=== PATIENT | female | born 1965 | race American Indian/Alaskan Native ===

== ENCOUNTER 2020-04-29 11:22 | Outpatient (REF) | payer MEDICAID, SELFPAY ==
--- NOTE | 2020-04-29 11:26 | MM_ITS ---
EXAMINATION: MM SCREENING DIGITAL BREAST TOMOSYNTHESIS, BILATERAL CLINICAL INFORMATION: Screening. Asymptomatic. The lifetime risk of breast cancer based on the Tyrer-Cuzick Model is 6%. COMPARISON: Mammography: 04/24/2019, 03/29/2018, 02/16/2017 TECHNIQUE: Digital breast tomosynthesis is performed in both the craniocaudal and mediolateral oblique views along with computer-aided detection (CAD). Synthesized 2D images are generated from the tomosynthesis. FINDINGS: There are scattered areas of fibroglandular density (ACR BI-RADS breast composition Category b). There are no significant masses, abnormal calcifications, or other abnormalities. Parenchymal pattern is similar to prior studies. No developing density. No significant changes. MM/MM tomosynthesis screening BI IMPRESSION: No mammographic evidence of malignancy. ASSESSMENT: BI-RADS 1: Negative RECOMMENDATION: Routine annual mammography screening. This patient's information was entered into a reminder system with a target due date for their next mammogram.
== END 2020-04-29 11:23 | disposition home or self-care (01) ==
LOC: HO.MAMMO 11:22
PROVIDERS: PCP Nurse Practitioner Family; Visit Provider Nurse Practitioner Family
DX: Z12.31 Encounter for screening mammogram for malignant neoplasm of breast (principal)
CPT/HCPCS: 77063; 77067

== ENCOUNTER 2020-10-12 13:40 | Emergency (ER) | payer OTHER, SELFPAY ==
--- NOTE | ~2020-10-12 | XR_ITS ---
EXAMINATION: XR CHEST CLINICAL INFORMATION: Pain COMPARISON: Chest radiographs 01/03/2020, 12/19/2019 TECHNIQUE: Portable upright AP view of the chest was obtained. FINDINGS: The lungs are clear. There is no pneumothorax, airspace consolidation, pleural reaction, or effusion. The heart is normal in size. The costophrenic sulci are clear. The hilar and mediastinal contours and visualized bony structures are unremarkable. XR/XR chest 1V IMPRESSION: Unremarkable examination.
[2020-10-12 13:48] VITALS: BP 149/98; PULSE 99; RESP 18; TEMP 36.4; O2SAT 100; BMI 23.9
--- NOTE | 2020-10-12 14:19 | ED_ITS ---
HPI - General Adult General Chief complaint: General Medical Stated complaint: back pain Time Seen by Provider: 10/12/20 14:19 History of Present Illness HPI narrative: Patient complains of left upper back and trapezius pain as well as left upper arm pain for several days since getting the COVID vaccine, pain is worse with movement, denies any chest pain or shortness of breath, now neck pain no numbness weakness or tingling Related Data Previous Rx's Medication Instructions Recorded cyclobenzaprine 5 mg PO TID PRN #10 tab 10/12/20 oxycodone 5 mg PO Q6H PRN #14 cap 10/12/20 Allergies Allergy/AdvReac Type Severity Reaction Status Date / Time No Known Allergies Allergy Verified 10/12/20 13:51 [No Known Allergies*] Review of Systems Review of Systems: Positive for left upper back and left trapezius pain Negatives are no fever no chills no dizziness no weakness no fainting no headac he no confusion no numbness weakness or tingling no chest pain no palpitations no shortness of breath no abdominal pain no vomiting no rash Yes all other systems are reviewed and are negative [facility] Past Medical History Source: nursing notes reviewed Medical History (Updated 10/13/20 @ 00:01 by Chrissy Gomez) Anxiety Diabetes High blood pressure Hyperlipidemia Migraine Social History Social History Advance Directives: No Advance Directives Information Provided: Yes Physical Exam Vital Signs: Vital Signs: Last Vital Signs Temp 97.6 F 10/12/20 13:48 Pulse 99 10/12/20 13:48 Resp 18 10/12/20 13:48 BP 149/98 H 10/12/20 13:48 Pulse Ox 100 10/12/20 13:48 Body Mass Index 23.9 General appearance is no acute distress, comp comfortable and cooperative, in O x3 The head is normocephalic atraumatic The neck is supple and nontender with full range of motion There is tenderness over the left trapezius as well as tenderness between the scapula and the midline on the left side, skin is normal, pain is easily reproduced with movement The chest is clear to auscultation bilaterally with full symmetric equal breath sounds, there is no chest wall tenderness The heart rate and rhythm regular no murmur Abdomen soft nontender Extremities is full range of motion x4 Skin no rashes Neuro there is no focal motor or sensory deficit, 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 and symmetrical in both hands, gait and balance are normal, verbal interaction both understanding and communication are clear and normal Course Course Course Narrative: Chest x-ray was done and was normal no evidence of pneumothorax, no evidence of any bony injury Patient with reproducible musculoskeletal left side of her back pain and trapezius pain is discharged with analgesics Discharge Plan Discharge Clinical Impression: Upper back pain on left side Patient Disposition: Home, Self-Care Additional Instructions: Pain is most likely musculoskeletal pain, possibly related to her COVID vaccination Chest x-ray was normal We wrote a narcotic pain killer as well as a muscle relaxer Follow with primary doctor for physical therapy and further evaluation if needed Return to ER any time any worse condition or any concerns Prescriptions: New cyclobenzaprine 5 mg tablet 5 mg PO TID PRN (Reason: muscle spasm) Qty: 10 RF: 0 oxycodone 5 mg capsule 5 mg PO Q6H PRN (Reason: pain) Qty: 14 RF: 0 Interventions: ED Discharge Assessment Last Done: 10/12/20 15:54 Discharge Date/Time: 10/12/20 16:00
== END 2020-10-12 16:00 | disposition home or self-care (01) ==
PROVIDERS: Emergency Provider Emergency Medicine
DX: M54.6 Pain in thoracic spine (principal); E11.9 Type 2 diabetes mellitus without complications; I10 Essential (primary) hypertension; E78.5 Hyperlipidemia, unspecified
CPT/HCPCS: 71045; 99283

== ENCOUNTER 2020-11-05 08:53 | Outpatient (REF) | payer OTHER, SELFPAY ==
--- NOTE | ~2020-11-05 | XR_ITS ---
EXAMINATION: XR LUMBOSACRAL SPINE CLINICAL INFORMATION: Lower back pain. COMPARISON: Lumbar spine radiographs dated 02/10/2016. TECHNIQUE: 3 views of the lumbosacral spine. FINDINGS: Normal vertebral body alignment. The lumbar lordosis is maintained. No acute fracture or subluxation. No loss of vertebral body height. Mild loss of intervertebral disc height at L2-L3. Small anterior endplate osteophytes at L2-L5. Bilateral facet arthropathy at L4-L5 and L5-S1. Right upper quadrant surgical clips. XR/XR lumbar spine 2-3V IMPRESSION: Mild degenerative disc disease at L2-L5 as well as bilateral facet arthropathy at L4-L5 and L5-S1, slightly progressed when compared to the prior radiographs.
[2020-11-05 09:37] LABS: MANUAL DIFF FLAG NO
[2020-11-05 09:46] LABS: Basophils Percent Auto 0.5 % (0-2); Eosinophils Absolute Auto 0.1 X10*3/uL (0.0-0.4); Eosinophils Percent Auto 1.5 % (0-4); Glucose Urine UA NEG (NEG); Hematocrit 32.7 % (37-47); Hemoglobin 10.8 g/dl (12.0-16.0); Imm Gran Abs Auto 0.02 X10*3/uL (0.00-0.03); Imm Gran Pct Auto 0.3 % (0.0-0.4); Immature Retic Fraction 7.9 % (3.0-15.9); Leukocyte Esterase Urine 1+ (NEG); Lymphocytes Absolute Auto 2.4 X10*3/uL (1.2-4.9); Lymphocytes Percent Auto 39.8 % (20-40); Mean Corpuscular Hemoglobin 30.9 pg (27.0-33.0); Mean Corpuscular Volume 93.4 fL (80-98); Mean Platelet Volume 10.2 fL (9.4-12.3); Monocytes Absolute Auto 0.6 X10*3/uL (0.1-1.2); Monocytes Percent Auto 9.4 % (2-11); Neutrophils Absolute Auto 2.9 X10*3/uL (2.0-8.3); Neutrophils Percent Auto 48.5 % (45-73); Nitrite Urine NEG (NEG); PH 5.5 (5.0-8.0); Platelet Count 253 X10*3/uL (160-400); Red Cell Distribution Width 12.6 % (11.0-16.0); Retic HGB Equivalent 34.2 pg (30.0-35.0); Reticulocyte Percent 1.4 % (0.5-1.8); Reticulocytes Absolute 0.049 X10*6/uL (0.026-0.095); Specific Gravity - Urine 1.025 (1.005-1.025); Urine Blood NEG (NEG); Urine Ketones NEG (NEG); Urine Protein NEG (NEG-TRACE); White Blood Count 6.1 X10*3/uL (4.8-10.8)
[2020-11-05 09:50] LABS: Appearance Urine HAZY; Color Urine YELLOW
[2020-11-05 10:01] LABS: Alanine Aminotransferase 17 U/L (0-31); Albumin Level 4.5 g/dL (3.5-5.0); Alkaline Phosphatase 58 U/L (39-117); Anion Gap 13 (12-20); Aspartate Amino Transferase 20 U/L (5-31); Bilirubin Total 0.5 mg/dL (0.0-1.0); Blood Urea Nitrogen 16 mg/dL (9-16); Carbon Dioxide 25 mmol/L (22-29); Chloride 106 mmol/L (96-108); Cholesterol 144 mg/dL; Estimated Glomerular Filt Rate > 60; Glucose Random 176 mg/dL (60-115); HDL Cholesterol 49 mg/dL; Iron 109 mcg/dL (30-160); LDL Cholesterol Calculated 76 mg/dl; Percent Iron Saturation 39 % (15-50); Sodium 140 mmol/L (135-145); Total Iron Binding Capacity 281 mcg/dL (228-428); Total Protein 7.6 g/dL (6.5-8.0); Triglycerides 98 mg/dL; Unsaturated Iron Binding 172 ug/dL
[2020-11-05 10:07] LABS: RBC Urine 0 /HPF (0); Renal Epithelial Cells Urine TRACE /LPF; Squamous Epithelial Cell Urine 2+ /LPF; WBC Urine 0-2 /HPF (0-4)
[2020-11-05 10:27] LABS: Ferritin 55 ng/mL (10-250); Free T4 (Free Thyroxine) 1.03 ng/dL (0.71-1.85); Thyroid Stimulating Hormone 0.57 uIU/mL (0.32-4.0); Vitamin D 25-OH Total 56.9 ng/mL (>30)
[2020-11-05 11:01] LABS: Folate 19.8 ng/mL (> or = 4.0); Vitamin B12 1400 pg/mL (200-900)
[2020-11-05 11:05] LABS: Creatinine Urine 197.89 mg/dL; Microalbum/Creatinine Ratio Ur 11.1 ug/mg cr
== END 2020-11-05 08:54 | disposition home or self-care (01) ==
LOC: HO.LAB 08:53
PROVIDERS: PCP Internal Medicine; Visit Provider Internal Medicine
DX: E11.65 Type 2 diabetes mellitus with hyperglycemia (principal); I10 Essential (primary) hypertension; E78.00 Pure hypercholesterolemia, unspecified; M54.5 Low back pain
CPT/HCPCS: 36415; 72100; 80053; 80061; 81001; 82043; 82306; 82607; 82728; 82746; 83540; 84439; 84443; 85025; 85045

== ENCOUNTER 2021-01-28 16:20 | Outpatient (REF) | payer OTHER, SELFPAY ==
[2021-01-28 17:57] LABS: Blood Urea Nitrogen 12 mg/dL (9-16); Estimated Glomerular Filt Rate 55
== END 2021-01-28 16:21 | disposition home or self-care (01) ==
LOC: HO.LAB 16:20
PROVIDERS: PCP Internal Medicine; Visit Provider Psychiatry & Neurology Neurology
DX: G43.909 Migraine, unspecified, not intractable, without status migrainosus (principal); I67.1 Cerebral aneurysm, nonruptured
CPT/HCPCS: 36415; 82565; 84520

== ENCOUNTER 2021-02-02 11:23 | Emergency (ER) | payer OTHER, SELFPAY ==
--- NOTE | ~2021-02-02 | CT_ITS ---
EXAMINATION: CT HEAD WITHOUT CONTRAST CLINICAL INFORMATION: Migraine headache. COMPARISON: CT brain dated 01/03/2020. TECHNIQUE: Contiguous axial imaging was performed from the skull base to vertex without intravenous administration of contrast. Multiplanar reformatted images are submitted. This CT examination was performed using dose optimization techniques as appropriate, variously including the following: *Automated exposure control *Adjustment of mA and/or kV according to patient size (this includes techniques or standardized protocols for targeted exams where dose is matched to indication/reason for exam; i.e. extremities or head) *Use of iterative reconstruction technique DLP: 1016 mGy-cm FINDINGS: There is no evidence of acute intracranial hemorrhage or territorial infarction. No abnormal mass effect or midline shift is seen. Madrigal to white matter differentiation is well preserved. No extra-axial fluid collections are identified. The ventricles are normal in size. There is no abnormal attenuation within the brain parenchyma. The osseous structures and soft tissues are normal. The mastoid air cells and visualized portions of the paranasal sinuses are well aerated. CT/CT cervical spine wo con IMPRESSION: 1. No acute intracranial pathology. 2. Previously noted bilateral internal carotid artery aneurysms are less well appreciated than on the recent CT examination. EXAMINATION: CT CERVICAL SPINE WITHOUT CONTRAST CLINICAL INFORMATION: Cervical arthritis. COMPARISON: None TECHNIQUE: Without the addition of intravenous contrast, multiple contiguous multidetector transaxial sections are obtained through the cervical spine. Multiplanar reformatted images are submitted. This CT examination was performed using dose optimization techniques as appropriate, variously including the following: *Automated exposure control *Adjustment of mA and/or kV according to patient size (this includes techniques or standardized protocols for targeted exams where dose is matched to indication/reason for exam; i.e. extremities or head) *Use of iterative reconstruction technique DLP: 1016 mGy-cm FINDINGS: Vertebral body heights and alignment are normal. The disc spaces are well-maintained. There is mild spondylosis at C4-C5 and C5-C6.. No acute fracture or spondylolisthesis is seen. The posterior elements are intact. The dens and C7-T1 interface are normal. There is no prevertebral soft tissue swelling. The lung apices appear clear. IMPRESSION: 1. No acute fracture or spondylolisthesis is seen. 2. The disc spaces are well-maintained. 3. There is mild spondylosis at C4-C5 and C5-C6.
--- NOTE | ~2021-02-02 | XR_ITS ---
EXAMINATION: XR CHEST CLINICAL INFORMATION: Headache, migraine. Assess for pneumonia. COMPARISON: Chest radiographs 10/12/2020, 01/03/2020 TECHNIQUE: Portable upright AP view of the chest was obtained. FINDINGS: The lungs are clear. The vascularity is normal. The costophrenic sulci are clear. There is no airspace consolidation or groundglass opacity. The heart is normal in size. The hilar and mediastinal contours are normal. No acute bony abnormality. XR/XR chest 1V IMPRESSION: Unremarkable examination.
[2021-02-02 12:07] VITALS: BP 174/88; PULSE 87; RESP 18; TEMP 36.6; O2SAT 100; BMI 25.4
--- NOTE | 2021-02-02 12:10 | ECG_ITS ---
Test Reason : DIZZINESS Blood Pressure : / mmHG Vent. Rate : 088 BPM Atrial Rate : 088 BPM P-R Int : 132 ms QRS Dur : 086 ms QT Int : 370 ms P-R-T Axes : 139 139 132 degrees QTc Int : 447 ms Suspect limb lead reversal, interpretation assumes no reversal Unusual P axis, possible ectopic atrial rhythm Left posterior fascicular block Abnormal ECG When compared with ECG of 03-JAN-2020 11:55, Ectopic atrial rhythm has replaced Sinus rhythm Nonspecific T wave abnormality now evident in Lateral leads Referred By: Bean Johnson Electronically Signed By:RUTH MARTIN
--- NOTE | 2021-02-02 14:11 | ED_ITS ---
HPI - Chest Pain General Chief Complaint: Chest Pain Stated Complaint: head pain chest pain Time Seen by Provider: 02/02/21 13:59 Source: patient Mode of arrival: ambulatory Limitations: no limitations History of Present Illness HPI narrative: Patient presents to the ED left posterior neck pain radating down left arm and chest for the past 1 weeks. patient states aslo chronic migraine headache. Patient denies any fever, chills, nausea, emesis, slurred speech, pleuretic chest pain, swelling of extremities, calf pain, recent surgery, recent long travel, or pmh of blood clots. Patient denies any photophobia MD complaint: chest pain Related Data Home Medications Medication Instructions Recorded Confirmed albuterol sulfate 2.5 mg INHALATION Q4-6H PRN 11/04/20 11/04/20 albuterol sulfate 90 mcg/actuation 2 puff INHALATION Q4-6H PRN 11/04/20 11/04/20 aerosol inhaler (ProAir HFA) aluminum chloride 20 % topical 1 appl TOPICAL BID PRN ml 11/04/20 11/04/20 solution (Drysol Dab-O-Matic) clonazepam 1 mg tablet 1 mg PO TID 11/04/20 11/04/20 cromolyn 4 % eye drops 1 drp OPHTHALMIC (EYE) QID 11/04/20 11/04/20 diclofenac sodium 75 mg 75 mg PO BID 11/04/20 11/04/20 tablet,delayed release glipizide 10 mg tablet 10 mg PO BID 11/04/20 11/04/20 minoxidil 2 % topical solution 1 ml TOPICAL BID 11/04/20 11/04/20 (Rogaine) multivit with 1 tab PO DAILY 11/04/20 11/04/20 epabkxmr-rmhj-RD-lutein 8 mg iron-400 mcg-300 mcg tablet (Centrum Silver Women) polyethylene glycol 3350 17 17 g PO DAILY 11/04/20 11/04/20 gram/dose oral powder (Miralax) topiramate 25 mg tablet 25 mg PO BEDTIME tab 11/04/20 11/04/20 venlafaxine 37.5 mg tablet 37.5 mg PO DAILY 11/04/20 11/04/20 venlafaxine 75 mg tablet 75 mg PO DAILY 11/04/20 11/04/20 Previous Rx's Medication Instructions Recorded cyclobenzaprine 5 mg tablet 5 mg PO TID PRN #10 tab 10/12/20 lidocaine 5 % topical patch 1 patch TOPICAL DAILY #30 ea 11/04/20 aspirin 81 mg tablet,delayed 81 mg PO DAILY #30 tab 11/24/20 release cholecalciferol (vitamin D3) 25 25 mcg PO DAILY 90 Days #90 cap 12/01/20 mcg (1,000 unit) capsule metformin 500 mg tablet 1,000 mg PO BID 90 Days #360 tab 12/01/20 simvastatin 20 mg tablet 20 mg PO BEDTIME 90 Days #90 tab 12/01/20 lisinopril 20 mg tablet 20 mg PO DAILY #30 tab 12/17/20 amlodipine 10 mg tablet 10 mg PO DAILY #90 tab 12/28/20 omeprazole 20 mg capsule,delayed 20 mg PO DAILY 90 Days #90 cap 12/28/20 release prednisone 20 mg tablet 60 mg PO DAILY 5 Days #15 tab 02/02/21 Allergies Allergy/AdvReac Type Severity Reaction Status Date / Time No Known Allergies Allergy Verified 10/12/20 13:51 [No Known Allergies*] Review of Systems Review of Systems: Yes all other systems are reviewed and are negative Constitutional: Constitutional: Reports as per HPI and Reports no additional constitutional complaints Eyes: Eyes: Reports as per HPI and Reports no additional eye complaints ENT: Reports system reviewed and no additional complaints, except as documented, Reports as per HPI and Reports neck pain (posteior neck pain) Cardiovascular: Cardiovascular: Reports as per HPI, Reports no additional cardiovascular complaints, Reports chest pain and Denies dyspnea Respiratory: Respiratory: Reports as per HPI, Reports no additional respiratory complaints, Denies chest congestion, Denies cough, Denies pain on inspiration, Denies pain with cough and Denies dyspnea Gastrointestinal: Gastrointestinal: Reports as per HPI and Reports no additional gastrointestinal complaints Genitourinary: Genitourinary: Reports no additional female genitourinary complaints and Reports as per HPI Musculoskeletal: Musculoskeletal: Reports no additional musculoskeletal complaints, Reports as per HPI and Reports neck pain (posteior neck pain) Comments: left arm pain Neurologic: Reports system reviewed and no additional complaints, except as documented and Reports as per HPI Psychiatric: Psychiatric: Reports no additional psychiatric complaints and Reports as per HPI [facility] Past Medical History Medical History (Updated 02/03/21 @ 00:01 by Background Daemon) Anxiety and depression Asthma Dysplasia of cervix, low grade (BILLY 1) Hypercholesterolemia Hyperhidrosis Hypertension Migraine Renal calculus, bilateral Type 2 diabetes mellitus with hyperglycemia Surgical History (Updated 11/04/20 @ 09:40 by Christine Treviño MD) History of hemorrhoidectomy History of right oophorectomy Hx of appendectomy Hx of cholecystectomy Family History Family History (Updated 11/04/20 @ 09:45 by Christine Treviño MD) Father Substance abuse Brother Substance abuse Schizophrenia Social History Social History (Updated 11/04/20 @ 09:21 by Sharda Miller CMA) Alcohol intake: never Physical Exam Vital Signs: Vital Signs: Last Vital Signs Temp 98.4 F 02/02/21 14:34 Pulse 73 02/02/21 14:34 Resp 14 02/02/21 14:34 BP 129/87 02/02/21 14:34 Pulse Ox 99 02/02/21 14:34 Body Mass Index 25.4 Const: General: cooperative, healthy appearing, comfortable, no acute distress, well developed, alert, awake and Physically active Orientation/consciousness: patient oriented x3 HENMT: Head: Yes normal to inspection, Yes No palpable skull fracture present, Yes normocephalic and Yes atraumatic Eyes: General: appearance normal, both eyes and all related structures Neck: Neck: Yes normal visual inspection, Yes full ROM, Yes no lymphadenopathy, Yes no meningeal signs, Yes trachea midline, Yes supple and Yes tender (left posterior cervical) Chest: Chest palpation & inspection: normal inspection of the chest and normal palpation of entire chest wall Resp: Effort & Inspection: normal respiratory effort and able to speak in complete sentences Auscultation: clear to auscultation bilaterally Cardio: Jugular venous distension: no JVD Heart sounds: S1 normal heart sound present and S2 normal heart sound present GI: Inspection: Yes normal to inspection and No abdominal wall ecchymosis Palpation (GI): Soft to palpation, not firm, nontender and no guarding : General: No CVA tenderness and Yes no CVA tenderness Back/Spine/Pelvis: Back: no CVA tenderness, No CVA tenderness and No back tenderness Skin: General skin exam: no rashes or lesions noted and elasticity normal Neuro: General: patient oriented x3, gait normal, no meningeal signs and CN's II-XI intact bilaterally Cranial nerves: Yes CN's II-XII intact bilaterally Extrem: General: Yes normal to inspection and Yes full ROM Psych: Appearance: grossly normal, well kempt and not disheveled Course Course Course Narrative: Will do Cardiac evaluation Reevaluation(s) Reevaluation #1: EKG negative stemi. Troponin is negative. Head CT came back nofrmal. Cervical Spine CT scan shows spondylosis and radiculopathy. BNP negative. NOt suspecting PE. patient has no known risk factors for PE. Pain most likely from cervical radiculopathy. Patient eating food and watching television. Headache resolved without any pain meds. Patient has no chest pain before dischage. Time: 18:22 MDM - Chest Pain MDM Narrative Medical decision making narrative: Atypical chest pain, cervical radiculopatju Lab Data Result diagrams: 02/02/21 14:32 02/02/21 14:32 Labs: Lab Results 02/02/21 02/02/21 02/02/21 Range/Units 14:32 14:32 14:32 WBC 7.0 (4.8-10.8) X10*3/uL RBC 3.93 L (4.20-5.50) X10*6/uL Hgb 12.0 (12.0-16.0) g/dl Hct 36.5 L (37-47) % MCV 92.9 (80-98) fL MCH 30.5 (27.0-33.0) pg MCHC 32.9 (31.0-35.0) g/dl RDW 12.6 (11.0-16.0) % Plt Count 242 (160-400) X10*3/uL MPV 10.3 (9.4-12.3) fL Immature Gran % (Auto) 0.3 (0.0-0.4) % Neut % (Auto) 58.3 (45-73) % Lymph % (Auto) 35.3 (20-40) % [place] % (Auto) 5.6 (2-11) % Eos % (Auto) 0.4 (0-4) % Baso % (Auto) 0.1 (0-2) % Lymph # (Auto) 2.5 (1.2-4.9) X10*3/uL [place] # (Auto) 0.4 (0.1-1.2) X10*3/uL Eos # (Auto) 0.0 (0.0-0.4) X10*3/uL Baso # (Auto) 0.0 (0.0-0.2) X10*3/uL Abs Immat Gran (auto) 0.02 (0.00-0.03) X10*3/uL Absolute Neuts (auto) 4.1 (2.0-8.3) X10*3/uL Absolute Nucleated RBC 0.000 (0.0-0.012) X10*3/uL Nucleated RBC % (auto) 0.0 (0.0-0.2) /100WBC PT 11.6 (9.9-13.0) SEC INR 1.0 (0.9-1.1) APTT 35.4 (24.1-38.0) SEC Sodium 141 (135-145) mmol/L Potassium 4.3 (3.3-5.1) mmol/L Chloride 104 (96-108) mmol/L Carbon Dioxide 29 (22-29) mmol/L Anion Gap 12 (12-20) BUN 9 (9-16) mg/dL Creatinine 0.85 (0.5-1.4) mg/dL Estim Creat Clear Calc 69.4 Estimated GFR > 60 Random Glucose 123 H (60-115) mg/dL Calcium 10.2 (8.4-10.2) mg/dL Total Bilirubin 0.2 (0.0-1.0) mg/dL AST 20 (5-31) U/L ALT 18 (0-31) U/L Alkaline Phosphatase 60 (39-117) U/L Troponin I High Sens (<3.5-17.0) ng/L B-Natriuretic Peptide (<100) pg/mL Total Protein 7.8 (6.5-8.0) g/dL Albumin 4.6 (3.5-5.0) g/dL COVID-19 (RAFA) (Negative) COVID-19 Clin Com 02/02/21 02/02/21 Range/Units 14:32 14:32 WBC (4.8-10.8) X10*3/uL RBC (4.20-5.50) X10*6/uL Hgb (12.0-16.0) g/dl Hct (37-47) % MCV (80-98) fL MCH (27.0-33.0) pg MCHC (31.0-35.0) g/dl RDW (11.0-16.0) % Plt Count (160-400) X10*3/uL MPV (9.4-12.3) fL Immature Gran % (Auto) (0.0-0.4) % Neut % (Auto) (45-73) % Lymph % (Auto) (20-40) % [place] % (Auto) (2-11) % Eos % (Auto) (0-4) % Baso % (Auto) (0-2) % Lymph # (Auto) (1.2-4.9) X10*3/uL [place] # (Auto) (0.1-1.2) X10*3/uL Eos # (Auto) (0.0-0.4) X10*3/uL Baso # (Auto) (0.0-0.2) X10*3/uL Abs Immat Gran (auto) (0.00-0.03) X10*3/uL Absolute Neuts (auto) (2.0-8.3) X10*3/uL Absolute Nucleated RBC (0.0-0.012) X10*3/uL Nucleated RBC % (auto) (0.0-0.2) /100WBC PT (9.9-13.0) SEC INR (0.9-1.1) APTT (24.1-38.0) SEC Sodium (135-145) mmol/L Potassium (3.3-5.1) mmol/L Chloride (96-108) mmol/L Carbon Dioxide (22-29) mmol/L Anion Gap (12-20) BUN (9-16) mg/dL Creatinine (0.5-1.4) mg/dL Estim Creat Clear Calc Estimated GFR Random Glucose (60-115) mg/dL Calcium (8.4-10.2) mg/dL Total Bilirubin (0.0-1.0) mg/dL AST (5-31) U/L ALT (0-31) U/L Alkaline Phosphatase (39-117) U/L Troponin I High Sens < 3.5 (<3.5-17.0) ng/L B-Natriuretic Peptide 22 (<100) pg/mL Total Protein (6.5-8.0) g/dL Albumin (3.5-5.0) g/dL COVID-19 (RAFA) Negative (Negative) COVID-19 Clin Com See Note Discharge Plan Discharge Clinical Impression: Atypical chest pain, Cervical radiculopathy Patient Disposition: Home, Self-Care Instructions: Chest Pain (ED), Cervical Radiculopathy (ED) Additional Instructions: Nunn HEad CT volvi? a la normalidad. Nunn tomograf?a computarizada del jackie uterino muestra espondilosis. Nunn electrocardiograma y troponina resultaron negativos para un ataque card?aco. unnn BNP por susanna auditiva result? negativo. El hisopo de Covid result? negativo. La radiograf?a de t?rax result? negativa para neumon?a. La TC de margo es normal. Regrese al servicio de urgencias si empeora el dolor en el pecho, rigidez del jackie, dificultad para respirar, dolor pleur?robert en el pecho, dolor en la pantorrilla, hinchaz?n de las extremidades inferiores, dificultad para hablar, p?rdida de la visi?n, par?lisis de las extremidades o cualquier otro s?ntoma relacionado. Alejandro un seguimiento con nunn PCP. Tambi?n tome nunn diclofenaco para aliviar el dolor. Prescriptions: New prednisone 20 mg tablet 60 mg PO DAILY 5 Days Qty: 15 RF: 0 No Action aspirin 81 mg tablet,delayed release (DR/EC) 81 mg PO DAILY Qty: 30 RF: 11 metformin 500 mg tablet 1,000 mg PO BID 90 Days Qty: 360 RF: 2 simvastatin 20 mg tablet 20 mg PO BEDTIME 90 Days Qty: 90 RF: 2 cholecalciferol (vitamin D3) 25 mcg (1,000 unit) capsule 25 mcg PO DAILY 90 Days Qty: 90 RF: 3 lisinopril 20 mg tablet 20 mg PO DAILY Qty: 30 RF: 6 amlodipine 10 mg tablet 10 mg PO DAILY Qty: 90 RF: 0 omeprazole 20 mg capsule,delayed release(DR/EC) 20 mg PO DAILY 90 Days Qty: 90 RF: 0 cyclobenzaprine 5 mg tablet 5 mg PO TID PRN (Reason: muscle spasm) Qty: 10 RF: 0 venlafaxine 37.5 mg tablet 37.5 mg PO DAILY RF: 0 venlafaxine 75 mg tablet 75 mg PO DAILY RF: 0 clonazepam 1 mg tablet 1 mg PO TID RF: 0 minoxidil [Rogaine] 2 % solution 1 ml topical BID RF: 0 topiramate 25 mg tablet 25 mg PO BEDTIME RF: 0 Centrum Silver Women 8 mg iron-400 mcg-300 mcg tablet 1 tab PO DAILY RF: 0 cromolyn 4 % drops 1 drp ophthalmic (eye) QID RF: 0 albuterol sulfate [ProAir HFA] 90 mcg/actuation HFA aerosol inhaler 2 puff inhalation Q4-6H PRNRF: 0 aluminum chloride [Drysol Dab-O-Matic] 20 % solution 1 appl topical BID PRNRF: 0 albuterol sulfate 2.5 mg /3 mL (0.083 %) solution for nebulization 2.5 mg inhalation Q4-6H PRNRF: 0 glipizide 10 mg tablet 10 mg PO BID RF: 0 polyethylene glycol 3350 [Miralax] 17 gram/dose powder 17 g PO DAILY RF: 0 diclofenac sodium 75 mg tablet,delayed release (DR/EC) 75 mg PO BID RF: 0 lidocaine 5 % adhesive patch,medicated 1 patch topical DAILY Qty: 30 RF: 2 Interventions: ED Discharge Assessment Last Done: 02/02/21 19:06 Discharge Date/Time: 02/02/21 19:08 Print Language: Amharic
[2021-02-02 14:34] VITALS: BP 129/87; PULSE 73; RESP 14; TEMP 36.9; O2SAT 99
[2021-02-02 14:41] LABS: MANUAL DIFF FLAG NO
[2021-02-02 14:44] LABS: Basophils Percent Auto 0.1 % (0-2); Eosinophils Percent Auto 0.4 % (0-4); Hematocrit 36.5 % (37-47); Imm Gran Abs Auto 0.02 X10*3/uL (0.00-0.03); Imm Gran Pct Auto 0.3 % (0.0-0.4); Lymphocytes Absolute Auto 2.5 X10*3/uL (1.2-4.9); Lymphocytes Percent Auto 35.3 % (20-40); Mean Corpuscular HGB Conc 32.9 g/dl (31.0-35.0); Mean Corpuscular Hemoglobin 30.5 pg (27.0-33.0); Mean Corpuscular Volume 92.9 fL (80-98); Mean Platelet Volume 10.3 fL (9.4-12.3); Monocytes Absolute Auto 0.4 X10*3/uL (0.1-1.2); Monocytes Percent Auto 5.6 % (2-11); Neutrophils Absolute Auto 4.1 X10*3/uL (2.0-8.3); Neutrophils Percent Auto 58.3 % (45-73); Platelet Count 242 X10*3/uL (160-400); Red Blood Count 3.93 X10*6/uL (4.20-5.50); Red Cell Distribution Width 12.6 % (11.0-16.0)
[2021-02-02 14:48] LABS: Prothrombin Time 11.6 SEC (9.9-13.0)
[2021-02-02 14:51] LABS: Partial Thromboplastin Time 35.4 SEC (24.1-38.0)
[2021-02-02 15:06] LABS: COVID-19 Test Negative (Negative)
[2021-02-02 15:14] LABS: Alanine Aminotransferase 18 U/L (0-31); Albumin Level 4.6 g/dL (3.5-5.0); Alkaline Phosphatase 60 U/L (39-117); Anion Gap 12 (12-20); Aspartate Amino Transferase 20 U/L (5-31); B Type Natriuretic Peptide 22 pg/mL (<100); Bilirubin Total 0.2 mg/dL (0.0-1.0); Blood Urea Nitrogen 9 mg/dL (9-16); Calcium 10.2 mg/dL (8.4-10.2); Carbon Dioxide 29 mmol/L (22-29); Chloride 104 mmol/L (96-108); Creatinine Clr Calc Pharmacy 69.4; Estimated Glomerular Filt Rate > 60; Glucose Random 123 mg/dL (60-115); Potassium 4.3 mmol/L (3.3-5.1); Sodium 141 mmol/L (135-145); Total Protein 7.8 g/dL (6.5-8.0); Troponin-I High Sensitivity < 3.5 ng/L (<3.5-17.0)
--- NOTE | 2021-02-02 17:50 | ECG_ITS ---
Test Reason : CHEST PAIN Blood Pressure : / mmHG Vent. Rate : 076 BPM Atrial Rate : 076 BPM P-R Int : 146 ms QRS Dur : 084 ms QT Int : 390 ms P-R-T Axes : 061 061 060 degrees QTc Int : 438 ms Normal sinus rhythm Normal ECG When compared with ECG of 02-FEB-2021 12:12, Sinus rhythm has replaced Ectopic atrial rhythm Nonspecific T wave abnormality no longer evident in Lateral leads Referred By: Bean Johnson Electronically Signed By:RUTH MARTIN
== END 2021-02-02 19:08 | disposition home or self-care (01) ==
PROVIDERS: Physician Assistant; Emergency Provider Internal Medicine; PCP Internal Medicine
DX: R07.89 Other chest pain (principal); M54.12 Radiculopathy, cervical region; Z20.822 Contact with and (suspected) exposure to COVID-19; R51.9 Headache, unspecified; E11.9 Type 2 diabetes mellitus without complications; I10 Essential (primary) hypertension; Z79.899 Other long term (current) drug therapy
CPT/HCPCS: 36415; 70450; 71045; 72125; 80053; 83880; 84484; 85025; 85610; 85730; 87635; 93005; 99284

== ENCOUNTER 2021-02-05 08:08 | Outpatient (REF) | payer OTHER, SELFPAY ==
--- NOTE | ~2021-02-05 | CT_ITS ---
EXAMINATION: CT ANGIOGRAM BRAIN WITH CONTRAST CLINICAL INFORMATION: Cerebral aneurysm. COMPARISON: Head CTA 01/03/2020. TECHNIQUE: Test bolus sequences followed by intravenous administration 75 mL of Omnipaque 350. Helical imaging was performed in the axial plane from the skull base to the skull vertex. Delayed postcontrast imaging of the head was also performed. The data was processed at the certified nuclear medicine technologist workstation for generation of MIP sequences. Angled MIPs and volume rendered reformatted images were also generated at an offline 3D workstation. This CT examination was performed using dose optimization techniques as appropriate, variously including the following: *Automated exposure control *Adjustment of mA and/or kV according to patient size (this includes techniques or standardized protocols for targeted exams where dose is matched to indication/reason for exam; i.e. extremities or head) *Use of iterative reconstruction technique DLP: 2350 mGy-cm FINDINGS: Head CT: There is no intracranial hemorrhage, extra-axial collection, mass effect, or territorial infarction. The ventricles are normal in size and configuration without evidence of hydrocephalus. No enhancing lesion is seen. The dural venous sinuses are normally opacified. The extracranial structures are unremarkable. Head CTA: The 4.4 mm aneurysm arising from the paraclinoid segment of the left internal carotid artery is stable. The 3 mm aneurysm projecting anteriorly from the paraclinoid segment of the right internal carotid artery is stable. There are 2 adjacent aneurysms both arising laterally from the cavernous segment of the right internal carotid artery which also appears stable. In composite, these aneurysms and associated ectasia measuring up to 5.3 mm which is stable compared with the prior exam and measured in the similar fashion. The anterior and posterior circulations are unremarkable. No new aneurysm is seen. The right vertebral artery is nondominant but patent. CT/CT angio head IMPRESSION: No new or acute intracranial abnormality. Multiple aneurysms are redemonstrated and appears stable compared with 01/03/2020. 2 adjacent aneurysms projecting laterally from the cavernous segment of the right internal carotid artery appears stable and in composite measuring up to 5.3 mm. Continued follow-up recommended.
[2021-02-05] MEDS: iohexoL 350 MG/ML 100 ML INFUS..BTL IV (09:17)
== END 2021-02-05 08:09 | disposition home or self-care (01) ==
LOC: HO.CT 08:08
PROVIDERS: Visit Provider Psychiatry & Neurology Neurology
DX: I67.1 Cerebral aneurysm, nonruptured (principal)
CPT/HCPCS: 70496; Q9967

== ENCOUNTER 2021-03-26 12:58 | Outpatient (REF) | payer OTHER, SELFPAY ==
--- NOTE | ~2021-03-26 | XR_ITS ---
EXAMINATION: XR CERVICAL SPINE CLINICAL INFORMATION: Nonscarring hair loss, unspecified. COMPARISON: Previous cervical spine x-ray July 2014. TECHNIQUE: 3 views of the cervical spine were obtained. FINDINGS: There is mild curvature of the mid cervical spine to the right. Bone alignment is otherwise normal. No fracture or dislocation is seen. Disc spaces are normal. Prevertebral soft tissues are normal. XR/XR cervical spine 2V IMPRESSION: Unremarkable examination.
--- NOTE | ~2021-03-26 | XR_ITS ---
EXAMINATION: XR LUMBOSACRAL SPINE CLINICAL INFORMATION: Low back pain COMPARISON: Previous lumbar spine x-ray October 2020 TECHNIQUE: Three views of the lumbosacral spine. FINDINGS: Bone alignment is normal. No fracture or dislocation is seen. Disc spaces are normal. There is mild degenerative spondylosis at L2-L3 and L3-L4. There is lower lumbar spine facet arthritis. XR/XR lumbar spine 2-3V IMPRESSION: Mild degenerative changes.
== END 2021-03-26 12:59 | disposition home or self-care (01) ==
LOC: HO.XRAY 12:58
PROVIDERS: PCP Internal Medicine; Visit Provider Internal Medicine
DX: G89.29 Other chronic pain (principal); L65.9 Nonscarring hair loss, unspecified; M54.59 Other low back pain; R30.0 Dysuria
CPT/HCPCS: 72040; 72100

== ENCOUNTER 2021-04-27 12:31 | Emergency (ER) | payer OTHER, SELFPAY ==
--- NOTE | ~2021-04-27 | CT_ITS ---
EXAMINATION: CT HEAD WITHOUT CONTRAST CLINICAL INFORMATION: Left arm tingling. COMPARISON: CT head February 02, 2021 TECHNIQUE: Contiguous axial imaging was performed from the skull base to vertex without intravenous administration of contrast. Coronal and sagittal reformatted images are performed at the CT scanner. [This CT examination was performed using dose optimization techniques as appropriate, variously including the following: *Automated exposure control *Adjustment of mA and/or kV according to patient size (this includes techniques or standardized protocols for targeted exams where dose is matched to indication/reason for exam; i.e. extremities or head) *Use of iterative reconstruction technique] DLP: 668 mGy-cm. FINDINGS: There is no evidence of acute intracranial hemorrhage or territorial infarction. No abnormal mass-effect or midline shift is seen. Madrigal to white matter differentiation is well preserved. No extra-axial fluid collections are identified. The ventricles are normal in size. There is no abnormal attenuation within the brain parenchyma. There is no osseous abnormality. The mastoid air cells and visualized portions of the paranasal sinuses are well-aerated. CT/CT head/brain wo con IMPRESSION: No acute intracranial pathology.
--- NOTE | ~2021-04-27 | US_ITS ---
EXAMINATION: US ABDOMEN LIMITED CLINICAL INFORMATION: Right upper quadrant pain. History of cholecystectomy 15 years ago. Evaluate bile ducts only.. COMPARISON: None TECHNIQUE: Ultrasound exam of bile ducts only as per M.D. FINDINGS: CBD measures 0.4 cm. No intrahepatic bile duct dilatation. US/US abdomen limited IMPRESSION: Normal common bile duct.
--- NOTE | ~2021-04-27 | XR_ITS ---
EXAMINATION: XR CHEST CLINICAL INFORMATION: Chest pain COMPARISON: Chest x-ray February 02, 2021 TECHNIQUE: Frontal view of the chest was obtained. 1714 hours FINDINGS: No significant abnormality is noted involving the heart, lungs, mediastinum, bony thorax or soft tissues. XR/XR chest 1V IMPRESSION: Unremarkable examination.
--- NOTE | 2021-04-27 12:41 | ECG_ITS ---
Test Reason : weakness Blood Pressure : / mmHG Vent. Rate : 092 BPM Atrial Rate : 092 BPM P-R Int : 132 ms QRS Dur : 084 ms QT Int : 352 ms P-R-T Axes : 080 072 057 degrees QTc Int : 435 ms Normal sinus rhythm Normal ECG When compared with ECG of 02-FEB-2021 17:56, No significant changes seen Referred By: Generic ED Physician Electronically Signed By:MALLORY GAYLE MD
[2021-04-27 13:58] VITALS: BP 123/71; PULSE 85; RESP 16; TEMP 36.6; O2SAT 99; BMI 24.0
[2021-04-27 14:23] LABS: Appearance Urine CLEAR; Color Urine STRAW; Glucose Urine UA NEG (NEG); Leukocyte Esterase Urine 1+ (NEG); Nitrite Urine NEG (NEG); Specific Gravity - Urine <= 1.005 (1.005-1.025); UACC Culture Trigger YES; Urine Blood NEG (NEG); Urine Ketones NEG (NEG); Urine Protein NEG (NEG-TRACE)
[2021-04-27 14:36] LABS: Bacteria Urine TRACE /LPF; RBC Urine 0 /HPF (0); Squamous Epithelial Cell Urine TRACE /LPF
--- NOTE | 2021-04-27 17:10 | ED_ITS ---
HPI - General Adult General Chief complaint: General Medical Stated complaint: hbp, rapid heartbeat Time Seen by Provider: 04/27/21 15:28 Source: patient Mode of arrival: ambulatory History of Present Illness HPI narrative: 55-year-old female with a past medical history of asthma, hyperlipidemia, migraines, HTN, diabetes, renal calculi, s/p appendectomy and cholecystectomy, presenting to the ED complaining left-sided chest pressure since last night with associated left arm tingling and left leg tingling. Also reports RUQ abdominal pain and dysuria. Denies headache, vision change/loss, SOB, nausea/vomiting, hematuria, flank pain, weakness Onset (ago): day(s) Related Data Home Medications Medication Instructions Recorded Confirmed albuterol sulfate 2.5 mg INHALATION Q4-6H PRN 11/04/20 02/10/21 albuterol sulfate 90 mcg/actuation 2 puff INHALATION Q4-6H PRN 11/04/20 02/10/21 aerosol inhaler (ProAir HFA) aluminum chloride 20 % topical 1 appl TOPICAL BID PRN ml 11/04/20 02/10/21 solution (Drysol Dab-O-Matic) clonazepam 1 mg tablet 1 mg PO TID 11/04/20 02/10/21 cromolyn 4 % eye drops 1 drp OPHTHALMIC (EYE) QID 11/04/20 02/10/21 diclofenac sodium 75 mg 75 mg PO BID 11/04/20 02/10/21 tablet,delayed release glipizide 10 mg tablet 10 mg PO BID 11/04/20 02/10/21 minoxidil 2 % topical solution 1 ml TOPICAL BID 11/04/20 02/10/21 (Rogaine) multivit with 1 tab PO DAILY 11/04/20 02/10/21 gnwdwvnn-haqn-KW-lutein 8 mg iron-400 mcg-300 mcg tablet (Centrum Silver Women) polyethylene glycol 3350 17 17 g PO DAILY 11/04/20 02/10/21 gram/dose oral powder (Miralax) venlafaxine 37.5 mg tablet 37.5 mg PO DAILY 11/04/20 02/10/21 Previous Rx's Medication Instructions Recorded lidocaine 5 % topical patch 1 patch TOPICAL DAILY #30 ea 11/04/20 aspirin 81 mg tablet,delayed 81 mg PO DAILY #30 tab 11/24/20 release cholecalciferol (vitamin D3) 25 25 mcg PO DAILY 90 Days #90 cap 12/01/20 mcg (1,000 unit) capsule metformin 500 mg tablet 1,000 mg PO BID 90 Days #360 tab 12/01/20 simvastatin 20 mg tablet 20 mg PO BEDTIME 90 Days #90 tab 12/01/20 lisinopril 20 mg tablet 20 mg PO DAILY #30 tab 12/17/20 amlodipine 10 mg tablet 10 mg PO DAILY #90 tab 12/28/20 insulin glargine 100 unit/mL (3 12 unit (0.12 mL) SUBCUT QPM #15 ml 03/26/21 mL) subcutaneous pen (Lantus Solostar U-100 Insulin) insulin lispro 100 unit/mL See Rx Instructions SUBCUT TID #15 03/26/21 subcutaneous pen (Humalog KwikPen ml (U-100) Insulin) meloxicam 15 mg tablet 15 mg PO DAILY #30 tab 04/16/21 cefuroxime axetil 250 mg tablet 250 mg PO BID 7 Days #14 tab 04/27/21 Allergies Allergy/AdvReac Type Severity Reaction Status Date / Time No Known Allergies Allergy Verified 04/16/21 11:00 [No Known Allergies*] Review of Systems Review of Systems: Constitutional: No Fever, No Chills, No Night Sweats, No Fatigue, No Malaise ENT/Mouth: No Ear Pain, No Nasal Congestion, No sore throat, No Rhinorrhea, No Swallowing Difficulty Eyes: No Eye Pain, No Swelling, No Redness Cardiovascular: + Chest Pain, No SOB, No Orthopnea, No Edema, No Palpitations Respiratory: No Cough, No Dyspnea Gastrointestinal: No Nausea, No Vomiting, No Diarrhea, No Constipation, + Abdominal pain Genitourinary:+ Dysuria, No Urinary Frequency, No Hematuria, No Flank Pain Musculoskeletal: No joint pain, No Myalgias, No Joint Swelling Skin: No Skin Lesions, No rash Neuro: No Weakness, + Numbness, + Paresthesias, No Loss of Consciousness, No Dizziness, No Headache Yes all other systems are reviewed and are negative Neurologic: Denies Abnormal speech present PMFSH Past Medical History Attestation statement: The following information was validated with the patient. Medical History (Updated 04/27/21 @ 17:39 by EUGENE Garcia) Asthma Dysplasia of cervix, low grade (BILLY 1) Hypercholesterolemia Hyperhidrosis Hypertension Migraine Renal calculus, bilateral Type 2 diabetes mellitus with hyperglycemia Surgical History (Updated 11/04/20 @ 09:40 by Christine Treviño MD) History of hemorrhoidectomy History of right oophorectomy Hx of appendectomy Hx of cholecystectomy Family History Family History (Updated 11/04/20 @ 09:45 by Christine Trevioñ MD) Father Substance abuse Brother Substance abuse Schizophrenia Social History Social History (Updated 11/04/20 @ 09:21 by Sharda Miller CMA) Housing: Apartment Alcohol intake: never Patient Tobacco Use Status: Never used Tobacco Tobacco use type: Cigarette e-Cigarette/Vaping Use: Never Used Second Hand Smoke Exposure: No Advance Directives: No Advance Directives Information Provided: Yes Patient : No service: No Current occupational status: unemployed Physical Exam Vital Signs: Vital Signs: Last Vital Signs Temp 97.8 F 04/27/21 13:58 Pulse 85 04/27/21 13:58 Resp 16 04/27/21 13:58 BP 123/71 04/27/21 13:58 Pulse Ox 99 04/27/21 13:58 Body Mass Index 24.0 Const: General: cooperative, healthy appearing and no acute distress Orientation/consciousness: patient oriented x3 Limitations: no limitations HENMT: Head: Yes normal to inspection Ears: hearing grossly normal bilaterally General nose exam: Normal external nose present Face and sinus: Yes normal facial exam Mouth: Normal oral and palatal mucosa present Throat: Yes posterior oropharynx normal, Yes tonsils normal and Yes uvula midline Eyes: General: appearance normal, both eyes and all related structures Pupils: Equal, round and reactive pupils present EOM: EOMs intact bilaterally Neck: Neck: Yes normal visual inspection and Yes no meningeal signs Resp: Effort & Inspection: normal respiratory effort Auscultation: clear to auscultation bilaterally, no rales, no rhonchi and no wheezes Cardio: Rate: regular rate Heart sounds: S1 normal heart sound present and S2 normal heart sound present Peripheral pulses: radial pulses present GI: Inspection: Yes normal to inspection Palpation (GI): Soft to palpation, Tenderness to palpation present (GI) in the RUQ, no guarding and not rigid : General: Yes no CVA tenderness Back/Spine/Pelvis: Back: no CVA tenderness Skin: Rashes: no rashes Wounds: no wounds Neuro: General: patient oriented x3, gait normal, tone normal, moves all extremities, no meningeal signs, no focal motor deficits and CN's II-XI intact bilaterally Cranial nerves: Yes CN's II-XII intact bilaterally, Yes Equal, round and reactive pupils present and Yes Bilaterally intact EOM present Cognition (Neuro): normal cognition Speech: No Abnormal speech present Gait exam (Neuro): Normal gait present Motor exam (neuro): 5/5 motor strength present throughout, Pronator motor function not present and no tremor noted Coordination: [id number] test normal Romberg Test: Negative Extrem: General: Yes normal to inspection, Yes no pedal edema and Yes no calf tenderness Course Course Course Narrative: CT head/brain wo con IMPRESSION: No acute intracranial pathology. XR chest 1V IMPRESSION: Unremarkable examination. ? US abdomen limited IMPRESSION: Normal common bile duct.? -1737--UA infected. Patient given 1st dose of Ceftin in the ED -1800--ED care transferred to EUGENE Del Angel pending labs and anticipated DC home Medical Decision Making [facility] Narrative Medical decision making narrative: 55-year-old female with a past medical history of asthma, hyperlipidemia, migraines, HTN, diabetes, renal calculi, s/p appendectomy and cholecystectomy, presenting to the ED complaining left-sided chest pressure since last night with associated left arm tingling and left leg tingling. On exam vital signs stable, NAD, nontoxic appearing, lungs CTA, no focal neuro deficits. Concern for ACS vs ?CVA vs paresthesias vs UTI. Lower concern for pyelo/pancreatitis or pneumonia. Symptoms atypical for PE. Low concern for SAH/carotid stenosis or CVT Plan: EKG, labs, UA, CXR, CT, re-evaluate Lab Data Labs: Lab Results 04/27/21 Range/Units 14:17 Urine Color STRAW Urine Appearance CLEAR Urine pH 6.0 (5.0-8.0) Ur Specific [place] <= 1.005 (1.005-1.025) Urine Protein NEG (NEG-TRACE) MG/DL Urine Glucose (UA) NEG (NEG) MG/DL Urine Ketones NEG (NEG) MG/DL Urine Blood NEG (NEG) Urine Nitrite NEG (NEG) Ur Leukocyte Esterase 1+ H (NEG) Urine RBC 0 (0) /HPF Urine WBC 10-14 H (0-4) /HPF Ur Squamous Epith Cells TRACE /LPF Urine Bacteria TRACE /LPF Discharge Plan Discharge Clinical Impression: Chest pain, UTI (urinary tract infection) Instructions: Urinary Tract Infection in Women (ED) Additional Instructions: You have a UTI. Ceftin is antibiotic please take as prescribed follow-up with her doctor If her symptoms persist or worsen, please return to the ED Prescriptions: New cefuroxime axetil 250 mg tablet 250 mg PO BID 7 Days Qty: 14 RF: 0 No Action aspirin 81 mg tablet,delayed release (DR/EC) 81 mg PO DAILY Qty: 30 RF: 11 metformin 500 mg tablet 1,000 mg PO BID 90 Days Qty: 360 RF: 2 simvastatin 20 mg tablet 20 mg PO BEDTIME 90 Days Qty: 90 RF: 2 cholecalciferol (vitamin D3) 25 mcg (1,000 unit) capsule 25 mcg PO DAILY 90 Days Qty: 90 RF: 3 lisinopril 20 mg tablet 20 mg PO DAILY Qty: 30 RF: 6 amlodipine 10 mg tablet 10 mg PO DAILY Qty: 90 RF: 0 venlafaxine 37.5 mg tablet 37.5 mg PO DAILY RF: 0 clonazepam 1 mg tablet 1 mg PO TID RF: 0 minoxidil [Rogaine] 2 % solution 1 ml topical BID RF: 0 Centrum Silver Women 8 mg iron-400 mcg-300 mcg tablet 1 tab PO DAILY RF: 0 cromolyn 4 % drops 1 drp ophthalmic (eye) QID RF: 0 albuterol sulfate [ProAir HFA] 90 mcg/actuation HFA aerosol inhaler 2 puff inhalation Q4-6H PRNRF: 0 aluminum chloride [Drysol Dab-O-Matic] 20 % solution 1 appl topical BID PRNRF: 0 albuterol sulfate 2.5 mg /3 mL (0.083 %) solution for nebulization 2.5 mg inhalation Q4-6H PRNRF: 0 glipizide 10 mg tablet 10 mg PO BID RF: 0 polyethylene glycol 3350 [Miralax] 17 gram/dose powder 17 g PO DAILY RF: 0 diclofenac sodium 75 mg tablet,delayed release (DR/EC) 75 mg PO BID RF: 0 lidocaine 5 % adhesive patch,medicated 1 patch topical DAILY Qty: 30 RF: 2 meloxicam 15 mg tablet 15 mg PO DAILY Qty: 30 RF: 0 Lantus Solostar U-100 Insulin 100 unit/mL (3 mL) insulin pen 12 unit subcut QPM Qty: 15 RF: 0 insulin lispro [Humalog KwikPen Insulin] 100 unit/mL insulin pen See Rx Instructions subcut TID Qty: 15 RF: 3 Referrals: Po,Christine Ray MD [Primary Care Provider] - 2 days
[2021-04-27 17:47] LABS: MANUAL DIFF FLAG NO
[2021-04-27 17:50] LABS: Basophils Percent Auto 0.3 % (0-2); Eosinophils Absolute Auto 0.1 X10*3/uL (0.0-0.4); Eosinophils Percent Auto 0.8 % (0-4); Hemoglobin 11.4 g/dl (12.0-16.0); Imm Gran Abs Auto 0.03 X10*3/uL (0.00-0.03); Imm Gran Pct Auto 0.3 % (0.0-0.4); Lymphocytes Percent Auto 34.6 % (20-40); Mean Corpuscular HGB Conc 32.6 g/dl (31.0-35.0); Mean Corpuscular Hemoglobin 30.2 pg (27.0-33.0); Mean Corpuscular Volume 92.6 fL (80.0-98.0); Mean Platelet Volume 10.3 fL (9.4-12.3); Monocytes Absolute Auto 0.6 X10*3/uL (0.1-1.2); Monocytes Percent Auto 6.8 % (2-11); Neutrophils Absolute Auto 4.9 x10*3/uL (2.0-8.3); Neutrophils Percent Auto 57.2 % (45-73); Platelet Count 248 X10*3/uL (160-400); Red Blood Count 3.78 X10*6/uL (4.20-5.50); Red Cell Distribution Width 13.1 % (11.0-16.0); White Blood Count 8.6 X10*3/uL (4.8-10.8)
[2021-04-27] MEDS: Famotidine/PF 20 MG/2 ML VIAL IVPUSH (17:54)
[2021-04-27] MEDS: ondansetron HCL 4 MG/2 ML VIAL IVPUSH (17:54)
[2021-04-27 18:00] LABS: COVID-19 Test Negative (Negative); IDNOW Serial# 9DD0AD1C
[2021-04-27 18:06] LABS: Alanine Aminotransferase 18 U/L (0-31); Albumin Level 4.4 g/dL (3.5-5.0); Alkaline Phosphatase 52 U/L (39-117); Anion Gap 13 (12-20); Aspartate Amino Transferase 23 U/L (5-31); Bilirubin Total 0.3 mg/dL (0.0-1.0); Blood Urea Nitrogen 13 mg/dL (9-16); Calcium 10.2 mg/dL (8.4-10.2); Carbon Dioxide 28 mmol/L (22-29); Chloride 105 mmol/L (96-108); Creatinine Clr Calc Pharmacy 67.2; Estimated Glomerular Filt Rate > 60; Glucose Random 131 mg/dL (60-115); Lipase 95 U/L (8-78); Magnesium 1.7 mg/dL (1.6-2.6); Potassium 3.6 mmol/L (3.3-5.1); Sodium 142 mmol/L (135-145); Total Protein 7.1 g/dL (6.5-8.0)
[2021-04-27 18:46] LABS: B Type Natriuretic Peptide 16 pg/mL (<100); Troponin-I High Sensitivity < 3.5 ng/L (<3.5-17.0)
[2021-04-27 20:59] VITALS: BP 141/89; PULSE 87; RESP 18; TEMP 36.9; O2SAT 98
== END 2021-04-27 21:39 | disposition home or self-care (01) ==
PROVIDERS: Physician Assistant; Physician Assistant Medical; Emergency Provider Internal Medicine; PCP Internal Medicine
DX: R07.9 Chest pain, unspecified (principal); N39.0 Urinary tract infection, site not specified; R10.11 Right upper quadrant pain; I10 Essential (primary) hypertension; E11.9 Type 2 diabetes mellitus without complications; J45.909 Unspecified asthma, uncomplicated; E78.5 Hyperlipidemia, unspecified; F17.200 Nicotine dependence, unspecified, uncomplicated; Z20.822 Contact with and (suspected) exposure to COVID-19; Z79.02 Long term (current) use of antithrombotics/antiplatelets; Z79.899 Other long term (current) drug therapy
CPT/HCPCS: 36415; 70450; 71045; 76705; 80053; 81001; 83690; 83735; 83880; 84484; 85025; 87086; 87147; 87635; 93005; 96374; 96375; 99283; 99284; J2405

== ENCOUNTER 2021-05-19 13:24 | Outpatient (REF) | payer OTHER, SELFPAY ==
--- NOTE | ~2021-05-19 | MM_ITS ---
EXAMINATION: MM SCREENING DIGITAL BREAST TOMOSYNTHESIS, BILATERAL CLINICAL INFORMATION: Screening. Asymptomatic. The lifetime risk of breast cancer based on the Tyrer-Cuzick Model is 7%. COMPARISON: Mammography: 04/29/2020, 04/24/2019, 03/29/2018, 02/16/2017 TECHNIQUE: Digital breast tomosynthesis is performed in both the craniocaudal and mediolateral oblique views along with computer-aided detection (CAD). Synthesized 2D images are generated from the tomosynthesis. FINDINGS: There are scattered areas of fibroglandular density (ACR BI-RADS breast composition Category b). There are no significant masses, abnormal calcifications, or other abnormalities. No developing density. No significant changes. MM/MM tomosynthesis screening BI IMPRESSION: No mammographic evidence of malignancy. ASSESSMENT: BI-RADS 1: Negative RECOMMENDATION: Routine annual mammography screening. This patient's information was entered into a reminder system with a target due date for their next mammogram.
== END 2021-05-19 13:25 | disposition home or self-care (01) ==
LOC: HO.MAMMO 13:24
PROVIDERS: Visit Provider Internal Medicine
DX: Z12.31 Encounter for screening mammogram for malignant neoplasm of breast (principal)
CPT/HCPCS: 77063; 77067

== ENCOUNTER 2021-05-25 12:25 | Outpatient (REF) | payer OTHER, SELFPAY ==
[2021-05-25 13:53] LABS: Appearance Urine CLEAR; Color Urine STRAW; Glucose Urine UA NEG (NEG); Leukocyte Esterase Urine NEG (NEG); Nitrite Urine NEG (NEG); Specific Gravity - Urine <= 1.005 (1.005-1.025); Urine Blood NEG (NEG); Urine Ketones NEG (NEG); Urine Protein NEG (NEG-TRACE)
[2021-05-25 14:16] LABS: Creatinine Urine 20.34 mg/dL
[2021-05-25 14:30] LABS: RBC Urine 0 /HPF (0); Squamous Epithelial Cell Urine TRACE /LPF; WBC Urine 0 /HPF (0-4)
== END 2021-05-25 12:26 | disposition home or self-care (01) ==
LOC: HO.LAB 12:25
PROVIDERS: PCP Internal Medicine; Visit Provider Internal Medicine
DX: E11.65 Type 2 diabetes mellitus with hyperglycemia (principal)
CPT/HCPCS: 81001; 81003

== ENCOUNTER → 2021-07-30 13:01 | Outpatient (BNVA) | payer OTHER, SELFPAY | PROVIDERS: PCP Internal Medicine; Visit Provider Nurse Practitioner Family | DX: M47.816 Spondylosis without myelopathy or radiculopathy, lumbar region (principal); M53.3 Sacrococcygeal disorders, not elsewhere classified | CPT/HCPCS: 99202 ==

== ENCOUNTER 2021-09-06 09:51 | Outpatient (REF) | payer OTHER, SELFPAY ==
[2021-09-06 10:54] LABS: Hematocrit 36.1 % (37.0-47.0); Hemoglobin 11.6 g/dl (12.0-16.0); Mean Corpuscular HGB Conc 32.1 g/dl (31.0-35.0); Mean Corpuscular Hemoglobin 30.4 pg (27.0-33.0); Mean Corpuscular Volume 94.5 fL (80.0-98.0); Mean Platelet Volume 9.9 fL (9.4-12.3); Platelet Count 303 X10*3/uL (160-400); Red Blood Count 3.82 X10*6/uL (4.20-5.50); Red Cell Distribution Width 13.3 % (11.0-16.0); White Blood Count 5.5 X10*3/uL (4.8-10.8)
[2021-09-06 11:28] LABS: Creatinine Urine 143.45 mg/dL; Microalbum/Creatinine Ratio Ur 9.7 ug/mg cr
[2021-09-06 11:37] LABS: Alanine Aminotransferase 20 U/L (0-31); Albumin Level 4.5 g/dL (3.5-5.0); Alkaline Phosphatase 47 U/L (39-117); Anion Gap 15 (12-20); Aspartate Amino Transferase 26 U/L (5-31); Bilirubin Total 0.6 mg/dL (0.0-1.0); Blood Urea Nitrogen 12 mg/dL (9-16); Calcium 10.1 mg/dL (8.4-10.2); Carbon Dioxide 26 mmol/L (22-29); Chloride 104 mmol/L (96-108); Cholesterol 160 mg/dL; Estimated Glomerular Filt Rate > 60; Glucose Fasting 97 mg/dL (60-99); HDL Cholesterol 51 mg/dL; LDL Cholesterol Calculated 92 mg/dl; Lipase 41 U/L (8-78); Potassium 4.1 mmol/L (3.3-5.1); Sodium 141 mmol/L (135-145); Total Protein 7.4 g/dL (6.5-8.0); Triglycerides 89 mg/dL
== END 2021-09-06 09:52 | disposition home or self-care (01) ==
LOC: HO.LAB 09:51
PROVIDERS: PCP Physician Assistant; Visit Provider Physician Assistant
DX: I10 Essential (primary) hypertension (principal); E11.65 Type 2 diabetes mellitus with hyperglycemia; R10.11 Right upper quadrant pain; E78.00 Pure hypercholesterolemia, unspecified
CPT/HCPCS: 36415; 80053; 80061; 82043; 83690; 84443; 85027

== ENCOUNTER 2021-09-09 10:34 | Outpatient (REF) | payer OTHER, SELFPAY ==
--- NOTE | ~2021-09-09 | XR_ITS ---
EXAMINATION: XR ABDOMEN COMPLETE CLINICAL INDICATION: Epigastric pain; constipation. COMPARISON: Abdominal ultrasound dated 04/27/2021; CT abdomen dated 06/18/2008. TECHNIQUE: 4 supine and upright views of the abdomen and pelvis are submitted. FINDINGS: There is large stool burden, suggesting constipation. No obstruction or ileus is seen. There is gas and stool identified to the level of the rectum. No free intraperitoneal air is seen. No unusual soft tissue calcifications are noted. There are pelvic phleboliths. Right upper quadrant surgical clips are seen. The bones are unremarkable. XR/XR abdomen min 2V IMPRESSION: There is a large stool burden, suggesting constipation. No alfredo bowel obstruction is seen. There is no free intraperitoneal air.
[2021-09-09 11:12] LABS: Hematocrit 35.2 % (37.0-47.0); Hemoglobin 11.2 g/dl (12.0-16.0); Mean Corpuscular HGB Conc 31.8 g/dl (31.0-35.0); Mean Corpuscular Volume 94.4 fL (80.0-98.0); Mean Platelet Volume 9.7 fL (9.4-12.3); Platelet Count 275 X10*3/uL (160-400); Red Blood Count 3.73 X10*6/uL (4.20-5.50); Red Cell Distribution Width 13.2 % (11.0-16.0); White Blood Count 6.7 X10*3/uL (4.8-10.8)
[2021-09-09 11:51] LABS: Appearance Urine HAZY; Color Urine YELLOW; Glucose Urine UA >=1000 MG/DL (NEG); Leukocyte Esterase Urine NEG (NEG); Nitrite Urine NEG (NEG); Specific Gravity - Urine 1.015 (1.005-1.025); Urine Blood NEG (NEG); Urine Ketones NEG (NEG); Urine Protein NEG (NEG-TRACE)
[2021-09-09 12:08] LABS: Lipase 56 U/L (8-78)
[2021-09-09 12:11] LABS: Mucus Urine TRACE /LPF; RBC Urine 0 /HPF (0); Squamous Epithelial Cell Urine TRACE /LPF; WBC Urine 0 /HPF (0-4)
== END 2021-09-09 10:35 | disposition home or self-care (01) ==
LOC: HO.XRAY 10:34
PROVIDERS: PCP Physician Assistant; Visit Provider Physician Assistant
DX: R10.13 Epigastric pain (principal); K59.00 Constipation, unspecified; R30.0 Dysuria
CPT/HCPCS: 36415; 74019; 81001; 81003; 83690; 85027

== ENCOUNTER 2021-09-15 05:41 | Outpatient (REF) | payer OTHER, SELFPAY ==
--- NOTE | ~2021-09-15 | FL_ITS ---
EXAMINATION: XR FLUOROSCOPY WITH IMAGES CLINICAL INFORMATION: Coccygeal disorder COMPARISON: None. TECHNIQUE: Fluoroscopy performed by Dr. Ubaldo Blanton. Fluoroscopy time: 0.3 minutes DAP: 0.443 Gycm2 Images: 4 FINDINGS: [place] are seen bilaterally overlying the sacroiliac joints. FL/FL guidance in treatment room IMPRESSION: Fluoroscopy provided for pain management
== END 2021-09-15 05:42 | disposition home or self-care (01) ==
LOC: HO.RADIR 05:41
PROVIDERS: Visit Provider Internal Medicine
DX: M53.3 Sacrococcygeal disorders, not elsewhere classified (principal)
CPT/HCPCS: 27096; J1040; Q9967

== ENCOUNTER 2021-09-27 08:46 | Outpatient (REF) | payer OTHER, SELFPAY ==
--- NOTE | ~2021-09-27 | US_ITS ---
EXAMINATION: US ABDOMEN COMPLETE CLINICAL INFORMATION: Right upper quadrant pain. COMPARISON: ultrasound abdomen complete 06/28/2017. TECHNIQUE: Real-time imaging of the abdominal viscera. FINDINGS: PANCREAS: Normal. ABDOMINAL AORTA: The proximal, mid, and distal segments are normal in caliber. INFERIOR VENA CAVA: Visualized portions are normal. LIVER: The liver is normal in size. The liver contour is normal. There is diffuse increased liver parenchymal echogenicity, consistent with infiltrative hepatocellular disease. No focal hepatic lesion. There is no intrahepatic biliary duct dilatation seen. GALLBLADDER: Surgically absent. COMMON BILE DUCT: Normal in caliber measuring 0.5 cm in diameter. RIGHT KIDNEY: Benign-appearing renal cysts measuring up to 1.3 cm, no imaging follow-up recommended. No hydronephrosis. 2 mm nonobstructing right lower pole renal stone. The kidney measures 10.3 cm in maximum dimension. LEFT KIDNEY: Nonobstructing left renal stones measuring up to 2 mm. Benign-appearing 1.7 cm renal cyst, no imaging follow-up recommended. Left renal pelviectasis without alfredo hydronephrosis. The kidney measures 11.8 cm in maximum dimension. SPLEEN: Normal. The spleen measures 8.8 cm in maximum dimension. FREE FLUID: None. US/US abdomen complete IMPRESSION: Bilateral nonobstructing renal stones measuring up to 2 mm. Left renal pelviectasis is seen without alfredo hydronephrosis. Increased hepatic echogenicity which can be seen in the setting of hepatic steatosis or underlying liver disease.
== END 2021-09-27 08:47 | disposition home or self-care (01) ==
LOC: HO.US 08:46
PROVIDERS: PCP Physician Assistant; Visit Provider Physician Assistant
DX: R10.11 Right upper quadrant pain (principal)
CPT/HCPCS: 76700

== ENCOUNTER 2021-10-13 08:24 | Outpatient (REF) | payer OTHER, SELFPAY ==
--- NOTE | ~2021-10-13 | XR_ITS ---
EXAMINATION: XR SHOULDER, BILATERAL CLINICAL INFORMATION: Pain. COMPARISON: Previous exams December 2017 and August 2013. TECHNIQUE: 4 views of each shoulder. FINDINGS: LEFT: Bone alignment is normal. No fracture or dislocation is seen. Joint spaces are normal. 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 The soft tissues are normal. RIGHT: Bone alignment is normal. No fracture or dislocation is seen. The joint spaces are normal. There are degenerative changes in the greater tuberosity. XR/XR shoulder LT min 2V IMPRESSION: Left: Accessory os acromiale. Right: Degenerative changes in the greater tuberosity.
--- NOTE | ~2021-10-13 | XR_ITS ---
EXAMINATION: XR SHOULDER, BILATERAL CLINICAL INFORMATION: Pain. COMPARISON: Previous exams December 2017 and August 2013. TECHNIQUE: 4 views of each shoulder. FINDINGS: LEFT: Bone alignment is normal. No fracture or dislocation is seen. Joint spaces are normal. 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 The soft tissues are normal. RIGHT: Bone alignment is normal. No fracture or dislocation is seen. The joint spaces are normal. There are degenerative changes in the greater tuberosity. XR/XR shoulder RT min 2V IMPRESSION: Left: Accessory os acromiale. Right: Degenerative changes in the greater tuberosity.
== END 2021-10-13 08:25 | disposition home or self-care (01) ==
LOC: HO.XRAY 08:24
PROVIDERS: PCP Internal Medicine; Visit Provider Nurse Practitioner Family
DX: M25.511 Pain in right shoulder (principal); M25.512 Pain in left shoulder; M53.3 Sacrococcygeal disorders, not elsewhere classified; M62.838 Other muscle spasm
CPT/HCPCS: 73030; 99212

== ENCOUNTER → 2021-10-22 15:22 | Outpatient (BNVA) | payer OTHER, SELFPAY | PROVIDERS: PCP Internal Medicine | DX: R81 Glycosuria (principal) | CPT/HCPCS: 51798; 99202 ==

== ENCOUNTER → 2021-10-26 08:39 | Outpatient (BNVA) | payer OTHER, SELFPAY | PROVIDERS: PCP Internal Medicine; Visit Provider Nurse Practitioner Family | DX: Z13.89 Encounter for screening for other disorder (principal) ==

== ENCOUNTER 2021-11-03 12:53 | Outpatient (REF) | payer OTHER, SELFPAY | END 2021-11-03 12:54 | disposition home or self-care (01) | LOC: HO.LAB 12:53 | PROVIDERS: PCP Physician Assistant; Visit Provider Physician Assistant | DX: Z13.89 Encounter for screening for other disorder (principal) ==

== ENCOUNTER 2021-11-08 11:50 | Outpatient (REF) | payer OTHER, SELFPAY ==
[2021-11-08 13:26] LABS: Estimated Average Glucose 157 mg/dL; Hemoglobin A1c % 7.1 %
[2021-11-08 13:54] LABS: Urine Cytology See Pathology rpt
[2021-11-08 14:02] LABS: Appearance Urine CLEAR; Color Urine YELLOW; Glucose Urine UA NEG (NEG); Leukocyte Esterase Urine NEG (NEG); Nitrite Urine NEG (NEG); PH 6.5 (5.0-8.0); Urine Blood NEG (NEG); Urine Ketones NEG (NEG); Urine Protein NEG (NEG-TRACE)
== END 2021-11-08 11:51 | disposition home or self-care (01) ==
LOC: HO.LAB 11:50
PROVIDERS: PCP Physician Assistant; Visit Provider Physician Assistant
DX: Z12.4 Encounter for screening for malignant neoplasm of cervix (principal); R30.0 Dysuria; R81 Glycosuria; E11.65 Type 2 diabetes mellitus with hyperglycemia
CPT/HCPCS: 36415; 81003; 83036; 88112

== ENCOUNTER 2021-12-01 12:34 | Outpatient (REF) | payer OTHER, SELFPAY ==
--- NOTE | ~2021-12-01 | US_ITS ---
EXAMINATION: US RETROPERITONEAL LIMITED (RENAL ONLY) CLINICAL INFORMATION: Calculus of kidney. COMPARISON: Ultrasound abdomen complete 09/27/2021. XR abdomen complete 09/09/2021. Ultrasound abdomen limited 04/27/2021. TECHNIQUE: Real-time imaging of the kidneys. FINDINGS: RIGHT KIDNEY: 10.8 x 5.8 x 5.4 cm (SAG x AP x TRV). The kidney is normal in size, contour, and echogenicity. Renal cortical thickness is normal. There are anechoic cysts in the midpole measuring 1.3 x 0.8 x 1.0 cm, 0.9 x 0.5 0.7 cm. There are multiple echogenic stones largest in lower pole measuring 0.5 x 0.6 cm and 0.7 x 0.5 cm. There is mild pelvic fullness versus mild hydronephrosis.. LEFT KIDNEY: 11.8 x 5.4 x 6.3 cm (SAG x AP x TRV). The kidney is normal in size, contour, and echogenicity. Renal cortical thickness is normal. No focal parenchymal lesions. There are multiple echogenic stones largest measuring 0.7 x 0.3 cm in midpole and 0.4 x 0.4 cm in lower pole. There are calcifications seen in the pyramids with mild hydronephrosis. US/US renal BI IMPRESSION: 1. Bilateral echogenic renal calculi. 2. Bilateral renal cysts. 3. Mild hydronephrosis left kidney. Mild pelvic fullness versus hydronephrosis right kidney.
== END 2021-12-01 12:35 | disposition home or self-care (01) ==
LOC: HO.US 12:34
PROVIDERS: PCP Physician Assistant
DX: N20.0 Calculus of kidney (principal)
CPT/HCPCS: 76775

== ENCOUNTER 2021-12-09 11:30 | Outpatient (REF) | payer OTHER, SELFPAY ==
--- NOTE | ~2021-12-09 | XR_ITS ---
EXAMINATION: XR CALCANEUS, LEFT CLINICAL INFORMATION: Achilles tendinitis. COMPARISON: None TECHNIQUE: Lateral and axial views of the left calcaneus were obtained. FINDINGS: The ankle mortise and subtalar joints are normal. No visible acute fracture, dislocation seen. No bony erosive changes. The soft tissues are normal. XR/XR calcaneus LT min 2V IMPRESSION: Unremarkable left calcaneus.
== END 2021-12-09 11:31 | disposition home or self-care (01) ==
LOC: HO.XRAY 11:30
PROVIDERS: PCP Physician Assistant; Visit Provider Physician Assistant
DX: M76.62 Achilles tendinitis, left leg (principal)
CPT/HCPCS: 73650

== ENCOUNTER 2021-12-14 06:28 | Outpatient (REF) | payer OTHER, SELFPAY ==
--- NOTE | ~2021-12-14 | FL_ITS ---
EXAMINATION: XR FLUOROSCOPY WITH IMAGES CLINICAL INFORMATION: Right shoulder pain COMPARISON: February 12, 2022 TECHNIQUE: Fluoroscopy performed by Dr. Jonathan Nogueira. Fluoroscopy time: 6.9 seconds DLP: 0.56 mGy Images: 1 FINDINGS: Single AP image of the right shoulder demonstrates contrast within the right shoulder joint space. FL/FL guidance in treatment room IMPRESSION: Intraoperative fluoroscopy for pain management procedure, right shoulder.
== END 2021-12-14 06:29 | disposition home or self-care (01) ==
LOC: HO.RADIR 06:28
PROVIDERS: Visit Provider Anesthesiology
DX: M25.511 Pain in right shoulder (principal); M25.512 Pain in left shoulder
CPT/HCPCS: 20610; J3300

== ENCOUNTER → 2021-12-21 13:59 | Outpatient (BNVA) | payer OTHER, SELFPAY | PROVIDERS: PCP Physician Assistant | DX: N20.0 Calculus of kidney (principal); Z79.899 Other long term (current) drug therapy | CPT/HCPCS: 51798; 99212 ==

== ENCOUNTER 2022-01-19 08:16 | Day surgery (SDC) | payer OTHER, SELFPAY ==
--- NOTE | 2022-01-18 11:48 | HO.ANESPROP2 ---
Documented by User: Iwona Holt NP 01/18/22 11:50 HPI - Anesthesia Eval Consult details Narrative: 56yo F for Right Lithotripsy ESW No prev ESWL on record PMFSH Active Problems Active Problems: All Active Problems (Updated 12/21/21 @ 14:42 by MARY Kennedy) Renal calculi (Acute) JASON (generalized anxiety disorder) (Acute) Left Achilles tendinitis (Acute) Urinary retention (Acute) Renal calculi (Acute) Muscle spasms of neck (Acute) Bilateral shoulder pain (Acute) Glucosuria (Acute) Epigastric pain (Acute) Dysuria (Acute) Elevated lipase (Acute) RUQ abdominal pain (Acute) LUQ abdominal pain (Acute) Sacroiliac joint pain (Acute) Spondylosis of lumbar spine (Acute) Neck pain (Acute) Alopecia (Acute) Generalized anxiety disorder (Acute) Neck pain (Acute) Dysuria (Acute) Low back pain (Acute) Constipation (Acute) Hyperhidrosis (Acute) Asthma (Acute) Hypercholesterolemia (Acute) Hypertension (Acute) Type 2 diabetes mellitus with hyperglycemia (Acute) Past Medical History Medical History (Updated 01/19/22 @ 09:00 by Neetu Govea NP) Asthma Dysplasia of cervix, low grade (BILLY 1) Hypercholesterolemia Hyperhidrosis Hypertension Migraine Renal calculi Renal calculi Renal calculus, bilateral Type 2 diabetes mellitus with hyperglycemia Family History Family History Father Substance abuse Brother Substance abuse Schizophrenia Surgical History Surgical History History of hemorrhoidectomy History of right oophorectomy Hx of appendectomy Hx of cholecystectomy Social History Social History Housing: Apartment Alcohol intake: never Patient Tobacco Use Status: Never used Tobacco Tobacco use type: Cigarette e-Cigarette/Vaping Use: Never Used Second Hand Smoke Exposure: No service: No Current occupational status: unemployed Cognitive needs: No Hearing needs: No Vision needs: No Meds Allergies Allergy/AdvReac Type Severity Reaction Status Date / Time No Known Allergies Allergy Verified 12/21/21 14:01 [No Known Allergies*] Home Medications Medication Instructions Recorded Confirmed Last Taken Type albuterol sulfate 2.5 mg/3 mL 2.5 mg inhalation Q4-6H PRN 11/04/20 12/09/21 Unknown History (0.083 %) solution for nebulization albuterol sulfate 90 mcg/actuation 2 puff inhalation Q4-6H PRN 11/04/20 12/09/21 Unknown History aerosol inhaler (ProAir HFA) aluminum chloride 20 % topical 1 appl topical BID PRN 11/04/20 12/09/21 Unknown History solution (Drysol Dab-O-Matic) clonazepam 1 mg tablet 1 mg PO TID 11/04/20 12/09/21 01/19/22 History cromolyn 4 % eye drops 1 drp ophthalmic (eye) QID 11/04/20 12/09/21 Unknown History diclofenac sodium 75 mg 75 mg PO BID 11/04/20 12/09/21 Unknown History tablet,delayed release minoxidil 2 % topical solution 1 ml topical BID 11/04/20 12/09/21 Unknown History (Rogaine) multivit with 1 tab PO DAILY 11/04/20 12/09/21 Unknown History tzgkxbff-awsq-RR-lutein 8 mg iron-400 mcg-300 mcg tablet (Centrum Silver Women) polyethylene glycol 3350 17 17 g PO DAILY 11/04/20 12/09/21 Unknown History gram/dose oral powder (Miralax) venlafaxine 37.5 mg tablet 37.5 mg PO DAILY 11/04/20 12/09/21 Unknown History clonazepam 2 mg tablet 2 mg PO BEDTIME PRN panic attack 10/22/21 12/09/21 Unknown History econazole 1 % topical cream appl topical BID 10/22/21 12/09/21 Unknown History propranolol 80 mg capsule,24 80 mg PO BEDTIME 10/22/21 12/09/21 Unknown History hr,extended release venlafaxine 37.5 mg 37.5 mg PO QAM 10/22/21 12/09/21 Unknown History capsule,extended release 24 hr verapamil 40 mg tablet 40 mg PO BID 10/22/21 12/09/21 Unknown History azelastine 137 mcg (0.1 %) nasal 1 spray intranasal BID 12/21/21 Unknown History spray aerosol fluocinonide 0.05 % topical ml topical 12/21/21 Unknown History solution levocetirizine 5 mg tablet 5 mg PO QPM 12/21/21 Unknown History sumatriptan succinate 50 mg tablet 50 mg PO PRN 12/21/21 Unknown History venlafaxine 75 mg capsule,extended 75 mg PO QAM 12/21/21 Unknown History release 24 hr Exam Exam Date and Time: January 18, 2022 1148 Pertinent Lab Results Pertinent Lab Results: Laboratory Tests 09/06/21 09/09/21 10:22 10:47 WBC 6.7 Hgb 11.2 L Hct 35.2 L Plt Count 275 Sodium 141 Potassium 4.1 Chloride 104 Carbon Dioxide 26 BUN 12 Creatinine 0.88 Assessment and Plan Assessment Anesthesia Assessment: Chart Reviewed Documented by User: Logan Villafuerte MD 01/19/22 09:55 [facility] Past Medical History Medical History (Updated 01/19/22 @ 09:00 by Neetu Govea NP) Asthma Dysplasia of cervix, low grade (BILLY 1) Hypercholesterolemia Hyperhidrosis Hypertension Migraine Renal calculi Renal calculi Renal calculus, bilateral Type 2 diabetes mellitus with hyperglycemia Family History Family History Father Substance abuse Brother Substance abuse Schizophrenia Family history of problems with anesthesia: No Surgical History Surgical History History of hemorrhoidectomy History of right oophorectomy Hx of appendectomy Hx of cholecystectomy History of Problems with Anesthesia: No Social History Social History Housing: Apartment Alcohol intake: never Patient Tobacco Use Status: Never used Tobacco Tobacco use type: Cigarette e-Cigarette/Vaping Use: Never Used Second Hand Smoke Exposure: No service: No Current occupational status: unemployed Cognitive needs: No Hearing needs: No Vision needs: No Meds Allergies Allergy/AdvReac Type Severity Reaction Status Date / Time No Known Allergies Allergy Verified 12/21/21 14:01 [No Known Allergies*] Home Medications Medication Instructions Recorded Confirmed Last Taken Type albuterol sulfate 2.5 mg/3 mL 2.5 mg inhalation Q4-6H PRN 11/04/20 12/09/21 Unknown History (0.083 %) solution for nebulization albuterol sulfate 90 mcg/actuation 2 puff inhalation Q4-6H PRN 11/04/20 12/09/21 Unknown History aerosol inhaler (ProAir HFA) aluminum chloride 20 % topical 1 appl topical BID PRN 11/04/20 12/09/21 Unknown History solution (Drysol Dab-O-Matic) clonazepam 1 mg tablet 1 mg PO TID 11/04/20 12/09/21 01/19/22 History cromolyn 4 % eye drops 1 drp ophthalmic (eye) QID 11/04/20 12/09/21 Unknown History diclofenac sodium 75 mg 75 mg PO BID 11/04/20 12/09/21 Unknown History tablet,delayed release minoxidil 2 % topical solution 1 ml topical BID 11/04/20 12/09/21 Unknown History (Rogaine) multivit with 1 tab PO DAILY 11/04/20 12/09/21 Unknown History djhqrvlj-guht-HB-lutein 8 mg iron-400 mcg-300 mcg tablet (Centrum Silver Women) polyethylene glycol 3350 17 17 g PO DAILY 11/04/20 12/09/21 Unknown History gram/dose oral powder (Miralax) venlafaxine 37.5 mg tablet 37.5 mg PO DAILY 11/04/20 12/09/21 Unknown History clonazepam 2 mg tablet 2 mg PO BEDTIME PRN panic attack 10/22/21 12/09/21 Unknown History econazole 1 % topical cream appl topical BID 10/22/21 12/09/21 Unknown History propranolol 80 mg capsule,24 80 mg PO BEDTIME 10/22/21 12/09/21 Unknown History hr,extended release venlafaxine 37.5 mg 37.5 mg PO QAM 10/22/21 12/09/21 Unknown History capsule,extended release 24 hr verapamil 40 mg tablet 40 mg PO BID 10/22/21 12/09/21 Unknown History azelastine 137 mcg (0.1 %) nasal 1 spray intranasal BID 12/21/21 Unknown History spray aerosol fluocinonide 0.05 % topical ml topical 12/21/21 Unknown History solution levocetirizine 5 mg tablet 5 mg PO QPM 12/21/21 Unknown History sumatriptan succinate 50 mg tablet 50 mg PO PRN 12/21/21 Unknown History venlafaxine 75 mg capsule,extended 75 mg PO QAM 12/21/21 Unknown History release 24 hr Exam Airway Mallampati Class: III TM Dist: >3cm Assessment and Plan Assessment Anesthesia Assessment: Anesthesia Plan Discussed Final Anesthetic Review Family History of Problems with Anesthesia: No History of Problems with Anesthesia: No NPO: Yes ASA Class: III Final Preanesthetic Review: No Changes in Pt Med Stat, Meds/Allgs Chart Reviewed, Consent Obtained/Reviewed and Anes Risks/Benef Reviewed Patient Risk: Intermediate Procedure Risk: Low Anesthetic Plan Anesthetic Plan: MAC: Disposition: Standard PACU
[2022-01-19] VITALS (9 sets, daily range): BP systolic 86–120; BP diastolic 44–80; PULSE 58–81; RESP 12–18; TEMP 36.2–36.9; O2SAT 99–100; BMI 24.0
--- NOTE | ~2022-01-19 | XR_ITS ---
EXAMINATION: XR ABDOMEN KUB CLINICAL INDICATION: Renal stones COMPARISON: Previous renal ultrasound November 2021 and KUB August 2021 TECHNIQUE: AP view of the abdomen. FINDINGS: There are several densities projecting over the central left kidney questionable for stones. Largest measures 5 x 7 mm. No definite right renal stone is. There is a faint increased density projecting over the lower pole the right kidney measuring 4 x 7 mm questionable for a stone or bilateral ulnar calcifications probably representing calcified phleboliths. Bowel gas pattern and bony structures are normal. XR/XR KUB IMPRESSION: Central left renal stones and question right lower pole stone.
[2022-01-19] MEDS: Acetaminophen 325 MG TABLET 650 MG PO (09:50)
[2022-01-19 09:59] LABS: Glucose, Whole Blood 72 mg/dL (60-115)
[2022-01-19] MEDS: Lactated Ringers 1,000 ML 100 ML IVCONT (10:06)
--- NOTE | 2022-01-19 10:17 | PC.NURSE ---
pt POC 72. states will feel lightheaded and dizzy if sugars drop to low. Dr. Villafuerte aware and at bedside. no new orders at this time. IVF bolus running as ordered per Dr. Burks.
--- NOTE | 2022-01-19 11:39 | MHC.SHP ---
Pre-Procedural Eval Section A Date of Service: 01/19/22 The patient is an INPATIENT: No Changes since office visit: No Cold of Flu in the past 2 weeks, No New Medical Problems, No Changes in Medication and No Patient answered all questions The History & Physical has been completed within 30 days and I have reviewed it.: Yes Section B Chief Complaint: kidney stone Details of Present Illness: right eswl Relevant Social History: None Present Medications: see Short Stay Collaborative assessment Medical History: No relevant PMH History of Previous Operations: Relevant previous surgery/procedure and date(s) Allergies: Allergies Allergy/AdvReac Type Severity Reaction Status Date / Time No Known Allergies Allergy Verified 12/21/21 14:01 [No Known Allergies*] Review of Systems Sugical H&P ROS: Negative: Constitution, Cardiovascular, Respiratory, Neurological, Psychiatric, Hem-Onc, Allergic/Immunologic, Gastrointestinal, Genitourinary, Musculoskeletal, Integumentary, Endocrine and Eyes/Ears/Nose/Throat Exam Surgical H&P Exam: Normal: HEENT, Normal: Heart, Normal: Lungs, Normal: Extremities, Normal: Abdomen, Normal: Skin and Normal: Neurological Plan Diagnosis/Plan: Unchanged (right ESWL) I have reviewed the history and physical and performed a pertinent physical examination on my patient. No changes have occurred unless specified.
--- NOTE | 2022-01-19 11:57 | W.PM.OPN ---
Operative Note Operative Note Date of Service: 01/19/22 Narrative: PreOperative Diagnosis: right Renal stones Post Operative Diagnosis: right Renal stones Procedure: right ESWL Surgeon: Dr Sammy Burks Anesthesia: mac/sedation Indications for procedure: The patient understands ESWL may be a staged procedure and subsequent intervention may be required based on imaging after ESWL. They also understand there is a risk of bleeding to the kidney, infection, damage to adjacent organs, and stone migration following the procedure. - Imaging right lower pole 7mm, 9mm Procedure: After informed consent was verified the patient was brought to the operating room and placed in a supine position. Anesthesia was performed per protocol. Safety pause time-out was performed. Imaging was displayed in the room and laterality confirmed. ESWL was performed. The 1st 500 shocks were performed at 60 hertz. These were performed with increasing power. Once maximum power was reached the rate was increased to 180 hertz. A total of 2500 shocks were given. Targetted imaging with ultrasound/fluoroscopy showed stone smudging suggestive of disintegration. The patient tolerated the procedure well and was transferred to the recovery area upon completion. Post procedure imaging will be organized. There was no evidence for flank discoloration.
[2022-01-19 12:16] LABS: Glucose, Whole Blood 105 mg/dL (60-115)
[2022-01-19] MEDS: Phenazopyridine HCL 100 MG TABLET PO (13:36)
== END 2022-01-19 14:44 | disposition home or self-care (01) ==
PROVIDERS: PCP Physician Assistant; Visit Provider Urology
PROC: (CPT 50590; principal; 2022-01-19 10:20)
DX: N20.0 Calculus of kidney (principal); Z87.442 Personal history of urinary calculi; R33.9 Retention of urine, unspecified; I10 Essential (primary) hypertension; J45.909 Unspecified asthma, uncomplicated; E78.00 Pure hypercholesterolemia, unspecified; E11.65 Type 2 diabetes mellitus with hyperglycemia; R61 Generalized hyperhidrosis; Z79.899 Other long term (current) drug therapy; Z90.49 Acquired absence of other specified parts of digestive tract
CPT/HCPCS: 50590; 74018; 82947; J1940; J2250; J2370; J3010

== ENCOUNTER → 2022-02-04 11:07 | Outpatient (BNVA) | payer OTHER, SELFPAY | PROVIDERS: PCP Physician Assistant; Visit Provider Nurse Practitioner Family | DX: M47.812 Spondylosis without myelopathy or radiculopathy, cervical region (principal); M62.838 Other muscle spasm; M25.511 Pain in right shoulder; M25.512 Pain in left shoulder | CPT/HCPCS: 99212 ==

== ENCOUNTER 2022-02-24 12:45 | Outpatient (REF) | payer OTHER, SELFPAY ==
--- NOTE | ~2022-02-24 | US_ITS ---
EXAMINATION: US RETROPERITONEAL LIMITED (RENAL ONLY) CLINICAL INFORMATION: Calculus of kidney. COMPARISON: X-Ray abdomen KUB 01/19/2022. Ultrasound retroperitoneal limited (renal only) 12/01/2021. Ultrasound abdomen complete 09/27/2021. X-Ray abdomen complete 09/09/2021. TECHNIQUE: Real-time imaging of the kidneys. FINDINGS: RIGHT KIDNEY: 11.4 x 5.5 x 5.8 cm (SAG x AP x TRV). The kidney is normal in size, contour, and echogenicity. Renal cortical thickness is normal. No hydronephrosis. There is anechoic cyst midpole measuring 1.6 x 1.1 x 1.3 cm. In addition there is an exophytic cyst midpole measuring 1.3 cm. There is an echogenic stone lower pole measuring 0.19 x 0.25 x 0.28 cm. There are multiple echogenic foci with twinkle 2 small to measure. There is no caliectasis. LEFT KIDNEY: 10.8 x 5.4 x 4.8 cm (SAG x AP x TRV). The kidney is normal in size, contour, and echogenicity. Renal cortical thickness is normal. No focal parenchymal lesions. There is an echogenic stones without caliectasis. Midpole stone measures 0.29 x 0.20 x 0.28 cm and lower pole stone measuring 0.26 x 0.23 x 0.27 cm. Multiple echogenic non-shadowing foci are seen. There is mild hydronephrosis. US/US renal BI IMPRESSION: Bilateral nonobstructive echogenic renal calculi and multiple bilateral echogenic foci but no caliectasis. There is however small left hydronephrosis of unknown etiology. Right renal solitary simple cysts.
== END 2022-02-24 12:46 | disposition home or self-care (01) ==
LOC: HO.US 12:45
PROVIDERS: Visit Provider Urology
DX: N20.0 Calculus of kidney (principal)
CPT/HCPCS: 76775

== ENCOUNTER 2022-03-14 14:09 | Outpatient (REF) | payer OTHER, SELFPAY ==
[2022-03-14 16:14] LABS: Alanine Aminotransferase 18 U/L (0-31); Albumin Level 4.6 g/dL (3.5-5.0); Alkaline Phosphatase 56 U/L (39-117); Aspartate Amino Transferase 26 U/L (5-31); Bilirubin Direct < 0.2 mg/dL (0.0-0.5); Bilirubin Total 0.3 mg/dL (0.0-1.0); Total Protein 7.4 g/dL (6.5-8.0)
[2022-03-14 16:45] LABS: Appearance Urine Clear; Color Urine Yellow; Glucose Urine UA Negative (Negative); Leukocyte Esterase Urine Negative (Negative); Nitrite Urine Negative (Negative); PH 5.5 (5.0-9.0); Specific Gravity - Urine 1.015 (1.005-1.025); Urine Blood Negative (Negative); Urine Ketones Negative (Negative); Urine Protein Negative (Neg-Trace)
== END 2022-03-14 14:10 | disposition home or self-care (01) ==
LOC: HO.LAB 14:09
PROVIDERS: Absent Provider Internal Medicine; PCP Physician Assistant; Visit Provider Physician Assistant Medical
DX: R30.0 Dysuria (principal); B35.1 Tinea unguium; L21.8 Other seborrheic dermatitis
CPT/HCPCS: 36415; 80076; 81003

== ENCOUNTER 2022-04-07 14:00 | Outpatient (RCR) | payer OTHER, SELFPAY ==
--- NOTE | 2022-02-23 14:00 | MHC.PT.EP ---
[facility] [place] Office [place] Office [place] Office [address] [phone] F: [phone] F: [phone] F: [phone] F: [phone] Physical Therapy Plan of Care Date of Evaluation: Date of Surgery: none Diagnosis: Muscle spasms of neck Assessment: Patient is a 56 year old R handed female who presents with s/s consistent with cervical pain. She does not work but does take care of her home at this time. Patient past medical history includes asthma, hypertension and DM. Current impairments include pain, posture, ROM, strength, activity tolerance and functional mobility. Functional limitations include decreased ability to raise arms, drive, turn head, and sleep. Patient is motivated with good rehab potential. Skilled PT will address impairments and functional limitations in order to achieve goals. 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 Manual therapy to restore motion and function. Therapeutic exercise to improve strength and flexibility. Neuromuscular re-education for posture and balance. Therapeutic activities to return to functional activities of daily living. Electronically signed by: Baljeet Ruffin PT Please sign and return to therapist. Thank you for your referral.
--- NOTE | 2022-06-01 08:25 | MHC.PT.DC ---
[facility] [place] [facility] [place] Office [place] Office [address] [phone] F: [phone] F: [phone] F: [phone] F: [phone] Physical Therapy Discharge Report Diagnosis: Muscle spasms of neck Date of Surgery: none Date of Evaluation: 02/23/22 Date of Discharge: 06/01/22 Treatments to Date: 7 Cancellations to Date: No Shows to Date: Discharge Status: Improved Function Independent with HEP Discharge Summary: 04/07/22: pt has been feeling better for 2-3 days after PT but then s/s return. i educated her on LS/UT stretching and TrP release at home. 03/29/22: pt progressing well but still with s/s after day at home even though most days she is feeling better. pt can not identify what makes s/s worse. overall, improved s/s at end of treatment today. 03/23;Pt c/o L>R muscle tightness and pain. Pt had limitation B A sh mobility. Pt felt relief after RX. 03/17/22: pt still with some tightness in c-se but overall improvement. improved postural awareness and good carryover. We have been progressing postural strength interventions. 03/07/22: increased LS tissue tension today. we attempted pec stretching and T's, Y's. assess response Nv. 03/03/22: pt progressing well overall with reduced discomfort and tissue tension. we were able to progress with postural intervention today and added to HEP. 02/28/22: progressed wiht stretching. no adverse reactions. we will progress postural intervention NV. Patient is a 56 year old R handed female who presents with s/s consistent with cervical pain. She does not work but does take care of her home at this time. Patient past medical history includes asthma, hypertension and DM. Current impairments include pain, posture, ROM, strength, activity tolerance and functional mobility. Functional limitations include decreased ability to raise arms, drive, turn head, and sleep. Patient is motivated with good rehab potential. Skilled PT will address impairments and functional limitations in order to achieve goals. Electronically signed by: Baljeet Augustin, PT Please sign and return to therapist. Thank you for your referral.
== END 2022-06-01 08:26 | disposition home or self-care (01) ==
LOC: HO.PTCHIC 14:00
PROVIDERS: PCP Physician Assistant; Visit Provider Nurse Practitioner Family
DX: M47.812 Spondylosis without myelopathy or radiculopathy, cervical region (principal); M62.838 Other muscle spasm
CPT/HCPCS: 97110; 97140; 97162

== ENCOUNTER → 2022-04-14 08:15 | Outpatient (BNVA) | payer OTHER, SELFPAY | PROVIDERS: PCP Physician Assistant; Visit Provider Anesthesiology | DX: M25.512 Pain in left shoulder (principal); M62.838 Other muscle spasm; M25.511 Pain in right shoulder; M79.18 Myalgia, other site | CPT/HCPCS: 99212 ==

== ENCOUNTER 2022-06-01 12:45 | Outpatient (REF) | payer OTHER, SELFPAY ==
--- NOTE | ~2022-06-01 | US_ITS ---
EXAMINATION: US RETROPERITONEAL LIMITED (RENAL ONLY) CLINICAL INFORMATION: Calculus of kidney. COMPARISON: Ultrasound retroperitoneal limited (renal only) 02/24/2022. X-ray abdomen KUB 01/19/2022. Ultrasound retroperitoneal limited (renal only) 12/01/2021. X-ray abdomen complete 09/09/2021. TECHNIQUE: Real-time imaging of the kidneys. FINDINGS: RIGHT KIDNEY: 11.1 x 6.1 x 6.0 cm (SAG x AP x TRV). The kidney is normal in size, contour, and echogenicity. Renal cortical thickness is normal. There are 2 small stones in the mid and lower pole measuring 2 to 3 mm. There are 2 cysts in the midpole measuring 1.4 x 1.1 x 1 cm and 0.8 x 0.6 x 0.5 cm. No hydronephrosis. LEFT KIDNEY: 11.1 x 5.1 x 5.7 cm (SAG x AP x TRV). The kidney is normal in size, contour, and echogenicity. Renal cortical thickness is normal. There is question of mild left hydronephrosis. There is a 2 x 3 mm stone in the lower pole. There is a 1.7 x 2.2 x 2.2 cm cyst in the lower pole. US/US renal BI IMPRESSION: Question mild left hydronephrosis similar to previous exam. Small bilateral renal stones. Small bilateral renal cysts.
== END 2022-06-01 12:46 | disposition home or self-care (01) ==
LOC: HO.HMGCX 12:45
PROVIDERS: PCP Physician Assistant; Visit Provider Urology
DX: N20.0 Calculus of kidney (principal)
CPT/HCPCS: 76775

== ENCOUNTER 2022-06-10 13:01 | Outpatient (REF) | payer OTHER, SELFPAY ==
--- NOTE | ~2022-06-10 | MM_ITS ---
EXAMINATION: MM SCREENING DIGITAL BREAST TOMOSYNTHESIS, BILATERAL CLINICAL INFORMATION: Screening. Asymptomatic. The lifetime risk of breast cancer based on the Tyrer-Cuzick Model is 5.8%. COMPARISON: Mammography: May 19, 2021 and studies dating back to October 13, 2015 TECHNIQUE: Digital breast tomosynthesis is performed in both the craniocaudal and mediolateral oblique views along with computer-aided detection (CAD). Synthesized 2D images are generated from the tomosynthesis. FINDINGS: There are scattered areas of fibroglandular density (ACR BI-RADS breast composition Category b). There are no significant masses, abnormal calcifications, or other abnormalities. MM/MM tomosynthesis screening BI IMPRESSION: No significant changes from prior exam. ASSESSMENT: BI-RADS 1: Negative RECOMMENDATION: Routine annual mammography screening. This patient's information was entered into a reminder system with a target due date for their next mammogram.
== END 2022-06-10 13:02 | disposition home or self-care (01) ==
LOC: HO.MAMMO 13:01
PROVIDERS: PCP Physician Assistant; Visit Provider Internal Medicine
DX: Z12.31 Encounter for screening mammogram for malignant neoplasm of breast (principal)
CPT/HCPCS: 77063; 77067

== ENCOUNTER → 2022-07-07 11:18 | Outpatient (BNVA) | payer OTHER, SELFPAY | PROVIDERS: PCP Physician Assistant; Visit Provider Nurse Practitioner Family | DX: N20.0 Calculus of kidney (principal); N28.1 Cyst of kidney, acquired | CPT/HCPCS: 51798; 99212 ==

== ENCOUNTER 2022-07-19 15:58 | Outpatient (REF) | payer OTHER, SELFPAY ==
[2022-07-19 17:05] LABS: Appearance Urine Clear; Color Urine Yellow; Glucose Urine UA >=1000 mg/dL (Negative); Leukocyte Esterase Urine Negative (Negative); Nitrite Urine Negative (Negative); Specific Gravity - Urine 1.015 (1.005-1.025); UMIC TRIGGER UACC YES; Urine Blood Negative (Negative); Urine Ketones Negative (Negative); Urine Protein Negative (Neg-Trace)
[2022-07-19 17:42] LABS: Bacteria Urine None Seen (None Seen); Hyaline Casts Urine 0-2 /LPF (0-2); RBC Urine 0-2 /HPF (0-2); Squamous Epithelial Cell Urine 0-2 /HPF (0-2); WBC Urine 0-5 /HPF (0-5)
== END 2022-07-19 15:59 | disposition home or self-care (01) ==
LOC: HO.LAB 15:58
PROVIDERS: PCP Physician Assistant; Visit Provider Nurse Practitioner Family
DX: R30.0 Dysuria (principal)
CPT/HCPCS: 81001; 81003

== ENCOUNTER 2022-09-20 22:19 | Emergency (ER) | payer OTHER, SELFPAY ==
[2022-09-20 22:21] VITALS: BP 160/89; PULSE 99; RESP 16; TEMP 37.1; O2SAT 99; BMI 23.3
--- NOTE | 2022-09-21 00:50 | ED.GENADULT ---
HPI - General Adult General Chief complaint: Extremity Problem Stated complaint: Burning sensation to L leg Time Seen by Provider: 09/20/22 23:58 Source: patient, RN notes reviewed and grade recorder Mode of arrival: ambulatory Limitations: language barrier History of Present Illness HPI narrative: 57-year-old female presents for evaluation of bilateral leg pain and back pain. Patient reports 3 days of lower back pain that radiates down both of her legs. She describes a squeezing pain in her right thigh and a burning sensation around her left leg and knee. Denies any trauma to the area denies any leg swelling Denies any overlying skin changes. Denies any numbness, tingling, weakness to lower extremities. Denies any history of blood clots. Denies any recent travel Related Data Home Medications Medication Instructions Recorded Confirmed clonazepam 1 mg tablet 1 mg PO TID 11/04/20 08/30/22 cromolyn 4 % eye drops 1 drp ophthalmic (eye) QID 11/04/20 08/30/22 diclofenac sodium 75 mg 75 mg PO BID 11/04/20 08/30/22 tablet,delayed release multivit with 1 tab PO DAILY 11/04/20 08/30/22 ejshsozv-afxd-TV-lutein 8 mg iron-400 mcg-300 mcg tablet (Centrum Silver Women) polyethylene glycol 3350 17 17 g PO DAILY 11/04/20 08/30/22 gram/dose oral powder (Miralax) clonazepam 2 mg tablet 2 mg PO BEDTIME PRN panic attack 10/22/21 08/30/22 econazole 1 % topical cream appl topical BID 10/22/21 08/30/22 propranolol 80 mg capsule,24 80 mg PO BEDTIME 10/22/21 08/30/22 hr,extended release venlafaxine 37.5 mg 37.5 mg PO QAM 10/22/21 08/30/22 capsule,extended release 24 hr azelastine 137 mcg (0.1 %) nasal 1 spray intranasal BID 12/21/21 08/30/22 spray aerosol fluocinonide 0.05 % topical ml topical 12/21/21 08/30/22 solution sumatriptan succinate 50 mg tablet 50 mg PO PRN 12/21/21 08/30/22 venlafaxine 75 mg capsule,extended 75 mg PO QAM 12/21/21 08/30/22 release 24 hr empagliflozin 10 mg tablet 10 mg PO QAM 03/03/22 08/30/22 (Jardiance) verapamil 120 mg tablet,extended 120 mg PO DAILY 03/03/22 08/30/22 release insulin glargine 100 unit/mL (3 12 unit subcut QAM 05/10/22 08/30/22 mL) subcutaneous pen (Basaglar KwikPen U-100 Insulin) valacyclovir 1 gram tablet 1,000 mg PO DAILY 07/07/22 08/30/22 Previous Rx's Medication Instructions Recorded lancets 28 gauge (FreeStyle #100 ea 08/27/21 Lancets) sennosides 8.6 mg tablet (senna) 17.2 mg PO BEDTIME 15 days #30 tabs 09/09/21 pen needle, diabetic 32 gauge x #100 ea 11/20/21 (BD Yuliet 2nd Gen Pen Needle) cholecalciferol (vitamin D3) 25 25 mcg PO DAILY 90 days #90 caps 11/29/21 mcg (1,000 unit) capsule meloxicam 15 mg tablet 15 mg PO DAILY #90 tabs 12/29/21 naproxen 500 mg tablet 500 mg PO BID PRN pain 7 days #14 01/19/22 tabs metformin 500 mg tablet 1,000 mg PO BID 90 days #360 tabs 01/24/22 amlodipine 10 mg tablet 10 mg PO DAILY #90 tabs 02/20/22 pyridoxine (vitamin B6) 50 mg 50 mg PO DAILY 90 days #90 tabs 03/21/22 tablet fluticasone propionate 50 1 spray intranasal DAILY #9.9 mL 03/30/22 mcg/actuation nasal spray,suspension (Flonase Allergy Relief) cyclobenzaprine 7.5 mg tablet 7.5 mg PO TID PRN muscle spasm 30 04/18/22 days #90 tabs simvastatin 20 mg tablet 20 mg PO BEDTIME 90 days #90 tabs 05/16/22 tizanidine 2 mg tablet 2 mg PO TID PRN muscle spasticity 05/17/22 30 days #90 tabs omeprazole 20 mg capsule,delayed 20 mg PO DAILY 30 days #30 caps 05/24/22 release albuterol sulfate 90 mcg/actuation 2 puff inhalation Q4-6H PRN 06/17/22 aerosol inhaler (Ventolin HFA) shortness of breath or wheezing #8.5 grams tamsulosin 0.4 mg capsule 0.4 mg PO BEDTIME 90 days #90 caps 07/07/22 aspirin 81 mg tablet,delayed 81 mg PO DAILY #30 tabs 08/03/22 release lisinopril 20 mg tablet 20 mg PO DAILY #90 tabs 08/24/22 allopurinol 100 mg tablet 100 mg PO DAILY 90 days #90 tabs 08/25/22 blood sugar diagnostic (FreeStyle #100 strips 08/25/22 Lite Strips) levocetirizine 5 mg tablet 5 mg PO QPM 90 days #90 tabs 08/30/22 dexamethasone 4 mg tablet 4 mg PO BID #6 tabs 09/21/22 gabapentin 300 mg capsule 300 mg PO BID #14 caps 09/21/22 methocarbamol 500 mg tablet 500 mg PO TID PRN muscle spasm #15 09/21/22 tabs Allergies Allergy/AdvReac Type Severity Reaction Status Date / Time No Known Allergies Allergy Verified 09/20/22 22:21 [No Known Allergies*] Review of Systems Constitutional: Constitutional: Reports as per HPI, Denies chills, Denies fatigue, Denies fever(s) and Denies headache(s) ENT: Denies headache(s) Cardiovascular: Cardiovascular: Denies chest pain and Denies dyspnea Respiratory: Respiratory: Denies cough and Denies dyspnea Gastrointestinal: Gastrointestinal: Denies abdominal pain, Denies constipation and Denies vomiting Genitourinary: Genitourinary: Denies dysuria Musculoskeletal: Comments: Reports pain to both legs Neurologic: Denies headache(s) and Denies focal weakness Endocrine: Endocrine: Denies fatigue [facility] Past Medical History Medical History (Updated 09/21/22 @ 00:53 by Alessio Clancy) Asthma Dysplasia of cervix, low grade (BILLY 1) Hypercholesterolemia Hyperhidrosis Hypertension Migraine Renal calculi Renal calculi Renal calculus, bilateral Renal cysts, acquired, bilateral Type 2 diabetes mellitus with hyperglycemia Surgical History History of hemorrhoidectomy History of right oophorectomy Hx of appendectomy Hx of cholecystectomy Family History Family History Father Substance abuse Brother Substance abuse Schizophrenia Social History Social History Housing: Apartment Alcohol intake: never Patient Tobacco Use Status: Never used Tobacco Tobacco use type: Cigarette e-Cigarette/Vaping Use: Never Used Second Hand Smoke Exposure: No Advance Directives: No Advance Directives Information Provided: Yes service: No Current occupational status: unemployed Cognitive needs: No Hearing needs: No Vision needs: No Physical Exam ED Vital Signs: Vital Signs - 24 hr 09/20/22 22:21 Temperature 98.8 F Pulse Rate 99 Respiratory Rate 16 Blood Pressure 160/89 H Pulse Oximetry 99 Oxygen Delivery Method Room Air BMI result Body Mass Index 23.3 Const General: healthy appearing, comfortable, no acute distress, alert and awake Nutritional Appearance: well nourished Orientation/consciousness: patient oriented x3 HENMT Head: Yes normocephalic and Yes atraumatic Throat: Yes posterior oropharynx normal Eyes Eyelids: Yes eyelids normal Conjunctivae: conjunctivae normal Sclerae: sclerae normal Corneas: corneas normal Pupils: Equal, round and reactive pupils present EOM: EOMs intact bilaterally Neck Neck: Yes full ROM Resp Effort & Inspection: normal respiratory effort, able to speak in complete sentences, no audible wheezes and not labored Auscultation: clear to auscultation bilaterally Cardio Rate: regular rate Rhythm: regular rhythm GI Inspection: No distended Palpation (GI): Soft to palpation, not firm, nontender, no guarding and not rigid Auscultation: normoactive bowel sounds Back/Spine/Pelvis Other: And tenderness to the lumbar paraspinous region bilaterally without deformity. Straight leg raise positive on left. Skin General skin exam: no rashes or lesions noted and elasticity normal Neuro General: patient oriented x3 Cranial nerves: Yes CN's II-XII intact bilaterally, Yes Equal, round and reactive pupils present and Yes Bilaterally intact EOM present Cognition (Neuro): normal cognition Extrem Other: No overlying skin changes to lower extremities, no edema no erythema. Medical Decision Making Medical Decision Making MDM Narrative: Patient has no overlying skin changes to suggest shingles for her burning pain. Her pain is most typical related to radiculopathy. Will treat with dexamethasone, gabapentin, methocarbamol. Low suspicion for DVT is the patient has no risk factors, no edema, no overlying skin changes Differential Diagnosis Radiculopathy Sciatica DVT less likely Shingles Discharge Plan Discharge Clinical Impression: Acute left lumbar radiculopathy Patient Disposition: Home, Self-Care Instructions: Lumbar Radiculopathy (ED) Prescriptions: New dexamethasone 4 mg tablet 4 mg PO BID Qty: 6 0RF methocarbamol 500 mg tablet 500 mg PO TID PRN (Reason: muscle spasm) Qty: 15 0RF gabapentin 300 mg capsule 300 mg PO BID Qty: 14 0RF No Action (DME) lancets [FreeStyle Lancets] 28 gauge misc See Rx Instructions .Route Qty: 100 3RF Rx Instructions: As directed check the sugar once a day (DME) pen needle, diabetic [BD Yuliet 2nd Gen Pen Needle] 32 gauge x 5/32 needle See Rx Instructions .Route Qty: 100 3RF Rx Instructions: As directed cholecalciferol (vitamin D3) 25 mcg (1,000 unit) capsule 25 mcg PO DAILY 90 Days Qty: 90 3RF meloxicam 15 mg tablet 15 mg PO DAILY Qty: 90 0RF metformin 500 mg tablet 1,000 mg PO BID 90 Days Qty: 360 2RF amlodipine 10 mg tablet 10 mg PO DAILY Qty: 90 2RF pyridoxine (vitamin B6) 50 mg tablet 50 mg PO DAILY 90 Days Qty: 90 3RF cyclobenzaprine 7.5 mg tablet 7.5 mg PO TID PRN (Reason: muscle spasm) 30 Days Qty: 90 1RF simvastatin 20 mg tablet 20 mg PO BEDTIME 90 Days Qty: 90 2RF tizanidine 2 mg tablet 2 mg PO TID PRN (Reason: muscle spasticity) 30 Days Qty: 90 6RF omeprazole 20 mg capsule,delayed release(DR/EC) 20 mg PO DAILY 30 Days Qty: 30 3RF albuterol sulfate [Ventolin HFA] 90 mcg/actuation HFA aerosol inhaler 2 puff inhalation Q4-6H PRN (Reason: shortness of breath or wheezing) Qty: 8.5 1RF aspirin 81 mg tablet,delayed release (DR/EC) 81 mg PO DAILY Qty: 30 11RF lisinopril 20 mg tablet 20 mg PO DAILY Qty: 90 2RF allopurinol 100 mg tablet 100 mg PO DAILY 90 Days Qty: 90 1RF (DME) FreeStyle Lite Strips Strip See Rx Instructions .ROUTE .COMPLEX Qty: 100 0RF Dose Instruction: DIRECTED CHECK THE BLOOD SUGAR ONCE A DAY Rx Instructions: DIRECTED CHECK THE BLOOD SUGAR ONCE A DAY naproxen 500 mg tablet 500 mg PO BID PRN (Reason: pain) 7 Days Qty: 14 0RF clonazepam 1 mg tablet 1 mg PO TID Centrum Silver Women 8 mg iron-400 mcg-300 mcg tablet 1 tab PO DAILY cromolyn 4 % drops 1 drp ophthalmic (eye) QID polyethylene glycol 3350 [Miralax] 17 gram/dose powder 17 g PO DAILY diclofenac sodium 75 mg tablet,delayed release (DR/EC) 75 mg PO BID sennosides [senna] 8.6 mg tablet 17.2 mg PO BEDTIME 15 Days Qty: 30 0RF Basaglar KwikPen U-100 Insulin 100 unit/mL (3 mL) insulin pen 12 unit subcut QAM fluticasone propionate [Flonase Allergy Relief] 50 mcg/actuation spray,suspension 1 spray intranasal DAILY Qty: 9.9 1RF Rx Instructions: administer into each nostril levocetirizine 5 mg tablet 5 mg PO QPM 90 Days Qty: 90 1RF azelastine 137 mcg (0.1 %) aerosol,spray 1 spray intranasal BID fluocinonide 0.05 % solution topical venlafaxine 75 mg capsule,extended release 24hr 75 mg PO QAM sumatriptan succinate 50 mg tablet 50 mg PO PRN valacyclovir 1 gram tablet 1,000 mg PO DAILY tamsulosin 0.4 mg capsule 0.4 mg PO BEDTIME 90 Days Qty: 90 3RF clonazepam 2 mg tablet 2 mg PO BEDTIME PRN (Reason: panic attack) econazole 1 % cream topical BID propranolol 80 mg capsule,extended release 24 hr 80 mg PO BEDTIME venlafaxine 37.5 mg capsule,extended release 24hr 37.5 mg PO QAM Jardiance 10 mg tablet 10 mg PO QAM verapamil 120 mg tablet extended release 120 mg PO DAILY
[2022-09-21 01:05] VITALS: BP 142/87; PULSE 87; RESP 16; TEMP 36.7; O2SAT 99
[2022-09-21] MEDS: oxyCODONE HCl Immed Release 5 MG TABLET PO (01:12)
--- NOTE | 2022-09-21 01:13 | PC.NURSE ---
Pt medicated per MAR, provided with DC paperwork.
[2022-09-21] MEDS: dexAMETHasone 4 MG TABLET PO (01:16)
== END 2022-09-21 01:18 | disposition home or self-care (01) ==
PROVIDERS: Emergency Provider Student in an Organized Health Care Education/Training Program; PCP Physician Assistant
DX: M54.16 Radiculopathy, lumbar region (principal); E11.9 Type 2 diabetes mellitus without complications; I10 Essential (primary) hypertension; E78.00 Pure hypercholesterolemia, unspecified; Z79.84 Long term (current) use of oral hypoglycemic drugs; Z79.02 Long term (current) use of antithrombotics/antiplatelets; Z79.899 Other long term (current) drug therapy
CPT/HCPCS: 99283; J8540

== ENCOUNTER 2022-09-21 15:28 | Emergency (ER) | payer OTHER, SELFPAY ==
--- NOTE | ~2022-09-21 | XR_ITS ---
EXAMINATION: XR LUMBOSACRAL SPINE CLINICAL INFORMATION: Lower back pain COMPARISON: 03/26/2021 TECHNIQUE: Three views of the lumbosacral spine. FINDINGS: No fracture or subluxation. Vertebral body height and alignment maintained. Disc spaces are maintained. Small endplate osteophytes are seen at L3 and L4. The sacroiliac joints are symmetric. The visualized sacrum is intact. Normal bowel gas pattern. Right upper quadrant surgical clips. XR/XR lumbar spine 2-3V IMPRESSION: Mild degenerative changes at L3 and L4. Similar appearance to prior.
--- NOTE | ~2022-09-21 | US_ITS ---
EXAMINATION: US VENOUS ULTRASOUND WITH DOPPLER LOWER EXTREMITY, LEFT CLINICAL INFORMATION: Left lower extremity pain and swelling. COMPARISON: None available. TECHNIQUE: Ultrasound of the deep veins is performed from the hip to the calf with compression sonography and color and pulse Doppler assessment. Spectral analysis with color-flow imaging is performed. FINDINGS: There is normal venous compression and respiratory variation and augmented flow. The visualized common femoral vein, superficial femoral vein, profunda femoral vein, popliteal vein, and the trifurcation region shows no evidence of deep venous thrombosis. No left popliteal cyst. The subcutaneous soft tissues are unremarkable. If the patient's symptoms persist, followup ultrasound in 5 days 7 days might be of value to exclude proximal propagation from a non-visualized calf vein. US/US venous duplex LE IMPRESSION: No evidence for deep venous thrombosis in the visualized veins of the left lower extremity.
[2022-09-21 16:15] VITALS: BP 120/86; PULSE 103; RESP 18; TEMP 36.8; O2SAT 98; BMI 23.3
--- NOTE | 2022-09-21 16:17 | ED_ITS ---
HPI - Extremity Problem General Chief complaint: Extremity Injury, Lower <EUGENE Newton Last Filed: 09/21/22 16:25> Stated complaint: severe L leg pain <EUGENE Newton Last Filed: 09/21/22 16:25> Time Seen by Provider: 09/21/22 16:57 <EUGENE Newton Last Filed: 09/21/22 16:25> Source: patient <EUGENE Vann Last Filed: 09/21/22 17:48> Mode of arrival: ambulatory <EUGENE Vann Last Filed: 09/21/22 17:48> Limitations: no limitations <EUGENE Vann Last Filed: 09/21/22 17:48> History of Present Illness HPI Narrative: Patient is a 57 year old assigned female at with a history of JASON and DM presenting to the emergency department today with left upper leg pain. Patient states that she was seen here last night for these symptoms and given medications but told to come back tonight for an US of her leg. Patient denies any dizziness, lightheadedness, abdominal pain, nausea, vomiting, fever, chills, blurry vision, double vision, loss of vision, chest pain, difficulty breathing, shortness of breath, night sweats, pain with urination, increased urinary frequency, increased urinary urgency, blood in her urine or stool, syncope or a near syncopal episode, recent trauma or falls, bowel incontinence, bladder incontinence, bowel retention, bladder retention, or any other complaints at this time. <EUGENE Vann Last Filed: 09/21/22 17:48> MD Complaint: extremity pain <EUGENE Vann Last Filed: 09/21/22 17:48> Location: left <EUGENE Vann Last Filed: 09/21/22 17:48> Relieving factors: nothing <EUGENE Vann Last Filed: 09/21/22 17:48> Exacerbating factors: nothing <EUGENE Vann Last Filed: 09/21/22 17:48> Associated symptoms: denies other symptoms <EUGENE Vann Last Filed: 09/21/22 17:48> Related Data Home medications: Home Medications Medication Instructions Recorded Confirmed clonazepam 1 mg tablet 1 mg PO TID 11/04/20 08/30/22 cromolyn 4 % eye drops 1 drp ophthalmic (eye) QID 11/04/20 08/30/22 diclofenac sodium 75 mg 75 mg PO BID 11/04/20 08/30/22 tablet,delayed release multivit with 1 tab PO DAILY 11/04/20 08/30/22 pnrrownj-kgam-ES-lutein 8 mg iron-400 mcg-300 mcg tablet (Centrum Silver Women) polyethylene glycol 3350 17 17 g PO DAILY 11/04/20 08/30/22 gram/dose oral powder (Miralax) clonazepam 2 mg tablet 2 mg PO BEDTIME PRN panic attack 10/22/21 08/30/22 econazole 1 % topical cream appl topical BID 10/22/21 08/30/22 propranolol 80 mg capsule,24 80 mg PO BEDTIME 10/22/21 08/30/22 hr,extended release venlafaxine 37.5 mg 37.5 mg PO QAM 10/22/21 08/30/22 capsule,extended release 24 hr azelastine 137 mcg (0.1 %) nasal 1 spray intranasal BID 12/21/21 08/30/22 spray aerosol fluocinonide 0.05 % topical ml topical 12/21/21 08/30/22 solution sumatriptan succinate 50 mg tablet 50 mg PO PRN 12/21/21 08/30/22 venlafaxine 75 mg capsule,extended 75 mg PO QAM 12/21/21 08/30/22 release 24 hr empagliflozin 10 mg tablet 10 mg PO QAM 03/03/22 08/30/22 (Jardiance) verapamil 120 mg tablet,extended 120 mg PO DAILY 03/03/22 08/30/22 release insulin glargine 100 unit/mL (3 12 unit subcut QAM 05/10/22 08/30/22 mL) subcutaneous pen (Basaglar KwikPen U-100 Insulin) valacyclovir 1 gram tablet 1,000 mg PO DAILY 07/07/22 08/30/22 Previous Rx's Medication Instructions Recorded lancets 28 gauge (FreeStyle #100 ea 08/27/21 Lancets) sennosides 8.6 mg tablet (senna) 17.2 mg PO BEDTIME 15 days #30 tabs 09/09/21 pen needle, diabetic 32 gauge x #100 ea 11/20/21 (BD Yuliet 2nd Gen Pen Needle) cholecalciferol (vitamin D3) 25 25 mcg PO DAILY 90 days #90 caps 11/29/21 mcg (1,000 unit) capsule meloxicam 15 mg tablet 15 mg PO DAILY #90 tabs 12/29/21 naproxen 500 mg tablet 500 mg PO BID PRN pain 7 days #14 01/19/22 tabs metformin 500 mg tablet 1,000 mg PO BID 90 days #360 tabs 01/24/22 amlodipine 10 mg tablet 10 mg PO DAILY #90 tabs 02/20/22 pyridoxine (vitamin B6) 50 mg 50 mg PO DAILY 90 days #90 tabs 03/21/22 tablet fluticasone propionate 50 1 spray intranasal DAILY #9.9 mL 03/30/22 mcg/actuation nasal spray,suspension (Flonase Allergy Relief) cyclobenzaprine 7.5 mg tablet 7.5 mg PO TID PRN muscle spasm 30 04/18/22 days #90 tabs simvastatin 20 mg tablet 20 mg PO BEDTIME 90 days #90 tabs 05/16/22 tizanidine 2 mg tablet 2 mg PO TID PRN muscle spasticity 05/17/22 30 days #90 tabs omeprazole 20 mg capsule,delayed 20 mg PO DAILY 30 days #30 caps 05/24/22 release albuterol sulfate 90 mcg/actuation 2 puff inhalation Q4-6H PRN 06/17/22 aerosol inhaler (Ventolin HFA) shortness of breath or wheezing #8.5 grams tamsulosin 0.4 mg capsule 0.4 mg PO BEDTIME 90 days #90 caps 07/07/22 aspirin 81 mg tablet,delayed 81 mg PO DAILY #30 tabs 08/03/22 release lisinopril 20 mg tablet 20 mg PO DAILY #90 tabs 08/24/22 allopurinol 100 mg tablet 100 mg PO DAILY 90 days #90 tabs 08/25/22 blood sugar diagnostic (FreeStyle #100 strips 08/25/22 Lite Strips) levocetirizine 5 mg tablet 5 mg PO QPM 90 days #90 tabs 08/30/22 dexamethasone 4 mg tablet 4 mg PO BID #6 tabs 09/21/22 gabapentin 300 mg capsule 300 mg PO BID #14 caps 09/21/22 methocarbamol 500 mg tablet 500 mg PO TID PRN muscle spasm #15 09/21/22 tabs <EUGENE Newton Last Filed: 09/21/22 16:25> Allergies/Adverse reactions: Allergies Allergy/AdvReac Type Severity Reaction Status Date / Time No Known Allergies Allergy Verified 09/20/22 22:21 [No Known Allergies*] <EUGENE Newton Last Filed: 09/21/22 16:25> Review of Systems Constitutional: Constitutional: Reports no additional constitutional complaints, Denies chills, Denies fever(s) and Denies night sweats <EUGENE Vann Last Filed: 09/21/22 17:48> Eyes: Eyes: Reports no additional eye complaints, Denies blurry vision, Denies change in vision, Denies diplopia, Denies eye discharge, Denies loss of vision and Denies eye pain <EUGENE Vann Last Filed: 09/21/22 17:48> ENT: Denies dizziness <EUGENE Vann Last Filed: 09/21/22 17:48> Cardiovascular: Cardiovascular: Reports no additional cardiovascular complaints, Denies chest pain, Denies lightheadedness, Denies Loss of Consciousness and Denies dyspnea <EUGENE Vann Last Filed: 09/21/22 17:48> Respiratory: Respiratory: Reports no additional respiratory complaints and Denies dyspnea <EUGENE Vann Last Filed: 09/21/22 17:48> Gastrointestinal: Gastrointestinal: Reports no additional gastrointestinal complaints, Denies abdominal pain, Denies melena, Denies hematochezia, Denies change in bowel habits and Denies change in stool character <EUGENE Vann Last Filed: 09/21/22 17:48> Genitourinary: Genitourinary: Denies hematuria, Denies urinary frequency, Denies dysuria, Denies urinary incontinence, Denies urinary hesitancy and Denies urinary urgency <EUGENE Vann Last Filed: 09/21/22 17:48> Musculoskeletal: Musculoskeletal: Reports no additional musculoskeletal complaints, Denies numbness and Denies tingling <EUGENE Vann Last Filed: 09/21/22 17:48> Comments: left leg pain <EUGENE Vann - Last Filed: 09/21/22 17:48> Neurologic: Denies dizziness, Denies loss of vision, Denies numbness and Denies tingling <EUGENE Vann - Last Filed: 09/21/22 17:48> Psychiatric: Psychiatric: Reports no additional psychiatric complaints <EUGENE Vann - Last Filed: 09/21/22 17:48> Endocrine: Endocrine: Reports no additional endocrine complaints <EUGENE Vann - Last Filed: 09/21/22 17:48> Hematologic/Lymphatic: Hematologic/Lymphatic: Reports no additional hematologic/lymphatic complaints <EUGENE Vann - Last Filed: 09/21/22 17:48> Allergic/Immunologic: Allergic/Immunologic: Reports no additional allergic/immunologic complaints <EUGENE Vann - Last Filed: 09/21/22 17:48> PMFSH Past Medical History Attestation statement: The following information was validated with the patient. <EUGENE Vann - Last Filed: 09/21/22 17:48> Source: old records reviewed and nursing notes reviewed <EUGENE Vann - Last Filed: 09/21/22 17:48> Medical History: Medical History Asthma Dysplasia of cervix, low grade (BILLY 1) Hypercholesterolemia Hyperhidrosis Hypertension Migraine Renal calculi Renal calculi Renal calculus, bilateral Renal cysts, acquired, bilateral Type 2 diabetes mellitus with hyperglycemia <EUGENE Newton - Last Filed: 09/21/22 16:25> Surgical History: Surgical History History of hemorrhoidectomy History of right oophorectomy Hx of appendectomy Hx of cholecystectomy <EUGENE Newton - Last Filed: 09/21/22 16:25> Family History Family History: Family History Father Substance abuse Brother Substance abuse Schizophrenia <EUGENE Newton - Last Filed: 09/21/22 16:25> Social History Social History: Social History Housing: Apartment Alcohol intake: never Patient Tobacco Use Status: Never used Tobacco Tobacco use type: Cigarette e-Cigarette/Vaping Use: Never Used Second Hand Smoke Exposure: No Advance Directives: No Advance Directives Information Provided: No service: No Current occupational status: unemployed Cognitive needs: No Hearing needs: No Vision needs: No <EUGENE Newton - Last Filed: 09/21/22 16:25> Physical Exam Vital Signs: Vital Signs: Last Vital Signs Temp 98.3 F 09/21/22 16:15 Pulse 103 H 09/21/22 16:15 Resp 18 09/21/22 16:15 BP 120/86 09/21/22 16:15 Pulse Ox 98 09/21/22 16:15 O2 Del Method Room Air 09/21/22 16:15 BMI result Body Mass Index 23.3 <EUGENE Newton - Last Filed: 09/21/22 16:25> Vital Signs: Last Vital Signs Temp 98.3 F 09/21/22 16:15 Pulse 103 H 09/21/22 16:15 Resp 18 09/21/22 16:15 BP 120/86 09/21/22 16:15 Pulse Ox 98 09/21/22 16:15 O2 Del Method Room Air 09/21/22 16:15 BMI result Body Mass Index 23.3 <EUGENE Vann - Last Filed: 09/21/22 17:48> Const: General: cooperative, no acute distress, alert and awake <EUGENE Vann - Last Filed: 09/21/22 17:48> Nutritional Appearance: well nourished <EUGENE Vann - Last Filed: 09/21/22 17:48> Orientation/consciousness: patient oriented x3 <EUGENE Vann - Last Filed: 09/21/22 17:48> Limitations: no limitations <EUGENE Vann Last Filed: 09/21/22 17:48> HEENT: Head: Yes normal to inspection and Yes atraumatic <EUGENE Vann Last Filed: 09/21/22 17:48> Ears: hearing grossly normal bilaterally and external ears normal <EUGENE Vann - Last Filed: 09/21/22 17:48> General nose exam: Normal external nose present, no nasal discharge noted and no epistaxis <EUGENE Vann - Last Filed: 09/21/22 17:48> Face and sinus: Yes normal facial exam, No abrasion and No laceration <EUGENE Vann - Last Filed: 09/21/22 17:48> Mouth: Normal oral and palatal mucosa present, no drooling and no muffled voice <EUGENE Vann - Last Filed: 09/21/22 17:48> Eyes: General: appearance normal, both eyes and all related structures <EUGENE Vann - Last Filed: 09/21/22 17:48> Periorbital: periorbital findings normal <EUGENE Vann - Last Filed: 09/21/22 17:48> Eyelids: Yes eyelids normal <EUGENE Vann - Last Filed: 09/21/22 17:48> Conjunctivae: conjunctivae normal <EUGENE Vann - Last Filed: 09/21/22 17:48> Pupils: Equal, round and reactive pupils present <EUGENE Vann - Last Filed: 09/21/22 17:48> EOM: EOMs intact bilaterally <EUGENE Vann - Last Filed: 09/21/22 17:48> Neck: Neck: Yes normal visual inspection, Yes full ROM and Yes no lymphadenopathy <EUGENE Vann - Last Filed: 09/21/22 17:48> Chest: Chest palpation & inspection: normal inspection of the chest <EUGENE Vann - Last Filed: 09/21/22 17:48> Resp: Effort & Inspection: normal respiratory effort and able to speak in complete sentences <EUGENE Vann - Last Filed: 09/21/22 17:48> Auscultation: clear to auscultation bilaterally <EUGENE Vann - Last Filed: 09/21/22 17:48> Cardio: Rate: regular rate <EUGENE Vann - Last Filed: 09/21/22 17:48> Rhythm: regular rhythm <EUGENE Vann - Last Filed: 09/21/22 17:48> GI: Inspection: Yes normal to inspection <EUGENE Vann Last Filed: 09/21/22 17:48> Palpation (GI): Soft to palpation, not firm, nontender and no guarding <Leesa ChaudhariEUGENE torres - Last Filed: 09/21/22 17:48> Neuro: General: patient oriented x3 and moves all extremities <Leesa ChaudhariEUGENE torres - Last Filed: 09/21/22 17:48> Cranial nerves: Yes Equal, round and reactive pupils present <Leesa Chaudharimelissa PA - Last Filed: 09/21/22 17:48> Cognition (Neuro): normal cognition <Leesa Chaudharimelissa PA - Last Filed: 09/21/22 17:48> Motor exam (neuro): 5/5 motor strength present throughout <Leesa ChaudhariEUGENE torres - Last Filed: 09/21/22 17:48> Sensory Exam: Normal double simultaneous stimulation for sensation <Leesa ChaudhariEUGENE torres - Last Filed: 09/21/22 17:48> Coordination: dagamh-fm-gdit test normal <Leesajf ChaudhariEUGENE torres - Last Filed: 09/21/22 17:48> Extrem: General: Yes normal to inspection, Yes full ROM and Yes capillary refill normal <Leesa Chaudharimelissa PA - Last Filed: 09/21/22 17:48> Psych: Appearance: grossly normal <Leesajf ChaudhariEUGENE torres - Last Filed: 09/21/22 17:48> Mental Status: mental status grossly normal <Leesajf ChaudhariEUGENE torres - Last Filed: 09/21/22 17:48> Affect: normal affect <EUGENE Vann - Last Filed: 09/21/22 17:48> Attitude: cooperative <EUGENE Vann - Last Filed: 09/21/22 17:48> Thought process: Normal thought process present <EUGENE Vann - Last Filed: 09/21/22 17:48> Thought content: Normal thought content present <EUGENE Vann - Last Filed: 09/21/22 17:48> Insight: Good insight present (Psych) <EUGENE Vann - Last Filed: 09/21/22 17:48> Course Course Course Narrative: RME - 57 yo [place] speaking female presents to the ER for evaluation of low back pain and left leg pain. Pain is burning and new. Seen here last night for the same - discharged home with gabapentin, decadron and robaxin. she reports no improvement in the pain. She states she was told to come back to the ER for an ultrasound today if no improvement in the pain. Plan: LE doppler and XR lumbar spine <EUGENE Newton - Last Filed: 09/21/22 16:25> Medical Decision Making Medical Decision Making MDM Narrative: Patient is a 57 year old assigned female at with a history of JASON presenting to the emergency department today with left leg pain. Patient's physical exam was unremarkable. Patient's lumbar x-ray and left lower leg US showed no acute process. I explained my physical exam findings as well as all test results to the patient. I answered all questions asked by the patient. I stressed the importance of the patient taking her medication as prescribed. I stressed the importance of the patient following up with her primary care provider. I stressed the importance of the patient returning to the emergency department immediately if her symptoms were to worsen or if she were to develop any dizziness, shortness of breath, difficulty breathing, chest pain, blurry vision, loss of vision, nausea, vomiting, abdominal pain, fever, chills, back pain, or any other complaints. Patient verbalized agreement and understanding with this treatment plan and discharge. <EUGENE Vann - Last Filed: 09/21/22 17:48> Differential Diagnosis Differential Diagnoses: The differential diagnosis associated with the presentation includes <EUGENE Vann Last Filed: 09/21/22 17:48> left leg pain <EUGENE Vann Last Filed: 09/21/22 17:48> Independent Interpretation I performed an independent interpretation of an: Plain X-Ray and Ultrasound <EUGENE Vann - Last Filed: 09/21/22 17:48> Interpretation: My interpretation is in agreement with the radiologist's impression of these imaging studies. EXAMINATION:? US VENOUS ULTRASOUND WITH DOPPLER LOWER EXTREMITY, LEFT CLINICAL INFORMATION:? Left lower extremity pain and swelling. COMPARISON:? None available. TECHNIQUE: Ultrasound of the deep veins is performed from the hip to the calf with compression sonography and color and pulse Doppler assessment. Spectral analysis with color-flow imaging is performed. FINDINGS: There is normal venous compression and respiratory variation and augmented flow. The visualized common femoral vein, superficial femoral vein, profunda femoral vein, popliteal vein, and the trifurcation region shows no evidence of deep venous thrombosis. No left popliteal cyst. The subcutaneous soft tissues are unremarkable. If the patient's symptoms persist, followup ultrasound in 5 days 7 days might be of value to exclude proximal propagation from a non-visualized calf vein. US/US venous duplex LE LT IMPRESSION: No evidence for deep venous thrombosis in the visualized veins of the left lower extremity. ? Dictated By: Curtis Turner MD Signed By: Electronically signed by Curtis Turner MD 09/21/22 4450 EXAMINATION: XR LUMBOSACRAL SPINE CLINICAL INFORMATION: Lower back pain COMPARISON: 03/26/2021 TECHNIQUE: Three views of the lumbosacral spine. FINDINGS: No fracture or subluxation. Vertebral body height and alignment maintained. Disc spaces are maintained. Small endplate osteophytes are seen at L3 and L4. The sacroiliac joints are symmetric. The visualized sacrum is intact. Normal bowel gas pattern. Right upper quadrant surgical clips. XR/XR lumbar spine 2-3V IMPRESSION: Mild degenerative changes at L3 and L4. Similar appearance to prior. Dictated By: Mitchel Donovan MD Signed By: Electronically signed by Mitchel Donovan MD 09/21/22 1717 <EUGENE Vann - Last Filed: 09/21/22 17:48> Discharge Plan Discharge Clinical Impression: Leg pain <EUGENE Newton - Last Filed: 09/21/22 16:25> Patient Disposition: Home, Self-Care <EUGENE Newton - Last Filed: 09/21/22 16:25> Instructions: Leg Pain (ED) <EUGENE Newton - Last Filed: 09/21/22 16:25> Additional Instructions: Continue taking your medications as prescribed. Follow up with your primary care provider. Return to the emergency department immediately if your symptoms worsen or if you develop any dizziness, shortness of breath, difficulty breathing, chest pain, blurry vision, loss of vision, nausea, vomiting, abdominal pain, fever, chills, back pain, or any other complaints. Contin?e tomando gregory medicamentos seg?n lo prescrito. Alejandro un seguimiento con nunn proveedor de atenci?n primaria. Regrese a la nan de emergencias de inmediato si gregory s?ntomas empeoran o si presenta mareos, dificultad para respirar, dolor de pecho, visi?n borrosa, p?rdida de la visi?n, n?useas, v?mitos, dolor abdominal, fiebre, escalofr?os, dolor de espalda o cualquier otras quejas. <EUGENE Newton - Last Filed: 09/21/22 16:25> Prescriptions: No Action (DME) lancets [FreeStyle Lancets] 28 gauge misc See Rx Instructions .Route Qty: 100 3RF Rx Instructions: As directed check the sugar once a day (DME) pen needle, diabetic [BD Yuliet 2nd Gen Pen Needle] 32 gauge x 5/32 needle See Rx Instructions .Route Qty: 100 3RF Rx Instructions: As directed cholecalciferol (vitamin D3) 25 mcg (1,000 unit) capsule 25 mcg PO DAILY 90 Days Qty: 90 3RF meloxicam 15 mg tablet 15 mg PO DAILY Qty: 90 0RF metformin 500 mg tablet 1,000 mg PO BID 90 Days Qty: 360 2RF amlodipine 10 mg tablet 10 mg PO DAILY Qty: 90 2RF pyridoxine (vitamin B6) 50 mg tablet 50 mg PO DAILY 90 Days Qty: 90 3RF cyclobenzaprine 7.5 mg tablet 7.5 mg PO TID PRN (Reason: muscle spasm) 30 Days Qty: 90 1RF simvastatin 20 mg tablet 20 mg PO BEDTIME 90 Days Qty: 90 2RF tizanidine 2 mg tablet 2 mg PO TID PRN (Reason: muscle spasticity) 30 Days Qty: 90 6RF omeprazole 20 mg capsule,delayed release(DR/EC) 20 mg PO DAILY 30 Days Qty: 30 3RF albuterol sulfate [Ventolin HFA] 90 mcg/actuation HFA aerosol inhaler 2 puff inhalation Q4-6H PRN (Reason: shortness of breath or wheezing) Qty: 8.5 1RF aspirin 81 mg tablet,delayed release (DR/EC) 81 mg PO DAILY Qty: 30 11RF lisinopril 20 mg tablet 20 mg PO DAILY Qty: 90 2RF allopurinol 100 mg tablet 100 mg PO DAILY 90 Days Qty: 90 1RF (DME) FreeStyle Lite Strips Strip See Rx Instructions .ROUTE .COMPLEX Qty: 100 0RF Dose Instruction: DIRECTED CHECK THE BLOOD SUGAR ONCE A DAY Rx Instructions: DIRECTED CHECK THE BLOOD SUGAR ONCE A DAY naproxen 500 mg tablet 500 mg PO BID PRN (Reason: pain) 7 Days Qty: 14 0RF dexamethasone 4 mg tablet 4 mg PO BID Qty: 6 0RF methocarbamol 500 mg tablet 500 mg PO TID PRN (Reason: muscle spasm) Qty: 15 0RF gabapentin 300 mg capsule 300 mg PO BID Qty: 14 0RF clonazepam 1 mg tablet 1 mg PO TID Centrum Silver Women 8 mg iron-400 mcg-300 mcg tablet 1 tab PO DAILY cromolyn 4 % drops 1 drp ophthalmic (eye) QID polyethylene glycol 3350 [Miralax] 17 gram/dose powder 17 g PO DAILY diclofenac sodium 75 mg tablet,delayed release (DR/EC) 75 mg PO BID sennosides [senna] 8.6 mg tablet 17.2 mg PO BEDTIME 15 Days Qty: 30 0RF Basaglar KwikPen U-100 Insulin 100 unit/mL (3 mL) insulin pen 12 unit subcut QAM fluticasone propionate [Flonase Allergy Relief] 50 mcg/actuation spray,suspension 1 spray intranasal DAILY Qty: 9.9 1RF Rx Instructions: administer into each nostril levocetirizine 5 mg tablet 5 mg PO QPM 90 Days Qty: 90 1RF azelastine 137 mcg (0.1 %) aerosol,spray 1 spray intranasal BID fluocinonide 0.05 % solution topical venlafaxine 75 mg capsule,extended release 24hr 75 mg PO QAM sumatriptan succinate 50 mg tablet 50 mg PO PRN valacyclovir 1 gram tablet 1,000 mg PO DAILY tamsulosin 0.4 mg capsule 0.4 mg PO BEDTIME 90 Days Qty: 90 3RF clonazepam 2 mg tablet 2 mg PO BEDTIME PRN (Reason: panic attack) econazole 1 % cream topical BID propranolol 80 mg capsule,extended release 24 hr 80 mg PO BEDTIME venlafaxine 37.5 mg capsule,extended release 24hr 37.5 mg PO QAM Jardiance 10 mg tablet 10 mg PO QAM verapamil 120 mg tablet extended release 120 mg PO DAILY <EUGENE Newton - Last Filed: 09/21/22 16:25> Referrals: Justin Cameron PA-C [Primary Care Provider] - <EUGENE Newton - Last Filed: 09/21/22 16:25> Print Language: [place] <EUGENE Newton - Last Filed: 09/21/22 16:25>
== END 2022-09-21 17:50 | disposition home or self-care (01) ==
PROVIDERS: Emergency Provider Emergency Medicine; PCP Physician Assistant
DX: M79.605 Pain in left leg (principal); E11.9 Type 2 diabetes mellitus without complications; I10 Essential (primary) hypertension; E78.00 Pure hypercholesterolemia, unspecified; Z79.4 Long term (current) use of insulin; Z79.899 Other long term (current) drug therapy; Z79.02 Long term (current) use of antithrombotics/antiplatelets; Z79.82 Long term (current) use of aspirin
CPT/HCPCS: 72100; 93971; 99282; 99284

== ENCOUNTER 2022-09-23 15:24 | Outpatient (REF) | payer OTHER, SELFPAY ==
[2022-09-23 18:12] LABS: Alanine Aminotransferase 25 U/L (0-31); Albumin Level 4.6 g/dL (3.5-5.0); Alkaline Phosphatase 56 U/L (39-117); Anion Gap 19 (12-20); Aspartate Amino Transferase 24 U/L (5-31); Bilirubin Total 0.6 mg/dL (0.0-1.0); Blood Urea Nitrogen 31 mg/dL (9-16); Calcium 10.2 mg/dL (8.4-10.2); Carbon Dioxide 20 mmol/L (22-29); Chloride 104 mmol/L (96-108); Estimated Glomerular Filt Rate > 60; Glucose Random 180 mg/dL (60-115); Phosphorus 3.1 mg/dL (2.7-4.5); Potassium 4.2 mmol/L (3.3-5.1); Sodium 139 mmol/L (135-145); Total Protein 7.5 g/dL (6.5-8.0)
[2022-09-23 18:27] LABS: Vitamin D 25-OH Total 37.7 ng/mL (>30)
== END 2022-09-23 15:25 | disposition home or self-care (01) ==
LOC: HO.LAB 15:24
PROVIDERS: PCP Physician Assistant; Visit Provider Nurse Practitioner Family
DX: Z13.21 Encounter for screening for nutritional disorder (principal); M79.10 Myalgia, unspecified site
CPT/HCPCS: 36415; 80053; 82306; 83735; 84100

== ENCOUNTER 2022-10-13 16:25 | Outpatient (REF) | payer OTHER, SELFPAY ==
[2022-10-13 16:39] LABS: Appearance Urine Clear; Color Urine Yellow; Glucose Urine UA >=1000 mg/dL (Negative); Leukocyte Esterase Urine Negative (Negative); Nitrite Urine Negative (Negative); Specific Gravity - Urine >= 1.030 (1.005-1.025); UMIC TRIGGER UACC YES; Urine Blood Negative (Negative); Urine Ketones Negative (Negative); Urine Protein Negative (Neg-Trace)
[2022-10-13 16:44] LABS: Bacteria Urine None Seen (None Seen); Hyaline Casts Urine 0-2 /LPF (0-2); RBC Urine 0-2 /HPF (0-2); Squamous Epithelial Cell Urine 0-2 /HPF (0-2); WBC Urine 0-5 /HPF (0-5)
[2022-10-14 11:06] LABS: BV Int Neg Control Negative (Negative); BV Int Pos Control Positive (Positive)
== END 2022-10-13 16:26 | disposition home or self-care (01) ==
LOC: HO.LNP 16:25
PROVIDERS: Visit Provider Physician Assistant Medical
DX: N89.8 Other specified noninflammatory disorders of vagina (principal)
CPT/HCPCS: 81001; 87480; 87510; 87660

== ENCOUNTER 2022-11-07 09:46 | Outpatient (REF) | payer OTHER, SELFPAY ==
[2022-11-07 10:15] LABS: Hematocrit 35.6 % (37.0-47.0); Hemoglobin 11.7 g/dl (12.0-16.0); Mean Corpuscular HGB Conc 32.9 g/dl (31.0-35.0); Mean Corpuscular Hemoglobin 30.1 pg (27.0-33.0); Mean Corpuscular Volume 91.5 fL (80.0-98.0); Mean Platelet Volume 9.9 fL (9.4-12.3); Platelet Count 280 X10*3/uL (160-400); Red Blood Count 3.89 X10*6/uL (4.20-5.50); Red Cell Distribution Width 13.3 % (11.0-16.0); White Blood Count 6.5 X10*3/uL (4.8-10.8)
[2022-11-07 11:02] LABS: Alanine Aminotransferase 20 U/L (0-31); Albumin Level 4.4 g/dL (3.5-5.0); Alkaline Phosphatase 61 U/L (39-117); Anion Gap 13 (12-20); Aspartate Amino Transferase 25 U/L (5-31); Bilirubin Total 0.7 mg/dL (0.0-1.0); Blood Urea Nitrogen 14 mg/dL (9-16); Calcium 10.1 mg/dL (8.4-10.2); Carbon Dioxide 29 mmol/L (22-29); Chloride 104 mmol/L (96-108); Cholesterol 199 mg/dL; Estimated Glomerular Filt Rate > 60; Glucose Fasting 137 mg/dL (60-99); HDL Cholesterol 54 mg/dL; LDL Cholesterol Calculated 124 mg/dl; Potassium 4.2 mmol/L (3.3-5.1); Sodium 142 mmol/L (135-145); Total Protein 7.2 g/dL (6.5-8.0); Triglycerides 107 mg/dL
[2022-11-07 11:23] LABS: TSH reflex Free T4 1.04 uIU/mL (0.32-4.0)
[2022-11-07 11:42] LABS: Creatinine Urine 105.89 mg/dL; Microalbum/Creatinine Ratio Ur 9.4 ug/mg cr
== END 2022-11-07 09:47 | disposition home or self-care (01) ==
LOC: HO.LAB 09:46
PROVIDERS: Visit Provider Physician Assistant
DX: E78.00 Pure hypercholesterolemia, unspecified (principal); I10 Essential (primary) hypertension; E11.65 Type 2 diabetes mellitus with hyperglycemia
CPT/HCPCS: 36415; 80053; 80061; 82043; 84443; 85027

== ENCOUNTER 2022-12-19 12:53 | Outpatient (REF) | payer OTHER, SELFPAY | END 2022-12-19 12:54 | disposition home or self-care (01) | LOC: HO.HMGCX 12:53 | PROVIDERS: PCP Physician Assistant; Visit Provider Nurse Practitioner Family | DX: N20.0 Calculus of kidney (principal) | CPT/HCPCS: 76775 ==

== ENCOUNTER 2022-12-21 08:53 | Outpatient (REF) | payer OTHER, SELFPAY | END 2022-12-21 08:54 | disposition home or self-care (01) | LOC: HO.NEURO 08:53 | PROVIDERS: PCP Physician Assistant; Visit Provider Nurse Practitioner Family | DX: M79.604 Pain in right leg (principal); M79.605 Pain in left leg | CPT/HCPCS: 95885; 95911 ==

== ENCOUNTER 2023-01-03 13:21 | Outpatient (AMB) | payer OTHER, SELFPAY ==
--- NOTE | 2023-01-03 13:24 | MHC.OFFVIS ---
Intake Intake Visit Reasons: 6m follow up/US/PVR Intake Note: Patient is present for?follow up ultrasound/PVR/kidney stone Urology Medications: tamsulosin, Vitamin B6 Blood Thinner: aspirin PVR: 0ml's Religion Department Chair Required: No Accompanied by: Self / Same As Patient Allergies No Known Allergies [No Known Allergies*] Allergy (Verified 01/05/23 07:42) Medication List - Last Reconciled 01/05/23 by MARY Fong- albuterol sulfate 90 mcg/actuation (Ventolin HFA) 2 puffs inhalation Q4-6H PRN amlodipine 10 mg PO DAILY aspirin 81 mg PO DAILY atorvastatin 10 mg PO DAILY 90 days azelastine 1 spray intranasal BID blood sugar diagnostic (FreeStyle Lite Strips) DIRECTED CHECK THE BLOOD SUGAR ONCE A DAY cetirizine 10 mg PO DAILY 90 days cholecalciferol (vitamin D3) 25 mcg PO DAILY 90 days clonazepam 1 mg PO TID clonazepam 2 mg PO BEDTIME PRN cromolyn 4% 1 drp ophthalmic (eye) QID 30 days cyclobenzaprine 5 mg PO BID PRN dulaglutide (Trulicity) 0.75 mg (0.5 mL) subcut QWEEK 4 weeks fluocinonide 0.05% mL topical fluticasone propionate 50 mcg/actuation (Flonase Allergy Relief) 1 spray intranasal DAILY gabapentin 300 mg PO BID lancets (FreeStyle Lancets) As directed check the sugar once a day lisinopril 20 mg PO DAILY metformin 1,000 mg (2 x 500 mg) PO BID 90 days omeprazole 20 mg PO DAILY 30 days pen needle, diabetic (BD Yuliet 2nd Gen Pen Needle) As directed pyridoxine (vitamin B6) 50 mg PO DAILY 90 days ropinirole 0.5 mg PO BEDTIME 30 days tamsulosin 0.4 mg PO BEDTIME 90 days HPI HPI Comments History of Present Illness Details Oh is a pleasant 57 year old female patient of Dr. Cameron. She has a past medical history of asthma, dysplasia of cervix (low grade), hypercholesteremia, hypertension, lumbar radicular pain, migraine, renal calculi, renal cysts, and type 2 diabetes. She presents to the office today to follow up regarding her renal cysts and kidney stones. She states she is doing well has been drinking a lot of water daily and is complaint with her Vitamin B6. Recent surveillance renal imaging results reviewed with the patient today. Right kidney with no hydronephrosis. 1.3 x 1.1 x 1.2 cm and 0.8 x 0.6 x 0.7 cm simple mid renal cyst with no follow-up of these findings is recommended per radiology report. 2 mm calculi in the mid kidney. Left kidney with no hydronephrosis. 1.9 x 1.9 x 1.9 cm lower pole cyst is seen with no follow-up imaging recommended via radiology report. 3 mm calculi in the lower pole. Patient discusses her recent moved back to [place] into her new apartment and how happy she is. She reports previously living in [place] and having had issues with her privacy and is happy to be in her new apartment. When asked she denies urinary urgency, urinary frequency, incontinence, nocturia, hematuria, dysuria, foul smelling urine, changes to urinary stream, flank pain, fever, and or chills. She is happy with her current voiding parameters. In office urinalysis results reviewed with the patient today. She otherwise offers no issues or concerns at this time. FOR[facility]LY [facility] Medical History Asthma Dysplasia of cervix, low grade (BILLY 1) Hypercholesterolemia Hyperhidrosis Hypertension Lumbar radicular pain Migraine Renal calculi Renal calculi Renal calculus, bilateral Renal cysts, acquired, bilateral Type 2 diabetes mellitus with hyperglycemia Surgical History History of hemorrhoidectomy History of right oophorectomy Hx of appendectomy Hx of cholecystectomy Family History Father Substance abuse Brother Substance abuse Schizophrenia Other Mental and behavioral problem Social History Housing: Apartment Alcohol intake: never Patient Tobacco Use Status: Never used Tobacco Tobacco use type: Cigarette e-Cigarette/Vaping Use: Never Used Second Hand Smoke Exposure: No service: No Current occupational status: unemployed Cognitive needs: No Hearing needs: No Vision needs: No Review of Systems Const All systems reviewed & are unremarkable except as noted in HPI and below Reports as per HPI Eyes Reports no additional complaints ENT Reports no additional complaints Card Reports as per HPI Resp Reports as per HPI GI Reports no additional complaints Reports as per [facility] Musc Reports as per HPI Neuro Reports no additional complaints Psych Reports no additional complaints Endo Reports as per HPI Hollis/Lymph Reports no additional complaints Aller/Immun Reports no additional complaints Physical Exam Const General: cooperative, healthy appearing, comfortable, no acute distress, well developed, alert and awake Orientation/consciousness: patient oriented x3 Limitations: no limitations HEENT Head: Yes normal to inspection, Yes normocephalic and Yes atraumatic Ears: hearing grossly normal bilaterally Eyes General: appearance normal, both eyes and all related structures Neck Neck: Yes normal visual inspection and Yes trachea midline Chest Chest palpation & inspection: normal inspection of the chest Resp Effort & Inspection: normal respiratory effort and able to speak in complete sentences Cardio Rate: regular rate GI Inspection: Yes normal to inspection General: Yes no CVA tenderness Back/Spine/Pelvis Back: no CVA tenderness Skin General skin exam: no rashes or lesions noted Neuro General: patient oriented x3 Extrem General: Yes normal to inspection Psych Appearance: grossly normal and well kempt Mental Status: mental status grossly normal Speech and movement: Normal speech and movement present and Clear speech present Affect: normal affect Attitude: cooperative Thought process: Normal thought process present Thought content: Normal thought content present Insight: Good insight present (Psych) Judgement: Good judgement present (Psych) Office Procedures Post Void Residual Post Residual Void Post Void Residual (PVR): 0 38420-Exbu Void Residual by ultrasound Results AMB Urinalysis, Automated UA Leukoctes 0 Amara/uL Last Edit by [employer] on 01/03/23 13:46 UA Nitrite Negative Last Edit by [employer] on 01/03/23 13:46 UA Urobilinogen 0.2 mg/dL Last Edit by [employer] on 01/03/23 13:46 UA Protein 15 mg/dL Last Edit by [employer] on 01/03/23 13:46 UA pH 6.0 Last Edit by [employer] on 01/03/23 13:46 UA Blood 25 Esvin/uL Last Edit by [employer] on 01/03/23 13:46 UA Specific [place] 1.020 Last Edit by [employer] on 01/03/23 13:46 UA Ketone Negative Last Edit by [employer] on 01/03/23 13:46 UA Bilirubin 0 mg/dL Last Edit by [email or web address] Diaz on 01/03/23 13:46 UA Glucose 0 mg/dL Last Edit by Estephanie Diaz on 01/03/23 13:46 Results Reviewed Results Reviewed: Laboratory Last Values Urine pH (Auto) 6.0 01/03/23 13:34 Specific [place] (Auto) 1.020 01/03/23 13:34 Urine Protein (Auto) 15 mg/dL 01/03/23 13:34 Glucose (UA)(Auto) 0 mg/dL 01/03/23 13:34 Urine Ketones (Auto) Negative 01/03/23 13:34 Urine Blood (Auto) 25 Esvin/uL 01/03/23 13:34 Urine Nitrite (Auto) Negative 01/03/23 13:34 Urine Bilirubin (Auto) 0 mg/dL 01/03/23 13:34 Urine Urobilinogen (Auto) 0.2 mg/dL 01/03/23 13:34 Leukocyte Esterase (Auto) 0 Amara/uL 01/03/23 13:34 Date of Service: 12/19/22 EXAMINATION: US RETROPERITONEAL LIMITED (RENAL ONLY) FINDINGS: RIGHT KIDNEY: 10.9 x 6.0 x 5.3 cm (SAG x AP x TRV). The kidney is normal in size, contour, and echogenicity. Renal cortical thickness is normal. No hydronephrosis. 1.3 x 1.1 x 1.2 cm and 0.8 x 0.6 x 0.7 cm simple mid renal cysts are seen; no follow-up of these findings is recommended. 0.2 x 0.2 x 0.2 cm nodule in calculus is seen in the mid kidney. LEFT KIDNEY: 11.7 x 5.4 x 4.9 cm (SAG x AP x TRV). The kidney is normal in size, contour, and echogenicity. Renal cortical thickness is normal. No hydronephrosis. 1.9 x 1.9 x 1.9 cm lower pole simple cyst is seen; no follow-up this finding is recommended. 0.3 x 0.2 x 0.3 cm nodule in calculus is seen in the lower pole. IMPRESSION: Bilateral nonobstructing renal calculi. Assessment & Plan Assessment & Plan (1) Renal cyst: Code(s): N28.1 - Cyst of kidney, acquired (2) Renal calculi: Code(s): N20.0 - Calculus of kidney Plan In office urinalysis results reviewed with the patient; as noted above. Recent renal imaging results reviewed with the patient today; as noted above. Continue vitamin B6 as discussed and prescribed. Continue adding 1 oz of lemon juice to water daily. Continue and encouraged to drink plenty of water daily. Patient denies any urinary issues or concerns at this time. Renal ultrasound in 6 months. Follow-up in 6 months with imaging to be completed prior; or sooner with any issues, concerns, and or questions. Orders: Orders US renal BI 6 Months N20.0 - Calculus of kidney, N28.1 - Cyst of kidney, acquired AMB Urinalysis Automated 01/03/23 Z13.9 - Encounter for screening, unspecified AMB Post Void Residual by ultrasound 01/03/23 R33.9 - Retention of urine, unspecified Patient Instructions: The patient had an opportunity to ask questions regarding the treatment plan. All questions were answered. Physical exam, labs, and imaging were discussed and reviewed in detail. As well as risks, benefits, and discussion of treatment choices. No major barriers to understanding were identified. The patient expressed understanding and agreement with the above treatment plan. The patient was made aware they should contact our office by phone for worsening of their current condition, the appearance of new symptoms, or with any questions or concerns. Compliance is encouraged with any medications and follow up testing that is ordered. It is a privilege to be allowed the opportunity to participate in? your urological care.? Again, if you have any questions or concerns If you have any questions or concerns please do not hesitate to contact me. The office is [phone]. This note is constructed using voice recognition software. While every effort has been made to ensure accuracy hand glove cleaner errors may have been included. Yours sincerely, JACQUES Fong Coding Level of Care Code Est Pt Level 3 (43984) Diagnoses Renal cyst N28.1 Renal calculi N20.0 CPT Codes Post Residual Void - PVR CPT Code: 95402-Tdod Void Residual by ultrasound ([id number])
== END 2023-01-03 14:25 | disposition home or self-care (01) ==
PROVIDERS: Visit Provider Nurse Practitioner Family
DX: N28.1 Cyst of kidney, acquired (principal); N20.0 Calculus of kidney
CPT/HCPCS: 99213

== ENCOUNTER → 2023-01-03 13:21 | Outpatient (BNVA) | payer OTHER, SELFPAY | PROVIDERS: Visit Provider Nurse Practitioner Family | DX: N28.1 Cyst of kidney, acquired (principal); N20.0 Calculus of kidney | CPT/HCPCS: 51798; 99212 ==

== ENCOUNTER 2023-02-27 13:20 | Outpatient (AMB) | payer OTHER, SELFPAY ==
--- NOTE | 2023-02-27 14:00 | A.OFFVIS_ITS ---
Intake Vital Signs 02/27/23 14:07 Height 5 ft 4 in Weight 137 lb 4 oz BMI 23.6 BP 135/99 H Blood Pressure Location Rt brachial Position Sitting Pulse 113 H Pulse Source Pulse Oximeter Pulse Oximetry (%) 98 Oxygen Delivery Method Room Air Intake Visit Reasons: Increasing Overall Pain Intake Note: Pt reports increased LB pain radiating down to LE's. PT one year ago, no recent imaging, taking flexeril from PCP and tylenol with no relief Allergies No Known Allergies [No Known Allergies*] Allergy (Verified 02/27/23 14:09) Medication List - Last Reconciled 02/27/23 by Saba Kline RN albuterol sulfate 90 mcg/actuation (Ventolin HFA) 2 puffs inhalation Q4-6H PRN amlodipine 10 mg PO DAILY aspirin 81 mg PO DAILY atorvastatin 10 mg PO DAILY 90 days azelastine 1 spray intranasal BID blood sugar diagnostic (FreeStyle Lite Strips) DIRECTED CHECK THE BLOOD SUGAR ONCE A DAY cetirizine 10 mg PO DAILY 90 days cholecalciferol (vitamin D3) 25 mcg PO DAILY 90 days clonazepam 1 mg PO TID clonazepam 2 mg PO BEDTIME PRN cromolyn 4% 1 drp ophthalmic (eye) QID 30 days cyclobenzaprine 5 mg PO BID PRN dulaglutide (Trulicity) 0.75 mg (0.5 mL) subcut QWEEK 4 weeks fluocinonide 0.05% mL topical fluticasone propionate 50 mcg/actuation (Flonase Allergy Relief) 1 spray intranasal DAILY gabapentin 300 mg PO BID lancets (FreeStyle Lancets) As directed check the sugar once a day lisinopril 20 mg PO DAILY metformin 1,000 mg (2 x 500 mg) PO BID 90 days omeprazole 20 mg PO DAILY pen needle, diabetic (BD Yuliet 2nd Gen Pen Needle) As directed pyridoxine (vitamin B6) 50 mg PO DAILY 90 days ropinirole 0.5 mg PO BEDTIME 30 days tamsulosin 0.4 mg PO BEDTIME 90 days HPI HPI Comments History of Present Illness Details Angela returns to to my office after significant period of absence this time he was absent for almost a year. She reports that she continues aerobic exercise as we discussed in the past she even showed me the stationary bicycle she is using at home. It is unclear how many times a week she is exercising on a bicycle, it is unclear whether she is exercising I aerobically. However she reports that this is not helping her pain. Unfortunately the long period of absence does not allow me to manage fibromyalgia of this patient properly. I decided today that I will stop her muscle relaxants and start her on moderate do ses of gabapentin. Risks of depressions were explained to the patient. She is under care of [facility]. If her depression will worsen she will address this issue with [facility]. Last time she came again after absence of about few months. She was sent for shoulder injection by a nurse practitioner. I did not help her pain. She complains on most of the pain in posterior trapezius muscles. Her shoulder x- rays completely normal. There are no changes on the cervical x-ray spine. I truly believe that this patient's pain mostly related to myofascial pain syndrome. I recommended her low impact aerobic exercise, I recommended her to continue physical therapy home exercise program which she learned in the past. Her pain starts medially and radiates to the shoulders without radiation into the BUE. She denies any numbness, tingling or weakness of BUE. Her pain is exacerbated by any activity involving lateral rotation of her neck. She has been using tylenol and cyclobenzaprine with minimal relief. PRIOR: Angela underwent a bialteral therapeutic SIJ injection on 09/15/[address] Blanton. She reports reports about 75% sustained relief and is able to tolerate activity better as well as perform ADLs independently. Today she was mostly focused on her bilateral anterior shoulder pain. She reports a longstanding history of shoulder pain and reports pain is equally severe in both shoulders. Her pain is exacerbated by any overhead activity or reaching. She has reportedly done physical therapy in the past with no improvements in symptoms. She reports the pain is constant and rates it a -31/03. She has tried meloxicam, diclofenac, ibuprofen, tylenol, heat and gentle stretching with only partial relief. In the past she had a right shoulder injection with significant pain relief and is interested in repeating the injection here. She denies any imaging of bilateral shoulder COUNTS INCLUDE 234 BEDS AT THE [facility] Medical History Asthma Dysplasia of cervix, low grade (BILLY 1) Hypercholesterolemia Hyperhidrosis Hypertension Lumbar radicular pain Migraine Renal calculi Renal calculi Renal calculus, bilateral Renal cysts, acquired, bilateral Type 2 diabetes mellitus with hyperglycemia Surgical History History of hemorrhoidectomy History of right oophorectomy Hx of appendectomy Hx of cholecystectomy Family History Father Substance abuse Brother Substance abuse Schizophrenia Other Mental and behavioral problem Social History Housing: Apartment Alcohol intake: never Patient Tobacco Use Status: Never used Tobacco Tobacco use type: Cigarette e-Cigarette/Vaping Use: Never Used Second Hand Smoke Exposure: No service: No Current occupational status: unemployed Cognitive needs: No Hearing needs: No Vision needs: No Review of Systems Const All systems reviewed & are unremarkable except as noted in HPI and below Eyes Denies photophobia ENT Reports Normal hearing present Neuro Reports Normal hearing present Physical Exam Vital Signs: Last Vital Signs Pulse 113 H 02/27/23 14:07 BP 135/99 H 02/27/23 14:07 Pulse Ox 98 02/27/23 14:07 Oxygen Delivery Method Room Air 02/27/23 14:07 BMI result Body Mass Index 23.6 Const General: cooperative, healthy appearing, no acute distress and alert Orientation/consciousness: patient oriented x3 Limitations: No ambulation with cane, No ambulation with walker and No wheelchair HEENT Head: Yes normal to inspection, Yes normocephalic and Yes atraumatic Ears: hearing grossly normal bilaterally Eyes General: appearance normal, both eyes and all related structures Eyelids: Yes eyelids normal Sclerae: sclerae normal Pupils: Equal, round and reactive pupils present EOM: EOMs intact bilaterally Direct Ophthalmoscopy: No photophobia Neck Neck: Yes normal visual inspection, Yes trachea midline and Yes no JVD Chest Chest palpation & inspection: normal inspection of the chest Resp Effort & Inspection: normal respiratory effort, able to speak in complete sentences and no audible wheezes Cardio Jugular venous distension: no JVD Palpation: other (no appreciable rhythmic abnormalities) Peripheral pulses: radial pulses present (no palpable rhythmic abnormalities detected) bilateral and other Back/Spine/Pelvis Other: Patient with moderately decreased cervical ROM with lateral rotation. Spurling compression test negative. Pain is unchanged by Spurling manuever with retraction. Lhermitte's test negative. Patient demonstrated 5/5 motor strength of bilateral upper extremities. Sensation intact. Significant TTP throughout cervical muscles. Cervical Spine: cervical muscular tenderness, pain with cervical ROM and Cervical spine tenderness Neuro General: patient oriented x3, gait normal, moves all extremities and Normal light touch and pain sensation Cranial nerves: Yes Equal, round and reactive pupils present and Yes Normal hearing present Cognition (Neuro): normal cognition Gait exam (Neuro): Normal gait present Motor exam (neuro): 5/5 motor strength present throughout Extrem General: Yes normal to inspection, Yes full ROM and Yes no pedal edema Psych Appearance: grossly normal Speech and movement: Normal speech and movement present and Clear speech present Affect: normal affect Attitude: cooperative Thought process: Normal thought process present Thought content: Normal thought content present Insight: Good insight present (Psych) Judgement: Good judgement present (Psych) Assessment & Plan Assessment & Plan (1) Muscle spasms of neck: Code(s): M62.838 - Other muscle spasm (2) Bilateral shoulder pain: Code(s): M25.511 - Pain in right shoulder; M25.512 - Pain in left shoulder (3) Myofascial pain syndrome: Code(s): M79.18 - Myalgia, other site (4) Fibromyalgia: Code(s): M79.7 - Fibromyalgia Plan Discussion with this patient is as above. I will stop her tizanidine and start her on gabapentin moderate doses. Risk of depression is explained to the patient. I told her not to disappear from our radar for year. Will schedule appointment with her in 2 months but she was told that if she feels it necessary she can schedule appointment with me earlier. Medications: New gabapentin 600 mg PO BID 60 tabs 5RF 30 days Discontinued gabapentin Discontinued Reason: Doctor's Order 300 mg PO BID 14 caps 0RF Coding Level of Care Code Est Pt Level 4 (94831) Diagnoses Muscle spasms of neck M62.838 Bilateral shoulder pain M25.511; M25.512 Myofascial pain syndrome M79.18 Fibromyalgia M79.7
[2023-02-27 14:07] VITALS: BP 135/99; PULSE 113; O2SAT 98; BMI 23.6
== END 2023-02-27 14:35 | disposition home or self-care (01) ==
PROVIDERS: PCP Physician Assistant; Visit Provider Anesthesiology
DX: M25.511 Pain in right shoulder (principal); M25.512 Pain in left shoulder; M79.18 Myalgia, other site; M79.7 Fibromyalgia
CPT/HCPCS: 99214

== ENCOUNTER → 2023-02-27 13:20 | Outpatient (BNVA) | payer OTHER, SELFPAY | PROVIDERS: PCP Physician Assistant; Visit Provider Anesthesiology | DX: M62.838 Other muscle spasm (principal); M25.511 Pain in right shoulder; M25.512 Pain in left shoulder; M79.18 Myalgia, other site; M79.7 Fibromyalgia | CPT/HCPCS: 99212 ==

== ENCOUNTER 2023-03-22 14:11 | Outpatient (AMB) | payer OTHER, SELFPAY ==
[2023-03-22 14:46] VITALS: BP 110/70; PULSE 95; RESP 17; O2SAT 99; BMI 23.0
--- NOTE | 2023-03-22 14:46 | A.OFFPC_ITS ---
Vital Signs 03/22/23 14:46 Height 5 ft 4 in Weight 134 lb BMI 23.0 BP 110/70 Blood Pressure Location Lt brachial Position Sitting Respiration 17 Pulse 95 Pulse Source Pulse Oximeter Pulse Oximetry (%) 99 Oxygen Delivery Method Room Air Intake Visit Reasons: 6M f/u DMII Intake Note: Pt is here for 6 month DMII F/U. Seconds Inspector Required: Yes Seconds Inspector Language: Telugu Accompanied by: Self / Same As Patient Allergies No Known Allergies [No Known Allergies*] Allergy (Verified 03/22/23 15:07) Medication List - Last Reconciled 03/22/23 by Justin Cameron PA-C albuterol sulfate 90 mcg/actuation (Ventolin HFA) 2 puffs inhalation Q4-6H PRN amlodipine 10 mg PO DAILY aspirin 81 mg PO DAILY atorvastatin 10 mg PO DAILY 90 days azelastine 1 spray intranasal BID blood sugar diagnostic (FreeStyle Lite Strips) CHECK THE BLOOD SUGAR ONCE A DAY cetirizine 10 mg PO DAILY 90 days cholecalciferol (vitamin D3) 25 mcg PO DAILY 90 days clonazepam 2 mg PO BEDTIME PRN cromolyn 4% 1 drp ophthalmic (eye) QID 30 days cyclobenzaprine 5 mg PO BID PRN dulaglutide (Trulicity) 0.75 mg (0.5 mL) subcut QWEEK 4 weeks fluocinonide 0.05% mL topical fluticasone propionate 50 mcg/actuation (Flonase Allergy Relief) 1 spray intranasal DAILY gabapentin 600 mg PO BID 30 days lancets (FreeStyle Lancets) As directed check the sugar once a day lisinopril 20 mg PO DAILY metformin 1,000 mg (2 x 500 mg) PO BID 90 days omeprazole 20 mg PO DAILY pen needle, diabetic (BD Yuliet 2nd Gen Pen Needle) As directed pyridoxine (vitamin B6) 50 mg PO DAILY 90 days ropinirole 0.5 mg PO BEDTIME 30 days tamsulosin 0.4 mg PO BEDTIME 90 days Tobacco use date assessed: 11/09/22 Dental Screening Dental Screen Date: 03/22/23 Did you have a dental visit in the last 12 months?: No Did you have a dental problem in the last 6 months where you did not have access to dental care?: No Was dental information given to patient?: Yes HPI 6M f/u DMII HPI Details Patient is a 57-year-old female here today for a follow-up visit.? Patient has a past medical history significant for type 2 diabetes, hypertension, generalized anxiety disorder.. . Concern--> reports having bilateral lower extremity muscular pain and spasms worse at night. She has been using gabapentin which has been helpful though continues hand pain. Has followed up with pain management and was told she likely has fibromyalgia. She reports the gabapentin 600 is a bit too much for her as she has side effect of lethargy. She would like to reduce her dose. .. Type 2 diabetes:? Today's A1c at 7.1. She continues on Trulicity and metformin without any side effect. No reports of hypoglycemic events. She reports she has started to see an long filler cigar roller machine at [facility] and will continue her diabetic care.? Has started using Basaglar 12 units daily, does still report hyperglycemia in the afternoons with blood sugars 220s- 250s .. Generalized anxiety disorder:? Patient continues on SNRI therapy with decent affect.? Follows with a mental health therapist and a psychiatrist whom manages her mental health medications.? Raffy 7 score positive for moderate anxiety which has been existing condition for her. .? Laboratory Tests 11/07/22 11/09/22 03/22/23 09:59 11:10 14:41 Hgb A1c (Clinic) 7.4 H 7.1 H LDL Cholesterol, C alc 124 PFSH Medical History Lumbar radicular pain Renal cysts, acquired, bilateral Renal calculi Renal calculi Renal calculus, bilateral Hyperhidrosis Asthma Dysplasia of cervix, low grade (BILLY 1) Hypercholesterolemia Hypertension Type 2 diabetes mellitus with hyperglycemia Migraine Surgical History History of right oophorectomy Hx of cholecystectomy Hx of appendectomy History of hemorrhoidectomy Family History Father Substance abuse Brother Substance abuse Schizophrenia Other Mental and behavioral problem Social History Housing: Apartment Alcohol intake: never Patient Tobacco Use Status: Never used Tobacco Tobacco use type: Cigarette e-Cigarette/Vaping Use: Never Used Second Hand Smoke Exposure: No service: No Current occupational status: unemployed Cognitive needs: No Hearing needs: No Vision needs: No Questionnaire Thrive Questionnaire Date Thrive assessed: 11/09/22 RAFFY-7 AMB Questionnaire RAFFY-7 Date RAFFY - 7 assessed: 09/23/22 Source: Developed by Drs. Duane Foreman, Lilli Ospina, Jeff Bravo and colleagues, with an educational rashawn from [employer]. Review of Systems Const Denies headache(s) Eyes Denies loss of vision ENT Denies vertigo, Denies dizziness, Denies headache(s) and Denies sore throat Card Denies chest pain, Denies leg edema and Denies lightheadedness Resp Denies cough, Denies hemoptysis and Denies wheezing GI Denies abdominal pain, Denies melena, Denies constipation, Denies diarrhea and Denies vomiting Denies urinary frequency, Denies dysuria and Denies urinary urgency Musc Denies arthralgias, Denies joint swelling, Denies numbness and Denies tingling Neuro Denies Abnormal speech present, Denies behavioral changes, Denies vertigo, Denies dizziness, Denies headache(s), Denies loss of vision, Denies memory loss, Denies numbness and Denies tingling Psych Denies anxiety, Denies behavioral changes, Denies depression, Denies memory loss and Denies panic attacks Hollis/Lymph Denies easy bleeding and Denies easy bruising Aller/Immun Denies wheezing Physical exam (Primary Care) Vital Signs: Last Vital Signs Pulse 95 03/22/23 14:46 Resp 17 03/22/23 14:46 BP 110/70 03/22/23 14:46 Pulse Ox 99 03/22/23 14:46 Oxygen Delivery Method Room Air 03/22/23 14:46 BMI result Body Mass Index 23.0 Tobacco/Smoking Status: Tobacco use Status Tobacco use date assessed 11/09/22 03/22/23 14:49 Patient Tobacco Use Status Never used Tobacco 03/22/23 14:49 Tobacco use type Cigarette 03/22/23 14:49 e-Cigarette/Vaping Use Never Used 03/22/23 14:49 Thrive Assessment: Date of Thrive Assessment Date Thrive assessed 11/09/22 03/22/23 14:49 Const General: healthy appearing, no acute distress, alert and awake Nutritional Appearance: well nourished Orientation/consciousness: oriented to person, oriented to place and oriented to time HENMT Ears: TM's normal bilaterally General nose exam: Normal nasal mucous membranes and turbinates present Eyes Conjunctivae: conjunctivae normal Sclerae: sclerae normal Pupils: Equal, round and reactive pupils present Neck Neck: Yes no lymphadenopathy and Yes no JVD Thyroid: Thyroid normal Carotids: no bruits Resp Effort & Inspection: normal respiratory effort and not tachypneic Auscultation: no crackles, no rales, no rhonchi and no wheezes Cardio Rate: regular rate Rhythm: regular rhythm Heart sounds: no murmurs and normal S1 and S2 GI Palpation (GI): Soft to palpation, nontender, no hepatomegaly and no splenomegaly Auscultation: normal bowel sounds Skin General skin exam: no rashes or lesions noted and dry skin Neuro General: oriented to person, oriented to place and oriented to time Cranial nerves: Yes Equal, round and reactive pupils present Speech: No Abnormal speech present Gait exam (Neuro): Normal gait present Motor exam (neuro): no tremor noted Extrem Right upper extremity: full ROM Left upper extremity: full ROM Right lower extremity: full ROM; no edema Left lower extremity: full ROM; no edema Psych Mental Status: mental status grossly normal Speech and movement: Normal speech and movement present Affect: normal affect Attitude: cooperative Thought process: Normal thought process present Results AMB Hemoglobin A1c AMB Hemoglobin A1c 7.1 % Last Edit by CLEOPATRA Carbajal on 03/22/23 15:02 Results Reviewed Results Reviewed: Laboratory Last Values Hgb A1c (Clinic) 7.1 % (4.0-6.0) H 03/22/23 14:41 Assessment and Plan Assessment & Plan (1) Type 2 diabetes mellitus with hyperglycemia: Code(s): E11.65 - Type 2 diabetes mellitus with hyperglycemia Qualifiers: Diabetes mellitus remote computer terminal operator insulin use: without remote computer terminal operator use Qualified Code(s): E11.65 - Type 2 diabetes mellitus with hyperglycemia Plan: Patient's type 2 diabetes suboptimally controlled with A1c is 7.1. Continue her current diabetic medication. Advised on working on lifestyle and diet modification to further reduction her A1c. Goal A1c is to be below 7.0 (2) Hypertension: Code(s): I10 - Essential (primary) hypertension Qualifiers: Hypertension type: essential hypertension Qualified Code(s): I10 - Essential (primary) hypertension Plan: Patient's blood pressure today in office acceptable. Will continue her current dose antihypertensive medication with goal blood pressure to be below 140/90 (3) Hypercholesterolemia: Code(s): E78.00 - Pure hypercholesterolemia, unspecified Plan: Patient's most recent fasting lipid panel showing LDL 124. Has restarted statin (atorvastatin 10 mg). Will recheck lipid panel to ensure appropriate LDL below 100 (4) Fibromyalgia: Code(s): M79.7 - Fibromyalgia Plan: Patient reports all over body pain mostly on her upper neck and lower extremities. Have seen pain management whom agrees with fibromyalgia diagnosis. Was placed on moderate dose gabapentin 600 mg though reports side effect of lethargy. She would like to reduce her dose of gabapentin. Will return back to using a muscle relaxer as needed. Advised on continuing to speak with her mental health therapy and trying to be more physically active for the treatment of her fibromyalgia. Orders: Orders AMB Hemoglobin A1c Today E11.65 - Type 2 diabetes mellitus with hyperglycemia Comprehensive [facility]. Panel Fast Today E11.65 - Type 2 diabetes mellitus with hyperglycemia Lipid Panel Today E78.00 - Pure hypercholesterolemia, unspecified Medications: New gabapentin 300 mg PO BID 30 days 60 caps 2RF M79.7 - Fibromyalgia tizanidine 2 mg PO Q8H 14 days PRN 42 tabs 0RF muscle spasticity M79.7 - Fibromyalgia Discontinued cyclobenzaprine Discontinued Reason: Doctor's Order 5 mg PO BID PRN 20 tabs 0RF muscle spasm M54.9 - Dorsalgia, unspecified, M79.604 - Pain in right leg, M79.605 - Pain in left leg gabapentin Discontinued Reason: Doctor's Order 600 mg PO BID 30 days 60 tabs 5RF Coding Level of Care Code Est Pt Level 4 (43894) Diagnoses Type 2 diabetes mellitus with hyperglycemia, without long-term current use of insulin E11.65 Diabetes mellitus retirement insulin use: without retirement use Essential hypertension I10 Hypertension type: essential hypertension Hypercholesterolemia E78.00 Fibromyalgia M79.7
== END 2023-03-22 15:43 | disposition home or self-care (01) ==
PROVIDERS: PCP Physician Assistant; Visit Provider Physician Assistant
DX: E11.65 Type 2 diabetes mellitus with hyperglycemia (principal); I10 Essential (primary) hypertension; E78.00 Pure hypercholesterolemia, unspecified; M79.7 Fibromyalgia
CPT/HCPCS: 83036; 99214

== ENCOUNTER 2023-03-29 14:35 | Outpatient (REF) | payer OTHER, SELFPAY ==
[2023-03-29 15:32] LABS: Blood Urea Nitrogen 12 mg/dL (9-16); Estimated Glomerular Filt Rate > 60
== END 2023-03-29 14:36 | disposition home or self-care (01) ==
LOC: HO.LAB 14:35
PROVIDERS: PCP Physician Assistant; Visit Provider Psychiatry & Neurology Neurology
DX: G43.909 Migraine, unspecified, not intractable, without status migrainosus (principal); I67.1 Cerebral aneurysm, nonruptured
CPT/HCPCS: 36415; 82565; 84520

== ENCOUNTER 2023-05-01 13:02 | Outpatient (AMB) | payer OTHER, SELFPAY ==
--- NOTE | 2023-05-01 13:12 | A.OFFVIS_ITS ---
Intake Vital Signs 05/01/23 13:16 Height 5 ft 4 in Weight 133 lb 4 oz BMI 22.9 BP 130/80 Blood Pressure Location Lt brachial Position Sitting Respiration 17 Pulse 91 Pulse Source Pulse Oximeter Pulse Oximetry (%) 99 Oxygen Delivery Method Room Air Intake Visit Reasons: 2 MONTH FOLLOW UP / Confirmed Allergies No Known Allergies [No Known Allergies*] Allergy (Verified 05/01/23 13:19) HPI HPI Comments History of Present Illness Details Angela returns to to my office after significant period of absence this time he was absent for almost a year. She reports to me that she lives on the 2nd floor and the this imposes certain limitations and increases her pain. She also states that the temperature in her a apartment in the winter time is very low. That also aggravate her pain. She requests me to write a letter in regard of the conditions I would see appropriate for her. I will send the letter to her house as she requested. She also told me that she no longer takes gabapentin because it causes swelling in bilateral lower extremities. I told her to stop this medication. She is asking me what else she can try to use to help her pain. I explained to her that our chronic opioid close for new admission however I recommended her to speak with her primary care physician about prescription her low-dose opioid such is tramadol or buprenorphine. She reports that she continues aerobic exercise as we discussed in the past. PRIOR: Angela underwent a bialteral therapeutic SIJ injection on 09/15/[address] Blanton. She reports reports about 75% sustained relief and is able to tolerate activity better as well as perform ADLs independently. Today she was mostly focused on her bilateral anterior shoulder pain. She reports a longstanding history of shoulder pain and reports pain is equally severe in both shoulders. Her pain is exacerbated by any overhead activity or reaching. She has reportedly done physical therapy in the past with no improvements in symptoms. She reports the pain is constant and rates it a 12-31/03. She has tried meloxicam, diclofenac, ibuprofen, tylenol, heat and gentle stretching with only partial relief. In the past she had a right shoulder injection with significant pain relief and is interested in repeating the injection here. She denies any imaging of bilateral shoulder [facility] Medical History Lumbar radicular pain Renal cysts, acquired, bilateral Renal calculi Renal calculi Renal calculus, bilateral Hyperhidrosis Asthma Dysplasia of cervix, low grade (BILLY 1) Hypercholesterolemia Hypertension Type 2 diabetes mellitus with hyperglycemia Migraine Surgical History History of right oophorectomy Hx of cholecystectomy Hx of appendectomy History of hemorrhoidectomy Family History Father Substance abuse Brother Substance abuse Schizophrenia Other Mental and behavioral problem Social History Housing: Apartment Alcohol intake: never Patient Tobacco Use Status: Never used Tobacco Tobacco use type: Cigarette e-Cigarette/Vaping Use: Never Used Second Hand Smoke Exposure: No service: No Current occupational status: unemployed Cognitive needs: No Hearing needs: No Vision needs: No Review of Systems Const All systems reviewed & are unremarkable except as noted in HPI and below Eyes Denies photophobia ENT Reports Normal hearing present Neuro Reports Normal hearing present Physical Exam Vital Signs: Last Vital Signs Pulse 91 05/01/23 13:16 Resp 17 05/01/23 13:16 BP 130/80 05/01/23 13:16 Pulse Ox 99 05/01/23 13:16 Oxygen Delivery Method Room Air 05/01/23 13:16 BMI result Body Mass Index 22.9 Const General: cooperative, healthy appearing, no acute distress and alert Orientation/consciousness: patient oriented x3 Limitations: No ambulation with cane, No ambulation with walker and No wheelchair HEENT Head: Yes normal to inspection, Yes normocephalic and Yes atraumatic Ears: hearing grossly normal bilaterally Eyes General: appearance normal, both eyes and all related structures Eyelids: Yes eyelids normal Sclerae: sclerae normal Pupils: Equal, round and reactive pupils present EOM: EOMs intact bilaterally Direct Ophthalmoscopy: No photophobia Neck Neck: Yes normal visual inspection, Yes trachea midline and Yes no JVD Chest Chest palpation & inspection: normal inspection of the chest Resp Effort & Inspection: normal respiratory effort, able to speak in complete sentences and no audible wheezes Cardio Jugular venous distension: no JVD Palpation: other (no appreciable rhythmic abnormalities) Peripheral pulses: radial pulses present (no palpable rhythmic abnormalities detected) bilateral and other Back/Spine/Pelvis Other: Patient with moderately decreased cervical ROM with lateral rotation. Spurling compression test negative. Pain is unchanged by Spurling manuever with retraction. Lhermitte's test negative. Patient demonstrated 5/5 motor strength of bilateral upper extremities. Sensation intact. Significant TTP throughout ce rvical muscles. Cervical Spine: cervical muscular tenderness, pain with cervical ROM and Cervical spine tenderness Neuro General: patient oriented x3, gait normal, moves all extremities and Normal light touch and pain sensation Cranial nerves: Yes Equal, round and reactive pupils present and Yes Normal hearing present Cognition (Neuro): normal cognition Gait exam (Neuro): Normal gait present Motor exam (neuro): 5/5 motor strength present throughout Extrem General: Yes normal to inspection, Yes full ROM and Yes no pedal edema Psych Appearance: grossly normal Speech and movement: Normal speech and movement present and Clear speech present Affect: normal affect Attitude: cooperative Thought process: Normal thought process present Thought content: Normal thought content present Insight: Good insight present (Psych) Judgement: Good judgement present (Psych) Assessment & Plan Assessment & Plan (1) Muscle spasms of neck: Code(s): M62.838 - Other muscle spasm (2) Bilateral shoulder pain: Code(s): M25.511 - Pain in right shoulder; M25.512 - Pain in left shoulder (3) Myofascial pain syndrome: Code(s): M79.18 - Myalgia, other site (4) Fibromyalgia: Code(s): M79.7 - Fibromyalgia Plan Discussion with this patient is as above. I will stop gabapentin for her because of side effects including lower extremities edema and I will recommend her to go to the primary care physician and request prescription of mild opioids such as tramadol Nucynta or buprenorphine. The letter as discussed above will be sent to the patient's address. Medications: Discontinued gabapentin Discontinued Reason: Doctor's Order 300 mg PO BID 60 caps 2RF 30 days M79.7 - Fibromyalgia Coding Level of Care Code Est Pt Level 3 (47203) Diagnoses Muscle spasms of neck M62.838 Bilateral shoulder pain M25.511; M25.512 Myofascial pain syndrome M79.18 Fibromyalgia M79.7
[2023-05-01 13:16] VITALS: BP 130/80; PULSE 91; RESP 17; O2SAT 99; BMI 22.9
== END 2023-05-01 13:48 | disposition home or self-care (01) ==
PROVIDERS: PCP Physician Assistant; Visit Provider Anesthesiology
DX: M62.838 Other muscle spasm (principal); M25.511 Pain in right shoulder; M25.512 Pain in left shoulder; M79.7 Fibromyalgia
CPT/HCPCS: 99213

== ENCOUNTER → 2023-05-01 13:02 | Outpatient (BNVA) | payer OTHER, SELFPAY | PROVIDERS: PCP Physician Assistant; Visit Provider Anesthesiology | DX: M62.838 Other muscle spasm (principal); M25.511 Pain in right shoulder; M25.512 Pain in left shoulder; M79.18 Myalgia, other site; M79.7 Fibromyalgia | CPT/HCPCS: 99212 ==

== ENCOUNTER 2023-05-08 10:56 | Outpatient (REF) | payer OTHER, SELFPAY ==
--- NOTE | ~2023-05-08 | CT_ITS ---
EXAMINATION: CT ANGIOGRAM BRAIN WITH CONTRAST CLINICAL INFORMATION: Cerebral aneurysm, nonruptured. COMPARISON: Head CTA 02/05/2021. TECHNIQUE: Test bolus sequences followed by intravenous administration 75 mL of Omnipaque 350. Helical imaging was performed in the axial plane from the skull base to the skull vertex. Delayed postcontrast imaging of the head was also performed. The data was processed at the process safety engineering technologist workstation for generation of MIP sequences. Angled MIPs and volume rendered reformatted images were also generated at an offline 3D workstation. This CT examination was performed using dose optimization techniques as appropriate, variously including the following: *Automated exposure control *Adjustment of mA and/or kV according to patient size (this includes techniques or standardized protocols for targeted exams where dose is matched to indication/reason for exam; i.e. extremities or head) *Use of iterative reconstruction technique DLP: 2230 mGy-cm FINDINGS: Brain: There is no intracranial hemorrhage, extra-axial collection, mass effect, or territorial infarction. There is no abnormal enhancement. The ventricles are normal in size without hydrocephalus. The dural venous sinuses are normally opacified. The extracranial structures are unremarkable. Head CTA: There is a bilobed aneurysm projecting laterally from the distal cavernous segment of the right internal carotid artery seen on series 13 image 116/293. This aneurysm measures approximately 4.9 mm which appears stable based on the prior exam based on repeat measurements made today. There is an anteriorly projecting aneurysm arising from the paraclinoid segment of the right internal carotid artery measuring 3 mm without change. There is a 4.3 mm aneurysm projecting anteriorly and laterally from the paraclinoid segment of the left internal carotid artery without change. No definite new aneurysm is seen. There is no intracranial arterial stenosis Prominent cortical venous drainage within the left frontal lobe likely representing a developmental venous anomaly without change from prior. CT/CT angio head IMPRESSION: No acute intracranial abnormality identified. Stable appearance of the bilobed aneurysm arising from the distal cavernous segment of the right internal carotid artery measuring 4.9 mm. Stable appearance of the bilateral paraclinoid internal carotid artery aneurysms measuring 3 mm on the right and 4.3 mm on the left. If not already performed, consider neuro interventional consultation to guide management.
[2023-05-08] MEDS: iohexoL 350 MG/ML 100 ML INFUS..BTL IV (11:57)
[2023-05-08 13:09] LABS: Creatinine POC 0.7 mg/dL (0.5-1.4); GFR POC > 60
== END 2023-05-08 10:57 | disposition home or self-care (01) ==
LOC: HO.CT 10:56
PROVIDERS: PCP Physician Assistant; Visit Provider Psychiatry & Neurology Neurology
DX: I67.1 Cerebral aneurysm, nonruptured (principal)
CPT/HCPCS: 70496; 82565; Q9967

== ENCOUNTER 2023-06-01 09:48 | Emergency (ER) | payer OTHER, SELFPAY ==
--- NOTE | ~2023-06-01 | XR_ITS ---
EXAMINATION: XR THORACIC SPINE XR LUMBAR SPINE CLINICAL INFORMATION: Pain. COMPARISON: Lumbar spine radiographs dated 02/10/2016. TECHNIQUE: AP, lateral, and swimmer's views of the thoracic spine. AP, lateral, and coned-down views of the lumbar spine. FINDINGS: Thoracic Spine: Normal vertebral body alignment. The thoracic kyphosis is maintained. No acute fracture or subluxation. No loss of vertebral body or intervertebral disc height. No lytic or blastic osseous lesion. The visualized lungs are clear. Lumbar Spine: Normal vertebral body alignment. The lumbar lordosis is maintained. No acute fracture or subluxation. No loss of vertebral body or intervertebral disc height. Anterior endplate osteophytes at L2-L5, slightly more prominent when compared to the prior examination. Right upper quadrant surgical clips. Moderate stool burden. XR/XR thoracic spine 3V IMPRESSION: THORACIC SPINE: Unremarkable examination. LUMBAR SPINE: Mild degenerative disc disease at L2-L5. Moderate stool burden.
--- NOTE | ~2023-06-01 | CT_ITS ---
EXAMINATION: CT ABDOMEN AND PELVIS WITHOUT CONTRAST CLINICAL INFORMATION: Abdominal pain. Concern for renal calculi. COMPARISON: 06/18/2008 TECHNIQUE: Multidetector volumetric imaging was performed from the superior aspect of the liver through the pubic symphysis. Sagittal and coronal reformatted images were obtained on the technologist's workstation. This CT examination was performed using dose optimization techniques as appropriate, variously including the following: *Automated exposure control *Adjustment of mA and/or kV according to patient size (this includes techniques or standardized protocols for targeted exams where dose is matched to indication/reason for exam; i.e. extremities or head) *Use of iterative reconstruction technique DLP: 433 mGy-cm FINDINGS: LUNG BASES: The visualized lung bases are unremarkable. LIVER, GALLBLADDER, AND BILIARY TREE: The right lobe the liver is small. No focal liver lesions are seen. There is no intrahepatic biliary duct dilatation. There is been a prior cholecystectomy. PANCREAS: Unremarkable. SPLEEN: Unremarkable. ADRENAL GLANDS: Unremarkable. KIDNEYS AND URETERS: The kidneys are normal in size, shape, and attenuation. No hydronephrosis, hydroureter, or calculi seen. No perinephric stranding. There is a 1 mm nonobstructing calculus lower pole right kidney. There are scattered renal hypodensities which are probably small cysts. BLADDER: Unremarkable. GASTROINTESTINAL TRACT: There is retained stool throughout the colon. The appendix is not confidently identified as a separate structure. ABDOMINAL WALL: No significant hernia is appreciated. LYMPH NODES: Normal. VASCULAR: Unremarkable. PELVIC VISCERA: Unremarkable. OSSEOUS STRUCTURES: Unremarkable. CT/CT abdomen pelvis wo IV con IMPRESSION: 1 mm nonobstructing calculus lower pole right kidney. No hydronephrosis seen. Retained stool. No other significant abnormality identified. Fleischner guidelines were followed.
--- NOTE | ~2023-06-01 | XR_ITS ---
EXAMINATION: XR THORACIC SPINE XR LUMBAR SPINE CLINICAL INFORMATION: Pain. COMPARISON: Lumbar spine radiographs dated 02/10/2016. TECHNIQUE: AP, lateral, and swimmer's views of the thoracic spine. AP, lateral, and coned-down views of the lumbar spine. FINDINGS: Thoracic Spine: Normal vertebral body alignment. The thoracic kyphosis is maintained. No acute fracture or subluxation. No loss of vertebral body or intervertebral disc height. No lytic or blastic osseous lesion. The visualized lungs are clear. Lumbar Spine: Normal vertebral body alignment. The lumbar lordosis is maintained. No acute fracture or subluxation. No loss of vertebral body or intervertebral disc height. Anterior endplate osteophytes at L2-L5, slightly more prominent when compared to the prior examination. Right upper quadrant surgical clips. Moderate stool burden. XR/XR lumbar spine 2-3V IMPRESSION: THORACIC SPINE: Unremarkable examination. LUMBAR SPINE: Mild degenerative disc disease at L2-L5. Moderate stool burden.
[2023-06-01 10:06] VITALS: BP 136/73; PULSE 97; RESP 20; TEMP 36.2; O2SAT 100; BMI 21.6
--- NOTE | 2023-06-01 11:48 | ED.BACK ---
HPI - Back Pain/Injury General Chief Complaint: Back Pain/Injury Stated Complaint: back pain Time Seen by Provider: 06/01/23 11:34 Source: patient Mode of arrival: ambulatory Limitations: no limitations History of Present Illness HPI Narrative: 57-year-old female with pmhx significant for fibromyalgia, restless leg syndrome, bilateral renal cysts, JASON, HTN,T2DM, asthma presents to the ED today with low back pain x1 day. Reports pain into the right side of her lower back. Pain does not radiate. Pain is exacerbated with positional changes such as sitting and lying down. Did not take anything for this pain prior to arrival. Reports history of renal stones and low back pain, cannot say whether or not this feels similar. Denies injury/trauma/fall. Denies fever/chills, neck pain, dysuria, hematuria, abdomen or flank pain, N/V, numbness/tingling/weakness of extremities, saddle anesthesia, bowel or bladder incontinence or retention. Denies IV drug use. Related Data Home Medications Medication Instructions Recorded Confirmed clonazepam 2 mg tablet 2 mg PO BEDTIME PRN panic attack 10/22/21 03/22/23 azelastine 137 mcg (0.1 %) nasal 1 spray intranasal BID 12/21/21 03/22/23 spray aerosol fluocinonide 0.05 % topical ml topical 12/21/21 03/22/23 solution Previous Rx's Medication Instructions Recorded pen needle, diabetic 32 gauge x #100 ea 11/20/21 (BD Yuliet 2nd Gen Pen Needle) fluticasone propionate 50 1 spray intranasal DAILY #9.9 mL 03/30/22 mcg/actuation nasal spray,suspension (Flonase Allergy Relief) albuterol sulfate 90 mcg/actuation 2 puff inhalation Q4-6H PRN 06/17/22 aerosol inhaler (Ventolin HFA) shortness of breath or wheezing #8.5 grams tamsulosin 0.4 mg capsule 0.4 mg PO BEDTIME 90 days #90 caps 07/07/22 aspirin 81 mg tablet,delayed 81 mg PO DAILY #30 tabs 08/03/22 release pyridoxine (vitamin B6) 50 mg 50 mg PO DAILY 90 days #90 tabs 10/07/22 tablet metformin 500 mg tablet 1,000 mg (2 x 500 mg) PO BID 90 04/28/23 days #360 tabs lancets 28 gauge (FreeStyle #100 ea 10/19/22 Lancets) cromolyn 4 % eye drops 1 drp ophthalmic (eye) QID 30 days 11/01/22 #10 mL amlodipine 10 mg tablet 10 mg PO DAILY #90 tabs 11/20/22 cetirizine 10 mg tablet 10 mg PO DAILY allergy symptoms 90 12/13/22 days #90 tabs cholecalciferol (vitamin D3) 25 25 mcg PO DAILY 90 days #90 caps 12/22/22 mcg (1,000 unit) capsule omeprazole 20 mg capsule,delayed 20 mg PO DAILY #90 caps 01/16/23 release tizanidine 2 mg tablet 2 mg PO Q8H PRN muscle spasticity 03/22/23 14 days #42 tabs blood sugar diagnostic (FreeStyle #100 strips 04/14/23 Lite Strips) dulaglutide 0.75 mg/0.5 mL 0.75 mg (0.5 mL) subcut QWEEK 4 04/14/23 subcutaneous pen injector weeks #2 mL (Trulicity) ropinirole 0.5 mg tablet 0.5 mg PO BEDTIME 30 days #30 tabs 05/04/23 atorvastatin 10 mg tablet 10 mg PO DAILY 90 days #90 tabs 05/09/23 lisinopril 20 mg tablet 20 mg PO DAILY #90 tabs 05/23/23 cyclobenzaprine 5 mg tablet 5 mg PO BEDTIME PRN muscle spasm 06/01/23 #10 tabs docusate sodium 50 mg capsule 50 mg PO BID #10 caps 06/01/23 (Colace Clear) lidocaine 5 % topical patch 1 patch topical DAILY #15 ea 06/01/23 (Lidoderm) naproxen 500 mg tablet 500 mg PO Q8-12H PRN pain (scale 06/01/23 score 4-6) #14 tabs polyethylene glycol 3350 17 gram 17 g PO DAILY PRN constipation #14 06/01/23 oral powder packet (Miralax) ea Allergies Allergy/AdvReac Type Severity Reaction Status Date / Time No Known Allergies Allergy Verified 05/01/23 13:19 [No Known Allergies*] Review of Systems Review of Systems: Constitutional: No fever, chills, fatigue, night sweats, weight changes ENT/Mouth: No ear pain, hearing loss, nasal congestion, sinus pain, rhinorrhea, sore throat Eyes: No eye pain, swelling, redness, vision changes, discharge Cardio: No chest pain, palpitations, CRUZ, orthopnea, peripheral edema Pulm: No SOB, cough, sputum, wheezing, dyspnea, hemoptysis GI: No nausea, vomiting, hematemesis, abdominal pain, diarrhea, constipation, hematochezia, melena : No irregular bleeding, dysuria, frequency, urgency, hesitancy, hematuria, flank pain, urinary flow changes, urinary incontinence or retention MSK: +back pain, No neck pain, joint pain, myalgias Skin: No lesions, rashes Neuro: No weakness, numbness, paresthesias, LOC, dizziness, headache All other systems reviewed and are negative. [facility] Past Medical History Attestation statement: The following information was validated with the patient. Source: old records reviewed and nursing notes reviewed Medical History Lumbar radicular pain Renal cysts, acquired, bilateral Renal calculi Renal calculi Renal calculus, bilateral Hyperhidrosis Asthma Dysplasia of cervix, low grade (BILLY 1) Hypercholesterolemia Hypertension Type 2 diabetes mellitus with hyperglycemia Migraine Surgical History History of right oophorectomy Hx of cholecystectomy Hx of appendectomy History of hemorrhoidectomy Family History Family History Father Substance abuse Brother Substance abuse Schizophrenia Other Mental and behavioral problem Social History Social History Housing: Apartment Alcohol intake: never Comment: ok with current level of relief-pyridium given Patient Tobacco Use Status: Never used Tobacco Tobacco use type: Cigarette Smoked in Last 30 Days: No e-Cigarette/Vaping Use: Never Used Second Hand Smoke Exposure: No Use of substances other than those prescribed or required for medical reasons: No Advance Directives: No Advance Directives Information Provided: Yes Patient : No service: No Current occupational status: unemployed Cognitive needs: No Hearing needs: No Vision needs: No Physical Exam Vital Signs: Vital Signs: Last Vital Signs Temp 97.2 F 06/01/23 10:06 Pulse 81 06/01/23 15:23 Resp 20 06/01/23 10:06 BP 126/79 06/01/23 15:23 Pulse Ox 98 06/01/23 15:23 O2 Del Method Room Air 06/01/23 15:23 BMI result Body Mass Index 21.6 Vital signs stable Const: Other: + visibly uncomfortable when switching from lying to seated position on bed General: cooperative, healthy appearing, no acute distress, alert and awake Orientation/consciousness: patient oriented x3 Limitations: no limitations HEENT: Head: Yes normal to inspection Ears: hearing grossly normal bilaterally Mouth: Normal oral and palatal mucosa present Eyes: General: appearance normal, both eyes and all related structures Conjunctivae: conjunctivae normal Sclerae: sclerae normal Pupils: Equal, round and reactive pupils present Neck: Neck: Yes normal visual inspection, Yes full ROM and Yes no lymphadenopathy Resp: Effort & Inspection: normal respiratory effort Auscultation: clear to auscultation bilaterally Cardio: Rate: regular rate Rhythm: regular rhythm Peripheral pulses: radial pulses present, posterior tibial pulses present and dorsalis pedis present GI: Inspection: Yes normal to inspection Palpation (GI): Soft to palpation, nontender, no guarding and no hepatosplenomegaly : Other: + right CVAT General: Yes bladder normal to palpation Bimanual exam- vagina & uterus: bladder normal to palpation Back/Spine/Pelvis: Other: + right thoracic and lumbar paraspinal muscle tenderness to palpation. No midline spinous tenderness or step-off deformity. Skin: General skin exam: no rashes or lesions noted Neuro: Other: Strength 5/5 intact throughout.?No saddle anesthesia.?Sensation intact to light touch. Neurovascular intact distally.? General: patient oriented x3, gait normal and moves all extremities Cranial nerves: Yes Equal, round and reactive pupils present Motor exam (neuro): 5/5 motor strength present throughout Extrem: General: Yes normal to inspection and Yes full ROM Course Course Course Narrative: 1336-- x-ray thoracic spine unremarkable. Lumbar spine showing mild degenerative disc disease at L2 through L5 with moderate stool burden. UA showing moderate amount of protein secondary to patient's diabetes. Negative for infection. Urine shows evidence of calcium oxalate crystals which may indicate renal stone passage. Will obtain dry CT of abdomen/pelvis to rule out kidney stones. 1600-- CT abdomen pelvis showing 1 mm nonobstructing calculus at the lower pole of the right kidney. There is no hydronephrosis. Stool burden confirmed. There are also bilateral renal stones noted within the ureters and at the UVJ not reported on CT read. > discussed imaging results with patient. Reports passing a bowel movement yesterday. Does not feel as though she is constipated and is declining a rectal exam for disimpaction at this time. I will send her home with both MiraLax and Colace for constipation. I advised patient to return to emergency department if she does not pass a bowel movement within the next couple of days. Additionally patient may be passing small renal stones. Advised her to follow-up with her primary care physician as needed and to return to the emergency department if her pain worsens or if she is unable to urinate. Will also provide her with lidocaine patches and muscle relaxer for low back pain. Patient has remained stable throughout ED visit today. Discussed strict return precautions. All questions answered at this time. Patient is agreeable with disposition and stable for discharge. Medications Administered Discontinued Medications Generic Name Dose Route Start Last Admin Trade Name Tara PRN Reason Stop Dose Admin Acetaminophen 975 mg 06/01/23 12:00 06/01/23 12:23 Acetaminophen 325 Mg Tablet PO 06/01/23 12:01 975 mg ONCE ONE Administration Lidocaine 1 patch 06/01/23 12:02 06/01/23 12:24 Lidocaine 4 % Patch Adh..Patch TRANSDERMA 06/01/23 12:03 1 patch ONCE ONE Administration Protocol Medical Decision Making Medical Decision Making MDM Narrative: 57-year-old female with past medical history significant for fibromyalgia, restless leg syndrome, bilateral renal cysts, JASON, hypertension, type 2 diabetes, asthma presents to the emergency department today with low back pain x1 day. Vital signs stable. Patient is nontoxic appearing in no acute distress. She is visibly uncomfortable when transitioning from a lying to seated position on bed. On exam, the right thoracic and lumbar paraspinal muscle tenderness to palpation. No midline spinous tenderness or step-off deformity. There is right CVA tenderness. Abdomen is soft, nontender, nondistended, no rebound tenderness or guarding. Bladder normal to palpation. Ambulating with slow but steady gait. Clinical concern for MSK sprain/strain, fracture, subluxation, disc herniation, lumbar radiculopathy, sciatica. Concern for UTI vs nephrolithiasis vs renal colic. Unlikely Guillain-[place], cauda equina, cord compression, epidural abscess. Unlikely pyelonephritis, STI. Plan for images, UA, pain control, re-evaluation. Differential Diagnosis Differential Diagnoses: The differential diagnosis associated with the presentation includes As above Admission/Observation Not indicated. Lab Data MDM Lab Attestation statement: I reviewed the patient's lab results. As above. Labs: Lab Results 06/01/23 06/01/23 Range/Units 12:27 13:36 POC Glucose 101 (60-115) mg/dL Urine Color Yellow Urine Appearance Clear Urine pH 6.5 (5.0-9.0) Ur Specific [place] 1.020 (1.005-1.025) Urine Protein 30 (1+) H (Neg-Trace) mg/dL Urine Glucose (UA) Negative (Negative) mg/dL Urine Ketones Negative (Negative) mg/dL Urine Blood Negative (Negative) Urine Nitrite Negative (Negative) Ur Leukocyte Esterase Negative (Negative) Urine RBC 0-2 (0-2) /HPF Urine WBC 0-5 (0-5) /HPF Ur Squamous Epith Cells 0-2 (0-2) /HPF Calcium Oxalate Crystal Present Urine Bacteria None Seen (None Seen) Hyaline Casts >20 (0-2) /LPF Granular Casts Present Urine Test NEGATIVE (NEGATIVE) Independent Interpretation I performed an independent interpretation of an: Plain X-Ray Interpretation: X-ray lumbar spine without acute fracture or subluxation, agree radiologist's interpretation. X-ray thoracic spine without acute fracture or subluxation,agree with radiologist's interpretation CT abdomen and pelvis with renal stone at lower pole of right kidney and multiple renal stones in bilateral ureters, agree with radiologist's interpretation. Radiology Impression Discussion of test interpretation with radiology: I have reviewed the radiologist's reading. Radiologist Impression: XR thoracic and lumbar spine 3V IMPRESSION: THORACIC SPINE: Unremarkable examination. LUMBAR SPINE: Mild degenerative disc disease at L2-L5. Moderate stool burden. CT abdomen pelvis wo IV con IMPRESSION: 1 mm nonobstructing calculus lower pole right kidney. No hydronephrosis seen. Retained stool. No other significant abnormality identified. Fleischner guidelines were followed. External Record Review External record reviewed: Inpatient record, Office record, Outpatient record, Prior outpatient labs, Prior outpatient radiology, Primary care record and Outside ED record Prescription Management I considered prescription management with: Pain Medication and Other (muscle relaxer, laxative) Chronic Conditions Patient?s care impacted by: Diabetes Critical Care Time Critical Care Time Critical Care Time: No Discharge Plan Discharge Clinical Impression: Constipation, Renal colic on right side, Lumbar back pain Patient Disposition: Home, Self-Care Instructions: Constipation (ED), High Fiber Diet (ED) Additional Instructions: Your urine showed a presence of calcium oxalate which may indicate passing a renal stone. Your urine was negative for infection. The x-ray of her thoracic spine was normal. The x-ray of your lumbar spine showed mild degenerative changes at L2 through L5. X-rays also showed a moderate stool burden within your colon. CT scan of your abdomen/pelvis confirmed stool burden in colon. It also shows a 1 mm nonobstructing stone at the bottom of the right kidney. This may be contributing to your right flank/low back pain. MiraLax and Colace have been sent to your pharmacy to take as needed for constipation. If you do not pass a bowel movement within the next few days please return to the emergency department. You may be passing a kidney stone. Make sure you are staying hydrated throughout the day. Return to the emergency department if you have trouble passing urine. Cyclobenzaprine as a muscle relaxant has been sent to your pharmacy. Take this before bed to help with muscle spasm. Do not operate machinery, drink, drive while taking this medication as it may cause you to feel drowsy. Lidoderm patches have been sent to your pharmacy. Apply these to your low back as needed for pain/discomfort. Please follow-up with your primary care provider as needed. If symptoms persist or worsen or if you develop numbness/tingling/weakness of your legs or loss of bladder or bowel function, please return to the emergency department. The case of emergency call 911. Rosales orina mostr? presencia de oxalato de calcio, lo que puede indicar la eliminaci?n de un c?lculo renal. Rosales orina fue negativa para infecci?n. La radiograf?a de rosales columna tor?cica fue normal. La radiograf?a de rosales columna lumbar mostr? cambios degenerativos leves en L2 a L5. Las radiograf?as tambi?n mostraron raghu carga moderada de heces en el colon. La tomograf?a computarizada de rosales abdomen/pelvis confirm? la carga de heces en el colon. Tambi?n muestra un c?lculo no obstructivo de 1 mm en la parte inferior del ri??n derecho. [place] puede estar contribuyendo a rosales dolor lumbar o en el flanco derecho. MiraLax y Colace se suero enviado a rosales farmacia para que los tome seg?n sea necesario para el estre?imiento. Si no defeca en los pr?ximos d?as, regrese al departamento de emergencias. Es posible que est? expulsando un c?lculo renal. Aseg?rate de mantenerte hidratado jasmina todo el d?a. Regrese al departamento de emergencias si tiene problemas para orinar. Le suero enviado a rosales farmacia ciclobenzaprina abimael relajante muscular. T?givens antes de acostarse para ayudar con los espasmos musculares. No opere maquinaria, john ni conduzca mientras otilio sim medicamento, ya que puede causarle somnolencia. Los parches de Lidoderm suero sido enviados a rosales farmacia. Apl?quelos en la parte baja de la espalda seg?n sea necesario para el dolor o la incomodidad. Alejandro un seguimiento con rosales proveedor de atenci?n primaria seg?n sea necesario. Si los s?ntomas persisten o empeoran o si desarrolla entumecimiento/hormigueo/debilidad en las piernas o p?rdida de la funci?n de la vejiga o los intestinos, regrese al departamento de emergencias. El mariaelena de emergencia llama al 911. Prescriptions: New polyethylene glycol 3350 [Miralax] 17 gram powder in packet 17 g PO DAILY PRN (Reason: constipation) Qty: 14 0RF lidocaine [Lidoderm] 5 % adhesive patch,medicated 1 patch topical DAILY Qty: 15 0RF Rx Instructions: leave on most painful area for up to 12 hrs cyclobenzaprine 5 mg tablet 5 mg PO BEDTIME PRN (Reason: muscle spasm) Qty: 10 0RF naproxen 500 mg tablet 500 mg PO Q8-12H PRN (Reason: pain (scale score 4-6)) Qty: 14 0RF Colace Clear 50 mg capsule 50 mg PO BID Qty: 10 0RF No Action (DME) pen needle, diabetic [BD Yuliet 2nd Gen Pen Needle] 32 gauge x 5/32 needle See Rx Instructions .Route Qty: 100 3RF Rx Instructions: As directed albuterol sulfate [Ventolin HFA] 90 mcg/actuation HFA aerosol inhaler 2 puff inhalation Q4-6H PRN (Reason: shortness of breath or wheezing) Qty: 8.5 1RF aspirin 81 mg tablet,delayed release (DR/EC) 81 mg PO DAILY Qty: 30 11RF pyridoxine (vitamin B6) 50 mg tablet 50 mg PO DAILY 90 Days Qty: 90 3RF metformin 500 mg tablet 1,000 mg PO BID 90 Days Qty: 360 2RF (DME) lancets [FreeStyle Lancets] 28 gauge misc See Rx Instructions .Route Qty: 100 3RF Rx Instructions: As directed check the sugar once a day cromolyn 4 % drops 1 drp ophthalmic (eye) QID 30 Days Qty: 10 3RF amlodipine 10 mg tablet 10 mg PO DAILY Qty: 90 2RF cetirizine 10 mg tablet 10 mg PO DAILY 90 Days Qty: 90 1RF cholecalciferol (vitamin D3) 25 mcg (1,000 unit) capsule 25 mcg PO DAILY 90 Days Qty: 90 3RF omeprazole 20 mg capsule,delayed release(DR/EC) 20 mg PO DAILY Qty: 90 1RF (DME) FreeStyle Lite Strips Strip See Rx Instructions .ROUTE .COMPLEX Qty: 100 2RF Dose Instruction: DIRECTED CHECK THE BLOOD SUGAR ONCE A DAY Rx Instructions: CHECK THE BLOOD SUGAR ONCE A DAY Trulicity 0.75 mg/0.5 mL pen injector 0.75 mg subcut QWEEK 28 Days Qty: 2 3RF ropinirole 0.5 mg tablet 0.5 mg PO BEDTIME 30 Days Qty: 30 6RF Rx Instructions: administer 1-3 hours before bedtime atorvastatin 10 mg tablet 10 mg PO DAILY 90 Days Qty: 90 1RF lisinopril 20 mg tablet 20 mg PO DAILY Qty: 90 2RF tizanidine 2 mg tablet 2 mg PO Q8H PRN (Reason: muscle spasticity) 14 Days Qty: 42 0RF fluticasone propionate [Flonase Allergy Relief] 50 mcg/actuation spray,suspension 1 spray intranasal DAILY Qty: 9.9 1RF Rx Instructions: administer into each nostril azelastine 137 mcg (0.1 %) aerosol,spray 1 spray intranasal BID fluocinonide 0.05 % solution topical tamsulosin 0.4 mg capsule 0.4 mg PO BEDTIME 90 Days Qty: 90 3RF clonazepam 2 mg tablet 2 mg PO BEDTIME PRN (Reason: panic attack) Referrals: Justin Cameron PA-C [Primary Care Provider] - Interventions: ED Discharge Assessment Last Done: 06/01/23 17:08 Discharge Date/Time: 06/01/23 17:08 Print Language: Citizen Of [place]
[2023-06-01] MEDS: Acetaminophen 325 MG TABLET 975 MG PO (12:23)
[2023-06-01] MEDS: Lidocaine 4 % Patch ADH..PATCH 1 PATCH TRANSDERMA (12:24)
[2023-06-01 12:38] LABS: Appearance Urine Clear; Color Urine Yellow; Glucose Urine UA Negative (Negative); Leukocyte Esterase Urine Negative (Negative); Nitrite Urine Negative (Negative); PH 6.5 (5.0-9.0); UMIC TRIGGER UACC YES; Urine Blood Negative (Negative); Urine Ketones Negative (Negative); Urine Protein 30 (1+) mg/dL (Neg-Trace)
[2023-06-01 12:55] LABS: Bacteria Urine None Seen (None Seen); Calcium Oxalate Crystals Urine Present; Granular Casts Urine Present; Hyaline Casts Urine >20 /LPF (0-2); RBC Urine 0-2 /HPF (0-2); Squamous Epithelial Cell Urine 0-2 /HPF (0-2); WBC Urine 0-5 /HPF (0-5)
[2023-06-01 13:39] LABS: Glucose, Whole Blood 101 mg/dL (60-115)
[2023-06-01 13:52] LABS: UPreg QC Valid YES; Urine Pregnancy NEGATIVE (NEGATIVE)
[2023-06-01 15:23] VITALS: BP 126/79; PULSE 81; O2SAT 98
== END 2023-06-01 17:08 | disposition home or self-care (01) ==
PROVIDERS: Physician Assistant Medical; Emergency Provider Student in an Organized Health Care Education/Training Program; PCP Physician Assistant
DX: K59.00 Constipation, unspecified (principal); M54.50 Low back pain, unspecified; M79.7 Fibromyalgia; M54.6 Pain in thoracic spine; G25.81 Restless legs syndrome; N23 Unspecified renal colic; Z79.899 Other long term (current) drug therapy
CPT/HCPCS: 72072; 72100; 74176; 81001; 81025; 82947; 99284

== ENCOUNTER 2023-06-16 13:15 | Outpatient (REF) | payer OTHER, SELFPAY ==
--- NOTE | ~2023-06-16 | MM_ITS ---
EXAMINATION: MM SCREENING DIGITAL BREAST TOMOSYNTHESIS, BILATERAL CLINICAL INFORMATION: Screening. Asymptomatic. COMPARISON: Mammography: 06/10/2022, 05/19/2021, 04/29/2020, and studies dating back to October 13, 2015 TECHNIQUE: Digital breast tomosynthesis is performed in both the craniocaudal and mediolateral oblique views along with computer-aided detection (CAD). Synthesized 2D images are generated from the tomosynthesis. FINDINGS: There are scattered areas of fibroglandular density (ACR BI-RADS breast composition Category b). Early vascular calcifications are seen. There are no suspicious masses, suspicious grouped calcifications, or areas of architectural distortion in either breast. The parenchymal pattern is stable from prior exams. No skin or axillary abnormalities. MM/MM tomosynthesis screening BI IMPRESSION: No mammographic evidence of malignancy. ASSESSMENT: BI-RADS BI-RADS 1 - Negative RECOMMENDATION: Routine annual mammography screening. 1 year F/U This examination should not preclude the clinical evaluation of a suspicious palpable abnormality. This patient's information was entered into a reminder system with a target due date for their next mammogram.
== END 2023-06-16 13:16 | disposition home or self-care (01) ==
LOC: HO.MAMMO 13:15
PROVIDERS: PCP Physician Assistant; Visit Provider Physician Assistant
DX: Z12.31 Encounter for screening mammogram for malignant neoplasm of breast (principal)
CPT/HCPCS: 77063; 77067

== ENCOUNTER → 2023-06-16 13:30 | Outpatient (BNV) | payer OTHER, SELFPAY | PROVIDERS: PCP Physician Assistant; Visit Provider Radiology Diagnostic Radiology | DX: Z12.31 Encounter for screening mammogram for malignant neoplasm of breast (principal) | CPT/HCPCS: 77063; 77067 ==

== ENCOUNTER 2023-06-23 08:20 | Outpatient (REF) | payer OTHER, SELFPAY ==
[2023-06-23 09:07] LABS: Alanine Aminotransferase 20 U/L (0-31); Albumin Level 4.4 g/dL (3.5-5.0); Alkaline Phosphatase 52 U/L (39-117); Anion Gap 11 (12-20); Aspartate Amino Transferase 30 U/L (5-31); Bilirubin Total 0.3 mg/dL (0.0-1.0); Blood Urea Nitrogen 11 mg/dL (9-16); Calcium 9.7 mg/dL (8.4-10.2); Carbon Dioxide 30 mmol/L (22-29); Chloride 106 mmol/L (96-108); Cholesterol 123 mg/dL (<200); Estimated Glomerular Filt Rate > 60; Glucose Fasting 116 mg/dL (60-99); HDL Cholesterol 54 mg/dL (>40); LDL Cholesterol Calculated 56 mg/dL (<100); Potassium 3.7 mmol/L (3.3-5.1); Sodium 143 mmol/L (135-145); Total Protein 7.4 g/dL (6.5-8.0); Triglycerides 67 mg/dL (<150)
== END 2023-06-23 08:21 | disposition home or self-care (01) ==
LOC: HO.LAB 08:20
PROVIDERS: PCP Physician Assistant; Visit Provider Physician Assistant
DX: E78.00 Pure hypercholesterolemia, unspecified (principal); E11.65 Type 2 diabetes mellitus with hyperglycemia
CPT/HCPCS: 36415; 80053; 80061

== ENCOUNTER 2023-06-28 12:54 | Outpatient (AMB) | payer OTHER, SELFPAY ==
--- NOTE | 2023-06-28 12:56 | MHC.OFFVIS ---
Intake Vital Signs 06/28/23 13:00 Height 5 ft 5 in Weight 135 lb 2 oz BMI 22.5 BP 134/84 Blood Pressure Location Lt brachial Position Sitting Respiration 14 Pulse 106 H Pulse Source Pulse Oximeter Pulse Oximetry (%) 98 Oxygen Delivery Method Room Air Intake Visit Reasons: TWO MONTH FOLLOW UP/confirmed Allergies No Known Allergies [No Known Allergies*] Allergy (Verified 06/28/23 13:01) HPI HPI Comments History of Present Illness Details Angela returns to to my office after significant period of absence this time he was absent for almost a year. She again reports multiple pain generators. She reports pain in the neck, pain in the bilateral shoulders, pain in the lower back. Pain in bilateral knees. I told her that we need to sort out her pains 1 injection at a time. I offered her C4-C5 C6 diagnostic medial branch block bilateral. She has spondylosis of cervical spine with most affected C4-C5 and C6 vertebra as. With good results of this per injection I can offer her Sprint PNS versus C4-C5 C6 steroid injections. Gabapentin causes swelling in bilateral lower extremities. She is no longer on this medication. PRIOR: Angela underwent a bialteral therapeutic SIJ injection on 09/15/[address] Blanton. She reports reports about 75% sustained relief and is able to tolerate activity better as well as perform ADLs independently. Today she was mostly focused on her bilateral anterior shoulder pain. She reports a longstanding history of shoulder pain and reports pain is equally severe in both shoulders. Her pain is exacerbated by any overhead activity or reaching. She has reportedly done physical therapy in the past with no improvements in symptoms. She reports the pain is constant and rates it a -31/03. She has tried meloxicam, diclofenac, ibuprofen, tylenol, heat and gentle stretching with only partial relief. In the past she had a right shoulder injection with significant pain relief and is interested in repeating the injection here. She denies any imaging of bilateral shoulder [facility] Medical History Lumbar radicular pain Renal cysts, acquired, bilateral Renal calculi Renal calculi Renal calculus, bilateral Hyperhidrosis Asthma Dysplasia of cervix, low grade (BILLY 1) Hypercholesterolemia Hypertension Type 2 diabetes mellitus with hyperglycemia Migraine Surgical History History of right oophorectomy Hx of cholecystectomy Hx of appendectomy History of hemorrhoidectomy Family History Father Substance abuse Brother Substance abuse Schizophrenia Other Mental and behavioral problem Social History Housing: Apartment Alcohol intake: never Comment: ok with current level of relief-pyridium given Patient Tobacco Use Status: Never used Tobacco Tobacco use type: Cigarette e-Cigarette/Vaping Use: Never Used Second Hand Smoke Exposure: No service: No Current occupational status: unemployed Cognitive needs: No Hearing needs: No Vision needs: No Review of Systems Const All systems reviewed & are unremarkable except as noted in HPI and below Eyes Denies photophobia ENT Reports Normal hearing present Neuro Reports Normal hearing present Physical Exam Vital Signs: Last Vital Signs Pulse 106 H 06/28/23 13:00 Resp 14 06/28/23 13:00 BP 134/84 06/28/23 13:00 Pulse Ox 98 06/28/23 13:00 Oxygen Delivery Method Room Air 06/28/23 13:00 BMI result Body Mass Index 22.5 Const General: cooperative, healthy appearing, no acute distress and alert Orientation/consciousness: patient oriented x3 Limitations: No ambulation with cane, No ambulation with walker and No wheelchair HEENT Head: Yes normal to inspection, Yes normocephalic and Yes atraumatic Ears: hearing grossly normal bilaterally Eyes General: appearance normal, both eyes and all related structures Eyelids: Yes eyelids normal Sclerae: sclerae normal Pupils: Equal, round and reactive pupils present EOM: EOMs intact bilaterally Direct Ophthalmoscopy: No photophobia Neck Neck: Yes normal visual inspection, Yes trachea midline and Yes no JVD Chest Chest palpation & inspection: normal inspection of the chest Resp Effort & Inspection: normal respiratory effort, able to speak in complete sentences and no audible wheezes Cardio Jugular venous distension: no JVD Palpation: other (no appreciable rhythmic abnormalities) Peripheral pulses: radial pulses present (no palpable rhythmic abnormalities detected) bilateral and other Back/Spine/Pelvis Other: Patient with moderately decreased cervical ROM with lateral rotation. Spurling compression test negative. Pain is unchanged by Spurling manuever with retraction. Lhermitte's test negative. Patient demonstrated 5/5 motor strength of bilateral upper extremities. Sensation intact. Significant TTP throughout cervical muscles. Cervical Spine: cervical muscular tenderness, pain with cervical ROM and Cervical spine tenderness Neuro General: patient oriented x3, gait normal, moves all extremities and Normal light touch and pain sensation Cranial nerves: Yes Equal, round and reactive pupils present and Yes Normal hearing present Cognition (Neuro): normal cognition Gait exam (Neuro): Normal gait present Motor exam (neuro): 5/5 motor strength present throughout Extrem General: Yes normal to inspection, Yes full ROM and Yes no pedal edema Psych Appearance: grossly normal Speech and movement: Normal speech and movement present and Clear speech present Affect: normal affect Attitude: cooperative Thought process: Normal thought process present Thought content: Normal thought content present Insight: Good insight present (Psych) Judgement: Good judgement present (Psych) Results Reviewed Results Reviewed: FINDINGS: Vertebral body heights and alignment are normal. The disc spaces are well-maintained. There is mild spondylosis at C4-C5 and C5-C6.. No acute fracture or spondylolisthesis is seen. The posterior elements are intact. The dens and C7-T1 interface are normal. There is no prevertebral soft tissue swelling. ? The lung apices appear clear. ? IMPRESSION: ? 1. No acute fracture or spondylolisthesis is seen. ? 2. The disc spaces are well-maintained. ? 3. There is mild spondylosis at C4-C5 and C5-C6.? Assessment & Plan Assessment & Plan (1) Muscle spasms of neck: Code(s): M62.838 - Other muscle spasm (2) Bilateral shoulder pain: Code(s): M25.511 - Pain in right shoulder; M25.512 - Pain in left shoulder (3) Myofascial pain syndrome: Code(s): M79.18 - Myalgia, other site (4) Fibromyalgia: Code(s): M79.7 - Fibromyalgia (5) Spondylosis, cervical: Code(s): M47.812 - Spondylosis without myelopathy or radiculopathy, cervical region Plan I offered this patient diagnostic medial branch block C4-C5 C6 to treat spondylosis of the cervical spine. I will schedule this patient accordingly. With good results we can perform Sprint PNS versus therapeutic injection at the same level. With good results of those we can address pain in bilateral shoulders as well as bilateral knee joints. She was diagnosed with kidney stones and her kidney stones might be significant contribution to her lower back pain. She has a urologist appointment to treat this condition. She has an appointment with primary care physician to request her to prescribe opioid medications of safer profiles such is Nucynta or buprenorphine. Patient Instructions: I here by testify that I spent 30 minutes in conversation with this patient as well as planning her care and organizing her note. Coding Level of Care Code Est Pt Level 4 (64091) Diagnoses Muscle spasms of neck M62.838 Bilateral shoulder pain M25.511; M25.512 Myofascial pain syndrome M79.18 Fibromyalgia M79.7 Spondylosis, cervical M47.812
[2023-06-28 13:00] VITALS: BP 134/84; PULSE 106; RESP 14; O2SAT 98; BMI 22.5
== END 2023-06-28 13:18 | disposition home or self-care (01) ==
PROVIDERS: PCP Physician Assistant; Visit Provider Anesthesiology
DX: M79.18 Myalgia, other site (principal); M25.511 Pain in right shoulder; M25.512 Pain in left shoulder; M79.7 Fibromyalgia; M47.812 Spondylosis without myelopathy or radiculopathy, cervical region
CPT/HCPCS: 99214

== ENCOUNTER → 2023-06-28 12:54 | Outpatient (BNVA) | payer OTHER, SELFPAY | PROVIDERS: PCP Physician Assistant; Visit Provider Anesthesiology | DX: M62.838 Other muscle spasm (principal); M25.511 Pain in right shoulder; M25.512 Pain in left shoulder; M79.18 Myalgia, other site; M79.7 Fibromyalgia; M47.812 Spondylosis without myelopathy or radiculopathy, cervical region | CPT/HCPCS: 99212 ==

== ENCOUNTER 2023-06-30 12:55 | Outpatient (REF) | payer OTHER, SELFPAY ==
--- NOTE | ~2023-06-30 | US_ITS ---
EXAMINATION: US RETROPERITONEAL LIMITED (RENAL ONLY) CLINICAL INFORMATION: Renal calculus. COMPARISON: Abdomen CT from 06/01/2023 TECHNIQUE: Sonographic imaging of the kidneys and urinary bladder is performed. FINDINGS: RIGHT KIDNEY: 10.8 x 5.4 x 5.8 cm (SAG x AP x TRV). The kidney has normal cortical thickness and cortical echotexture. 1.1 cm simple cyst in the interpolar region and nearby 0.7 cm simple cyst. No renal imaging follow-up is recommended for simple cysts. Small echogenic foci that measures 0.3 cm and 0.2 cm in the mid kidney could represent renal stones or vascular calcifications. No evidence of any large renal stone or hydronephrosis. LEFT KIDNEY: 11.1 x 5.6 x 4.5 cm (SAG x AP x TRV). The kidney has normal cortical thickness and echotexture. A Bosniak category 2 cyst with thin septation in the lower pole is 1.5 cm. A simple cyst in the interpolar region is 1.6 cm. No renal imaging follow-up is recommended for these types of cysts. No evidence of renal stone or hydronephrosis. URINARY BLADDER: Unremarkable. OTHER: 3.4 x 2.1 x 2 cm cystic structure with few thin septations is seen in the right adnexal area. This is regarded as a probable benign cyst. Recommend pelvic ultrasound follow-up in 3-6 months. US/US renal BI IMPRESSION: * No acute imaging abnormalities. A few benign bilateral renal cysts are detected. * The 0.3 cm and 0.2 cm echogenic foci seen in the right kidney could represent small renal stones or vascular calcifications. No evidence of any large renal calculi or hydronephrosis. * Urinary bladder is normal. * A cystic structure with a few thin septations in the right adnexal area measures up to 3.4 cm. Recommend pelvic ultrasound follow-up in 3-6 months.
== END 2023-06-30 12:56 | disposition home or self-care (01) ==
LOC: HO.US 12:55
PROVIDERS: PCP Physician Assistant; Visit Provider Nurse Practitioner Family
DX: N20.0 Calculus of kidney (principal); N28.1 Cyst of kidney, acquired
CPT/HCPCS: 76775

== ENCOUNTER 2023-07-04 13:26 | Outpatient (AMB) | payer OTHER, SELFPAY ==
[2023-07-04 13:44] VITALS: BP 128/82; PULSE 105; RESP 15; O2SAT 100; BMI 22.5
--- NOTE | 2023-07-04 13:44 | A.OFFPC_ITS ---
Vital Signs 07/04/23 13:44 Height 5 ft 5 in Weight 135 lb BMI 22.5 BP 128/82 Blood Pressure Location Lt brachial Position Sitting Respiration 15 Pulse 105 H Pulse Source Pulse Oximeter Pulse Oximetry (%) 100 Oxygen Delivery Method Room Air Intake Visit Reasons: Follow Up DM Intake Note: Patient is present for diabetes mellitus type II follow-up. Today's concerns include a metallic taste in the mouth over the past 3 days and post-nasal drip. Virginia Line Attendant Required: Yes Virginia Line Attendant Language: Salvadorean Accompanied by: Self / Same As Patient Allergies No Known Allergies [No Known Allergies*] Allergy (Verified 07/04/23 14:00) Medication List - Last Reconciled 07/04/23 by Justin Cameron PA-C albuterol sulfate 90 mcg/actuation (Ventolin HFA) 2 puffs inhalation Q4-6H PRN amlodipine 10 mg PO DAILY aspirin 81 mg PO DAILY atorvastatin 10 mg PO DAILY 90 days azelastine 1 spray intranasal BID blood sugar diagnostic (FreeStyle Lite Strips) CHECK THE BLOOD SUGAR ONCE A DAY cetirizine 10 mg PO DAILY 90 days cholecalciferol (vitamin D3) 25 mcg PO DAILY 90 days clonazepam 2 mg PO BEDTIME PRN cromolyn 4% 1 drp ophthalmic (eye) QID 30 days cyclobenzaprine 5 mg PO BEDTIME PRN docusate sodium (Colace Clear) 50 mg PO BID dulaglutide (Trulicity) 0.75 mg (0.5 mL) subcut QWEEK 4 weeks fluocinonide 0.05% mL topical fluticasone propionate 50 mcg/actuation (Flonase Allergy Relief) 1 spray intranasal DAILY lancets (FreeStyle Lancets) As directed check the sugar once a day lidocaine 5% (Lidoderm) 1 patch topical DAILY lisinopril 20 mg PO DAILY metformin 1,000 mg (2 x 500 mg) PO BID 90 days naproxen 500 mg PO Q8-12H PRN omeprazole 20 mg PO DAILY pen needle, diabetic (BD Yuliet 2nd Gen Pen Needle) As directed polyethylene glycol 3350 (Miralax) 17 grams PO DAILY PRN pyridoxine (vitamin B6) 50 mg PO DAILY 90 days ropinirole 0.5 mg PO BEDTIME 30 days tamsulosin 0.4 mg PO BEDTIME 90 days tizanidine 2 mg PO Q8H PRN 14 days Tobacco use date assessed: 07/04/23 Dental Screening Dental Screen Date: 07/04/23 Did you have a dental visit in the last 12 months?: Yes Did you have a dental problem in the last 6 months where you did not have access to dental care?: No Was dental information given to patient?: Patient has dentist HPI Follow Up DM HPI Details Patient is a 57-year-old female here today for a follow-up visit.? Patient has a past medical history significant for type 2 diabetes, hypertension, generalized anxiety disorder.. . Concern--> reports having a metallic taste in her mouth over the last 3 days. Also suffering from upper respiratory and sinus congestion. .. Type 2 diabetes:? Today's A1c at 7.2 . She continues on Trulicity and metformin without any side effect. No reports of hypoglycemic events. .. Cervical spine pain: Now followed by pain management at [facility]. Apparently considering injections. She was told to ask PCP about starting pain medication. PLAN: Will start tramadol 50 mg as needed for pain scales 9-10. .. Generalized anxiety disorder:? Patient continues on SNRI therapy with decent affect.? Follows with a mental health therapist and a psychiatrist whom manages her mental health medications.? Raffy 7 score positive for moderate anxiety which has been existing condition for her. Laboratory Tests 03/22/23 06/23/23 14:41 08:27 Creatinine 0.80 Fasting Glucose 116 H Hgb A1c (Clinic) 7.1 H Cholesterol 123 LDL Cholesterol, C alc 56 PFSH Medical History Lumbar radicular pain Renal cysts, acquired, bilateral Renal calculi Renal calculi Renal calculus, bilateral Hyperhidrosis Asthma Dysplasia of cervix, low grade (BILLY 1) Hypercholesterolemia Hypertension Type 2 diabetes mellitus with hyperglycemia Migraine Surgical History History of right oophorectomy Hx of cholecystectomy Hx of appendectomy History of hemorrhoidectomy Family History Father Substance abuse Brother Substance abuse Schizophrenia Other Mental and behavioral problem Social History Housing: Apartment Alcohol intake: never Comment: ok with current level of relief-pyridium given Patient Tobacco Use Status: Never used Tobacco Tobacco use type: Cigarette e-Cigarette/Vaping Use: Never Used Second Hand Smoke Exposure: No service: No Current occupational status: unemployed Cognitive needs: No Hearing needs: No Vision needs: No Questionnaire PHQ-9 Over the last 2 weeks, how often have you been bothered by any of the following problems? 1. Little interest or pleasure in doing things: not at all 2. Feeling down, depressed, or hopeless: several days 3. Trouble falling or staying asleep, or sleeping too much: nearly every day 4. Feeling tired or having little energy: several days 5. Poor appetite or overeating: nearly every day 6. Feeling bad about yourself - or that you are a failure or have let yourself or your family down: more than half the days 7. Trouble concentrating on things, such as reading the newspaper or watching television: not at all 8. Moving or speaking so slowly that other people could have noticed. Or the opposite - being so fidgety or restless that you have been moving around a lot more than usual: several days 9. Thoughts that you would be better off or of hurting yourself in some way: not at all Total score: 11 Depression Screening Interpretation: Positive Depression Screening Follow-up: Existing condition and In treatment Depression Screening Done: Yes 42029 - PHQ-9 Billing: Yes Source: Developed by Drs. Duane Foreman, Lilli Ospina, Jeff Bravo and colleagues, with an educational rashawn from [employer]. Thrive Questionnaire Date Thrive assessed: 07/04/23 I am a: Patient What is your living situation today?: I have a steady place to live Within the past 12 months, did the food you bought not last and you didn't have the money to get more?: Never true Within the past 12 months, did you worry whether your food would run out before you got money to buy more?: Never true Do you have trouble paying for medicines?: No Do you have trouble getting transportation to medical appointments?: No Do you have trouble paying your heating and electricity bill?: No Do you have trouble taking care of your child, family member or friend?: No Do you have trouble with day-to-day activities such as bathing, preparing meals, shopping, managing finances, etc.?: No Are you currently unemployed and looking for a job?: No Are you interested in more education?: No Please select the resources that you would like help with: None AUDIT C Alcohol Use Questionnaire (AUDIT-C) 1. How often do you have a drink containing alcohol?: Never 3. How often do you have six or more drinks on one occasion?: Never Total Score: 0 RAFFY-7 AMB Questionnaire RAFFY-7 Date RAFFY - 7 assessed: 09/23/22 Feeling nervous, anxious, or on edge: 0 = Not at all Not being able to stop or control worryin = Nearly every day Worrying too much about different things: 3 = Nearly every day Trouble relaxin = Several days Being so restless that it is hard to sit still: 1 = Several days Becoming easily annoyed or irritable: 0 = Not at all Feeling afraid as if something awful might happen: 0 = Not at all Total RAFFY-7 score (0-4 normal; 5-9 mild; 10-14 moderate; 15-21 severe): 8 Source: Developed by Drs. Duane Foreman, Lilli Ospina, Jeff Bravo and colleagues, with an educational rashawn from [employer]. RAFFY-7 Assessment Billing RAFFY-7 Assessment Tool: RAFFY-7 Assessment 12095 Physical exam (Primary Care) Vital Signs: Last Vital Signs Pulse 105 H 07/04/23 13:44 Resp 15 07/04/23 13:44 BP 128/82 07/04/23 13:44 Pulse Ox 100 07/04/23 13:44 Oxygen Delivery Method Room Air 07/04/23 13:44 BMI result Body Mass Index 22.5 Tobacco/Smoking Status: Tobacco use Status Tobacco use date assessed 07/04/23 07/04/23 13:57 Patient Tobacco Use Status Never used Tobacco 07/04/23 13:51 Tobacco use type Cigarette 07/04/23 13:51 e-Cigarette/Vaping Use Never Used 07/04/23 13:51 PHQ-9: PHQ-9 Score PHQ-9: Total score 11 07/04/23 13:51 Depression Screening Interpretation: Positive Depression Screening Follow-up: Existing condition and In treatment Thrive Assessment: Date of Thrive Assessment Date Thrive assessed 07/04/23 07/04/23 13:51 Assessment and Plan Assessment & Plan (1) Type 2 diabetes mellitus with hyperglycemia: Code(s): E11.65 - Type 2 diabetes mellitus with hyperglycemia Qualifiers: Diabetes mellitus termite control representative insulin use: without termite control representative use Qualified Code(s): E11.65 - Type 2 diabetes mellitus with hyperglycemia Plan: Patient's type 2 diabetes suboptimally controlled with A1c is 7.2 . Continue her current diabetic medication. Advised on working on lifestyle and diet modification to further reduction her A1c. Goal A1c is to be below 7.0 (2) Hypertension: Code(s): I10 - Essential (primary) hypertension Qualifiers: Hypertension type: essential hypertension Qualified Code(s): I10 - Essential (primary) hypertension Plan: Patient's blood pressure today in office acceptable. Will continue her current dose antihypertensive medication with goal blood pressure to be below 140/90 (3) Hypercholesterolemia: Code(s): E78.00 - Pure hypercholesterolemia, unspecified Plan: Patient's most recent fasting lipid panel showing appropriate total cholesterol and LDL. Will recheck lipid panel to ensure appropriate LDL below 100 (4) Sinus infection: Code(s): J32.9 - Chronic sinusitis, unspecified Qualifiers: Sinusitis location: frontal Chronicity: subacute Qualified Code(s): J01.10 - Acute frontal sinusitis, unspecified Plan: Patient is a 4 history of sinus congestion and postnasal drip. Has been using allergy medication and nasal spray without significant relief. Will supply patient with amoxicillin for possible sinus infection. (5) Spondylosis of cervical region without myelopathy or radiculopathy: Code(s): M47.812 - Spondylosis without myelopathy or radiculopathy, cervical region Plan: Followed by [facility], was advised to perhaps start mild opiate pain medication for her chronic pain. She is willing to try tramadol 50 mg as needed. We did discuss the habit-forming nature of opiates and she does understand to use medication on a limited p.r.n. basis for pain scales of 9-10. (6) RAFFY (generalized anxiety disorder): Code(s): F41.1 - Generalized anxiety disorder Plan: Patient's RAFFY-7 score positive for moderate anxiety which has been an existing condition for her. She does speak with a mental health therapist and a psychiatrist who manages her mental health medications. Of note has been able to get herself off of clonazepam 2 mg. (7) MDD (major depressive disorder), recurrent episode, moderate: Code(s): F33.1 - Major depressive disorder, recurrent, moderate Plan: Patient's PHQ-9 score positive for depression which has been existing condition for her. Again patient is followed by mental health med provider Orders: Orders AMB Hemoglobin A1c Today E11.65 - Type 2 diabetes mellitus with hyperglycemia Medications: New amoxicillin 500 mg PO TID 5 days 15 tabs 0RF J01.10 - Acute frontal sinusitis, unspecified tramadol 50 mg PO BID 7 days PRN 14 tabs 0RF pain M47.812 - Spondylosis without myelopathy or radiculopathy, cervical region Changed From polyethylene glycol 3350 (Miralax) 17 grams PO DAILY PRN 14 ea 0RF constipation K59.01 - Slow transit constipation To polyethylene glycol 3350 (Miralax) 17 grams PO DAILY 30 days PRN 30 ea 3RF constipation K59.01 - Slow transit constipation Discontinued cyclobenzaprine Discontinued Reason: Doctor's Order 5 mg PO BEDTIME PRN 10 tabs 0RF muscle spasm Coding Level of Care Code Est Pt Level 4 (57235) Diagnoses Type 2 diabetes mellitus with hyperglycemia, without long-term current use of insulin E11.65 Diabetes mellitus senior care insulin use: without termite control representative use Essential hypertension I10 Hypertension type: essential hypertension Hypercholesterolemia E78.00 Subacute frontal sinusitis J01.10 Sinusitis location: frontal Chronicity: subacute Spondylosis of cervical region without myelopathy or radiculopathy M47.812 RAFFY (generalized anxiety disorder) F41.1 MDD (major depressive disorder), recurrent episode, moderate F33.1 Additional Codes RAFFY-7 Assessment Billing - RAFFY-7 Assessment Tool: RAFFY-7 Assessment 21641 ([id number])
== END 2023-07-04 14:23 | disposition home or self-care (01) ==
PROVIDERS: PCP Physician Assistant; Visit Provider Physician Assistant
DX: E11.65 Type 2 diabetes mellitus with hyperglycemia (principal); I10 Essential (primary) hypertension; E78.00 Pure hypercholesterolemia, unspecified; F33.1 Major depressive disorder, recurrent, moderate
CPT/HCPCS: 99214

== ENCOUNTER 2023-07-05 11:27 | Outpatient (AMB) | payer OTHER, SELFPAY ==
--- NOTE | 2023-07-05 11:35 | MHC.OFFVIS ---
Intake Intake Visit Reasons: 6m/US Intake Note: Patient is present for?follow up kidney stone, ultrasound results (imaging 06/30/23) Urology Medications: tamsulosin, Vitamin B6 Blood Thinner: none Ortho/Prosthetic Aide Required: Yes Ortho/Prosthetic Aide Name: PENNY GUERREROOLGA Accompanied by: Self / Same As Patient Allergies No Known Allergies [No Known Allergies*] Allergy (Verified 07/05/23 12:19) Medication List - Last Reconciled 07/05/23 by MARY Fong- albuterol sulfate 90 mcg/actuation (Ventolin HFA) 2 puffs inhalation Q4-6H PRN amlodipine 10 mg PO DAILY amoxicillin 500 mg PO TID 5 days atorvastatin 10 mg PO DAILY 90 days azelastine 1 spray intranasal BID blood sugar diagnostic (FreeStyle Lite Strips) CHECK THE BLOOD SUGAR ONCE A DAY cetirizine 10 mg PO DAILY 90 days cholecalciferol (vitamin D3) 25 mcg PO DAILY 90 days cromolyn 4% 1 drp ophthalmic (eye) QID 30 days docusate sodium (Colace Clear) 50 mg PO BID dulaglutide (Trulicity) 0.75 mg (0.5 mL) subcut QWEEK 4 weeks fluocinonide 0.05% mL topical fluticasone propionate 50 mcg/actuation (Flonase Allergy Relief) 1 spray intranasal DAILY lancets (FreeStyle Lancets) As directed check the sugar once a day lidocaine 5% (Lidoderm) 1 patch topical DAILY lisinopril 20 mg PO DAILY metformin 1,000 mg (2 x 500 mg) PO BID 90 days naproxen 500 mg PO Q8-12H PRN omeprazole 20 mg PO DAILY pen needle, diabetic (BD Yuliet 2nd Gen Pen Needle) As directed polyethylene glycol 3350 (Miralax) 17 grams PO DAILY PRN 30 days pyridoxine (vitamin B6) 50 mg PO DAILY 90 days ropinirole 0.5 mg PO BEDTIME 30 days tamsulosin 0.4 mg PO BEDTIME 90 days tizanidine 2 mg PO Q8H PRN 14 days tramadol 50 mg PO BID PRN 7 days HPI HPI Comments History of Present Illness Details Oh is a pleasant 57 year old female patient of Dr. Cameron. She has a past medical history of asthma, dysplasia of cervix (low grade), hypercholesteremia, hypertension, lumbar radicular pain, migraine, renal calculi, renal cysts, and type 2 diabetes. She presents to the office today to follow up regarding her renal cysts and kidney stones. Recent surveillance renal imaging results reviewed with the patient today. Right kidney with 1.1 cm simple cyst in the interpolar region and nearby 0.7 cm simple cyst. No renal imaging follow-up is recommended for simple cysts per radiology report. Small echogenic foci that measures 0.3 cm and 0.2 cm in the mid kidney could represent renal stones or vascular calcifications. No evidence of any large renal stone or hydronephrosis. Left kidney with a Bosniak category 2 cyst with thin septation in the lower pole is 1.5 cm. A simple cyst in the interpolar region is 1.6 cm. No renal imaging follow-up is recommended for these types of cysts per radiology report. No evidence of renal stone or hydronephrosis. The bladder is unremarkable. Discussed findings of a cystic structure with a few thin septations in the right adnexal area measuring up to 3.4 cm with recommendations of pelvic ultrasound in follow-up in 3-6 months. Patient reports she has established care with rolls baker and will call for further assessment and evaluation. In discussion with the patient today she does report intermittent episodes of right-sided flank pain however does not find these bothersome. She currently denies any bothersome urinary issues. When asked she denies urinary urgency, urinary frequency, incontinence, nocturia, hematuria, dysuria, foul smelling urine, changes to urinary stream, flank pain, fever, and or chills. She is happy with her current voiding parameters. In office urinalysis results reviewed with the patient today. She otherwise offers no issues or concerns at this time. [facility] Medical History Lumbar radicular pain Renal cysts, acquired, bilateral Renal calculi Renal calculi Renal calculus, bilateral Hyperhidrosis Asthma Dysplasia of cervix, low grade (BILLY 1) Hypercholesterolemia Hypertension Type 2 diabetes mellitus with hyperglycemia Migraine Surgical History History of right oophorectomy Hx of cholecystectomy Hx of appendectomy History of hemorrhoidectomy Family History Father Substance abuse Brother Substance abuse Schizophrenia Other Mental and behavioral problem Social History Housing: Apartment Alcohol intake: never Comment: ok with current level of relief-pyridium given Patient Tobacco Use Status: Never used Tobacco Tobacco use type: Cigarette e-Cigarette/Vaping Use: Never Used Second Hand Smoke Exposure: No service: No Current occupational status: unemployed Cognitive needs: No Hearing needs: No Vision needs: No Review of Systems Const All systems reviewed & are unremarkable except as noted in HPI and below Reports as per HPI Eyes Reports no additional complaints ENT Reports no additional complaints Card Reports as per HPI Resp Reports as per HPI GI Reports no additional complaints Reports as per HPI Musc Reports as per HPI Neuro Reports no additional complaints Psych Reports no additional complaints Endo Reports as per HPI Hollis/Lymph Reports no additional complaints Aller/Immun Reports no additional complaints Physical Exam Const General: cooperative, healthy appearing, comfortable, no acute distress, well developed, alert and awake Orientation/consciousness: patient oriented x3 Limitations: no limitations HEENT Head: Yes normal to inspection, Yes normocephalic and Yes atraumatic Ears: hearing grossly normal bilaterally Eyes General: appearance normal, both eyes and all related structures Neck Neck: Yes normal visual inspection and Yes trachea midline Chest Chest palpation & inspection: normal inspection of the chest Resp Effort & Inspection: normal respiratory effort and able to speak in complete sentences Cardio Rate: regular rate GI Inspection: Yes normal to inspection General: Yes no CVA tenderness Back/Spine/Pelvis Back: no CVA tenderness Skin General skin exam: no rashes or lesions noted Neuro General: patient oriented x3 Extrem General: Yes normal to inspection Psych Appearance: grossly normal and well kempt Mental Status: mental status grossly normal Speech and movement: Normal speech and movement present and Clear speech present Affect: normal affect Attitude: cooperative Thought process: Normal thought process present Thought content: Normal thought content present Insight: Good insight present (Psych) Judgement: Good judgement present (Psych) Results AMB Urinalysis, Automated UA Leukoctes 0 Amara/uL Last Edit by Estephanie Diaz on 07/05/23 12:03 UA Nitrite Negative Last Edit by Estephanie Diaz on 07/05/23 12:03 UA Urobilinogen 0.2 mg/dL Last Edit by Estephanie Diaz on 07/05/23 12:03 UA Protein 0 mg/dL Last Edit by Estephanie Diaz on 07/05/23 12:03 UA pH 6.0 Last Edit by Estephanie Diaz on 07/05/23 12:03 UA Blood 0 Esvin/uL Last Edit by Estephanie Diaz on 07/05/23 12:03 UA Specific [place] 1.010 Last Edit by Estephanie Diaz on 07/05/23 12:03 UA Ketone Negative Last Edit by Estephanie Diaz on 07/05/23 12:03 UA Bilirubin 0 mg/dL Last Edit by Estephanie Diaz on 07/05/23 12:03 UA Glucose 0 mg/dL Last Edit by Estephanie Diaz on 07/05/23 12:03 Results Reviewed Results Reviewed: Laboratory Last Values Urine pH (Auto) 6.0 07/05/23 11:39 Specific [place] (Auto) 1.010 07/05/23 11:39 Urine Protein (Auto) 0 mg/dL 07/05/23 11:39 Glucose (UA)(Auto) 0 mg/dL 07/05/23 11:39 Urine Ketones (Auto) Negative 07/05/23 11:39 Urine Blood (Auto) 0 Esvin/uL 07/05/23 11:39 Urine Nitrite (Auto) Negative 07/05/23 11:39 Urine Bilirubin (Auto) 0 mg/dL 07/05/23 11:39 Urine Urobilinogen (Auto) 0.2 mg/dL 07/05/23 11:39 Leukocyte Esterase (Auto) 0 Amara/uL 07/05/23 11:39 Date of Service: 06/30/23 EXAMINATION: US RETROPERITONEAL LIMITED (RENAL ONLY) FINDINGS: RIGHT KIDNEY: 10.8 x 5.4 x 5.8 cm (SAG x AP x TRV). The kidney has normal cortical thickness and cortical echotexture. 1.1 cm simple cyst in the interpolar region and nearby 0.7 cm simple cyst. No renal imaging follow-up is recommended for simple cysts. Small echogenic foci that measures 0.3 cm and 0.2 cm in the mid kidney could represent renal stones or vascular calcifications. No evidence of any large renal stone or hydronephrosis. LEFT KIDNEY: 11.1 x 5.6 x 4.5 cm (SAG x AP x TRV). The kidney has normal cortical thickness and echotexture. A Bosniak category 2 cyst with thin septation in the lower pole is 1.5 cm. A simple cyst in the interpolar region is 1.6 cm. No renal imaging follow-up is recommended for these types of cysts. No evidence of renal stone or hydronephrosis. URINARY BLADDER: Unremarkable. OTHER: 3.4 x 2.1 x 2 cm cystic structure with few thin septations is seen in the right adnexal area. This is regarded as a probable benign cyst. Recommend pelvic ultrasound follow-up in 3-6 months. IMPRESSION: * No acute imaging abnormalities. A few benign bilateral renal cysts are detected. * The 0.3 cm and 0.2 cm echogenic foci seen in the right kidney could represent small renal stones or vascular calcifications. No evidence of any large renal calculi or hydronephrosis. * Urinary bladder is normal. * A cystic structure with a few thin septations in the right adnexal area measures up to 3.4 cm. Recommend pelvic ultrasound follow-up in 3-6 months. Assessment & Plan Assessment & Plan (1) Renal cyst: Code(s): N28.1 - Cyst of kidney, acquired (2) Renal calculi: Code(s): N20.0 - Calculus of kidney Plan In office urinalysis results reviewed with the patient; as noted above. Recent renal imaging results reviewed with the patient today; as noted above. Continue vitamin B6 as discussed and prescribed. Continue adding 1 oz of lemon juice to water daily. Continue and encouraged to drink plenty of water daily. Patient denies any urinary issues or concerns at this time. Renal ultrasound in 6 months. Follow-up in 6 months with imaging to be completed prior; or sooner with any issues, concerns, and or questions. Orders: Orders AMB Urinalysis Automated Today Z13.9 - Encounter for screening, unspecified US renal BI 6 Months N20.0 - Calculus of kidney Patient Instructions: The patient had an opportunity to ask questions regarding the treatment plan. All questions were answered. Physical exam, labs, and imaging were discussed and reviewed in detail. As well as risks, benefits, and discussion of treatment choices. No major barriers to understanding were identified. The patient expressed understanding and agreement with the above treatment plan. The patient was made aware they should contact our office by phone for worsening of their current condition, the appearance of new symptoms, or with any questions or concerns. Compliance is encouraged with any medications and follow up testing that is ordered. It is a privilege to be allowed the opportunity to participate in? your urological care.? Again, if you have any questions or concerns If you have any questions or concerns please do not hesitate to contact me. The office is [phone]. This note is constructed using voice recognition software. While every effort has been made to ensure accuracy mortgage loan underwriter errors may have been included. Yours sincerely, JACQUES Fong Coding Level of Care Code Est Pt Level 3 (12917) Diagnoses Renal cyst N28.1 Renal calculi N20.0
== END 2023-07-05 12:14 | disposition home or self-care (01) ==
PROVIDERS: PCP Physician Assistant; Visit Provider Nurse Practitioner Family
DX: N28.1 Cyst of kidney, acquired (principal); N20.0 Calculus of kidney; Z13.9 Encounter for screening, unspecified
CPT/HCPCS: 99213

== ENCOUNTER → 2023-07-05 11:27 | Outpatient (BNVA) | payer OTHER, SELFPAY | PROVIDERS: PCP Physician Assistant; Visit Provider Nurse Practitioner Family | DX: N28.1 Cyst of kidney, acquired (principal); N20.0 Calculus of kidney | CPT/HCPCS: 81003; 99212 ==

== ENCOUNTER 2023-08-01 06:09 | Outpatient (REF) | payer OTHER, SELFPAY ==
--- NOTE | ~2023-08-01 | FL_ITS ---
INDICATION: Intraoperative fluoroscopy. FLUOROSCOPY: Fluoroscopy Time: 0.7 minutes Dose/air kerma: 2.35 mGy Images saved: 6 FINDINGS: Multiple intraoperative fluoroscopic images are submitted during surgical procedure of the cervical spine. Correlation with operative report. Evaluation is limited secondary to fluoroscopic technique. IMPRESSION: Intra-operative fluoroscopic imaging provided by radiology during surgical procedure of the cervical spine. Please refer to operative note for further information.
== END 2023-08-01 06:10 | disposition home or self-care (01) ==
LOC: CF 06:09
PROVIDERS: Visit Provider Anesthesiology
DX: M47.812 Spondylosis without myelopathy or radiculopathy, cervical region (principal); M62.838 Other muscle spasm
CPT/HCPCS: 62321

== ENCOUNTER 2023-08-01 10:46 | Outpatient (AMB) | payer OTHER, SELFPAY ==
--- NOTE | 2023-08-01 10:54 | A.OFFVIS_ITS ---
Intake Vital Signs 08/01/23 12:28 08/01/23 12:31 Height 5 ft 5 in 5 ft 5 in Weight 135 lb 135 lb BMI 22.5 22.5 BP 134/74 132/68 Blood Pressure Location Lt brachial Lt brachial Position Sitting Sitting Respiration 14 14 Pulse 100 89 Pulse Source Pulse Oximeter Pulse Oximeter Pulse Oximetry (%) 100 98 Oxygen Delivery Method Room Air Room Air Comment pre-op post-op Intake Visit Reasons: BILATERAL DIAGNOSTIC C4, C5, C6 MBB Allergies No Known Allergies [No Known Allergies*] Allergy (Verified 07/05/23 12:19) PFSH Medical History Lumbar radicular pain Renal cysts, acquired, bilateral Renal calculi Renal calculi Renal calculus, bilateral Hyperhidrosis Asthma Dysplasia of cervix, low grade (BILLY 1) Hypercholesterolemia Hypertension Type 2 diabetes mellitus with hyperglycemia Migraine Surgical History History of right oophorectomy Hx of cholecystectomy Hx of appendectomy History of hemorrhoidectomy Family History Father Substance abuse Brother Substance abuse Schizophrenia Other Mental and behavioral problem Social History Housing: Apartment Alcohol intake: never Comment: ok with current level of relief-pyridium given Patient Tobacco Use Status: Never used Tobacco Tobacco use type: Cigarette e-Cigarette/Vaping Use: Never Used Second Hand Smoke Exposure: No service: No Current occupational status: unemployed Cognitive needs: No Hearing needs: No Vision needs: No Physical Exam Vital Signs: Last Vital Signs Pulse 89 08/01/23 12:31 Resp 14 08/01/23 12:31 BP 132/68 08/01/23 12:31 Pulse Ox 98 08/01/23 12:31 Oxygen Delivery Method Room Air 08/01/23 12:31 BMI result Body Mass Index 22.5 Assessment & Plan Assessment & Plan (1) Muscle spasms of neck: Code(s): M62.838 - Other muscle spasm (2) Bilateral shoulder pain: Code(s): M25.511 - Pain in right shoulder; M25.512 - Pain in left shoulder (3) Myofascial pain syndrome: Code(s): M79.18 - Myalgia, other site (4) Fibromyalgia: Code(s): M79.7 - Fibromyalgia (5) Spondylosis, cervical: Code(s): M47.812 - Spondylosis without myelopathy or radiculopathy, cervical region Plan: Bilateral C4-C4- C6 diagnostic medial branch block. ?Informed consent was explained to the patient. All questions were explained and answered.? The patient was taken inside the operating room where she was positioned prone on the operating table. Time-out was performed delineating correct site, side, the nature of the procedure, patient's allergy, preoperative antibiotic if needed.? All operating room staff was participating in OR time-out procedure. The back of the neck and upper back were prepped with ChloraPrep and draped with sterile towels.? Sterilely draped C-arm was brought over the operating field and sq picture of? C4-C5-C6 vertebrae were delineated on the screen.? Points of interest were delineated as lateral masses bilaterally of the vertebrae as above. The waste of each lateral mass was chosen as the target of the tip of the needles on AP view and lateral view was used as a safety view for the tips of the needles position.?? The projections of the point of interest to the skin were injected with the small amount of local anesthetic lidocaine 2% 1-1.5 cc.? After that 22 gauge 3and 1/2 inch? spinal needles were driven to the point of interest in tunnel vision fashion. After needles gently contacted the bone at the point of interests the needle was injected with small amount of the contrast. The injections did not demonstrate intravascular or intrathecal spread.. After that ropivacaine 0.5%-1cc. mixed with kenalog was injected into each location of the needles. ( total dose of Kenalog was 40 mgs).? Upon completion of the injections the needles were removed and sterile dressings were applied, the patient was a taken? outside of the operating room to recovery room where she recovered uneventfully. Plan I offered this patient diagnostic medial branch block C4-C5 C6 to treat spondylosis of the cervical spine. I will schedule this patient accordingly. With good results we can perform Sprint PNS versus therapeutic injection at the same level. With good results of those we can address pain in bilateral shoulders as well as bilateral knee joints. She was diagnosed with kidney stones and her kidney stones might be significant contribution to her lower back pain. She has a urologist appointment to treat this condition. She has an appointment with primary care physician to request her to prescribe opioid medications of safer profiles such is Nucynta or buprenorphine. Orders: Orders FL guidance in treatment room 08/01/23 M47.812 - Spondylosis without myelopathy or radiculopathy, cervical region Coding Level of Care Code Procedure Only Diagnoses Muscle spasms of neck M62.838 Bilateral shoulder pain M25.511; M25.512 Myofascial pain syndrome M79.18 Fibromyalgia M79.7 Spondylosis, cervical M47.812
[2023-08-01 12:28] VITALS: BP 134/74; PULSE 100; RESP 14; O2SAT 100; BMI 22.5
[2023-08-01 12:31] VITALS: BP 132/68; PULSE 89; RESP 14; O2SAT 98; BMI 22.5
== END 2023-08-01 11:50 | disposition home or self-care (01) ==
LOC: HO.PMCPRC 10:46
PROVIDERS: PCP Physician Assistant; Visit Provider Anesthesiology
DX: M62.838 Other muscle spasm (principal); M25.511 Pain in right shoulder; M25.512 Pain in left shoulder; M79.7 Fibromyalgia; M47.812 Spondylosis without myelopathy or radiculopathy, cervical region
CPT/HCPCS: 62321

== ENCOUNTER 2023-08-09 13:14 | Outpatient (AMB) | payer OTHER, SELFPAY ==
--- NOTE | 2023-08-09 13:18 | A.OFFVIS_ITS ---
Intake Vital Signs 08/09/23 13:27 Height 5 ft 5 in Weight 135 lb 6 oz BMI 22.5 BP 136/74 Blood Pressure Location Lt brachial Position Sitting Respiration 14 Pulse 90 Pulse Source Pulse Oximeter Pulse Oximetry (%) 100 Oxygen Delivery Method Room Air Intake Visit Reasons: BILATERAL DIAGNOSTIC C4, C5, C6 MBB/08/01/23 Intake Note: Patient came in for post-op appointment. Reports pain 7/10. Allergies No Known Allergies [No Known Allergies*] Allergy (Verified 08/09/23 13:26) HPI HPI Comments History of Present Illness Details Angela is back in my office after diagnostic medial branch block C4-C5 C6 bilateral. While she tolerated procedure very poorly and complained on a lot of pain during the procedure she reported full 6 hours of complete pain elimination after the procedure. I offered today the patient to consider sprint PNS 1st on the right and then on the left to alleviate her pain. The patient agreed to go for the procedure only under sedation. I explained to the patient that the procedure will be done under conscious sedation because I need to ask her about the area of the pain corresponding to the area of the stimulation. I will schedule her for right C5 sprint PNS 1st. Two weeks after I will schedule her for the left C5 sprint PNS. PRIOR: Angela underwent a bialteral therapeutic SIJ injection on 09/15/[address] Blanton. She reports reports about 75% sustained relief and is able to tolerate activity better as well as perform ADLs independently. Today she was mostly focused on her bilateral anterior shoulder pain. She reports a longstanding history of shoulder pain and reports pain is equally severe in both shoulders. Her pain is exacerbated by any overhead activity or reaching. She has reportedly done physical therapy in the past with no improvements in symptoms. She reports the pain is constant and rates it a 12-13/10. She has tried meloxicam, diclofenac, ibuprofen, tylenol, heat and gentle stretching with only partial relief. In the past she had a right shoulder injection with significant pain relief and is interested in repeating the injection here. She denies any imaging of bilateral shoulder [facility] Medical History Lumbar radicular pain Renal cysts, acquired, bilateral Renal calculi Renal calculi Renal calculus, bilateral Hyperhidrosis Asthma Dysplasia of cervix, low grade (BILLY 1) Hypercholesterolemia Hypertension Type 2 diabetes mellitus with hyperglycemia Migraine Surgical History History of right oophorectomy Hx of cholecystectomy Hx of appendectomy History of hemorrhoidectomy Family History Father Substance abuse Brother Substance abuse Schizophrenia Other Mental and behavioral problem Social History Housing: Apartment Alcohol intake: never Comment: ok with current level of relief-pyridium given Patient Tobacco Use Status: Never used Tobacco Tobacco use type: Cigarette e-Cigarette/Vaping Use: Never Used Second Hand Smoke Exposure: No service: No Current occupational status: unemployed Cognitive needs: No Hearing needs: No Vision needs: No Review of Systems Const All systems reviewed & are unremarkable except as noted in HPI and below Eyes Denies photophobia ENT Reports Normal hearing present Neuro Reports Normal hearing present Physical Exam Const General: cooperative, healthy appearing, no acute distress and alert Orientation/consciousness: patient oriented x3 Limitations: No ambulation with cane, No ambulation with walker and No wheelchair HEENT Head: Yes normal to inspection, Yes normocephalic and Yes atraumatic Ears: hearing grossly normal bilaterally Eyes General: appearance normal, both eyes and all related structures Eyelids: Yes eyelids normal Sclerae: sclerae normal Pupils: Equal, round and reactive pupils present EOM: EOMs intact bilaterally Direct Ophthalmoscopy: No photophobia Neck Neck: Yes normal visual inspection, Yes trachea midline and Yes no JVD Chest Chest palpation & inspection: normal inspection of the chest Resp Effort & Inspection: normal respiratory effort, able to speak in complete sentences and no audible wheezes Cardio Jugular venous distension: no JVD Palpation: other (no appreciable rhythmic abnormalities) Peripheral pulses: radial pulses present (no palpable rhythmic abnormalities detected) bilateral and other Back/Spine/Pelvis Other: Patient with moderately decreased cervical ROM with lateral rotation. Spurling compression test negative. Pain is unchanged by Spurling manuever with retraction. Lhermitte's test negative. Patient demonstrated 5/5 motor strength of bilateral upper extremities. Sensation intact. Significant TTP throughout cervical muscles. Cervical Spine: cervical muscular tenderness, pain with cervical ROM and Cervical spine tenderness Neuro General: patient oriented x3, gait normal, moves all extremities and Normal light touch and pain sensation Cranial nerves: Yes Equal, round and reactive pupils present and Yes Normal hearing present Cognition (Neuro): normal cognition Gait exam (Neuro): Normal gait present Motor exam (neuro): 5/5 motor strength present throughout Extrem General: Yes normal to inspection, Yes full ROM and Yes no pedal edema Psych Appearance: grossly normal Speech and movement: Normal speech and movement present and Clear speech present Affect: normal affect Attitude: cooperative Thought process: Normal thought process present Thought content: Normal thought content present Insight: Good insight present (Psych) Judgement: Good judgement present (Psych) Assessment & Plan Assessment & Plan (1) Muscle spasms of neck: Code(s): M62.838 - Other muscle spasm (2) Bilateral shoulder pain: Code(s): M25.511 - Pain in right shoulder; M25.512 - Pain in left shoulder (3) Myofascial pain syndrome: Code(s): M79.18 - Myalgia, other site (4) Fibromyalgia: Code(s): M79.7 - Fibromyalgia (5) Spondylosis, cervical: Code(s): M47.812 - Spondylosis without myelopathy or radiculopathy, cervical region (6) Neck pain: Code(s): M54.2 - Cervicalgia Plan diagnostic medial branch block C4-C5 C6 to treat spondylosis of the cervical spine resulted in 6 hours of complete pain relief in the neck. Sprint PNS of was offered to the patient. Patient agreed to go for the procedure. I will schedule her for the right C5 and 2 weeks after that I will schedule her for the left C5 presumable stimulation. She insists on doing this procedure under sedation. I will require her to have minimal sedation with midazolam and titration of fentanyl to alleviate her pain sensation. Coding Level of Care Code Est Pt Level 3 (90373) Diagnoses Muscle spasms of neck M62.838 Bilateral shoulder pain M25.511; M25.512 Myofascial pain syndrome M79.18 Fibromyalgia M79.7 Spondylosis, cervical M47.812 Neck pain M54.2
[2023-08-09 13:27] VITALS: BP 136/74; PULSE 90; RESP 14; O2SAT 100; BMI 22.5
== END 2023-08-09 13:42 | disposition home or self-care (01) ==
PROVIDERS: PCP Physician Assistant; Visit Provider Anesthesiology
DX: M25.511 Pain in right shoulder (principal); M25.512 Pain in left shoulder; M79.18 Myalgia, other site; M79.7 Fibromyalgia; M47.812 Spondylosis without myelopathy or radiculopathy, cervical region; M54.2 Cervicalgia
CPT/HCPCS: 99213

== ENCOUNTER → 2023-08-09 13:14 | Outpatient (BNVA) | payer OTHER, SELFPAY | PROVIDERS: PCP Physician Assistant; Visit Provider Anesthesiology | DX: M62.838 Other muscle spasm (principal); M47.812 Spondylosis without myelopathy or radiculopathy, cervical region; M25.511 Pain in right shoulder; M25.512 Pain in left shoulder; M79.18 Myalgia, other site; M79.7 Fibromyalgia; M54.2 Cervicalgia | CPT/HCPCS: 99212 ==

== ENCOUNTER 2023-09-25 10:35 | Emergency (ER) | payer OTHER, SELFPAY ==
--- NOTE | ~2023-09-25 | XR_ITS ---
EXAMINATION: XR LUMBOSACRAL SPINE CLINICAL INFORMATION: Pain. COMPARISON: 06/11/2023 TECHNIQUE: Three views of the lumbosacral spine. FINDINGS: Surgical clips in the right upper quadrant. Minimal rightward curvature of the lumbar spine. Moderate degenerative changes with sclerosis in the bilateral sacroiliac joints. Moderate degenerative changes on limited views of the left hip. 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 Mild multilevel lumbar spondylosis with anterior osteophytes most prominent at L3 and L4. Minimal grade 1 retrolisthesis of L5 on S1. XR/XR lumbar spine 2-3V IMPRESSION: 1. Mild multilevel lumbar spondylosis. 2. 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 3. Moderate degenerative changes on limited views of the left hip.
[2023-09-25 10:45] VITALS: BP 154/100; PULSE 95; RESP 20; TEMP 36.7; O2SAT 100; BMI 23.2
[2023-09-25 12:40] VITALS: BP 153/87; PULSE 99; RESP 20; TEMP 37.1; O2SAT 100
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
[2023-09-25] MEDS: Ketorolac Tromethamine 15 MG/ML VIAL IM (13:42)
[2023-09-25] MEDS: Cyclobenzaprine HCl 5 MG TABLET PO (13:42)
[2023-09-25 13:47] VITALS: BP 153/87; PULSE 99; RESP 20; TEMP 37.1; O2SAT 100
== END 2023-09-25 13:47 | disposition home or self-care (01) ==
PROVIDERS: Emergency Provider Emergency Medicine; PCP Physician Assistant
DX: M54.50 Low back pain, unspecified (principal); E11.9 Type 2 diabetes mellitus without complications; J45.909 Unspecified asthma, uncomplicated
CPT/HCPCS: 72100; 96372; 99283; 99284; J1885

== ENCOUNTER 2023-09-26 12:34 | Emergency (ER) | payer OTHER, SELFPAY ==
--- NOTE | ~2023-09-26 | CT_ITS ---
EXAMINATION: CT LUMBAR SPINE WITHOUT CONTRAST CLINICAL INFORMATION: Numbness down left leg. Low back pain. COMPARISON: Lumbar spine x-rays September 25, 2023 TECHNIQUE: Axial imaging was performed through the lumbar spine. Reformatted coronal and sagittal images are provided for interpretation. This CT examination was performed using dose optimization techniques as appropriate, variously including the following: *Automated exposure control *Adjustment of mA and/or kV according to patient size (this includes techniques or standardized protocols for targeted exams where dose is matched to indication/reason for exam; i.e. extremities or head) *Use of iterative reconstruction technique DLP; 277 mGy-cm FINDINGS: 5 nonrib-bearing lumbar vertebral bodies are visualized. Alignment is within normal limits. Lumbar vertebral body heights are maintained. Lumbar disc spaces are well-maintained diffusely. Small osteophytes are noted within the mid and lower lumbar spine. No significant facet hypertrophy. Sacroiliac joints are symmetric. Surgical clips noted within the right upper abdomen consistent with prior cholecystectomy. CT/CT lumbar spine wo IV con IMPRESSION: Minimal degenerative changes of the lumbar spine. No compression deformity.
[2023-09-26 12:59] VITALS: BP 137/82; PULSE 96; RESP 18; TEMP 37.1; O2SAT 100; BMI 24.9
--- NOTE | 2023-09-26 13:02 | ED.GENADULT ---
HPI - General Adult General Chief complaint: Back Pain/Injury Stated complaint: numbness spine and shoulders Time Seen by Provider: 09/26/23 14:43 Source: patient Mode of arrival: ambulatory Limitations: no limitations History of Present Illness HPI narrative: 58-year-old [place]an-speaking female with a history of fibromyalgia, restless leg syndrome, sciatica with lumbar radiculopathy, depression, spondylosis, anxiety who presents to the ER for evaluation of left lower back pain for the last 1 week. She was seen here yesterday for the same, sent home with muscle relaxers for some sciatica. She states the left lower back pain has been worsening, no improvement with the muscle relaxer. She has been having intermittent pain and numbness down the left leg, which is more prominent now. She was unable to go for a long walk with her daughter today due to pain. She denies any urinary incontinence, urinary retention, bowel incontinence, saddle paresthesias. No fevers or chills. No IVDA. MD complaint: Left lower back pain Onset (ago): week(s) (1) Location: back and buttocks Radiation: extremity Severity: severe Quality: stabbing and sharp Pain Consistency: constant Relieving factors: immobilization Exacerbating factors: movement Treatments prior to arrival: other ( muscle relaxer) Related Data Home Medications ?Medication ?Instructions ?Recorded ?Confirmed azelastine 137 mcg (0.1 %) nasal 1 spray intranasal BID 12/21/21 07/04/23 spray aerosol fluocinonide 0.05 % topical ml topical 12/21/21 07/04/23 solution Previous Rx's ?Medication ?Instructions ?Recorded pen needle, diabetic 32 gauge x #100 ea 11/20/21 (BD Yuliet 2nd Gen Pen Needle) fluticasone propionate 50 1 spray intranasal DAILY #9.9 mL 03/30/22 mcg/actuation nasal spray,suspension (Flonase Allergy Relief) albuterol sulfate 90 mcg/actuation 2 puff inhalation Q4-6H PRN 06/17/22 aerosol inhaler (Ventolin HFA) shortness of breath or wheezing #8.5 grams tamsulosin 0.4 mg capsule 0.4 mg PO BEDTIME 90 days #90 caps 07/07/22 pyridoxine (vitamin B6) 50 mg 50 mg PO DAILY 90 days #90 tabs 10/07/22 tablet lancets 28 gauge (FreeStyle #100 ea 10/19/22 Lancets) cromolyn 4 % eye drops 1 drp ophthalmic (eye) QID 30 days 11/01/22 #10 mL amlodipine 10 mg tablet 10 mg PO DAILY #90 tabs 11/20/22 cholecalciferol (vitamin D3) 25 25 mcg PO DAILY 90 days #90 caps 12/22/22 mcg (1,000 unit) capsule blood sugar diagnostic (FreeStyle #100 strips 04/14/23 Lite Strips) ropinirole 0.5 mg tablet 0.5 mg PO BEDTIME 30 days #30 tabs 05/04/23 atorvastatin 10 mg tablet 10 mg PO DAILY 90 days #90 tabs 05/09/23 lisinopril 20 mg tablet 20 mg PO DAILY #90 tabs 05/23/23 docusate sodium 50 mg capsule 50 mg PO BID #10 caps 06/01/23 (Colace Clear) lidocaine 5 % topical patch 1 patch topical DAILY #15 ea 06/01/23 (Lidoderm) naproxen 500 mg tablet 500 mg PO Q8-12H PRN pain (scale 06/01/23 score 4-6) #14 tabs metformin 500 mg tablet 1,000 mg (2 x 500 mg) PO BID 90 06/28/23 days #360 tabs amoxicillin 500 mg tablet 500 mg PO TID 5 days #15 tabs 07/04/23 polyethylene glycol 3350 17 gram 17 g PO DAILY PRN constipation 30 07/04/23 oral powder packet (Miralax) days #30 ea tramadol 50 mg tablet 50 mg PO BID PRN pain 7 days #14 07/04/23 tabs cetirizine 10 mg tablet 10 mg PO DAILY allergy symptoms 90 07/16/23 days #90 tabs omeprazole 20 mg capsule,delayed 20 mg PO DAILY #90 caps 07/16/23 release dulaglutide 0.75 mg/0.5 mL 0.75 mg (0.5 mL) subcut QWEEK 4 08/24/23 subcutaneous pen injector weeks #2 mL (Trulicity) tizanidine 2 mg tablet 2 mg PO Q8H muscle spasticity 7 09/20/23 days #21 tabs cyclobenzaprine 5 mg tablet 5 mg PO TID PRN back pain 7 days 09/25/23 #21 tabs oxycodone 5 mg tablet 5 mg PO BID PRN pain #6 tabs 09/26/23 Allergies Allergy/AdvReac Type Severity Reaction Status Date / Time No Known Allergies Allergy Verified 09/26/23 13:01 [No Known Allergies*] Review of Systems Review of Systems: Yes all other systems are reviewed and are negative [facility] Past Medical History Medical History Lumbar radicular pain Renal cysts, acquired, bilateral Renal calculi Renal calculi Renal calculus, bilateral Hyperhidrosis Asthma Dysplasia of cervix, low grade (BILLY 1) Hypercholesterolemia Hypertension Type 2 diabetes mellitus with hyperglycemia Migraine Surgical History History of right oophorectomy Hx of cholecystectomy Hx of appendectomy History of hemorrhoidectomy Family History Family History Father Substance abuse Brother Substance abuse Schizophrenia Other Mental and behavioral problem Social History Social History Housing: Apartment Alcohol intake: never Comment: ok with current level of relief-pyridium given Patient Tobacco Use Status: Never used Tobacco Tobacco use type: Cigarette Smoked in Last 30 Days: No e-Cigarette/Vaping Use: Never Used Second Hand Smoke Exposure: No Use of substances other than those prescribed or required for medical reasons: No Advance Directives: No Advance Directives Information Provided: Yes service: No Current occupational status: unemployed Cognitive needs: No Hearing needs: No Vision needs: No Physical Exam ED Vital Signs: Vital Signs - 24 hr 09/26/23 12:59 09/26/23 17:44 09/26/23 17:48 Temperature 98.7 F 98 F 98 F Pulse Rate 96 78 78 Respiratory Rate 18 18 18 Blood Pressure 137/82 112/60 112/60 Pulse Oximetry 100 99 98 Oxygen Delivery Method Room Air Room Air BMI result Body Mass Index 24.9 Appearance: Alert. Oriented X3. No acute distress. Head: normocephalic, atraumatic. Eyes: Pupils equal, round and reactive to light. ENT: Pharynx normal. No tonsillar swelling or exudate. Neck: Normal inspection. Neck supple. CVS: Normal heart rate and rhythm. Pulses normal. Respiratory: No respiratory distress. Breath sounds normal. Abdomen: Soft and nontender. +BS x4 Back: normal inspection, tender lumbar area throughout. +midline tenderness. +straight leg raise test on the left Skin: Skin warm and dry. Normal skin color. Normal skin turgor. No rashes. Extremities: No lower extremity edema. No joint swelling. Neuro/psych: Oriented X 3. No motor deficit. No sensory deficit. CN II-XII intact. Normal speech and cognition. Slow but steady gait Course Course Course Narrative: RME:?58 yo female w/ pmhx pf MDD here for eval of low back pain x1 week, now having left sided numbness down the left leg that began last night. Here yesterday for same. xrays unremarkable. discharged with flexeril- has been taking this without relief. denies saddle anesthesia, bowel/bladder incontinence or retention, dysuria, hematuria. CT lumbar spine ordered. Full HPI, ROS and PE to be performed by the primary ED provider. Medications Administered Discontinued Medications Generic Name Dose Route Start Last Admin Trade Name Juan Joseq PRN Reason Stop Dose Admin Ketorolac Tromethamine 30 mg 09/26/23 14:43 09/26/23 15:29 Ketorolac Tromethamine 30 Mg/Ml Vial IM 09/26/23 14:44 30 mg ONCE ONE Administration Oxycodone HCl 5 mg 09/26/23 14:43 09/26/23 15:28 Oxycodone Hcl Immed Release 5 Mg Tablet PO 09/26/23 14:44 5 mg ONCE ONE Administration Medical Decision Making Medical Decision Making [facility] Narrative: 58 yo female with left sided back pain that radiates down the left leg. No red flag symptoms of low back pain. No injury. No IVDA. She was seen here yesterday for the same. CT scan ordered from triage showing some mild degenerative changes in the lumbar spine. Patient was given pain medication and is ambulating well in the emergency department. She has a steady gait. No urinary symptoms. At this time she is stable for discharge home with outpatient follow-up. She sees her PCP on . Stable for discharge. Differential Diagnosis Differential Diagnoses: The differential diagnosis associated with the presentation includes Inflammatory disorders, malignancy, trauma, osteoporosis, nerve root compression, radiculopathy, plexopathy, degenerative disc disease, disc herniation, spinal stenosis, sacroiliac joint dysfunction, facet joint injury, and less likely infection?like abscess or diskitis Admission/Observation Consideration of admission/observation: Escalation of care including admission/observation considered 2nd visit w/ worsening symptoms Independent Interpretation I performed an independent interpretation of an: CT Scan Interpretation: no acute fx lumbar spine, agree w/ radiology read Radiology Impression Discussion of test interpretation with radiology: I have reviewed the radiologist's reading. Radiologist Impression: EXAMINATION: CT LUMBAR SPINE WITHOUT CONTRAST CLINICAL INFORMATION: Numbness down left leg. Low back pain. COMPARISON: Lumbar spine x-rays September 25, 2023 TECHNIQUE: Axial imaging was performed through the lumbar spine. Reformatted coronal and sagittal images are provided for interpretation. This CT examination was performed using dose optimization techniques as appropriate, variously including the following: *Automated exposure control *Adjustment of mA and/or kV according to patient size (this includes techniques or standardized protocols for targeted exams where dose is matched to indication/reason for exam; i.e. extremities or head) *Use of iterative reconstruction technique DLP; 277 mGy-cm FINDINGS: 5 nonrib-bearing lumbar vertebral bodies are visualized. Alignment is within normal limits. Lumbar vertebral body heights are maintained. Lumbar disc spaces are well-maintained diffusely. Small osteophytes are noted within the mid and lower lumbar spine. No significant facet hypertrophy. Sacroiliac joints are symmetric. Surgical clips noted within the right upper abdomen consistent with prior cholecystectomy. CT/CT lumbar spine wo IV con IMPRESSION: Minimal degenerative changes of the lumbar spine. No compression deformity. External Record Review External record reviewed: Outpatient record, Prior outpatient labs and Prior outpatient radiology Prescription Management I considered prescription management with: Pain Medication Chronic Conditions Patient?s care impacted by: Other (fibromyalgia) Critical Care Time Critical Care Time Critical Care Time: No Discharge Plan Discharge Clinical Impression: Lumbar radiculopathy Patient Disposition: Home, Self-Care Instructions: Lumbar Radiculopathy (ED) Additional Instructions: CT scan showed some mild degenerative changes of the lumbar spine. There was no fractures. No bending, lifting or twisting. Use ice several times per day for 20 minutes at a time for the next 48 hours and then change to heat. Take medications as prescribed to help with pain and discomfort. Do not drive after taking oxycodone. Take this for severe pain only. Follow up with your Primary Care Doctor this week. If your pain worsens, if you develop new numbness, tingling, weakness, loss of function or incontinence call 911 or come back to the ER right away for evaluation. Prescriptions: New oxycodone 5 mg tablet 5 mg PO BID PRN (Reason: pain) Qty: 6 0RF Rx Instructions: Partial Fill upon patient request. No Action (DME) pen needle, diabetic [BD Yuliet 2nd Gen Pen Needle] 32 gauge x 5/32 needle See Rx Instructions .Route Qty: 100 3RF Rx Instructions: As directed albuterol sulfate [Ventolin HFA] 90 mcg/actuation HFA aerosol inhaler 2 puff inhalation Q4-6H PRN (Reason: shortness of breath or wheezing) Qty: 8.5 1RF pyridoxine (vitamin B6) 50 mg tablet 50 mg PO DAILY 90 Days Qty: 90 3RF (DME) lancets [FreeStyle Lancets] 28 gauge misc See Rx Instructions .Route Qty: 100 3RF Rx Instructions: As directed check the sugar once a day cromolyn 4 % drops 1 drp ophthalmic (eye) QID 30 Days Qty: 10 3RF amlodipine 10 mg tablet 10 mg PO DAILY Qty: 90 2RF cholecalciferol (vitamin D3) 25 mcg (1,000 unit) capsule 25 mcg PO DAILY 90 Days Qty: 90 3RF (DME) FreeStyle Lite Strips Strip See Rx Instructions .ROUTE .COMPLEX Qty: 100 2RF Dose Instruction: DIRECTED CHECK THE BLOOD SUGAR ONCE A DAY Rx Instructions: CHECK THE BLOOD SUGAR ONCE A DAY ropinirole 0.5 mg tablet 0.5 mg PO BEDTIME 30 Days Qty: 30 6RF Rx Instructions: administer 1-3 hours before bedtime atorvastatin 10 mg tablet 10 mg PO DAILY 90 Days Qty: 90 1RF lisinopril 20 mg tablet 20 mg PO DAILY Qty: 90 2RF metformin 500 mg tablet 1,000 mg PO BID 90 Days Qty: 360 2RF cetirizine 10 mg tablet 10 mg PO DAILY 90 Days Qty: 90 1RF omeprazole 20 mg capsule,delayed release(DR/EC) 20 mg PO DAILY Qty: 90 1RF Trulicity 0.75 mg/0.5 mL pen injector 0.75 mg subcut QWEEK 28 Days Qty: 2 3RF tizanidine 2 mg tablet 2 mg PO Q8H 7 Days Qty: 21 0RF lidocaine [Lidoderm] 5 % adhesive patch,medicated 1 patch topical DAILY Qty: 15 0RF Rx Instructions: leave on most painful area for up to 12 hrs naproxen 500 mg tablet 500 mg PO Q8-12H PRN (Reason: pain (scale score 4-6)) Qty: 14 0RF Colace Clear 50 mg capsule 50 mg PO BID Qty: 10 0RF cyclobenzaprine 5 mg tablet 5 mg PO TID PRN (Reason: back pain) 7 Days Qty: 21 0RF fluticasone propionate [Flonase Allergy Relief] 50 mcg/actuation spray,suspension 1 spray intranasal DAILY Qty: 9.9 1RF Rx Instructions: administer into each nostril amoxicillin 500 mg tablet 500 mg PO TID 5 Days Qty: 15 0RF polyethylene glycol 3350 [Miralax] 17 gram powder in packet 17 g PO DAILY PRN (Reason: constipation) 30 Days Qty: 30 3RF tramadol 50 mg tablet 50 mg PO BID PRN (Reason: pain) 7 Days Qty: 14 0RF azelastine 137 mcg (0.1 %) aerosol,spray 1 spray intranasal BID fluocinonide 0.05 % solution topical tamsulosin 0.4 mg capsule 0.4 mg PO BEDTIME 90 Days Qty: 90 3RF Referrals: Justin Cameron PA-C [Primary Care Provider] - Interventions: ED Discharge Assessment Last Done: 09/26/23 17:48 Discharge Date/Time: 09/26/23 17:54 Print Language: [place]an
[2023-09-26] MEDS: oxyCODONE HCl Immed Release 5 MG TABLET PO (15:28)
[2023-09-26] MEDS: Ketorolac Tromethamine 30 MG/ML VIAL IM (15:29)
[2023-09-26 17:44] VITALS: BP 112/60; PULSE 78; RESP 18; TEMP 36.6; O2SAT 99
[2023-09-26 17:48] VITALS: BP 112/60; PULSE 78; RESP 18; TEMP 36.6; O2SAT 98
== END 2023-09-26 17:54 | disposition home or self-care (01) ==
PROVIDERS: Emergency Provider Emergency Medicine; PCP Physician Assistant
DX: M54.16 Radiculopathy, lumbar region (principal); R20.0 Anesthesia of skin; G25.81 Restless legs syndrome; Z79.899 Other long term (current) drug therapy
CPT/HCPCS: 72132; 96372; 99284; J1885

== ENCOUNTER 2023-09-28 08:25 | Outpatient (AMB) | payer OTHER, SELFPAY ==
[2023-09-28 08:39] VITALS: BP 112/68; PULSE 90; O2SAT 100; BMI 23.3
--- NOTE | 2023-09-28 08:39 | MHC.PC.OV ---
Vital Signs 09/28/23 08:39 Height 5 ft 4 in Weight 136 lb BMI 23.3 BP 112/68 Blood Pressure Location Lt brachial Position Sitting Pulse 90 Pulse Source Pulse Oximeter Pulse Oximetry (%) 100 Oxygen Delivery Method Room Air Intake Visit Reasons: Cervical spine pain-requesting X-ray r/s from 09/24 Intake Note: pt states back pain radiating down leg X1week [employer] Required: No Allergies tizanidine Adverse Reaction (Intermediate, Verified 09/28/23 09:14) Headache Medication List - Last Reconciled 09/28/23 by Justin Cameron PA-C albuterol sulfate 90 mcg/actuation (Ventolin HFA) 2 puffs inhalation Q4-6H PRN amlodipine 10 mg PO DAILY atorvastatin 10 mg PO DAILY 90 days azelastine 1 spray intranasal BID blood sugar diagnostic (FreeStyle Lite Strips) CHECK THE BLOOD SUGAR ONCE A DAY cetirizine 10 mg PO DAILY 90 days cholecalciferol (vitamin D3) 25 mcg PO DAILY 90 days cromolyn 4% 1 drp ophthalmic (eye) QID 30 days cyclobenzaprine 5 mg PO TID PRN 7 days docusate sodium (Colace Clear) 50 mg PO BID dulaglutide (Trulicity) 0.75 mg (0.5 mL) subcut QWEEK 4 weeks fluocinonide 0.05% mL topical fluticasone propionate 50 mcg/actuation (Flonase Allergy Relief) 1 spray intranasal DAILY lancets (FreeStyle Lancets) As directed check the sugar once a day lidocaine 5% (Lidoderm) 1 patch topical DAILY lisinopril 20 mg PO DAILY metformin 1,000 mg (2 x 500 mg) PO BID 90 days naproxen 500 mg PO Q8-12H PRN omeprazole 20 mg PO DAILY oxycodone 5 mg PO BID PRN pen needle, diabetic (BD Yuliet 2nd Gen Pen Needle) As directed polyethylene glycol 3350 (Miralax) 17 grams PO DAILY PRN 30 days pyridoxine (vitamin B6) 50 mg PO DAILY 90 days ropinirole 0.5 mg PO BEDTIME 30 days tamsulosin 0.4 mg PO BEDTIME 90 days tizanidine 2 mg PO Q8H 7 days tramadol 50 mg PO BID PRN 7 days Tobacco use date assessed: 09/28/23 Dental Screening Dental Screen Date: 07/04/23 HPI Cervical spine pain-requesting X-ray r/s from 09/24 [facility] Details Patient is a 58-year-old female here today for an ER follow-up visit. Recently seen for acute lower back pain. She was taking her NSAID and muscle relaxer which were not helpful. She did get a CT of her lumbar spine that did show Minimal degenerative changes of the lumbar spine. No compression deformity. She was given a short-term script for oxycodone and discharged home. She has been using cyclobenzaprine, naproxen and tramadol with only minimal effect. She denies any trauma to cervical lumbar spine. She does report moving a few boxes a week ago up to her [address]rd floor apartment which may have caused some issues in her lumbar spine. She otherwise denies any saddle amnesia, bowel or bladder dysfunction. [facility] Medical History Lumbar radicular pain Renal cysts, acquired, bilateral Renal calculi Renal calculi Renal calculus, bilateral Hyperhidrosis Asthma Dysplasia of cervix, low grade (BILLY 1) Hypercholesterolemia Hypertension Type 2 diabetes mellitus with hyperglycemia Migraine Surgical History History of right oophorectomy Hx of cholecystectomy Hx of appendectomy History of hemorrhoidectomy Family History Father Substance abuse Brother Substance abuse Schizophrenia Other Mental and behavioral problem Social History Housing: Apartment Alcohol intake: never Comment: ok with current level of relief-pyridium given Patient Tobacco Use Status: Never used Tobacco Tobacco use type: Cigarette e-Cigarette/Vaping Use: Never Used Second Hand Smoke Exposure: No service: No Current occupational status: unemployed Cognitive needs: No Hearing needs: No Vision needs: No Questionnaire PHQ-9 Over the last 2 weeks, how often have you been bothered by any of the following problems? 1. Little interest or pleasure in doing things: not at all 2. Feeling down, depressed, or hopeless: several days 3. Trouble falling or staying asleep, or sleeping too much: nearly every day 4. Feeling tired or having little energy: several days 5. Poor appetite or overeating: nearly every day 6. Feeling bad about yourself - or that you are a failure or have let yourself or your family down: more than half the days 7. Trouble concentrating on things, such as reading the newspaper or watching television: not at all 8. Moving or speaking so slowly that other people could have noticed. Or the opposite - being so fidgety or restless that you have been moving around a lot more than usual: several days 9. Thoughts that you would be better off or of hurting yourself in some way: not at all Total score: 11 Depression Screening Interpretation: Positive Depression Screening Follow-up: Existing condition and In treatment Depression Screening Done: Yes 54480 - PHQ-9 Billing: Yes Source: Developed by Drs. Duane Foreman, Lilli Ospina, Jeff Bravo and colleagues, with an educational rashawn from [employer]. Thrive Questionnaire Date Thrive assessed: 07/04/23 AUDIT C Alcohol Use Questionnaire (AUDIT-C) 1. How often do you have a drink containing alcohol?: Never 3. How often do you have six or more drinks on one occasion?: Never Total Score: 0 JASON-7 AMB Questionnaire JASON-7 Date JASON - 7 assessed: 09/28/23 Feeling nervous, anxious, or on edge: 0 = Not at all Not being able to stop or control worryin = Not at all Worrying too much about different things: 0 = Not at all Trouble relaxin = Not at all Being so restless that it is hard to sit still: 0 = Not at all Becoming easily annoyed or irritable: 0 = Not at all Feeling afraid as if something awful might happen: 0 = Not at all Total JASON-7 score (0-4 normal; 5-9 mild; 10-14 moderate; 15-21 severe): 0 Source: Developed by Drs. Duane Foreman, Lilli Ospina, Jeff Bravo and colleagues, with an educational rashawn from [employer]. JASON-7 Assessment Billing JASON-7 Assessment Tool: JASON-7 Assessment 13843 Review of Systems Const Denies headache(s) Eyes Denies loss of vision ENT Denies vertigo, Denies dizziness, Denies headache(s) and Denies sore throat Card Denies chest pain, Denies leg edema and Denies lightheadedness Resp Denies cough, Denies hemoptysis and Denies wheezing GI Denies abdominal pain, Denies melena, Denies constipation, Denies diarrhea and Denies vomiting Denies urinary frequency, Denies dysuria and Denies urinary urgency Musc Denies arthralgias, Denies joint swelling, Denies numbness and Denies tingling Neuro Denies Abnormal speech present, Denies behavioral changes, Denies vertigo, Denies dizziness, Denies headache(s), Denies loss of vision, Denies memory loss, Denies numbness and Denies tingling Psych Denies anxiety, Denies behavioral changes, Denies depression, Denies memory loss and Denies panic attacks Hollis/Lymph Denies easy bleeding and Denies easy bruising Aller/Immun Denies wheezing Physical exam (Primary Care) Vital Signs: Last Vital Signs Pulse 90 09/28/23 08:39 BP 112/68 09/28/23 08:39 Pulse Ox 100 09/28/23 08:39 Oxygen Delivery Method Room Air 09/28/23 08:39 BMI result Body Mass Index 23.3 Tobacco/Smoking Status: Tobacco use Status Tobacco use date assessed 09/28/23 09/28/23 08:41 Patient Tobacco Use Status Never used Tobacco 09/28/23 08:41 Tobacco use type Cigarette 09/28/23 08:41 e-Cigarette/Vaping Use Never Used 09/28/23 08:41 PHQ-9: PHQ-9 Score PHQ-9: Total score 11 09/28/23 08:41 Depression Screening Interpretation: Positive Depression Screening Follow-up: Existing condition and In treatment Thrive Assessment: Date of Thrive Assessment Date Thrive assessed 07/04/23 09/28/23 08:41 Const General: healthy appearing, no acute distress, alert and awake Nutritional Appearance: well nourished Orientation/consciousness: oriented to person, oriented to place and oriented to time HENMT Ears: TM's normal bilaterally General nose exam: Normal nasal mucous membranes and turbinates present Eyes Conjunctivae: conjunctivae normal Sclerae: sclerae normal Pupils: Equal, round and reactive pupils present Neck Neck: Yes no lymphadenopathy and Yes no JVD Thyroid: Thyroid normal Carotids: no bruits Resp Effort & Inspection: normal respiratory effort and not tachypneic Auscultation: no crackles, no rales, no rhonchi and no wheezes Cardio Rate: regular rate Rhythm: regular rhythm Heart sounds: no murmurs and normal S1 and S2 GI Palpation (GI): Soft to palpation, nontender, no hepatomegaly and no splenomegaly Auscultation: normal bowel sounds Back/Spine/Pelvis Other: LIMITED RANGE OF MOTION OF LUMBAR SPINE DUE TO PAIN AND STIFFNESS, PATIENT HAVING DIFFICULTY STANDING FROM SITTING POSITION. 5/5 STRENGTH IN BILATERAL LOWER EXTREMITIES. Skin General skin exam: no rashes or lesions noted and dry skin Neuro General: oriented to person, oriented to place and oriented to time Cranial nerves: Yes Equal, round and reactive pupils present Speech: No Abnormal speech present Gait exam (Neuro): Normal gait present Motor exam (neuro): no tremor noted Extrem Right upper extremity: full ROM Left upper extremity: full ROM Right lower extremity: full ROM; no edema Left lower extremity: full ROM; no edema Psych Mental Status: mental status grossly normal Speech and movement: Normal speech and movement present Affect: normal affect Attitude: cooperative Thought process: Normal thought process present Results AMB Urinalysis, Automated UA Leukoctes 0 Amara/uL Last Edit by VERN Lee on 09/28/23 08:55 UA Nitrite Negative Last Edit by VERN Lee on 09/28/23 08:55 UA Urobilinogen 0.2 mg/dL Last Edit by VERN Lee on 09/28/23 08:55 UA Protein 0 mg/dL Last Edit by VERN Lee on 09/28/23 08:55 UA pH 6.0 Last Edit by VERN Lee on 09/28/23 08:55 UA Blood 0 Esvin/uL Last Edit by VERN Lee on 09/28/23 08:55 UA Specific [place] 1.010 Last Edit by VERN Lee on 09/28/23 08:55 UA Ketone Negative Last Edit by VERN Lee on 09/28/23 08:55 UA Bilirubin 0 mg/dL Last Edit by VERN Lee on 09/28/23 08:55 UA Glucose 0 mg/dL Last Edit by VERN Lee on 09/28/23 08:55 AMB Hemoglobin A1c AMB Hemoglobin A1c 7.5 % Last Edit by VERN Lee on 09/28/23 08:56 Results Reviewed Results Reviewed: Laboratory Last Values Hgb A1c (Clinic) 7.5 % (4.0-6.0) H 09/28/23 08:46 Urine pH (Auto) 6.0 09/28/23 08:46 Specific [place] (Auto) 1.010 09/28/23 08:46 Urine Protein (Auto) 0 mg/dL 09/28/23 08:46 Glucose (UA)(Auto) 0 mg/dL 09/28/23 08:46 Urine Ketones (Auto) Negative 09/28/23 08:46 Urine Blood (Auto) 0 Esvin/uL 09/28/23 08:46 Urine Nitrite (Auto) Negative 09/28/23 08:46 Urine Bilirubin (Auto) 0 mg/dL 09/28/23 08:46 Urine Urobilinogen (Auto) 0.2 mg/dL 09/28/23 08:46 Leukocyte Esterase (Auto) 0 Amara/uL 09/28/23 08:46 Assessment and Plan Assessment & Plan (1) Lumbar radicular pain: Code(s): M54.16 - Radiculopathy, lumbar region Plan: Patient's signs and symptoms most consistent with a lumbar spine radiculopathy. Would likely benefit from some physical therapy. Will supply patient with a prednisone taper and a new muscle relaxant to try. Has seen pain management in the past for cervical spine and received injections. Of note patient's seems to also have fibromyalgia which could be a flare here. Orders: Orders AMB Urinalysis Automated Today M54.50 - Low back pain, unspecified PT Evaluation and Treatment Today M54.16 - Radiculopathy, lumbar region AMB Hemoglobin A1c Today E11.65 - Type 2 diabetes mellitus with hyperglycemia Referrals Pain Management Referral M54.16 - Radiculopathy, lumbar region Medications: New prednisone take 3 tabs x 3 days , take 2 tabs x 3 days , take 1 tab x 3days. 10 mg PO DIRECTED 9 days 18 tabs 0RF M54.16 - Radiculopathy, lumbar region methocarbamol 500 mg PO TID 15 days 45 tabs 1RF M54.16 - Radiculopathy, lumbar region Refilled tramadol 50 mg PO BID 7 days PRN 14 tabs 0RF pain M47.812 - Spondylosis without myelopathy or radiculopathy, cervical region Discontinued oxycodone Partial Fill upon patient request. Discontinued Reason: Doctor's Order 5 mg PO BID PRN 6 tabs 0RF pain cyclobenzaprine Discontinued Reason: Doctor's Order 5 mg PO TID 7 days PRN 21 tabs 0RF back pain tizanidine Discontinued Reason: Doctor's Order 2 mg PO Q8H 7 days 21 tabs 0RF muscle spasticity M79.7 - Fibromyalgia Coding Level of Care Code Est Pt Level 3 (87545) Diagnoses Lumbar radicular pain M54.16 Additional Codes JASON-7 Assessment Billing - JASON-7 Assessment Tool: JASON-7 Assessment 57789 ([id number])
== END 2023-09-28 09:21 | disposition home or self-care (01) ==
PROVIDERS: PCP Physician Assistant; Visit Provider Physician Assistant
DX: M54.50 Low back pain, unspecified (principal); E11.65 Type 2 diabetes mellitus with hyperglycemia; M54.16 Radiculopathy, lumbar region
CPT/HCPCS: 81003; 83036; 99213

== ENCOUNTER 2023-10-25 10:17 | Outpatient (AMB) | payer OTHER, SELFPAY ==
--- NOTE | 2023-10-25 10:18 | MHC.OFFVIS ---
Vital Signs 10/25/23 10:29 Height 5 ft 4 in Weight 133 lb BMI 22.8 BP 147/71 H Blood Pressure Location Lt brachial Position Sitting Respiration 14 Pulse 104 H Pulse Source Pulse Oximeter Pulse Oximetry (%) 98 Oxygen Delivery Method Room Air Intake Visit Reasons: lumbar radiculopathy Community Services Manager Required: Yes Community Services Manager Name: Jada #[id number] Allergies tizanidine Adverse Reaction (Intermediate, Verified 10/25/23 10:31) Headache Medication List - Last Reconciled 10/25/23 by Leesa Lopez LPN albuterol sulfate 90 mcg/actuation (Ventolin HFA) 2 puffs inhalation Q4-6H PRN amlodipine 10 mg PO DAILY atorvastatin 10 mg PO DAILY 90 days azelastine 1 spray intranasal BID blood sugar diagnostic (FreeStyle Lite Strips) CHECK THE BLOOD SUGAR ONCE A DAY cetirizine 10 mg PO DAILY 90 days cholecalciferol (vitamin D3) 25 mcg PO DAILY 90 days cromolyn 4% 1 drp ophthalmic (eye) QID 30 days docusate sodium (Colace Clear) 50 mg PO BID dulaglutide (Trulicity) 0.75 mg (0.5 mL) subcut QWEEK 4 weeks fluocinonide 0.05% mL topical fluticasone propionate 50 mcg/actuation (Flonase Allergy Relief) 1 spray intranasal DAILY lancets (FreeStyle Lancets) As directed check the sugar once a day lidocaine 5% (Lidoderm) 1 patch topical DAILY lisinopril 20 mg PO DAILY metformin 1,000 mg (2 x 500 mg) PO BID 90 days methocarbamol 500 mg PO TID 15 days naproxen 500 mg PO Q8-12H PRN omeprazole 20 mg PO DAILY pen needle, diabetic (BD Yuliet 2nd Gen Pen Needle) As directed polyethylene glycol 3350 (Miralax) 17 grams PO DAILY PRN 30 days prednisone 10 mg PO DIRECTED 9 days pyridoxine (vitamin B6) 50 mg PO DAILY 90 days ropinirole 0.5 mg PO BEDTIME 30 days tamsulosin 0.4 mg PO BEDTIME 90 days tramadol 50 mg PO BID PRN 7 days HPI HPI lumbar radiculopathy: Details: A certified development editor was present on the phone during the visit. 58-year-old female who presents today for evaluation of axial neck pain as well as axial low back pain. She was last seen by Dr. Nogueira in July 2023 and temporary cervical medial branch nerve stimulation therapy was recommended. However the patient is anxious about lead implantation and does not wish to proceed with that recommendation at this time. She is also not interested in radiofrequency ablation at this time. She inquired whether there was any options to prolong the effect that she got from the diagnostic block, which provided 100% relief for the duration of the local anesthetic action. She has previously had sacroiliac joint injections for her low back pain with excellent relief for a sustained period of more than 6 months. She is interested in repeating that therapy. [facility] Medical History Lumbar radicular pain Renal cysts, acquired, bilateral Renal calculi Renal calculi Renal calculus, bilateral Hyperhidrosis Asthma Dysplasia of cervix, low grade (BILLY 1) Hypercholesterolemia Hypertension Type 2 diabetes mellitus with hyperglycemia Migraine Surgical History History of right oophorectomy Hx of cholecystectomy Hx of appendectomy History of hemorrhoidectomy Family History Father Substance abuse Brother Substance abuse Schizophrenia Other Mental and behavioral problem Social History Housing: Apartment Alcohol intake: never Comment: ok with current level of relief-pyridium given Patient Tobacco Use Status: Never used Tobacco Tobacco use type: Cigarette e-Cigarette/Vaping Use: Never Used Second Hand Smoke Exposure: No service: No Current occupational status: unemployed Cognitive needs: No Hearing needs: No Vision needs: No Review of Systems Const All systems reviewed & are unremarkable except as noted in HPI and below Physical Exam Vital Signs: Last Vital Signs Pulse 104 H 10/25/23 10:29 Resp 14 10/25/23 10:29 BP 147/71 H 10/25/23 10:29 Pulse Ox 98 10/25/23 10:29 Oxygen Delivery Method Room Air 10/25/23 10:29 BMI result Body Mass Index 22.8 General: Appears afebrile. Alert and oriented. Mood and affect appropriate. Follows and participates in conversation appropriately. Respiratory effort is unlabored. Able to transition from sit to stand unassisted. Previous exam demonstrates positive cervical facet loading as well as positive pelvic compression test and significant TTP in projection of bilateral SIJ; lumbar facet loading test + bilaterally. Results Reviewed Results Reviewed: 09/26/23: CT LUMBAR SPINE WITHOUT CONTRAST FINDINGS: 5 nonrib-bearing lumbar vertebral bodies are visualized. Alignment is within normal limits. Lumbar vertebral body heights are maintained. Lumbar disc spaces are well-maintained diffusely. Small osteophytes are noted within the mid and lower lumbar spine. No significant facet hypertrophy. Sacroiliac joints are symmetric. Surgical clips noted within the right upper abdomen consistent with prior cholecystectomy. IMPRESSION: Minimal degenerative changes of the lumbar spine. No compression deformity. 09/25/23: XR LUMBOSACRAL SPINE FINDINGS: Surgical clips in the right upper quadrant. Minimal rightward curvature of the lumbar spine. Moderate degenerative changes with sclerosis in the bilateral sacroiliac joints. Moderate degenerative changes on limited views of the left hip. 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 Mild multilevel lumbar spondylosis with anterior osteophytes most prominent at L3 and L4. Minimal grade 1 retrolisthesis of L5 on S1. IMPRESSION: 1. Mild multilevel lumbar spondylosis. 2. 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 3. Moderate degenerative changes on limited views of the left hip Assessment & Plan Assessment & Plan (1) Spondylosis, cervical: Code(s): M47.812 - Spondylosis without myelopathy or radiculopathy, cervical region Category: Medical (2) Sacroiliac joint pain: Code(s): M53.3 - Sacrococcygeal disorders, not elsewhere classified Category: Medical Plan Patient with cervical spondylosis with 100% response to diagnostic C4, C5, C6 blocks. She is interested in proceeding with right C4, C5, C6 therapeutic facet injections followed by left side one week later. Based on the response to these injections, we can consider cervical facet denervation procedure in the future, but at this time the patient would prefer not to undertake that. In terms of her lower back pain, she previously had sustained relief of more than 75% for more than 6 months after her last round of bilateral therapeutic sacroiliac joint injections. She is interested in repeating those as well. Scribed for Dr. Blanton by Maura Collier medical accountant, on 10/25/2023. I, Dr. Blanton, have personally reviewed and agree with the information entered by the scribe. Coding Level of Care Code Est Pt Level 4 (18629) Diagnoses Spondylosis, cervical M47.812 Sacroiliac joint pain M53.3
[2023-10-25 10:29] VITALS: BP 147/71; PULSE 104; RESP 14; O2SAT 98; BMI 22.8
== END 2023-10-25 11:12 | disposition home or self-care (01) ==
PROVIDERS: PCP Physician Assistant; Visit Provider Internal Medicine
DX: M47.812 Spondylosis without myelopathy or radiculopathy, cervical region (principal); M53.3 Sacrococcygeal disorders, not elsewhere classified
CPT/HCPCS: 99214

== ENCOUNTER → 2023-10-25 10:17 | Outpatient (BNVA) | payer OTHER, SELFPAY | PROVIDERS: PCP Physician Assistant; Visit Provider Internal Medicine | DX: M47.812 Spondylosis without myelopathy or radiculopathy, cervical region (principal); M53.3 Sacrococcygeal disorders, not elsewhere classified | CPT/HCPCS: 99212 ==

== ENCOUNTER 2023-11-14 21:00 | Emergency (ER) | payer OTHER, SELFPAY ==
[2023-11-14 21:19] VITALS: BP 151/60; PULSE 81; RESP 20; TEMP 37.2; O2SAT 100; BMI 23.2
--- NOTE | 2023-11-14 21:38 | MHC.EDTECH ---
PATIENT BLOOD DRAWN AND SENT TO LAB .
[2023-11-14 21:40] LABS: MANUAL DIFF FLAG NO
[2023-11-14 21:44] LABS: Basophils Percent Auto 0.6 % (0-2); Eosinophils Absolute Auto 0.2 X10*3/uL (0.0-0.4); Eosinophils Percent Auto 2.3 % (0-4); Hematocrit 32.3 % (37.0-47.0); Hemoglobin 10.9 g/dl (12.0-16.0); Imm Gran Abs Auto 0.01 X10*3/uL (0.00-0.03); Imm Gran Pct Auto 0.2 % (0.0-0.4); Lymphocytes Absolute Auto 3.1 X10*3/uL (1.2-4.9); Lymphocytes Percent Auto 47.7 % (20-40); Mean Corpuscular HGB Conc 33.7 g/dl (31.0-35.0); Mean Corpuscular Hemoglobin 30.8 pg (27.0-33.0); Mean Corpuscular Volume 91.2 fL (80.0-98.0); Mean Platelet Volume 9.8 fL (9.4-12.3); Monocytes Absolute Auto 0.6 X10*3/uL (0.1-1.2); Monocytes Percent Auto 9.8 % (2-11); Neutrophils Absolute Auto 2.5 x10*3/uL (2.0-8.3); Neutrophils Percent Auto 39.4 % (45-73); Platelet Count 243 X10*3/uL (160-400); Red Blood Count 3.54 X10*6/uL (4.20-5.50); Red Cell Distribution Width 13.2 % (11.0-16.0); White Blood Count 6.4 X10*3/uL (4.8-10.8)
[2023-11-14 21:54] LABS: INTERNATIONAL NORM RATIO 0.9 (0.9-1.1); Prothrombin Time 11.4 SEC (11.1-13.3)
[2023-11-14 22:01] LABS: Alanine Aminotransferase 23 U/L (0-31); Albumin Level 4.3 g/dL (3.5-5.0); Alkaline Phosphatase 53 U/L (39-117); Anion Gap 14 (12-20); Aspartate Amino Transferase 28 U/L (5-31); Bilirubin Total 0.4 mg/dL (0.0-1.0); Blood Urea Nitrogen 15 mg/dL (9-16); Calcium 9.9 mg/dL (8.4-10.2); Carbon Dioxide 25 mmol/L (22-29); Chloride 105 mmol/L (96-108); Creatinine Clr Calc Pharmacy 64.5; Estimated Glomerular Filt Rate > 60; Glucose Random 181 mg/dL (60-115); Potassium 3.6 mmol/L (3.3-5.1); Sodium 140 mmol/L (135-145); Total Protein 7.3 g/dL (6.5-8.0)
[2023-11-15 01:51] VITALS: BP 130/81; PULSE 77; RESP 17; TEMP 36.9; O2SAT 97
--- NOTE | 2023-11-15 03:47 | ED.SKABFB ---
HPI - Skin/Abscess/Foreign Bdy General Chief complaint: Skin/Abscess/Foreign Body Stated complaint: lwr left leg rash Time Seen by Provider: 11/15/23 03:07 Source: patient Mode of arrival: ambulatory Limitations: no limitations History of Present Illness ED Provider: precious MITTAL narrative: Patient noticed a small pimple on the left silver about a week ago neck for last 3 - 4 days noticed erythema around it with itching and burning sensation, no fever no chills Related Data Home Medications ?Medication ?Instructions ?Recorded ?Confirmed azelastine 137 mcg (0.1 %) nasal 1 spray intranasal BID 12/21/21 10/25/23 spray aerosol fluocinonide 0.05 % topical ml topical 12/21/21 10/25/23 solution Previous Rx's ?Medication ?Instructions ?Recorded pen needle, diabetic 32 gauge x #100 ea 11/20/21 (BD Yuliet 2nd Gen Pen Needle) fluticasone propionate 50 1 spray intranasal DAILY #9.9 mL 03/30/22 mcg/actuation nasal spray,suspension (Flonase Allergy Relief) albuterol sulfate 90 mcg/actuation 2 puff inhalation Q4-6H PRN 06/17/22 aerosol inhaler (Ventolin HFA) shortness of breath or wheezing #8.5 grams tamsulosin 0.4 mg capsule 0.4 mg PO BEDTIME 90 days #90 caps 07/07/22 lancets 28 gauge (FreeStyle #100 ea 10/19/22 Lancets) cromolyn 4 % eye drops 1 drp ophthalmic (eye) QID 30 days 11/01/22 #10 mL amlodipine 10 mg tablet 10 mg PO DAILY #90 tabs 11/20/22 cholecalciferol (vitamin D3) 25 25 mcg PO DAILY 90 days #90 caps 12/22/22 mcg (1,000 unit) capsule blood sugar diagnostic (FreeStyle #100 strips 04/14/23 Lite Strips) lisinopril 20 mg tablet 20 mg PO DAILY #90 tabs 05/23/23 docusate sodium 50 mg capsule 50 mg PO BID #10 caps 06/01/23 (Colace Clear) lidocaine 5 % topical patch 1 patch topical DAILY #15 ea 06/01/23 (Lidoderm) naproxen 500 mg tablet 500 mg PO Q8-12H PRN pain (scale 06/01/23 score 4-6) #14 tabs metformin 500 mg tablet 1,000 mg (2 x 500 mg) PO BID 90 06/28/23 days #360 tabs polyethylene glycol 3350 17 gram 17 g PO DAILY PRN constipation 30 07/04/23 oral powder packet (Miralax) days #30 ea cetirizine 10 mg tablet 10 mg PO DAILY allergy symptoms 90 07/16/23 days #90 tabs omeprazole 20 mg capsule,delayed 20 mg PO DAILY #90 caps 07/16/23 release dulaglutide 0.75 mg/0.5 mL 0.75 mg (0.5 mL) subcut QWEEK 4 08/24/23 subcutaneous pen injector weeks #2 mL (Trulicity) methocarbamol 500 mg tablet 500 mg PO TID 15 days #45 tabs 09/28/23 prednisone 10 mg tablet 10 mg PO DIRECTED 9 days #18 09/28/23 tabs tramadol 50 mg tablet 50 mg PO BID PRN pain 7 days #14 09/28/23 tabs pyridoxine (vitamin B6) 50 mg 50 mg PO DAILY 90 days #90 tabs 10/23/23 tablet ropinirole 0.5 mg tablet 0.5 mg PO BEDTIME 30 days #30 tabs 10/23/23 atorvastatin 10 mg tablet 10 mg PO DAILY 90 days #90 tabs 10/28/23 cephalexin 500 mg capsule 500 mg PO QID 10 days #40 caps 11/15/23 doxycycline hyclate 100 mg tablet 100 mg PO BID #20 tabs 11/15/23 Allergies Allergy/AdvReac Type Severity Reaction Status Date / Time tizanidine AdvReac Intermediate Headache Verified 11/14/23 21:22 Review of Systems Review of Systems: Yes all other systems are reviewed and are negative [facility] Past Medical History Medical History Lumbar radicular pain Renal cysts, acquired, bilateral Renal calculi Renal calculi Renal calculus, bilateral Hyperhidrosis Asthma Dysplasia of cervix, low grade (BILLY 1) Hypercholesterolemia Hypertension Type 2 diabetes mellitus with hyperglycemia Migraine Surgical History History of right oophorectomy Hx of cholecystectomy Hx of appendectomy History of hemorrhoidectomy Family History Family History Father Substance abuse Brother Substance abuse Schizophrenia Other Mental and behavioral problem Social History Social History Housing: Apartment Alcohol intake: never Comment: ok with current level of relief-pyridium given Patient Tobacco Use Status: Never used Tobacco Tobacco use type: Cigarette e-Cigarette/Vaping Use: Never Used Second Hand Smoke Exposure: No Advance Directives: No Advance Directives Information Provided: No Do you have a plan to hurt others: No Plan service: No Current occupational status: unemployed Cognitive needs: No Hearing needs: No Vision needs: No Physical Exam Vital Signs: Vital Signs: Last Vital Signs Temp 98.4 F 11/15/23 04:20 Pulse 88 11/15/23 04:20 Resp 17 11/15/23 04:20 BP 147/92 H 11/15/23 04:20 Pulse Ox 99 11/15/23 04:20 O2 Del Method Room Air 11/15/23 04:20 BMI result Body Mass Index 23.2 Appearance: Alert. Oriented X3. No acute distress. Eyes: PERRLA, No Nystagmus ENT: Pharynx normal. Oral Mucosa moist Neck: Normal inspection. Neck supple. CVS: Normal heart rate and rhythm. Pulses normal. Respiratory: No respiratory distress. Equal air entry bilateral, Abdomen: Soft and nontender. Bowel sounds are present, Skin: Skin warm and dry. Normal skin color. Normal skin turgor. Extremities: No lower extremity edema. No calf tenderness slight erythema and warmth feeling on left lower silver Neuro: Oriented X 3. No motor deficit. Medications Administered Discontinued Medications Generic Name Dose Route Start Last Admin Trade Name Freq PRN Reason Stop Dose Admin Cephalexin HCl 500 mg 11/15/23 03:47 11/15/23 04:12 Cephalexin 500 Mg Capsule PO 11/15/23 03:48 500 mg ONCE ONE Administration Doxycycline Monohydrate 100 mg 11/15/23 03:47 11/15/23 04:12 Doxycycline Monohydrate 100 Mg Capsule PO 11/15/23 03:48 100 mg ONCE ONE Administration Medical Decision Making Medical Decision Making MDM Narrative: Patient with localized cellulitis of left lower extremity will prescribe doxycycline and Keflex labs are stable Lab Data MDM Lab Attestation statement: I reviewed the patient's lab results. 11/14/23 21:35 11/14/23 21:35 Labs: Lab Results 11/14/23 Range/Units 21:35 WBC 6.4 (4.8-10.8) X10*3/uL RBC 3.54 L (4.20-5.50) X10*6/uL Hgb 10.9 L (12.0-16.0) g/dl Hct 32.3 L (37.0-47.0) % MCV 91.2 (80.0-98.0) fL MCH 30.8 (27.0-33.0) pg MCHC 33.7 (31.0-35.0) g/dl RDW 13.2 (11.0-16.0) % Plt Count 243 (160-400) X10*3/uL MPV 9.8 (9.4-12.3) fL Immature Gran % (Auto) 0.2 (0.0-0.4) % Neut % (Auto) 39.4 L (45-73) % Lymph % (Auto) 47.7 H (20-40) % [place] % (Auto) 9.8 (2-11) % Eos % (Auto) 2.3 (0-4) % Baso % (Auto) 0.6 (0-2) % Lymph # (Auto) 3.1 (1.2-4.9) X10*3/uL [place] # (Auto) 0.6 (0.1-1.2) X10*3/uL Eos # (Auto) 0.2 (0.0-0.4) X10*3/uL Baso # (Auto) 0.0 (0.0-0.2) X10*3/uL Abs Immat Gran (auto) 0.01 (0.00-0.03) X10*3/uL Absolute Neuts (auto) 2.5 (2.0-8.3) x10*3/uL Absolute Nucleated RBC 0.000 (0.0-0.012) X10*3/uL Nucleated RBC % (auto) 0.0 (0.0-0.2) /100WBC PT 11.4 (11.1-13.3) SEC INR 0.9 (0.9-1.1) Sodium 140 (135-145) mmol/L Potassium 3.6 (3.3-5.1) mmol/L Chloride 105 (96-108) mmol/L Carbon Dioxide 25 (22-29) mmol/L Anion Gap 14 (12-20) BUN 15 (9-16) mg/dL Creatinine 0.84 (0.5-1.4) mg/dL Estim Creat Clear Calc 64.5 Estimated GFR > 60 Random Glucose 181 H (60-115) mg/dL Calcium 9.9 (8.4-10.2) mg/dL Total Bilirubin 0.4 (0.0-1.0) mg/dL AST 28 (5-31) U/L ALT 23 (0-31) U/L Alkaline Phosphatase 53 (39-117) U/L Total Protein 7.3 (6.5-8.0) g/dL Albumin 4.3 (3.5-5.0) g/dL Discharge Plan Discharge Clinical Impression: Cellulitis Patient Disposition: Home, Self-Care Instructions: Cellulitis (ED) Additional Instructions: Local care as advised Take antibiotic as prescribed Report to ed if rash gets worse Prescriptions: New cephalexin 500 mg capsule 500 mg PO QID 10 Days Qty: 40 0RF doxycycline hyclate 100 mg tablet 100 mg PO BID Qty: 20 0RF No Action (DME) pen needle, diabetic [BD Yuliet 2nd Gen Pen Needle] 32 gauge x 5/32 needle See Rx Instructions .Route Qty: 100 3RF Rx Instructions: As directed albuterol sulfate [Ventolin HFA] 90 mcg/actuation HFA aerosol inhaler 2 puff inhalation Q4-6H PRN (Reason: shortness of breath or wheezing) Qty: 8.5 1RF (DME) lancets [FreeStyle Lancets] 28 gauge misc See Rx Instructions .Route Qty: 100 3RF Rx Instructions: As directed check the sugar once a day cromolyn 4 % drops 1 drp ophthalmic (eye) QID 30 Days Qty: 10 3RF amlodipine 10 mg tablet 10 mg PO DAILY Qty: 90 2RF cholecalciferol (vitamin D3) 25 mcg (1,000 unit) capsule 25 mcg PO DAILY 90 Days Qty: 90 3RF (DME) FreeStyle Lite Strips Strip See Rx Instructions .ROUTE .COMPLEX Qty: 100 2RF Dose Instruction: DIRECTED CHECK THE BLOOD SUGAR ONCE A DAY Rx Instructions: CHECK THE BLOOD SUGAR ONCE A DAY lisinopril 20 mg tablet 20 mg PO DAILY Qty: 90 2RF metformin 500 mg tablet 1,000 mg PO BID 90 Days Qty: 360 2RF cetirizine 10 mg tablet 10 mg PO DAILY 90 Days Qty: 90 1RF omeprazole 20 mg capsule,delayed release(DR/EC) 20 mg PO DAILY Qty: 90 1RF Trulicity 0.75 mg/0.5 mL pen injector 0.75 mg subcut QWEEK 28 Days Qty: 2 3RF pyridoxine (vitamin B6) 50 mg tablet 50 mg PO DAILY 90 Days Qty: 90 3RF ropinirole 0.5 mg tablet 0.5 mg PO BEDTIME 30 Days Qty: 30 2RF Rx Instructions: administer 1-3 hours before bedtime atorvastatin 10 mg tablet 10 mg PO DAILY 90 Days Qty: 90 1RF lidocaine [Lidoderm] 5 % adhesive patch,medicated 1 patch topical DAILY Qty: 15 0RF Rx Instructions: leave on most painful area for up to 12 hrs naproxen 500 mg tablet 500 mg PO Q8-12H PRN (Reason: pain (scale score 4-6)) Qty: 14 0RF Colace Clear 50 mg capsule 50 mg PO BID Qty: 10 0RF fluticasone propionate [Flonase Allergy Relief] 50 mcg/actuation spray,suspension 1 spray intranasal DAILY Qty: 9.9 1RF Rx Instructions: administer into each nostril polyethylene glycol 3350 [Miralax] 17 gram powder in packet 17 g PO DAILY PRN (Reason: constipation) 30 Days Qty: 30 3RF prednisone 10 mg tablet 10 mg PO DIRECTED 9 Days Qty: 18 0RF Rx Instructions: take 3 tabs x 3 days , take 2 tabs x 3 days , take 1 tab x 3days. tramadol 50 mg tablet 50 mg PO BID PRN (Reason: pain) 7 Days Qty: 14 0RF methocarbamol 500 mg tablet 500 mg PO TID 15 Days Qty: 45 1RF azelastine 137 mcg (0.1 %) aerosol,spray 1 spray intranasal BID fluocinonide 0.05 % solution topical tamsulosin 0.4 mg capsule 0.4 mg PO BEDTIME 90 Days Qty: 90 3RF Interventions: ED Discharge Assessment Last Done: 11/15/23 04:20 Discharge Date/Time: 11/15/23 04:20 Print Language: Gabonese
[2023-11-15 04:09] VITALS: BP 147/92; PULSE 88; RESP 17; TEMP 36.9; O2SAT 99
[2023-11-15] MEDS: Doxycycline Monohydrate 100 MG CAPSULE PO (04:12)
[2023-11-15] MEDS: cephALEXin 500 MG CAPSULE PO (04:12)
[2023-11-15 04:20] VITALS: BP 147/92; PULSE 88; RESP 17; TEMP 36.9; O2SAT 99
== END 2023-11-15 04:20 | disposition home or self-care (01) ==
PROVIDERS: Emergency Provider Internal Medicine; PCP Physician Assistant
DX: L03.116 Cellulitis of left lower limb (principal); L29.9 Pruritus, unspecified; I10 Essential (primary) hypertension; E11.9 Type 2 diabetes mellitus without complications
CPT/HCPCS: 36415; 80053; 85025; 85610; 99283

== ENCOUNTER 2023-11-16 06:15 | Outpatient (REF) | payer OTHER, SELFPAY | END 2023-11-16 06:16 | disposition home or self-care (01) | LOC: CF 06:15 | PROVIDERS: Visit Provider Internal Medicine | DX: Z13.89 Encounter for screening for other disorder (principal) ==

== ENCOUNTER 2023-11-23 06:12 | Outpatient (REF) | payer OTHER, SELFPAY | END 2023-11-23 06:13 | disposition home or self-care (01) | LOC: CF 06:12 | PROVIDERS: Visit Provider Internal Medicine | DX: Z13.89 Encounter for screening for other disorder (principal) ==

== ENCOUNTER 2023-12-19 21:43 | Emergency (ER) | payer OTHER, SELFPAY ==
[2023-12-19 21:45] VITALS: BP 159/90; PULSE 88; RESP 18; TEMP 36.6; O2SAT 100; BMI 23.8
[2023-12-19 22:01] LABS: MANUAL DIFF FLAG NO
[2023-12-19 22:05] LABS: Basophils Absolute Auto 0.1 X10*3/uL (0.0-0.2); Basophils Percent Auto 0.7 % (0-2); Eosinophils Absolute Auto 0.3 X10*3/uL (0.0-0.4); Eosinophils Percent Auto 3.4 % (0-4); Hematocrit 31.3 % (37.0-47.0); Hemoglobin 10.9 g/dl (12.0-16.0); Imm Gran Abs Auto 0.01 X10*3/uL (0.00-0.03); Imm Gran Pct Auto 0.1 % (0.0-0.4); Lymphocytes Absolute Auto 3.7 X10*3/uL (1.2-4.9); Lymphocytes Percent Auto 50.2 % (20-40); Mean Corpuscular HGB Conc 34.8 g/dl (31.0-35.0); Mean Corpuscular Hemoglobin 32.1 pg (27.0-33.0); Mean Corpuscular Volume 92.1 fL (80.0-98.0); Mean Platelet Volume 10.1 fL (9.4-12.3); Monocytes Absolute Auto 0.7 X10*3/uL (0.1-1.2); Monocytes Percent Auto 8.8 % (2-11); Neutrophils Absolute Auto 2.7 x10*3/uL (2.0-8.3); Neutrophils Percent Auto 36.8 % (45-73); Platelet Count 251 X10*3/uL (160-400); White Blood Count 7.4 X10*3/uL (4.8-10.8)
[2023-12-19 22:24] LABS: Anion Gap 14 (12-20); Blood Urea Nitrogen 16 mg/dL (9-16); Calcium 10.3 mg/dL (8.4-10.2); Carbon Dioxide 24 mmol/L (22-29); Chloride 105 mmol/L (96-108); Creatinine Clr Calc Pharmacy 59.6; Estimated Glomerular Filt Rate > 60; Glucose Random 164 mg/dL (60-115); Potassium 3.6 mmol/L (3.3-5.1); Sodium 139 mmol/L (135-145)
--- NOTE | 2023-12-20 00:24 | ED.SKABFB ---
HPI - Skin/Abscess/Foreign Bdy General Chief complaint: Skin/Abscess/Foreign Body Stated complaint: left leg pain Time Seen by Provider: 12/20/23 00:10 Source: patient Mode of arrival: ambulatory Limitations: no limitations History of Present Illness ED Provider: Dr. Neetu Padilla HPI narrative: Patient comes to the emergency room complaining of cellulitis over the left silver area. Patient states that on November 14 she was prescribed cephalexin and doxycycline for cellulitis. Patient states that initially after she finished her antibiotics, her skin was clear. Couple of days ago, patient noticed that now there is a another patch of erythema in the same spot where she had cellulitis. Patient states it is red and tender. Denies fever chills. Related Data Home Medications ?Medication ?Instructions ?Recorded ?Confirmed azelastine 137 mcg (0.1 %) nasal 1 spray intranasal BID 12/21/21 10/25/23 spray fluocinonide 0.05 % topical ml topical 12/21/21 10/25/23 solution Previous Rx's ?Medication ?Instructions ?Recorded pen needle, diabetic 32 gauge x #100 ea 11/20/21 (BD Yuliet 2nd Gen Pen Needle) fluticasone propionate 50 1 spray intranasal DAILY #9.9 mL 03/30/22 mcg/actuation nasal spray,suspension (Flonase Allergy Relief) albuterol sulfate 90 mcg/actuation 2 puff inhalation Q4-6H PRN 06/17/22 aerosol inhaler (Ventolin HFA) shortness of breath or wheezing #8.5 grams tamsulosin 0.4 mg capsule 0.4 mg PO BEDTIME 90 days #90 caps 07/07/22 lancets 28 gauge (FreeStyle #100 ea 10/19/22 Lancets) cromolyn 4 % eye drops 1 drp ophthalmic (eye) QID 30 days 11/01/22 #10 mL cholecalciferol (vitamin D3) 25 25 mcg PO DAILY 90 days #90 caps 12/22/22 mcg (1,000 unit) capsule lisinopril 20 mg tablet 20 mg PO DAILY #90 tabs 05/23/23 docusate sodium 50 mg capsule 50 mg PO BID #10 caps 06/01/23 (Colace Clear) lidocaine 5 % topical patch 1 patch topical DAILY #15 ea 06/01/23 (Lidoderm) naproxen 500 mg tablet 500 mg PO Q8-12H PRN pain (scale 06/01/23 score 4-6) #14 tabs metformin 500 mg tablet 1,000 mg (2 x 500 mg) PO BID 90 06/28/23 days #360 tabs polyethylene glycol 3350 17 gram 17 g PO DAILY PRN constipation 30 07/04/23 oral powder packet (Miralax) days #30 ea cetirizine 10 mg tablet 10 mg PO DAILY allergy symptoms 90 07/16/23 days #90 tabs omeprazole 20 mg capsule,delayed 20 mg PO DAILY #90 caps 07/16/23 release dulaglutide 0.75 mg/0.5 mL 0.75 mg (0.5 mL) subcut QWEEK 4 08/24/23 subcutaneous pen injector weeks #2 mL [facility] methocarbamol 500 mg tablet 500 mg PO TID 15 days #45 tabs 09/28/23 prednisone 10 mg tablet 10 mg PO DIRECTED 9 days #18 09/28/23 tabs tramadol 50 mg tablet 50 mg PO BID PRN pain 7 days #14 09/28/23 tabs pyridoxine (vitamin B6) 50 mg 50 mg PO DAILY 90 days #90 tabs 10/23/23 tablet ropinirole 0.5 mg tablet 0.5 mg PO BEDTIME 30 days #30 tabs 10/23/23 atorvastatin 10 mg tablet 10 mg PO DAILY 90 days #90 tabs 10/28/23 cephalexin 500 mg capsule 500 mg PO QID 10 days #40 caps 11/15/23 doxycycline hyclate 100 mg tablet 100 mg PO BID #20 tabs 11/15/23 amlodipine 10 mg tablet 10 mg PO DAILY #90 tabs 11/26/23 blood sugar diagnostic (FreeStyle #100 strips 12/11/23 Lite Strips) sulfamethoxazole 800 1 tab PO BID #14 tabs 12/20/23 mg-trimethoprim 160 mg tablet (Bactrim DS) Allergies Allergy/AdvReac Type Severity Reaction Status Date / Time tizanidine AdvReac Intermediate Headache Verified 12/19/23 21:49 Review of Systems Review of Systems: Constitutional : No Weight loss, No Fever, No Chills, No Night Sweats, No Fatigue, No Malaise ENT/Mouth : No Hearing loss, No Ear Pain, No Nasal Congestion, No Sinus Pain, No Hoarseness, No sore throat, No Rhinorrhea, No Swallowing Difficulty Eyes: No Eye Pain, No Swelling, No Redness, No Foreign Body, No Discharge, No Vision Changes Cardiovascular : No Chest Pain, No SOB, No Dyspnea on Exertion, No Orthopnea, No Edema, No Palpitations Respiratory : No Cough, No Sputum, No Wheezing, No Smoke Exposure, No Dyspnea Gastrointestinal : No Nausea, No Vomiting, No Diarrhea, No Constipation, No abdominal Pain, No Hematochezia, No Melena Genitourinary : no irregular bleeding, No Dysuria, No Urinary Frequency, No Hematuria, No Urinary Incontinence, No Urgency, No Flank Pain, No Urinary Flow Changes, No Hesitancy Musculoskeletal : No joint pain, No Myalgias, No Joint Swelling Skin : Complaining of recurrent cellulitis in the same area in the left lower extremity, silver area Neuro : No Weakness, No Numbness, No Paresthesias, No Loss of Consciousness, No Dizziness, No Headache Psych : No Anxiety/Panic, No Depression, No SI/HI/AH/VH, No Social Issues, Heme/Lymph: No Bruising, No Bleeding,No Lymphadenopathy Endocrine : No Polyuria, No Polydipsia, No Temperature Intolerance PMFSH Past Medical History Medical History Lumbar radicular pain Renal cysts, acquired, bilateral Renal calculi Renal calculi Renal calculus, bilateral Hyperhidrosis Asthma Dysplasia of cervix, low grade (BILLY 1) Hypercholesterolemia Hypertension Type 2 diabetes mellitus with hyperglycemia Migraine Surgical History History of right oophorectomy Hx of cholecystectomy Hx of appendectomy History of hemorrhoidectomy Family History Family History Father Substance abuse Brother Substance abuse Schizophrenia Other Mental and behavioral problem Social History Social History Housing: Apartment Alcohol intake: never Comment: ok with current level of relief-pyridium given Patient Tobacco Use Status: Never used Tobacco Tobacco use type: Cigarette e-Cigarette/Vaping Use: Never Used Second Hand Smoke Exposure: No Advance Directives: No Advance Directives Information Provided: Yes Do you have a plan to hurt others: No Plan service: No Current occupational status: unemployed Cognitive needs: No Hearing needs: No Vision needs: No Physical Exam Vital Signs: Vital Signs: Last Vital Signs Temp 98 F 12/19/23 21:45 Pulse 88 12/19/23 21:45 Resp 18 12/19/23 21:45 BP 159/90 H 12/19/23 21:45 Pulse Ox 100 12/19/23 21:45 O2 Del Method Room Air 12/19/23 21:45 BMI result Body Mass Index 23.8 Const: Other: Appearance: Alert. Oriented X3. No acute distress. Eyes: Pupils equal, round and reactive to light. ENT: Pharynx normal. Neck: Normal inspection. Neck supple. No lymph nodes noted. No crepitus CVS: Normal heart rate and rhythm. Pulses normal. Normal S1 and S2 Respiratory: No respiratory distress. Breath sounds normal. No Wheezing. No rales Abdomen: Soft and nontender. No rigidity. No distention. Skin: Patient has 4 cm x 4 cm patch of erythema in the frontal aspect of the left lower extremity above the silver, warm to touch, no drainage, no signs of an abscess. Extremities: No lower extremity edema. No Lacerations. No Rash Neuro: Oriented X 3. No motor deficit. No sensory deficit. Moving all extremities. No slurred speech. CN 2 through 12 grossly intact Psych: calm, cooperative, normal affect Medical Decision Making Medical Decision Making [facility] Narrative: -my interpretation of labs: Normal hematology and chemistry, vitals are stable, sepsis not suspected. -discussed with the patient that she would benefit from a 2nd course of antibiotics. Patient agrees with plan. Differential Diagnosis Differential Diagnoses: The differential diagnosis associated with the presentation includes (Cellulitis, fungal infection, dermatitis) Lab Data [facility] Lab Attestation statement: I reviewed the patient's lab results. 12/19/23 21:57 12/19/23 21:56 Labs: Lab Results 12/19/23 12/19/23 Range/Units 21:56 21:57 WBC 7.4 (4.8-10.8) X10*3/uL RBC 3.40 L (4.20-5.50) X10*6/uL Hgb 10.9 L (12.0-16.0) g/dl Hct 31.3 L (37.0-47.0) % MCV 92.1 (80.0-98.0) fL MCH 32.1 (27.0-33.0) pg MCHC 34.8 (31.0-35.0) g/dl RDW 14.0 (11.0-16.0) % Plt Count 251 (160-400) X10*3/uL MPV 10.1 (9.4-12.3) fL Immature Gran % (Auto) 0.1 (0.0-0.4) % Neut % (Auto) 36.8 L (45-73) % Lymph % (Auto) 50.2 H (20-40) % [place] % (Auto) 8.8 (2-11) % Eos % (Auto) 3.4 (0-4) % Baso % (Auto) 0.7 (0-2) % Lymph # (Auto) 3.7 (1.2-4.9) X10*3/uL [place] # (Auto) 0.7 (0.1-1.2) X10*3/uL Eos # (Auto) 0.3 (0.0-0.4) X10*3/uL Baso # (Auto) 0.1 (0.0-0.2) X10*3/uL Abs Immat Gran (auto) 0.01 (0.00-0.03) X10*3/uL Absolute Neuts (auto) 2.7 (2.0-8.3) x10*3/uL Absolute Nucleated RBC 0.000 (0.0-0.012) X10*3/uL Nucleated RBC % (auto) 0.0 (0.0-0.2) /100WBC Sodium 139 (135-145) mmol/L Potassium 3.6 (3.3-5.1) mmol/L Chloride 105 (96-108) mmol/L Carbon Dioxide 24 (22-29) mmol/L Anion Gap 14 (12-20) BUN 16 (9-16) mg/dL Creatinine 0.91 (0.5-1.4) mg/dL Estim Creat Clear Calc 59.6 Estimated GFR > 60 Random Glucose 164 H (60-115) mg/dL Calcium 10.3 H (8.4-10.2) mg/dL Discharge Plan Discharge Clinical Impression: Cellulitis Patient Disposition: Home, Self-Care Instructions: Cellulitis (ED) Additional Instructions: Please follow-up with your primary care physician tomorrow. If you have any worsening or new symptoms, please return to the emergency room or call 911 Prescriptions: New sulfamethoxazole-trimethoprim [Bactrim DS] 800-160 mg tablet 1 tab PO BID Qty: 14 0RF No Action (DME) pen needle, diabetic [BD Yuliet 2nd Gen Pen Needle] 32 gauge x 5/32 needle See Rx Instructions .Route Qty: 100 3RF Rx Instructions: As directed albuterol sulfate [Ventolin HFA] 90 mcg/actuation HFA aerosol inhaler 2 puff inhalation Q4-6H PRN (Reason: shortness of breath or wheezing) Qty: 8.5 1RF (DME) lancets [FreeStyle Lancets] 28 gauge misc See Rx Instructions .Route Qty: 100 3RF Rx Instructions: As directed check the sugar once a day cromolyn 4 % drops 1 drp ophthalmic (eye) QID 30 Days Qty: 10 3RF cholecalciferol (vitamin D3) 25 mcg (1,000 unit) capsule 25 mcg PO DAILY 90 Days Qty: 90 3RF lisinopril 20 mg tablet 20 mg PO DAILY Qty: 90 2RF metformin 500 mg tablet 1,000 mg PO BID 90 Days Qty: 360 2RF cetirizine 10 mg tablet 10 mg PO DAILY 90 Days Qty: 90 1RF omeprazole 20 mg capsule,delayed release(DR/EC) 20 mg PO DAILY Qty: 90 1RF Trulicity 0.75 mg/0.5 mL pen injector 0.75 mg subcut QWEEK 28 Days Qty: 2 3RF pyridoxine (vitamin B6) 50 mg tablet 50 mg PO DAILY 90 Days Qty: 90 3RF ropinirole 0.5 mg tablet 0.5 mg PO BEDTIME 30 Days Qty: 30 2RF Rx Instructions: administer 1-3 hours before bedtime atorvastatin 10 mg tablet 10 mg PO DAILY 90 Days Qty: 90 1RF amlodipine 10 mg tablet 10 mg PO DAILY Qty: 90 2RF (DME) FreeStyle Lite Strips Strip See Rx Instructions .ROUTE .COMPLEX Qty: 100 2RF Dose Instruction: DIRECTED CHECK THE BLOOD SUGAR ONCE A DAY Rx Instructions: CHECK THE BLOOD SUGAR ONCE A DAY lidocaine [Lidoderm] 5 % adhesive patch,medicated 1 patch topical DAILY Qty: 15 0RF Rx Instructions: leave on most painful area for up to 12 hrs naproxen 500 mg tablet 500 mg PO Q8-12H PRN (Reason: pain (scale score 4-6)) Qty: 14 0RF Colace Clear 50 mg capsule 50 mg PO BID Qty: 10 0RF cephalexin 500 mg capsule 500 mg PO QID 10 Days Qty: 40 0RF doxycycline hyclate 100 mg tablet 100 mg PO BID Qty: 20 0RF fluticasone propionate [Flonase Allergy Relief] 50 mcg/actuation spray,suspension 1 spray intranasal DAILY Qty: 9.9 1RF Rx Instructions: administer into each nostril polyethylene glycol 3350 [Miralax] 17 gram powder in packet 17 g PO DAILY PRN (Reason: constipation) 30 Days Qty: 30 3RF prednisone 10 mg tablet 10 mg PO DIRECTED 9 Days Qty: 18 0RF Rx Instructions: take 3 tabs x 3 days , take 2 tabs x 3 days , take 1 tab x 3days. tramadol 50 mg tablet 50 mg PO BID PRN (Reason: pain) 7 Days Qty: 14 0RF methocarbamol 500 mg tablet 500 mg PO TID 15 Days Qty: 45 1RF azelastine 137 mcg (0.1 %) aerosol,spray 1 spray intranasal BID fluocinonide 0.05 % solution topical tamsulosin 0.4 mg capsule 0.4 mg PO BEDTIME 90 Days Qty: 90 3RF Print Language: Syrian
[2023-12-20 01:19] VITALS: BP 159/90; PULSE 88; RESP 18; TEMP 36.6; O2SAT 100
== END 2023-12-20 01:21 | disposition home or self-care (01) ==
PROVIDERS: Emergency Provider Emergency Medicine; PCP Physician Assistant
DX: L03.116 Cellulitis of left lower limb (principal)
CPT/HCPCS: 36415; 80048; 85025; 99282; 99283

== ENCOUNTER 2023-12-25 12:26 | Outpatient (REF) | payer OTHER, SELFPAY ==
--- NOTE | ~2023-12-25 | US_ITS ---
EXAMINATION: US RETROPERITONEAL LIMITED (RENAL ONLY) CLINICAL INFORMATION: Calculus of kidney. COMPARISON: Renal ultrasound 06/30/2023. CT abdomen and pelvis 06/01/2023. Renal ultrasound 12/19/2022. X-ray abdomen 01/19/2022 and 09/09/2021. TECHNIQUE: Real-time imaging of the kidneys. Limited visualization due to bowel gas. FINDINGS: RIGHT KIDNEY: 11.2 x 5.6 x 5.0 cm (SAG x AP x TRV).. 3 mm right lower pole calculus. Mild fullness right renal collecting system. Limited visualization. Renal cortical thickness is normal. 1.4 cm interpolar cyst with benign features. There is no indication for follow-up imaging. LEFT KIDNEY: 11.4 x 5.3 x 4.1 cm (SAG x AP x TRV).. Mild fullness of left renal pelvis. No renal calculi. Renal cortical thickness is normal. Limited visualization. 1.5 cm lower pole cyst with thin septation, previously 1.5 cm. Lower pole 2.1 cm pole cyst with benign features. There is no indication for follow-up imaging. US/US renal BI IMPRESSION: 3 mm right lower pole calculus. Mild fullness right renal collecting system. Mild fullness left renal pelvis.
== END 2023-12-25 12:27 | disposition home or self-care (01) ==
LOC: HO.US 12:26
PROVIDERS: PCP Physician Assistant; Visit Provider Nurse Practitioner Family
DX: N20.0 Calculus of kidney (principal)
CPT/HCPCS: 76775

== ENCOUNTER 2023-12-28 10:49 | Outpatient (AMB) | payer OTHER, SELFPAY ==
--- NOTE | 2023-12-28 10:52 | A.OFFPC_ITS ---
Vital Signs 12/28/23 10:59 Height 5 ft 4 in Weight 135 lb 6 oz BMI 23.2 BP 118/64 Blood Pressure Location Lt brachial Position Sitting Pulse 103 H Pulse Source Pulse Oximeter Pulse Oximetry (%) 98 Oxygen Delivery Method Room Air Intake Visit Reasons: Cellulitis Intake Note: Rakesh patient is here for left leg cellulitis, reporting that it is getting worse and spreading despite being on treatment, which does not seem to be effective. Human Resources Psychologist Required: No Accompanied by: Self / Same As Patient Allergies tizanidine Adverse Reaction (Intermediate, Verified 12/28/23 11:05) Headache Medication List - Last Reconciled 12/28/23 by Mary Jo Liu MD albuterol sulfate 90 mcg/actuation (Ventolin HFA) 2 puffs inhalation Q4-6H PRN amlodipine 10 mg PO DAILY atorvastatin 10 mg PO DAILY 90 days azelastine 1 spray intranasal BID blood sugar diagnostic (FreeStyle Lite Strips) CHECK THE BLOOD SUGAR ONCE A DAY cephalexin 500 mg PO QID 10 days cetirizine 10 mg PO DAILY 90 days cholecalciferol (vitamin D3) 25 mcg PO DAILY 90 days cromolyn 4% 1 drp ophthalmic (eye) QID 30 days docusate sodium (Colace Clear) 50 mg PO BID doxycycline hyclate 100 mg PO BID dulaglutide (Trulicity) 0.75 mg (0.5 mL) subcut QWEEK 4 weeks fluocinonide 0.05% mL topical fluticasone propionate 50 mcg/actuation (Flonase Allergy Relief) 1 spray intranasal DAILY lancets (FreeStyle Lancets) As directed check the sugar once a day lidocaine 5% (Lidoderm) 1 patch topical DAILY lisinopril 20 mg PO DAILY metformin 1,000 mg (2 x 500 mg) PO BID 90 days methocarbamol 500 mg PO TID 15 days naproxen 500 mg PO Q8-12H PRN omeprazole 20 mg PO DAILY pen needle, diabetic (BD Yuliet 2nd Gen Pen Needle) As directed polyethylene glycol 3350 (Miralax) 17 grams PO DAILY PRN 30 days prednisone 10 mg PO DIRECTED 9 days pyridoxine (vitamin B6) 50 mg PO DAILY 90 days ropinirole 0.5 mg PO BEDTIME 30 days sulfamethoxazole-trimethoprim 800-160 mg (Bactrim DS) 1 tab PO BID tamsulosin 0.4 mg PO BEDTIME 90 days tramadol 50 mg PO BID PRN 7 days Tobacco use date assessed: 09/28/23 Dental Screening Dental Screen Date: 07/04/23 HPI HPI Comments History of Present Illness Details This is a 58-year-old female with diabetes mellitus type 2, hypertension and hypercholesterolemia that comes today complaining of a left leg pruritic rash associated with an ulcer that started at the end of October. She went to ER by then and completed cephalexin and doxycycline treatment. Last time she went to ER was at the beginning of December and completed Septra DS. Now the ulcer is oozing yellowish liquid more prominent when walking. Looks like stasis dermatitis associated with venous ulcer and I will give her steroid ointment. I recommend compression bandages. I also refer her to wound clinic. Her A1c is elevated and she admits not being compliant with metformin and I told her that she has to restart being compliant. Blood pressure stable. Last LDL was within goal. [facility] Medical History (Updated 12/28/23 @ 11:23 by Mary Jo Liu MD) Lumbar radicular pain Renal cysts, acquired, bilateral Renal calculi Renal calculi Renal calculus, bilateral Hyperhidrosis Asthma Dysplasia of cervix, low grade (BILLY 1) Hypercholesterolemia Hypertension Type 2 diabetes mellitus with hyperglycemia Migraine Surgical History History of right oophorectomy Hx of cholecystectomy Hx of appendectomy History of hemorrhoidectomy Family History Father Substance abuse Brother Substance abuse Schizophrenia Other Mental and behavioral problem Social History Housing: Apartment Alcohol intake: never Comment: ok with current level of relief-pyridium given Patient Tobacco Use Status: Never used Tobacco Tobacco use type: Cigarette e-Cigarette/Vaping Use: Never Used Second Hand Smoke Exposure: No service: No Current occupational status: unemployed Cognitive needs: No Hearing needs: No Vision needs: No Questionnaire Thrive Questionnaire Date Thrive assessed: 07/04/23 JASON-7 AMB Questionnaire JASON-7 Date JASON - 7 assessed: 09/28/23 Source: Developed by Drs. Duane L. KellenLilli stevens, Jeff Bravo and colleagues, with an educational rashawn from [employer]. Review of Systems Const All systems reviewed & are unremarkable except as noted in HPI and below Card Denies chest pain at rest, Denies chest pain with activity, Denies edema, Denies irregular heart rhythm, Denies claudication, Denies dyspnea, Denies dyspnea on exertion, Denies orthopnea, Denies paroxysmal nocturnal dyspnea and Denies slow heart rate Resp Denies cough, Denies dyspnea and Denies dyspnea on exertion Skin/Breast Reports rash Physical exam (Primary Care) Vital Signs: Last Vital Signs Pulse 103 H 12/28/23 10:59 BP 118/64 12/28/23 10:59 Pulse Ox 98 12/28/23 10:59 Oxygen Delivery Method Room Air 12/28/23 10:59 BMI result Body Mass Index 23.2 Tobacco/Smoking Status: Tobacco use Status Tobacco use date assessed 09/28/23 12/28/23 10:53 Patient Tobacco Use Status Never used Tobacco 12/28/23 10:53 Tobacco use type Cigarette 12/28/23 10:53 e-Cigarette/Vaping Use Never Used 12/28/23 10:53 Thrive Assessment: Date of Thrive Assessment Date Thrive assessed 07/04/23 12/28/23 10:53 Resp Effort & Inspection: normal respiratory effort Auscultation: clear to auscultation bilaterally Cardio Jugular venous distension: no JVD Rate: regular rate Rhythm: regular rhythm Heart sounds: S1 normal heart sound present and S2 normal heart sound present Skin Rashes: rashes noted Wounds: wounds noted (venous ulcer in left lower leg) Extrem General: Yes full ROM Assessment and Plan Assessment & Plan (1) Type 2 diabetes mellitus with hyperglycemia: Code(s): E11.65 - Type 2 diabetes mellitus with hyperglycemia Qualifiers: Diabetes mellitus penitentiary insulin use: without penitentiary use Qualified Code(s): E11.65 - Type 2 diabetes mellitus with hyperglycemia Plan: Continue metformin and Trulicity. A1c goal is equal or less than 7%. (2) Hypertension: Code(s): I10 - Essential (primary) hypertension Qualifiers: Hypertension type: essential hypertension Qualified Code(s): I10 - Essential (primary) hypertension Plan: Continue amlodipine and lisinopril. Blood pressure goal is equal or less than 130/80. (3) Hypercholesterolemia: Code(s): E78.00 - Pure hypercholesterolemia, unspecified Plan: Continue statins. LDL goal is less than 70. (4) Stasis dermatitis of left lower extremity with venous ulcer due to chronic peripheral venous hypertension: Code(s): I87.332 - Chronic venous hypertension (idiopathic) with ulcer and inflammation of left lower extremity Plan: Start betamethasone ointment. Referred to wound clinic. Orders: Referrals Wound Care Referral I87.332 - Chronic venous hypertension (idiopathic) with ulcer and inflammation of left lower extremity Medications: New betamethasone valerate 0.1% 1 appl topical BID 30 days PRN 45 grams 0RF skin irritation I87.329 - Chronic venous hypertension (idiopathic) with inflammation of unspecified lower extremity Coding Level of Care Code Est Pt Level 4 (47139) Complex EM visit Add On G2211 Diagnoses Type 2 diabetes mellitus with hyperglycemia, without long-term current use of insulin E11.65 Diabetes mellitus longitudinal float operator insulin use: without penitentiary use Essential hypertension I10 Hypertension type: essential hypertension Hypercholesterolemia E78.00 Stasis dermatitis of left lower extremity with venous ulcer due to chronic peripheral venous hypertension I87.332 Time Spent (min) 23
[2023-12-28 10:59] VITALS: BP 118/64; PULSE 103; O2SAT 98; BMI 23.2
== END 2023-12-28 11:15 | disposition home or self-care (01) ==
PROVIDERS: PCP Physician Assistant; Visit Provider Internal Medicine
DX: E11.65 Type 2 diabetes mellitus with hyperglycemia (principal)
CPT/HCPCS: 83036; 99214; G2211

== ENCOUNTER 2024-01-03 14:42 | Outpatient (AMB) | payer OTHER, SELFPAY ==
--- NOTE | 2024-01-03 14:47 | A.OFFPC_ITS ---
Vital Signs 01/03/24 14:54 Height 5 ft 4 in Weight 133 lb 2 oz BMI 22.8 BP 116/66 Blood Pressure Location Lt brachial Position Sitting Pulse 86 Pulse Source Pulse Oximeter Pulse Oximetry (%) 100 Oxygen Delivery Method Room Air Intake Visit Reasons: f/u DMII Intake Note: The patient is here for a 3-month follow-up. Today's concern is a dark and itchy spot on her left gluteus. Tube Turner Required: No Accompanied by: Self / Same As Patient Allergies sulfadimethoxine Adverse Reaction (Intermediate, Verified 01/03/24 15:03) Rash tizanidine Adverse Reaction (Intermediate, Verified 01/03/24 14:56) Headache Tobacco use date assessed: 09/28/23 Dental Screening Dental Screen Date: 07/04/23 HPI f/u DMII HPI Details Patient is a 57-year-old female here today for a follow-up visit.? Patient has a past medical history significant for type 2 diabetes, hypertension, generalized anxiety disorder.. . Concern--> has been seen at the ER twice for lower extremity cellulitis to which she has taken cephalexin and Bactrim for. Since taking antibiotics she has developed a rash over her entire body. She denies any changes in soaps detergents or foods. ? Allergy to sulfa. .. Type 2 diabetes:? Today's A1c at 7.9 . She continues on Trulicity and metformin without any side effect. No reports of hypoglycemic events. Of note was on a prednisone taper and has been dealing with a lower extremity cellulitis. PLAN: Will play more particular attention to diabetic diet. Recheck A1c in 3 months and if elevated will consider adjustment in diabetic medication. Laboratory Tests 09/28/23 12/19/23 12/19/23 08:46 21:56 21:57 RBC 3.40 L Hgb 10.9 L Random Glucose 164 H Hgb A1c (Clinic) 7.5 H 12/28/23 14:50 RBC Hgb Random Glucose Hgb A1c (Clinic) 7.9 H [facility] Medical History (Updated 01/03/24 @ 15:01 by Justin Cameron PA-C) Lumbar radicular pain Renal cysts, acquired, bilateral Renal calculi Renal calculi Renal calculus, bilateral Hyperhidrosis Asthma Dysplasia of cervix, low grade (BILLY 1) Hypercholesterolemia Hypertension Type 2 diabetes mellitus with hyperglycemia Migraine Surgical History History of right oophorectomy Hx of cholecystectomy Hx of appendectomy History of hemorrhoidectomy Family History Father Substance abuse Brother Substance abuse Schizophrenia Other Mental and behavioral problem Social History Housing: Apartment Alcohol intake: never Comment: ok with current level of relief-pyridium given Patient Tobacco Use Status: Never used Tobacco Tobacco use type: Cigarette e-Cigarette/Vaping Use: Never Used Second Hand Smoke Exposure: No service: No Current occupational status: unemployed Cognitive needs: No Hearing needs: No Vision needs: No Questionnaire Thrive Questionnaire Date Thrive assessed: 07/04/23 JASON-7 AMB Questionnaire JASON-7 Date JASON - 7 assessed: 09/28/23 Source: Developed by Drs. Duane Foreman, Lilli Ospina, Jeff Bravo and colleagues, with an educational rashawn from [employer]. Review of Systems Const Denies headache(s) Eyes Denies loss of vision ENT Denies vertigo, Denies dizziness, Denies headache(s) and Denies sore throat Card Denies chest pain, Denies leg edema and Denies lightheadedness Resp Denies cough, Denies hemoptysis and Denies wheezing GI Denies abdominal pain, Denies melena, Denies constipation, Denies diarrhea and Denies vomiting Denies urinary frequency, Denies dysuria and Denies urinary urgency Musc Denies arthralgias, Denies joint swelling, Denies numbness and Denies tingling Neuro Denies Abnormal speech present, Denies behavioral changes, Denies vertigo, Denies dizziness, Denies headache(s), Denies loss of vision, Denies memory loss, Denies numbness and Denies tingling Psych Denies anxiety, Denies behavioral changes, Denies depression, Denies memory loss and Denies panic attacks Hollis/Lymph Denies easy bleeding and Denies easy bruising Aller/Immun Denies wheezing Physical exam (Primary Care) Vital Signs: Last Vital Signs Pulse 86 01/03/24 14:54 BP 116/66 01/03/24 14:54 Pulse Ox 100 01/03/24 14:54 Oxygen Delivery Method Room Air 01/03/24 14:54 BMI result Body Mass Index 22.8 Tobacco/Smoking Status: Tobacco use Status Tobacco use date assessed 09/28/23 01/03/24 14:47 Patient Tobacco Use Status Never used Tobacco 01/03/24 14:47 Tobacco use type Cigarette 01/03/24 14:47 e-Cigarette/Vaping Use Never Used 01/03/24 14:47 Thrive Assessment: Date of Thrive Assessment Date Thrive assessed 07/04/23 01/03/24 14:47 Const General: healthy appearing, no acute distress, alert and awake Nutritional Appearance: well nourished Orientation/consciousness: oriented to person, oriented to place and oriented to time HENMT Ears: TM's normal bilaterally General nose exam: Normal nasal mucous membranes and turbinates present Eyes Conjunctivae: conjunctivae normal Sclerae: sclerae normal Pupils: Equal, round and reactive pupils present Neck Neck: Yes no lymphadenopathy and Yes no JVD Thyroid: Thyroid normal Carotids: no bruits Resp Effort & Inspection: normal respiratory effort and not tachypneic Auscultation: no crackles, no rales, no rhonchi and no wheezes Cardio Rate: regular rate Rhythm: regular rhythm Heart sounds: no murmurs and normal S1 and S2 GI Palpation (GI): Soft to palpation, nontender, no hepatomegaly and no splenomegaly Auscultation: normal bowel sounds Skin General skin exam: rashes and/or lesions noted and dry skin Rashes: rashes noted Neuro General: oriented to person, oriented to place and oriented to time Cranial nerves: Yes Equal, round and reactive pupils present Speech: No Abnormal speech present Gait exam (Neuro): Normal gait present Motor exam (neuro): no tremor noted Extrem Right upper extremity: full ROM Left upper extremity: full ROM Right lower extremity: full ROM; no edema Left lower extremity: full ROM; no edema Psych Mental Status: mental status grossly normal Speech and movement: Normal speech and movement present Affect: normal affect Attitude: cooperative Thought process: Normal thought process present Assessment and Plan Assessment & Plan (1) Rash: Code(s): R21 - Rash and other nonspecific skin eruption Plan: Has developed a rash over her arms, torso and lower extremities. Seems to have developed after she has taken Bactrim. Will supply patient with Benadryl and triamcinolone topical steroid cream to use on most problematic areas. (2) Type 2 diabetes mellitus with hyperglycemia: Code(s): E11.65 - Type 2 diabetes mellitus with hyperglycemia Qualifiers: Diabetes mellitus termination clerk insulin use: without termination clerk use Qualified Code(s): E11.65 - Type 2 diabetes mellitus with hyperglycemia Plan: Patient's type 2 diabetes suboptimally controlled with A1c is 7.9 . She continues on Trulicity 0.75 mg and metformin a 1000 b.i.d.. She will modify her diet and recheck A1c in 3 months and if still elevated at will consider making an adjustment in her GLP 1 dose.. Advised on working on lifestyle and diet modification to further reduction her A1c. Goal A1c is to be below 7.0 (3) Hypertension: Code(s): I10 - Essential (primary) hypertension Qualifiers: Hypertension type: essential hypertension Qualified Code(s): I10 - Essential (primary) hypertension Plan: Patient's blood pressure today in office acceptable. Will continue her current dose antihypertensive medication with goal blood pressure to be below 140/90 (4) Hypercholesterolemia: Code(s): E78.00 - Pure hypercholesterolemia, unspecified Plan: Patient's most recent fasting lipid panel showing appropriate total cholesterol and LDL. Will recheck lipid panel to ensure appropriate LDL below 100 Medications: New diphenhydramine HCl (Benadryl) 25 mg PO BEDTIME 14 days 14 caps 0RF sleep R21 - Rash and other nonspecific skin eruption triamcinolone acetonide 0.1% 1 appl topical DAILY 30 days 80 grams 0RF R21 - Rash and other nonspecific skin eruption Discontinued cephalexin Discontinued Reason: Doctor's Order 500 mg PO QID 10 days 40 caps 0RF sulfamethoxazole-trimethoprim 800-160 mg (Bactrim DS) Discontinued Reason: Doctor's Order 1 tab PO BID 14 tabs 0RF Patient Instructions: Goal: A1c to be below 7.0, LDL to be below 100 Barrier: Adherence to physical activity and healthy eating habits Coding Level of Care Code Est Pt Level 4 (42558) Diagnoses Rash R21 Type 2 diabetes mellitus with hyperglycemia, without long-term current use of insulin E11.65 Diabetes mellitus termination clerk insulin use: without penitentiary use Essential hypertension I10 Hypertension type: essential hypertension Hypercholesterolemia E78.00
[2024-01-03 14:54] VITALS: BP 116/66; PULSE 86; O2SAT 100; BMI 22.8
== END 2024-01-03 16:14 | disposition home or self-care (01) ==
PROVIDERS: PCP Physician Assistant; Visit Provider Physician Assistant
DX: R21 Rash and other nonspecific skin eruption (principal); E11.65 Type 2 diabetes mellitus with hyperglycemia; I10 Essential (primary) hypertension; E78.00 Pure hypercholesterolemia, unspecified
CPT/HCPCS: 99214

== ENCOUNTER 2024-01-24 10:26 | Outpatient (RCR) | payer OTHER, SELFPAY | END 2024-02-09 10:34 | disposition home or self-care (01) | LOC: HO.WCC 10:26 | PROVIDERS: PCP Physician Assistant; Visit Provider Surgery | DX: Z09 Encounter for follow-up examination after completed treatment for conditions other than malignant neoplasm (principal); E11.620 Type 2 diabetes mellitus with diabetic dermatitis; L20.89 Other atopic dermatitis; E11.40 Type 2 diabetes mellitus with diabetic neuropathy, unspecified; I10 Essential (primary) hypertension; Z79.899 Other long term (current) drug therapy; Z79.85 Long-term (current) use of injectable non-insulin antidiabetic drugs; Z87.2 Personal history of diseases of the skin and subcutaneous tissue | CPT/HCPCS: 99213 ==

== ENCOUNTER 2024-01-26 14:58 | Outpatient (AMB) | payer OTHER, SELFPAY ==
--- NOTE | 2024-01-26 15:02 | A.OFFVIS_ITS ---
Intake Visit Reasons: 6m/US(set) Intake Note: Patient presents today for follow up on: kidney stone, renal cyst, and ultrasound results Imagin12/25/23 Urology Medications: Vitamin B6 Blood Thinner: none Granite Polisher Apprentice Required: Yes Granite Polisher Apprentice Name: Jurgen [id number] Accompanied by: Self / Same As Patient Allergies sulfadimethoxine Adverse Reaction (Intermediate, Verified 01/26/24 15:54) Rash tizanidine Adverse Reaction (Intermediate, Verified 01/26/24 15:54) Headache HPI Comments Details: Oh is a pleasant 58 year old female patient of Dr. Cameron. She has a past medical history of asthma, dysplasia of cervix (low grade), hypercholesteremia, hypertension, lumbar radicular pain, migraine, renal calculi, renal cysts, and type 2 diabetes. She presents to the office today to follow up regarding her renal cysts and kidney stones. Recent surveillance renal imaging results reviewed with the patient today. Right kidney with 3 mm right lower pole calculus. Mild fullness right renal collecting system. 1.4 cm interpolar cyst with benign features. There is no indication for follow-up imaging per radiology report. Left kidney with mild fullness of left renal pelvis. No renal calculi. 1.5 cm lower pole cyst with thin septations. Lower pole 2.1 cm pole cyst with benign features. There is no indication for follow-up per radiology report on these renal cysts. In discussion with the patient today she denies any bothersome urinary issues or concerns. She denies urinary urgency, urinary frequency, incontinence, nocturia, hematuria, dysuria, foul smelling urine, changes to urinary stream, flank pain, fever, and or chills. She is happy with her current voiding parameters. In office urinalysis results reviewed with the patient today. She otherwise offers no issues or concerns at this time. [facility] Medical History Lumbar radicular pain Renal cysts, acquired, bilateral Renal calculi Renal calculi Renal calculus, bilateral Hyperhidrosis Asthma Dysplasia of cervix, low grade (BILLY 1) Hypercholesterolemia Hypertension Type 2 diabetes mellitus with hyperglycemia Migraine Surgical History History of right oophorectomy Hx of cholecystectomy Hx of appendectomy History of hemorrhoidectomy Family History Father Substance abuse Brother Substance abuse Schizophrenia Other Mental and behavioral problem Social History Housing: Apartment Alcohol intake: never Comment: ok with current level of relief-pyridium given Patient Tobacco Use Status: Never used Tobacco Tobacco use type: Cigarette e-Cigarette/Vaping Use: Never Used Second Hand Smoke Exposure: No service: No Current occupational status: unemployed Cognitive needs: No Hearing needs: No Vision needs: No Review of Systems Const All systems reviewed & are unremarkable except as noted in HPI and below Reports as per HPI Eyes Reports no additional complaints ENT Reports no additional complaints Card Reports as per HPI Resp Reports as per HPI GI Reports no additional complaints Reports as per HPI Musc Reports as per HPI Neuro Reports no additional complaints Psych Reports no additional complaints Endo Reports as per HPI Hollis/Lymph Reports no additional complaints Aller/Immun Reports no additional complaints Physical Exam Const General: cooperative, healthy appearing, comfortable, no acute distress, well developed, alert and awake Orientation/consciousness: patient oriented x3 Limitations: no limitations HEENT Head: Yes normal to inspection, Yes normocephalic and Yes atraumatic Ears: hearing grossly normal bilaterally Eyes General: appearance normal, both eyes and all related structures Neck Neck: Yes normal visual inspection and Yes trachea midline Chest Chest palpation & inspection: normal inspection of the chest Resp Effort & Inspection: normal respiratory effort and able to speak in complete sentences Cardio Rate: regular rate GI Inspection: Yes normal to inspection General: Yes no CVA tenderness Back/Spine/Pelvis Back: no CVA tenderness Skin General skin exam: no rashes or lesions noted Neuro General: patient oriented x3 Extrem General: Yes normal to inspection Psych Appearance: grossly normal and well kempt Mental Status: mental status grossly normal Speech and movement: Normal speech and movement present and Clear speech present Affect: normal affect Attitude: cooperative Thought process: Normal thought process present Thought content: Normal thought content present Insight: Fair insight present (Psych) Judgement: Fair judgement present (Psych) Results AMB Urinalysis, Automated UA Leukoctes 0 Amara/uL Last Edit by Estephanie Diaz on 01/26/24 16:09 UA Nitrite Last Edit by Estephanie Diaz on 01/26/24 16:09 UA Urobilinogen 0.2 mg/dL Last Edit by Estephanie Diaz on 01/26/24 16:09 UA Protein 0 mg/dL Last Edit by Estephanie Diaz on 01/26/24 16:09 UA pH 5.5 Last Edit by Estephanie Diaz on 01/26/24 16:09 UA Blood 0 Esvin/uL Last Edit by Estephanie Diaz on 01/26/24 16:09 UA Specific [place] 1.010 Last Edit by Estephanie Diaz on 01/26/24 16:09 UA Ketone Negative Last Edit by Estephanie Diaz on 01/26/24 16:09 UA Bilirubin 0 mg/dL Last Edit by Estephanie Diaz on 01/26/24 16:09 UA Glucose 0 mg/dL Last Edit by Estephanie Diaz on 01/26/24 16:09 Results Reviewed Results Reviewed: Laboratory Last Values Urine pH (Auto) 5.5 01/26/24 15:56 Specific [place] (Auto) 1.010 01/26/24 15:56 Urine Protein (Auto) 0 mg/dL 01/26/24 15:56 Glucose (UA)(Auto) 0 mg/dL 01/26/24 15:56 Urine Ketones (Auto) Negative 01/26/24 15:56 Urine Blood (Auto) 0 Esvin/uL 01/26/24 15:56 Urine Bilirubin (Auto) 0 mg/dL 01/26/24 15:56 Urine Urobilinogen (Auto) 0.2 mg/dL 01/26/24 15:56 Leukocyte Esterase (Auto) 0 Amara/uL 01/26/24 15:56 Date of Service: 12/25/23 EXAMINATION: US RETROPERITONEAL LIMITED (RENAL ONLY) FINDINGS: RIGHT KIDNEY: 11.2 x 5.6 x 5.0 cm (SAG x AP x TRV).. 3 mm right lower pole calculus. Mild fullness right renal collecting system. Limited visualization. Renal cortical thickness is normal. 1.4 cm interpolar cyst with benign features. There is no indication for follow-up imaging. LEFT KIDNEY: 11.4 x 5.3 x 4.1 cm (SAG x AP x TRV).. Mild fullness of left renal pelvis. No renal calculi. Renal cortical thickness is normal. Limited visualization. 1.5 cm lower pole cyst with thin septation, previously 1.5 cm. Lower pole 2.1 cm pole cyst with benign features. There is no indication for follow-up imaging. IMPRESSION: 3 mm right lower pole calculus. Mild fullness right renal collecting system. Mild fullness left renal pelvis. Assessment & Plan Assessment & Plan (1) Renal cyst: Code(s): N28.1 - Cyst of kidney, acquired Category: Medical (2) Renal calculi: Code(s): N20.0 - Calculus of kidney Category: Medical Plan In office urinalysis results reviewed with the patient; as noted above. Recent renal imaging results reviewed with the patient today; as noted above. Continue vitamin B6 as discussed and prescribed. Continue adding 1 oz of lemon juice to water daily. Continue and encouraged to drink plenty of water daily. Patient denies any urinary issues or concerns at this time. Renal ultrasound in 6 months. Follow-up in 6 months with imaging to be completed prior; or sooner with any issues, concerns, and or questions. Orders: Orders US renal BI 6 Months N20.0 - Calculus of kidney AMB Urinalysis Automated Today Z13.9 - Encounter for screening, unspecified Patient Instructions: The patient had an opportunity to ask questions regarding the treatment plan. All questions were answered. Physical exam, labs, and imaging were discussed and reviewed in detail. As well as risks, benefits, and discussion of treatment choices. No major barriers to understanding were identified. The patient expressed understanding and agreement with the above treatment plan. The patient was made aware they should contact our office by phone for worsening of their current condition, the appearance of new symptoms, or with any questions or concerns. Compliance is encouraged with any medications and follow up testing that is ordered. It is a privilege to be allowed the opportunity to participate in? your urological care.? Again, if you have any questions or concerns If you have any questions or concerns please do not hesitate to contact me. The office is [phone]. This note is constructed using voice recognition software. While every effort has been made to ensure accuracy otter trawler boatswain errors may have been included. Yours sincerely, JACQUES Fong Coding Level of Care Code Est Pt Level 3 (12244) Diagnoses Renal cyst N28.1 Renal calculi N20.0
== END 2024-01-26 15:50 | disposition home or self-care (01) ==
PROVIDERS: PCP Physician Assistant; Visit Provider Nurse Practitioner Family
DX: N28.1 Cyst of kidney, acquired (principal); N20.0 Calculus of kidney; Z13.9 Encounter for screening, unspecified
CPT/HCPCS: 99213

== ENCOUNTER → 2024-01-26 14:58 | Outpatient (BNVA) | payer OTHER, SELFPAY | PROVIDERS: PCP Physician Assistant; Visit Provider Nurse Practitioner Family | DX: N20.0 Calculus of kidney (principal); N28.1 Cyst of kidney, acquired | CPT/HCPCS: 81003; 99212 ==

== ENCOUNTER 2024-04-04 13:55 | Outpatient (AMB) | payer OTHER, SELFPAY ==
--- NOTE | 2024-04-04 14:03 | MHC.PC.OV ---
Vital Signs 04/04/24 14:23 Height 5 ft 4 in Weight 133 lb 8 oz BMI 22.9 BP 122/78 Blood Pressure Location Lt brachial Position Sitting Pulse 84 Pulse Source Pulse Oximeter Pulse Oximetry (%) 98 Oxygen Delivery Method Room Air Intake Visit Reasons: f/u DMII Network And Threat Support Specialist Required: No Accompanied by: Self / Same As Patient Allergies sulfadimethoxine Adverse Reaction (Intermediate, Verified 04/04/24 14:37) Rash tizanidine Adverse Reaction (Intermediate, Verified 04/04/24 14:37) Headache Medication List - Last Reconciled 04/04/24 by Justin Cameron PA-C albuterol sulfate 90 mcg/actuation (Ventolin HFA) 2 puffs inhalation Q4-6H PRN amlodipine 10 mg PO DAILY atorvastatin 10 mg PO DAILY 90 days azelastine 1 spray intranasal BID betamethasone valerate 0.1% 1 appl topical BID PRN 30 days blood sugar diagnostic (FreeStyle Lite Strips) CHECK THE BLOOD SUGAR ONCE A DAY cetirizine 10 mg PO DAILY 90 days cholecalciferol (vitamin D3) 25 mcg PO DAILY 90 days cromolyn 4% 1 drp ophthalmic (eye) QID 30 days diphenhydramine HCl (Benadryl) 25 mg PO BEDTIME 14 days docusate sodium (Colace Clear) 50 mg PO BID dulaglutide (Trulicity) 0.75 mg (0.5 mL) subcut QWEEK 4 weeks fluocinonide 0.05% mL topical fluticasone propionate 50 mcg/actuation (Flonase Allergy Relief) 1 spray intranasal DAILY lancets (FreeStyle Lancets) As directed check the sugar once a day lidocaine 5% (Lidoderm) 1 patch topical DAILY lisinopril 20 mg PO DAILY metformin 1,000 mg (2 x 500 mg) PO BID 90 days methocarbamol 500 mg PO TID 15 days naproxen 500 mg PO Q8-12H PRN omeprazole 20 mg PO DAILY pen needle, diabetic (BD Yuliet 2nd Gen Pen Needle) As directed polyethylene glycol 3350 (Miralax) 17 grams PO DAILY PRN 30 days pyridoxine (vitamin B6) 50 mg PO DAILY 90 days ropinirole 0.5 mg PO BEDTIME tramadol 50 mg PO BID PRN 7 days triamcinolone acetonide 0.1% 1 appl topical DAILY 30 days Tobacco use date assessed: 09/28/23 Dental Screening Dental Screen Date: 07/04/23 HPI f/u DMII HPI Details Patient is a 58-year-old female here today for a follow-up visit.? Patient has a past medical history significant for type 2 diabetes, hypertension, generalized anxiety disorder.. . Concern--> patient reports having diarrhea after she takes metformin. Will try to switch to an extended release formulation to help with the proposed side effect. Also reports having some back pain and would like a muscle relaxer to use at night to help sleep .. Type 2 diabetes:? Today's A1c improved to 7.6 from 7.9 . She continues on Trulicity and metformin No reports of hypoglycemic events. Of note was on a prednisone taper and has been dealing with a lower extremity cellulitis.. Laboratory Tests 09/28/23 12/19/23 12/19/23 08:46 21:56 21:57 RBC 3.40 L Hgb 10.9 L Random Glucose 164 H Hgb A1c (Clinic) 7.5 H 12/28/23 14:50 RBC Hgb Random Glucose Hgb A1c (Clinic) 7.9 H [facility] Medical History Lumbar radicular pain Renal cysts, acquired, bilateral Renal calculi Renal calculi Renal calculus, bilateral Hyperhidrosis Asthma Dysplasia of cervix, low grade (BILLY 1) Hypercholesterolemia Hypertension Type 2 diabetes mellitus with hyperglycemia Migraine Surgical History History of right oophorectomy Hx of cholecystectomy Hx of appendectomy History of hemorrhoidectomy Family History Father Substance abuse Brother Substance abuse Schizophrenia Other Mental and behavioral problem Social History Housing: Apartment Alcohol intake: never Comment: ok with current level of relief-pyridium given Patient Tobacco Use Status: Never used Tobacco Tobacco use type: Cigarette e-Cigarette/Vaping Use: Never Used Second Hand Smoke Exposure: No service: No Current occupational status: unemployed Cognitive needs: No Hearing needs: No Vision needs: No Questionnaire Thrive Questionnaire Date Thrive assessed: 07/04/23 JASON-7 AMB Questionnaire JASON-7 Date JASON - 7 assessed: 09/28/23 Source: Developed by Drs. Duane Foreman, Lilli Ospina, Jeff Bravo and colleagues, with an educational rashawn from [employer]™. Review of Systems Const Denies headache(s) Eyes Denies loss of vision ENT Denies vertigo, Denies dizziness, Denies headache(s) and Denies sore throat Card Denies chest pain, Denies leg edema and Denies lightheadedness Resp Denies cough, Denies hemoptysis and Denies wheezing GI Denies abdominal pain, Denies melena, Denies constipation, Denies diarrhea and Denies vomiting Denies urinary frequency, Denies dysuria and Denies urinary urgency Musc Denies arthralgias, Denies joint swelling, Denies numbness and Denies tingling Neuro Denies Abnormal speech present, Denies behavioral changes, Denies vertigo, Denies dizziness, Denies headache(s), Denies loss of vision, Denies memory loss, Denies numbness and Denies tingling Psych Denies anxiety, Denies behavioral changes, Denies depression, Denies memory loss and Denies panic attacks Hollis/Lymph Denies easy bleeding and Denies easy bruising Aller/Immun Denies wheezing Physical exam (Primary Care) Vital Signs: Last Vital Signs Pulse 84 04/04/24 14:23 BP 122/78 04/04/24 14:23 Pulse Ox 98 04/04/24 14:23 Oxygen Delivery Method Room Air 04/04/24 14:23 BMI result Body Mass Index 22.9 Tobacco/Smoking Status: Tobacco use Status Tobacco use date assessed 09/28/23 04/04/24 14:03 Patient Tobacco Use Status Never used Tobacco 04/04/24 14:03 Tobacco use type Cigarette 04/04/24 14:03 e-Cigarette/Vaping Use Never Used 04/04/24 14:03 Thrive Assessment: Date of Thrive Assessment Date Thrive assessed 07/04/23 04/04/24 14:03 Const General: healthy appearing, no acute distress, alert and awake Nutritional Appearance: well nourished Orientation/consciousness: oriented to person, oriented to place and oriented to time HENMT Ears: TM's normal bilaterally General nose exam: Normal nasal mucous membranes and turbinates present Eyes Conjunctivae: conjunctivae normal Sclerae: sclerae normal Pupils: Equal, round and reactive pupils present Neck Neck: Yes no lymphadenopathy and Yes no JVD Thyroid: Thyroid normal Carotids: no bruits Resp Effort & Inspection: normal respiratory effort and not tachypneic Auscultation: no crackles, no rales, no rhonchi and no wheezes Cardio Rate: regular rate Rhythm: regular rhythm Heart sounds: no murmurs and normal S1 and S2 GI Palpation (GI): Soft to palpation, nontender, no hepatomegaly and no splenomegaly Auscultation: normal bowel sounds Skin General skin exam: no rashes or lesions noted and dry skin Neuro General: oriented to person, oriented to place and oriented to time Cranial nerves: Yes Equal, round and reactive pupils present Speech: No Abnormal speech present Gait exam (Neuro): Normal gait present Motor exam (neuro): no tremor noted Extrem Right upper extremity: full ROM Left upper extremity: full ROM Right lower extremity: full ROM; no edema Left lower extremity: full ROM; no edema Psych Mental Status: mental status grossly normal Speech and movement: Normal speech and movement present Affect: normal affect Attitude: cooperative Thought process: Normal thought process present Office Procedures Flu Questionnaire Does the patient have a severe egg allergy?: No Does the patient have severe life threatening allergies?: No Does the patient have a fever or illness today?: No Has the patient ever had Guillain-Quitman Syndrome?: No Has the patient ever had any past reaction to a flu shot?: No Results AMB Hemoglobin A1c AMB Hemoglobin A1c 7.6 % Last Edit by CLEOPATRA Carbajal on 04/04/24 14:26 Immunizations Fluarix Triv 1052-0130 (PF) 45 mcg (15 mcg x 3)/0.5 mL IM syringe Performing Provider: Justin Cameron PA-C [place] [facility] [place] [facility] [place] [facility] [place] Administered by: CLEOPATRA Carbajal on 04/04/24 14:25 Dose Route Admin Location Dispensed Lot Number Expiration Date NDC Sample Puller 0.5 mL IM Left Deltoid 0.5 mL [id number] 12/16/24 59089-443-24 [employer] VIS Given Date VIS Provided VIS Publication Date 04/04/24 Single Vaccine 21 Eligibility Eligibility Date Funding Source Not [facility] Eligible 04/04/24 Private Results Reviewed Results Reviewed: Laboratory Last Values Hgb A1c (Clinic) 7.6 % (4.0-6.0) H 04/04/24 14:25 Coding Level of Care Code Est Pt Level 4 (49790) Diagnoses Type 2 diabetes mellitus with hyperglycemia, without long-term current use of insulin E11.65 Diabetes mellitus jail insulin use: without jail use Essential hypertension I10 Hypertension type: essential hypertension Anemia in other chronic diseases classified elsewhere D63.8 Anemia type: other cause Other causes of anemia: chronic disease, other Assessment & Plan Assessment & Plan (1) Type 2 diabetes mellitus with hyperglycemia: Code(s): E11.65 - Type 2 diabetes mellitus with hyperglycemia Category: Medical Qualifiers: Diabetes mellitus jail insulin use: without jail use Qualified Code(s): E11.65 - Type 2 diabetes mellitus with hyperglycemia Plan: Patient's type 2 diabetes suboptimally controlled with A1c is 7.6. Continues on Trulicity weekly and metformin a 1000 b.i.d.. She does report having some diarrhea with the metformin. Will change metformin to an extended release to try to reduce diarrhea. Goal A1c is to be below 7.0 (2) Hypertension: Code(s): I10 - Essential (primary) hypertension Category: Medical Qualifiers: Hypertension type: essential hypertension Qualified Code(s): I10 - Essential (primary) hypertension Plan: Patient's blood pressure acceptable today in office. She will continue her current dose of antihypertensive medication with goal blood to 40/90 (3) Anemia: Code(s): D64.9 - Anemia, unspecified Category: Medical Qualifiers: Anemia type: other cause Other causes of anemia: chronic disease, other Qualified Code(s): D63.8 - Anemia in other chronic diseases classified elsewhere Plan: Patient continues to have chronic anemia. Likely anemia of chronic disease. She does report always feeling somewhat fatigued.. She is willing to try iron supplement Orders: Orders Influenza [id number] Immunization Today Z23 - Encounter for immunization AMB Hemoglobin A1c Today E11.65 - Type 2 diabetes mellitus with hyperglycemia Lipid Panel Today E78.00 - Pure hypercholesterolemia, unspecified Microalbumin, Random (w Creat) Today I10 - Essential (primary) hypertension IRON PROFILE Today D50.9 - Iron deficiency anemia, unspecified, D64.9 - Anemia, unspecified Vitamin B12 and Folate Today D64.9 - Anemia, unspecified, E53.8 - Deficiency of other specified B group vitamins Comprehensive [place]. Panel Fast Today E11.65 - Type 2 diabetes mellitus with hyperglycemia Complete Blood Count no Diff Today I10 - Essential (primary) hypertension Vitamin D 25-OH Total Today D64.9 - Anemia, unspecified Medications: New cyclobenzaprine 10 mg PO BEDTIME 30 days 30 tabs 1RF D64.9 - Anemia, unspecified, M62.838 - Other muscle spasm ferrous sulfate 325 mg PO DAILY 30 days 30 tabs 3RF D50.9 - Iron deficiency anemia, unspecified, D64.9 - Anemia, unspecified metformin ER 1,000 mg (2 x 500 mg) PO BID 30 days 120 tabs 3RF E11.65 - Type 2 diabetes mellitus with hyperglycemia Refilled albuterol sulfate 90 mcg/actuation (Ventolin HFA) 2 puffs inhalation Q4-6H PRN 8.5 grams 1RF shortness of breath or wheezing J45.20 - Mild intermittent asthma, uncomplicated Discontinued tramadol Discontinued Reason: Doctor's Order 50 mg PO BID 7 days PRN 14 tabs 0RF pain M47.812 - Spondylosis without myelopathy or radiculopathy, cervical region methocarbamol Discontinued Reason: Doctor's Order 500 mg PO TID 15 days 45 tabs 1RF M54.16 - Radiculopathy, lumbar region On Hold metformin Hold Comment: Doctor's Order 1,000 mg (2 x 500 mg) PO BID 90 days 360 tabs 2RF E11.65 - Type 2 diabetes mellitus with hyperglycemia
[2024-04-04 14:23] VITALS: BP 122/78; PULSE 84; O2SAT 98; BMI 22.9
== END 2024-04-04 14:56 | disposition home or self-care (01) ==
PROVIDERS: PCP Physician Assistant; Visit Provider Physician Assistant
DX: E11.65 Type 2 diabetes mellitus with hyperglycemia (principal); I10 Essential (primary) hypertension; D63.8 Anemia in other chronic diseases classified elsewhere; Z23 Encounter for immunization

== ENCOUNTER → 2024-04-04 13:55 | Outpatient (BNVA) | payer OTHER, SELFPAY | PROVIDERS: PCP Physician Assistant; Visit Provider Physician Assistant | DX: E11.65 Type 2 diabetes mellitus with hyperglycemia (principal); I10 Essential (primary) hypertension; D63.8 Anemia in other chronic diseases classified elsewhere; Z79.84 Long term (current) use of oral hypoglycemic drugs; Z23 Encounter for immunization | CPT/HCPCS: 83036; 90471; 90656; 99212 ==

== ENCOUNTER 2024-06-21 13:14 | Outpatient (REF) | payer OTHER, SELFPAY ==
--- NOTE | ~2024-06-21 | MM_ITS ---
EXAMINATION: MM SCREENING DIGITAL BREAST TOMOSYNTHESIS, BILATERAL CLINICAL INFORMATION: Screening. Asymptomatic. COMPARISON: Mammography: Comparison is made with available priors TECHNIQUE: Digital breast mammography with tomosynthesis is performed in both the craniocaudal and mediolateral oblique views along with computer-aided detection (CAD). FINDINGS: There are scattered areas of fibroglandular density (ACR BI-RADS breast composition Category b). There are no significant masses, abnormal calcifications, or other abnormalities. MM/MM tomosynthesis screening BI IMPRESSION: No mammographic evidence of malignancy. ASSESSMENT: BI-RADS BI-RADS 1 - Negative RECOMMENDATION: Routine annual mammography screening. 1 year F/U This examination should not preclude the clinical evaluation of a suspicious palpable abnormality. This patient's information was entered into a reminder system with a target due date for their next mammogram. Electronically signed by: Katia Everett DO 06/30/2024 09:58 AM [facility]
== END 2024-06-21 13:15 | disposition home or self-care (01) ==
LOC: HO.MAMMO 13:14
PROVIDERS: PCP Physician Assistant; Visit Provider Physician Assistant
DX: Z12.31 Encounter for screening mammogram for malignant neoplasm of breast (principal)
CPT/HCPCS: 77063; 77067

== ENCOUNTER → 2024-06-21 13:30 | Outpatient (BNV) | payer OTHER, SELFPAY | PROVIDERS: PCP Physician Assistant; Visit Provider Internal Medicine | DX: Z12.31 Encounter for screening mammogram for malignant neoplasm of breast (principal) | CPT/HCPCS: 77063; 77067 ==

== ENCOUNTER 2024-07-03 09:24 | Outpatient (REF) | payer OTHER, SELFPAY ==
[2024-07-03 10:03] LABS: Hematocrit 37.4 % (37.0-47.0); Hemoglobin 12.4 g/dl (12.0-16.0); Mean Corpuscular HGB Conc 33.2 g/dl (31.0-35.0); Mean Corpuscular Hemoglobin 30.8 pg (27.0-33.0); Mean Corpuscular Volume 92.8 fL (80.0-98.0); Mean Platelet Volume 9.6 fL (9.4-12.3); Platelet Count 280 X10*3/uL (160-400); Red Blood Count 4.03 X10*6/uL (4.20-5.50); Red Cell Distribution Width 12.7 % (11.0-16.0); White Blood Count 6.8 X10*3/uL (4.8-10.8)
[2024-07-03 10:36] LABS: Alanine Aminotransferase 26 U/L (0-31); Albumin Level 4.7 g/dL (3.5-5.0); Alkaline Phosphatase 76 U/L (39-117); Anion Gap 10 (12-20); Aspartate Amino Transferase 29 U/L (5-31); Bilirubin Total 0.4 mg/dL (0.0-1.0); Blood Urea Nitrogen 14 mg/dL (9-16); Calcium 9.8 mg/dL (8.4-10.2); Carbon Dioxide 27 mmol/L (22-29); Chloride 108 mmol/L (96-108); Cholesterol 214 mg/dL (<200); Estimated Glomerular Filt Rate > 60; Glucose Fasting 148 mg/dL (60-99); HDL Cholesterol 58 mg/dL (>40); Iron 76 mcg/dL (30-160); LDL Cholesterol Calculated 129 mg/dL (<100); Potassium 4.3 mmol/L (3.3-5.1); Sodium 141 mmol/L (135-145); Total Protein 7.9 g/dL (6.5-8.0); Triglycerides 138 mg/dL (<150)
[2024-07-03 10:52] LABS: Percent Iron Saturation 28 % (15-50); Total Iron Binding Capacity 274 mcg/dL (228-428); Unsaturated Iron Binding 198 ug/dL
[2024-07-03 10:57] LABS: Vitamin D 25-OH Total 40.4 ng/mL (>30)
[2024-07-03 10:58] LABS: Creatinine Urine 203.13 mg/dL; Microalbum/Creatinine Ratio Ur 13.7 ug/mg cr (<30)
[2024-07-03 11:05] LABS: Vitamin B12 > 2000 pg/mL (200-900)
== END 2024-07-03 09:25 | disposition home or self-care (01) ==
LOC: HO.LAB 09:24
PROVIDERS: PCP Physician Assistant; Visit Provider Physician Assistant
DX: I10 Essential (primary) hypertension (principal); E78.00 Pure hypercholesterolemia, unspecified; D50.9 Iron deficiency anemia, unspecified; D64.9 Anemia, unspecified; E53.8 Deficiency of other specified B group vitamins; E11.65 Type 2 diabetes mellitus with hyperglycemia
CPT/HCPCS: 36415; 80053; 80061; 82043; 82306; 82570; 82607; 82746; 83540; 85027

== ENCOUNTER 2024-07-09 13:32 | Outpatient (AMB) | payer OTHER, SELFPAY ==
--- NOTE | 2024-07-09 13:39 | MHC.PC.OV ---
Vital Signs 07/09/24 13:40 Height 5 ft 4 in Weight 137 lb 2 oz BMI 23.5 BP 110/70 Blood Pressure Location Lt brachial Position Sitting Pulse 85 Pulse Source Pulse Oximeter Temp 97.1 F Temp Source Skin Pulse Oximetry (%) 99 Oxygen Delivery Method Room Air Intake Visit Reasons: Follow-up type 2 diabetes Intake Note: Patient is here to follow up on DM. Analytical Data Miner Required: No Drafter Assistant: Not Required per policy Accompanied by: Self / Same As Patient Allergies sulfadimethoxine Adverse Reaction (Intermediate, Verified 07/09/24 14:00) Rash tizanidine Adverse Reaction (Intermediate, Verified 07/09/24 14:00) Headache Medication List - Last Reconciled 07/09/24 by Justin Cameron PA-C albuterol sulfate 90 mcg/actuation (Ventolin HFA) 2 puffs inhalation Q4-6H PRN amlodipine 10 mg PO DAILY atorvastatin 10 mg PO DAILY 90 days azelastine 1 spray intranasal BID betamethasone valerate 0.1% 1 appl topical BID PRN 30 days blood sugar diagnostic (FreeStyle Lite Strips) CHECK THE BLOOD SUGAR ONCE A DAY cetirizine 10 mg PO DAILY 90 days cholecalciferol (vitamin D3) 25 mcg PO DAILY 90 days cromolyn 4% 1 drp ophthalmic (eye) QID 30 days cyclobenzaprine 10 mg PO BEDTIME 30 days diphenhydramine HCl (Benadryl) 25 mg PO BEDTIME 14 days docusate sodium (Colace Clear) 50 mg PO BID dulaglutide (Trulicity) 0.75 mg (0.5 mL) subcut QWEEK 4 weeks ferrous sulfate 325 mg PO DAILY fluocinonide 0.05% mL topical fluticasone propionate 50 mcg/actuation (Flonase Allergy Relief) 1 spray intranasal DAILY lancets (FreeStyle Lancets) As directed check the sugar once a day lidocaine 5% (Lidoderm) 1 patch topical DAILY lisinopril 20 mg PO DAILY metformin 1,000 mg (2 x 500 mg) PO BID 90 days metformin ER 1,000 mg (2 x 500 mg) PO BID naproxen 500 mg PO Q8-12H PRN omeprazole 20 mg PO DAILY pen needle, diabetic (BD Yuliet 2nd Gen Pen Needle) As directed polyethylene glycol 3350 (Miralax) 17 grams PO DAILY PRN 30 days pyridoxine (vitamin B6) 50 mg PO DAILY 90 days ropinirole 0.5 mg PO BEDTIME triamcinolone acetonide 0.1% 1 appl topical DAILY 30 days Tobacco use date assessed: 07/09/24 Dental Screening Dental Screen Date: 07/09/24 Did you have a dental visit in the last 12 months?: No Did you have a dental problem in the last 6 months where you did not have access to dental care?: No Was dental information given to patient?: No HPI Follow-up type 2 diabetes HPI Details Patient is a 58-year-old female here today for a follow-up visit.? Patient has a past medical history significant for type 2 diabetes, hypertension, generalized anxiety disorder.. . .. Type 2 diabetes:? Today's A1c up at 8.4 from 7.6. . She continues on Trulicity and metformin . We have changed her metformin to an extended release formulation. No reports of hypoglycemic events. .. Hyperlipidemia: Most recent fasting lipid panel showing borderline high cholesterol and LDL above goal 100. She has not been taking atorvastatin as she feels she can modify her diet. Will restart atorvastatin 10 mg . Anemia: Has improved with the addition of iron supplementation. Us also been eating beets every morning. Laboratory Tests 11/14/23 12/19/23 12/28/23 21:35 21:57 14:50 RBC 3.40 L Hgb 10.9 L 10.9 L Fasting Glucose Hgb A1c (Clinic) 7.9 H Cholesterol LDL Cholesterol, C alc Vitamin B12 25-OH Vitamin D To denisha Urine Microalbumin 04/04/24 07/03/24 07/03/24 14:25 09:48 09:51 RBC 4.03 L Hgb 12.4 Fasting Glucose 148 H Hgb A1c (Clinic) 7.6 H Cholesterol 214 H LDL Cholesterol, C alc 129 H Vitamin B12 > 2000 H 25-OH Vitamin D To denisha 40.4 Urine Microalbumin 28.0 07/09/24 13:38 RBC Hgb Fasting Glucose Hgb A1c (Clinic) 8.4 H Cholesterol LDL Cholesterol, C alc Vitamin B12 25-OH Vitamin D To denisha Urine Microalbumin PFSH Medical History Lumbar radicular pain Renal cysts, acquired, bilateral Renal calculi Renal calculi Renal calculus, bilateral Hyperhidrosis Asthma Dysplasia of cervix, low grade (BILLY 1) Hypercholesterolemia Hypertension Type 2 diabetes mellitus with hyperglycemia Migraine Surgical History History of right oophorectomy Hx of cholecystectomy Hx of appendectomy History of hemorrhoidectomy Family History Father Substance abuse Brother Substance abuse Schizophrenia Other Mental and behavioral problem Social History Housing: Apartment Alcohol intake: never Comment: ok with current level of relief-pyridium given Patient Tobacco Use Status: Never used Tobacco Tobacco use type: Cigarette e-Cigarette/Vaping Use: Never Used Second Hand Smoke Exposure: No service: No Current occupational status: unemployed Cognitive needs: No Hearing needs: No Vision needs: No Questionnaire PHQ-9 Over the last 2 weeks, how often have you been bothered by any of the following problems? 1. Little interest or pleasure in doing things: not at all 2. Feeling down, depressed, or hopeless: several days 3. Trouble falling or staying asleep, or sleeping too much: more than half the days 4. Feeling tired or having little energy: several days 5. Poor appetite or overeating: several days 6. Feeling bad about yourself - or that you are a failure or have let yourself or your family down: several days 7. Trouble concentrating on things, such as reading the newspaper or watching television: more than half the days 8. Moving or speaking so slowly that other people could have noticed. Or the opposite - being so fidgety or restless that you have been moving around a lot more than usual: several days 9. Thoughts that you would be better off or of hurting yourself in some way: not at all Total score: 9 Depression Screening Interpretation: Positive Depression Screening Follow-up: Existing condition Depression Screening Done: Yes 16507 - PHQ-9 Billing: Yes Source: Developed by Drs. Duane Foreman, Lilli Ospina, Jeff Bravo and colleagues, with an educational rashawn from [employer]. Thrive Questionnaire Date Thrive assessed: 07/09/24 I am a: Patient What is your living situation today?: I have a steady place to live Within the past 12 months, did the food you bought not last and you didn't have the money to get more?: Never true Within the past 12 months, did you worry whether your food would run out before you got money to buy more?: Never true Do you have trouble paying for medicines?: No Do you have trouble getting transportation to medical appointments?: No Do you have trouble paying your heating and electricity bill?: No Do you have trouble taking care of your child, family member or friend?: No Do you have trouble with day-to-day activities such as bathing, preparing meals, shopping, managing finances, etc.?: No Are you currently unemployed and looking for a job?: No Are you interested in more education?: No Please select the resources that you would like help with: None Currently or been in a relationship where the following occur: No concerns reported THRIVE Score: 0 AUDIT C Alcohol Use Questionnaire (AUDIT-C) 1. How often do you have a drink containing alcohol?: Never Total Score: 0 JASON-7 AMB Questionnaire JASON-7 Date JASON - 7 assessed: 07/09/24 Feeling nervous, anxious, or on edge: 3 = Nearly every day Not being able to stop or control worryin = More than half the days Worrying too much about different things: 2 = More than half the days Trouble relaxin = More than half the days Being so restless that it is hard to sit still: 1 = Several days Becoming easily annoyed or irritable: 1 = Several days Feeling afraid as if something awful might happen: 3 = Nearly every day Total JASON-7 score (0-4 normal; 5-9 mild; 10-14 moderate; 15-21 severe): 14 Source: Developed by Drs. Duane Foreman, Lilli Ospina, Jeff Bravo and colleagues, with an educational rashawn from [employer]. JASON-7 Assessment Billing JASON-7 Assessment Tool: JASON-7 Assessment 54929 Review of Systems Const Denies headache(s) Eyes Denies loss of vision ENT Denies vertigo, Denies dizziness, Denies headache(s) and Denies sore throat Card Denies chest pain, Denies leg edema and Denies lightheadedness Resp Denies cough, Denies hemoptysis and Denies wheezing GI Denies abdominal pain, Denies melena, Denies constipation, Denies diarrhea and Denies vomiting Denies urinary frequency, Denies dysuria and Denies urinary urgency Musc Denies arthralgias, Denies joint swelling, Denies numbness and Denies tingling Neuro Denies Abnormal speech present, Denies behavioral changes, Denies vertigo, Denies dizziness, Denies headache(s), Denies loss of vision, Denies memory loss, Denies numbness and Denies tingling Psych Denies anxiety, Denies behavioral changes, Denies depression, Denies memory loss and Denies panic attacks Hollis/Lymph Denies easy bleeding and Denies easy bruising Aller/Immun Denies wheezing Physical exam (Primary Care) Vital Signs: Last Vital Signs Temp 97.1 F 07/09/24 13:40 Pulse 85 07/09/24 13:40 BP 110/70 07/09/24 13:40 Pulse Ox 99 07/09/24 13:40 Oxygen Delivery Method Room Air 07/09/24 13:40 BMI result Body Mass Index 23.5 Tobacco/Smoking Status: Tobacco use Status Tobacco use date assessed 07/09/24 07/09/24 13:50 Patient Tobacco Use Status Never used Tobacco 07/09/24 13:50 Tobacco use type Cigarette 07/09/24 13:50 e-Cigarette/Vaping Use Never Used 07/09/24 13:50 PHQ-9: PHQ-9 Score PHQ-9: Total score 9 07/09/24 13:50 Depression Screening Interpretation: Positive Depression Screening Follow-up: Existing condition Thrive Assessment: Date of Thrive Assessment Date Thrive assessed 07/09/24 07/09/24 13:50 Currently or been in a relationship where the following occur: No concerns reported Const General: healthy appearing, no acute distress, alert and awake Nutritional Appearance: well nourished Orientation/consciousness: oriented to person, oriented to place and oriented to time HENMT Ears: TM's normal bilaterally General nose exam: Normal nasal mucous membranes and turbinates present Eyes Conjunctivae: conjunctivae normal Sclerae: sclerae normal Pupils: Equal, round and reactive pupils present Neck Neck: Yes no lymphadenopathy and Yes no JVD Thyroid: Thyroid normal Carotids: no bruits Resp Effort & Inspection: normal respiratory effort and not tachypneic Auscultation: no crackles, no rales, no rhonchi and no wheezes Cardio Rate: regular rate Rhythm: regular rhythm Heart sounds: no murmurs and normal S1 and S2 GI Palpation (GI): Soft to palpation, nontender, no hepatomegaly and no splenomegaly Auscultation: normal bowel sounds Skin General skin exam: no rashes or lesions noted and dry skin Neuro General: oriented to person, oriented to place and oriented to time Cranial nerves: Yes Equal, round and reactive pupils present Speech: No Abnormal speech present Gait exam (Neuro): Normal gait present Motor exam (neuro): no tremor noted Extrem Right upper extremity: full ROM Left upper extremity: full ROM Right lower extremity: full ROM; no edema Left lower extremity: full ROM; no edema Psych Mental Status: mental status grossly normal Speech and movement: Normal speech and movement present Affect: normal affect Attitude: cooperative Thought process: Normal thought process present Results AMB Hemoglobin A1c AMB Hemoglobin A1c 8.4 % Last Edit by VERN Hensley on 07/09/24 13:52 Results Reviewed Results Reviewed: Laboratory Last Values Hgb A1c (Clinic) 8.4 % (4.0-6.0) H 07/09/24 13:38 Coding Level of Care Code Est Pt Level 4 (00162) Diagnoses Type 2 diabetes mellitus with hyperglycemia, without long-term current use of insulin E11.65 Diabetes mellitus half-way insulin use: without salvage determiner use Essential hypertension I10 Hypertension type: essential hypertension Anemia in other chronic diseases classified elsewhere D63.8 Anemia type: other cause Other causes of anemia: chronic disease, other MDD (major depressive disorder), recurrent episode, moderate F33.1 Hypercholesterolemia E78.00 Additional Codes PHQ-9 - 15486 - PHQ-9 Billing: Yes ([id number]) JASON-7 Assessment Billing - JASON-7 Assessment Tool: JASON-7 Assessment 67394 ([id number]) Assessment & Plan Assessment & Plan (1) Type 2 diabetes mellitus with hyperglycemia: Code(s): E11.65 - Type 2 diabetes mellitus with hyperglycemia Category: Medical Qualifiers: Diabetes mellitus salvage determiner insulin use: without half-way use Qualified Code(s): E11.65 - Type 2 diabetes mellitus with hyperglycemia Plan: Patient's type 2 diabetes suboptimally controlled with A1c today at 8.4 from 7.6.. Continues on Trulicity weekly and metformin a 1000 b.i.d.. She reports adverse side effects from metformin. She is interested in returning back to insulin therapy which she was on several years ago. Will return back to using Lantus 8 units daily for better glycemic control. Goal A1c is to be below 7.0 (2) Hypertension: Code(s): I10 - Essential (primary) hypertension Category: Medical Qualifiers: Hypertension type: essential hypertension Qualified Code(s): I10 - Essential (primary) hypertension Plan: Patient's blood pressure acceptable today in office. She will continue her current dose of antihypertensive medication with goal blood to 40/90 (3) Anemia: Code(s): D64.9 - Anemia, unspecified Category: Medical Qualifiers: Anemia type: other cause Other causes of anemia: chronic disease, other Qualified Code(s): D63.8 - Anemia in other chronic diseases classified elsewhere Plan: Anemia has improved significantly since starting iron supplementation. Will continue iron supplementation daily. (4) MDD (major depressive disorder), recurrent episode, moderate: Code(s): F33.1 - Major depressive disorder, recurrent, moderate Category: Medical Plan: Patient's depression well controlled (5) Hypercholesterolemia: Code(s): E78.00 - Pure hypercholesterolemia, unspecified Category: Medical Plan: Patient's most recent lipid panel showing slightly elevated total cholesterol and LDL above goal of 100. She will work on dietary modification She will restart atorvastatin mg.. Will recheck lipid panel and if still LDL above goal of 100 will increase atorvastatin to 20 mg. Orders: Orders Complete Blood Count no Diff Today E11.65 - Type 2 diabetes mellitus with hyperglycemia Lipid Panel Today E78.00 - Pure hypercholesterolemia, unspecified AMB Hemoglobin A1c Today E11.65 - Type 2 diabetes mellitus with hyperglycemia Comprehensive [place]. Panel Fast Today E11.65 - Type 2 diabetes mellitus with hyperglycemia Hemoglobin A1c Today E11.65 - Type 2 diabetes mellitus with hyperglycemia Medications: New insulin glargine (Lantus Solostar U-100 Insulin) 8 units (0.08 mL) subcut QPM 30 days 15 mL 1RF E11.65 - Type 2 diabetes mellitus with hyperglycemia Refilled cyclobenzaprine 10 mg PO BEDTIME 30 days 30 tabs 2RF D64.9 - Anemia, unspecified, M62.838 - Other muscle spasm pen needle, diabetic (BD Yuliet 2nd Gen Pen Needle) As directed 100 ea 3RF E11.65 - Type 2 diabetes mellitus with hyperglycemia atorvastatin 10 mg PO DAILY 90 days 90 tabs 1RF E78.00 - Pure hypercholesterolemia, unspecified Discontinued naproxen Discontinued Reason: Doctor's Order 500 mg PO Q8-12H PRN 14 tabs 0RF pain (scale score 4-6) metformin Discontinued Reason: Doctor's Order 1,000 mg (2 x 500 mg) PO BID 90 days 360 tabs 2RF E11.65 - Type 2 diabetes mellitus with hyperglycemia Patient Instructions: Goal: A1c to be below 7.0, LDL to be below 100 Barriers: Adherence to physical activity and healthy eating habits
[2024-07-09 13:40] VITALS: BP 110/70; PULSE 85; TEMP 36.2; O2SAT 99; BMI 23.5
--- OUTSIDE RECORDS SUMMARY | 2024-07-09 15:19 | XMS_ITS | Encounter Summary ---
Author Organization [employer] Address [address] [place] [address] Care Team Providers Care Cardiovascular Surgical Tech Name Role Phone Unavailable Primary Care Provider Unavailabl e Encounter Details Date Type Department Care Team (Latest Contact Info) Description 10/17/2018 Abstract [facility] CONVERSIONS Dental, Provider, DDS Social History Tobacco Use Types Packs/Day Years Used Date Smoking Tobacco: Never Assessed Comments Unknown Sex and Gender Information Value Date Recorded Sex Assigned at Female 04/18/2022 10:14 AM EDT Legal Sex Female 10:14 AM EDT Gender Identity Female 04/18/2022 10:14 AM EDT Sexual Orientation Straight 04/18/2022 10 :14 AM EDT documented as of this encounter Plan of Treatment Not on file documented as of this encounter Visit Diagnoses Not on filedocumented in this encounter
--- OUTSIDE RECORDS SUMMARY | 2024-07-09 15:19 | XMS_ITS | Clinical Summary ---
Author Organization [employer] Address [address] [place] [address] [address] [place] [address] Care Team Providers Care Pi/Senior Research Associate Name Role Phone Unavailable Primary Care Provider Unavailabl e Social History Tobacco Use Types Packs/Day Years Used Date Smoking Tobacco: Never Assessed Comments Unknown Sex and Gender Information Value Date Recorded Sex Assigned at Female 04/18/2022 10:14 AM EDT Legal Sex Female 10:14 AM EDT Gender Identity Female 04/18/2022 10:14 AM EDT Sexual Orientation Straight 04/18/2022 10 :14 AM EDT Last Filed Vital Signs Vital Sign Reading Time Taken Comments Blood Pressure 138/80 10/09/2020 12:04 AM EDT Pulse 104 10/09/2020 12:04 AM EDT Temperature - - Respiratory Rate - - Oxygen Saturation - - Inhaled Oxygen Concentration - - Weight 62.2 kg (137 lb 3.2 oz) 10/09/2020 12:04 AM EDT Height 165.1 cm (5' 5 ) 10/09/2020 12:04 AM EDT Body Mass Index 22.83 10/09/2020 12:04 AM EDT Plan of Treatment Health Maintenance Due Date Last Done Comments CT Colonography 1967 Colonoscopy 1967 Colorectal Cancer Screening 1967 Depression Screening 1967 FIT DNA/Cologuard 1967 FIT 1967 FOBT 1967 Sigmoidoscopy 1967 Alcohol/Substance Use Screening 1979 Tobacco Screening 1979 HPV/Cotest 1997 Mammogram 04/25/2021 04/25/2019, 03/30/2018 Cervical Cancer Screening 05/11/2023 Pap Smear 05/11/2023 05/11/2020 DTaP/Tdap/Td Vaccines (2 - Td or Tdap) 11/29/2023 11/28/2013, 07/26/2006 COVID-19 Vaccine ( season) 2024 05/07/2021, 11/06/2020, 10/07/2020 Influenza Vaccine (#1) 2024 9, 06/21/2018, 02/24/2017, Additional history exists RSV Patients and Patients Aged 60 years or older (1 - 1-dose 75+ series) 2042 Pneumococcal Vaccine: Pediatrics (0 to 5 Years) and At-Risk Patients (6 to 64 Years) Aged Out 01/21/2016 No longer eligible based on patient's age to complete this topic Hepatitis B Vaccines Completed 02/21/2017, 01/21/2016, 11/28/2013 Zoster Vaccines Completed 04/17/2019, 02/04/2019 HIB Vaccines Aged Out No longer eligi ble based on patient's age to complete this topic HPV Vaccines Aged Out No longer eligi ble based on patient's age to complete this topic Hepatitis A Vaccines Aged Out No long er eligible based on patient's age to complete this topic IPV Vaccines Aged Out No longer eligi ble based on patient's age to complete this topic Meningococcal Vaccine Aged Out No bharati suni eligible based on patient's age to complete this topic RSV under 20 months Aged Out No longe r eligible based on patient's age to complete this topic Rotavirus Vaccines Aged Out No longer eligible based on patient's age to complete this topic Procedures Procedure Name Priority Date/Time Associated Diagnosis Comments THINPREP PAP Routine 05/11/2020 12:00 AM EST BI MAMMOGRAM SCREENING BILATERAL Routine 04/25/2019 2:47 PM EST from Last 3 Months or Most Recently Relevant to Health Maintenance Results * THINPREP PAP (05/11/2020 12:00 AM EST) Clinical Information: [facility] Comment:None given COMMENT [facility] Comment: EXPLANATORY NOTE: ? The Pap is a screening test for cervical cancer. It is ?? not a diagnostic test and is subject to false negative ?? and false positive results. It is most reliable when a ?? satisfactory sample, regularly obtained, is submitted ?? with relevant clinical findings and history, and when ?? the Pap result is evaluated along with historic and ?? current clinical information. ?? COMMENT: [facility] Comment: Microscopic features suggestive of lubricant. Lubricant jellies may interfere with slide preparation; their use is not recommended. Septic Tank Service Technician: [facility] Comment: ED, CT(ASCP) CT screening location: ?? [facility] ?? [address] [place] [address] ?? [place], [place] [address] Interpretation/Res ult: [facility] Comment: Unable to provide interpretation due to unsatisfactory specimen adequacy. LMP: [facility] Comment:NONE GIVEN Prev. BX: NONE GIVEN [facility] Prev. PAP: [facility] Comment:NONE GIVEN Review Septic Tank Service Technician: [facility] Comment: [place], CT(ASCP) CT screening location: [address] ??[address] SOURCE: [facility] Comment:None given Statement Of Adequacy: [facility] Comment: Specimen processed and examined, but unsatisfactory for evaluation due to an insufficient number of squamous cells. 05/11/2020 Baljeet Islas MD LAB PATHOLOGY ORDERABLES Final R [facility] [address] [place] [address], * 3D DIGITAL CHANDNI SCR MAMMO 1 (04/25/2019 2:47 PM EST) Anatomical Region Laterality Modality Breast Bilateral Mammography 04/25/2019 2:47 PM EST Narrative 04/25/2019 2:48 PM EST Refer to the Notes tab for result details [facility] Procedure: 3D DIGITAL CHANDNI SCR MAMMO 1 Procedure Note ProviderKee MD - 09/10/2022 Refer to the Notes tab for result details [facility] Procedure: 3D DIGITAL CHANDNI SCR MAMMO 1 Nela Gray NP IMG BI PROCEDURES Final Result from Last 3 Months or Most Recently Relevant to Health Maintenance
== END 2024-07-09 14:24 | disposition home or self-care (01) ==
PROVIDERS: PCP Physician Assistant; Visit Provider Physician Assistant
DX: E11.65 Type 2 diabetes mellitus with hyperglycemia (principal); I10 Essential (primary) hypertension; D63.8 Anemia in other chronic diseases classified elsewhere; F33.1 Major depressive disorder, recurrent, moderate; E78.00 Pure hypercholesterolemia, unspecified

== ENCOUNTER → 2024-07-09 13:32 | Outpatient (BNVA) | payer OTHER, SELFPAY | PROVIDERS: PCP Physician Assistant; Visit Provider Physician Assistant | DX: E11.65 Type 2 diabetes mellitus with hyperglycemia (principal); I10 Essential (primary) hypertension; D63.8 Anemia in other chronic diseases classified elsewhere; F33.1 Major depressive disorder, recurrent, moderate; E78.00 Pure hypercholesterolemia, unspecified | CPT/HCPCS: 83036; 96127; 99212 ==

== ENCOUNTER 2024-07-19 13:11 | Outpatient (REF) | payer OTHER, SELFPAY ==
--- OUTSIDE RECORDS SUMMARY | 2024-07-19 13:27 | XMS_ITS | Clinical Summary ---
Author Organization [email or web address] Address [address] [place] [address] [address] [place] [address] Care Team Providers Care Optician Apprentice Name Role Phone Unavailable Primary Care Provider [...] Screening 1979 Tobacco Screening 1979 HPV/Cotest 1997 Pneumococcal Vaccine: 50+ Years (2 of 2 - PCV) 2017 01/21/2016 Mammogram 04/25/2021 04/25/2019, 03/30/2018 Cervical Cancer Screening 05/11/2023 Pap Smear 05/11/2023 05/11/2020 DTaP/Tdap/Td Vaccines (2 - Td or Tdap) 11/29/2023 11/28/2013, 07/26/2006 COVID-19 Vaccine (4 - season) 2024 05/07/2021, 11/06/2020, 10/07/2020 Influenza Vaccine (#1) 2024 9, 06/21/2018, 02/24/2017, Additional history exists RSV Patients and Patients Aged 60 years or older (1 - 1-dose 75+ series) 2042 Pneumococcal Vaccine: Pediatrics (0 to 5 Years) and At-Risk Patients (6 to 49) Years) Aged Out 01/21/2016 No longer eligible [...] slide preparation; their use is not recommended. Product Assurance Engineer: SEE COMMENT [facility] Comment: ED, CT(ASCP) CT screening location: ?? [facility] ?? [address] [place] [address] ?? [place], [place] [address] Interpretation/Res ult: SEE COMMENT [facility] Comment: Unable to provide interpretation due to unsatisfactory specimen adequacy. LMP: SEE COMMENT [facility] Comment:NONE GIVEN Prev. BX: NONE GIVEN [facility] Prev. PAP: SEE COMMENT [facility] Comment:NONE GIVEN Review Product Assurance Engineer: SEE COMMENT [facility] Comment: [place], CT(ASCP) CT screening location: [address] ??[id number] SOURCE: SEE COMMENT [facility] Comment:None given Statement Of Adequacy: SEE COMMENT [facility] Comment: Specimen processed and examined, but unsatisfactory for evaluation due to an insufficient number of squamous cells. 05/11/2020 Baljeet Islas MD LAB PATHOLOGY ORDERABLES Final R esult [facility] [address] [place] [address], * 3D DIGITAL CHANDNI SCR MAMMO 1 (04/25/2019 2:47 PM EST) Anatomical Region Laterality Modality Breast Bilateral Mammography 04/25/2019 2:47 PM EST Narrative 04/25/2019 2:48 PM EST Refer to the Notes tab for result details [facility] Procedure: 3D DIGITAL CHANDNI SCR MAMMO 1 Procedure Note Provider, MD Kee - 09/10/2022 Refer to the Notes tab for result details Legacy Procedure: 3D DIGITAL CHANDNI SCR MAMMO 1 us Nela Gray NP IMG BI PROCEDURES Final Result from Last 3 Months or Most Recently Relevant to Health Maintenance
--- OUTSIDE RECORDS SUMMARY | 2024-07-19 13:27 | XMS_ITS | Encounter Summary ---
Author Organization [employer] Address [address] [facility] [address]t [place] [address] Care Team Providers Care Jar Capper Name Role Phone Unavailable Primary Care Provider Unavailabl e Encounter Details Date Type Department Care Team (Latest Contact Info) Description 10/17/2018 Abstract [facility] CONVERSIONS Dental, Provider, DDS Social History Tobacco [...]
== END 2024-07-19 13:12 | disposition home or self-care (01) ==
LOC: HO.US 13:11
PROVIDERS: PCP Physician Assistant; Visit Provider Nurse Practitioner Family
DX: N20.0 Calculus of kidney (principal)
CPT/HCPCS: 76775

== ENCOUNTER → 2024-07-19 13:13 | Outpatient (BNV) | payer OTHER, SELFPAY | PROVIDERS: PCP Physician Assistant; Visit Provider Specialist | DX: N20.0 Calculus of kidney (principal) | CPT/HCPCS: 76775 ==

== ENCOUNTER 2024-07-29 16:01 | Outpatient (AMB) | payer OTHER, SELFPAY ==
--- NOTE | 2024-07-29 16:01 | MHC.OFFVIS ---
Intake Visit Reasons: 6m/US(set) Intake Note: Patient presents today for tele visit follow up on: kidney stone, renal cyst, and ultrasound results Imagin07/19/24 Urology Medications: Vitamin B6 Blood Thinner: none Recording Clerk Required: Yes Accompanied by: Self / Same As Patient Allergies sulfadimethoxine Adverse Reaction (Intermediate, Verified 07/29/24 16:27) Rash tizanidine Adverse Reaction (Intermediate, Verified 07/29/24 16:27) Headache Medication List - Last Reconciled 07/29/24 by MARY Fong- albuterol sulfate 90 mcg/actuation (Ventolin HFA) 2 puffs inhalation Q4-6H PRN amlodipine 10 mg PO DAILY atorvastatin 10 mg PO DAILY 90 days azelastine 1 spray intranasal BID betamethasone valerate 0.1% 1 appl topical BID PRN 30 days blood sugar diagnostic (FreeStyle Lite Strips) CHECK THE BLOOD SUGAR ONCE A DAY cetirizine 10 mg PO DAILY 90 days cholecalciferol (vitamin D3) 25 mcg PO DAILY 90 days cromolyn 4% 1 drp ophthalmic (eye) QID 30 days cyclobenzaprine 10 mg PO BEDTIME 30 days dulaglutide (Trulicity) 0.75 mg (0.5 mL) subcut QWEEK 4 weeks ferrous sulfate 325 mg PO DAILY fluocinonide 0.05% mL topical fluticasone propionate 50 mcg/actuation (Flonase Allergy Relief) 1 spray intranasal DAILY insulin glargine (Lantus Solostar U-100 Insulin) 8 units (0.08 mL) subcut QPM 30 days lancets (FreeStyle Lancets) As directed check the sugar once a day lisinopril 20 mg PO DAILY pen needle, diabetic (BD Yuliet 2nd Gen Pen Needle) As directed pyridoxine (vitamin B6) 50 mg PO DAILY 90 days ropinirole 0.5 mg PO BEDTIME triamcinolone acetonide 0.1% 1 appl topical DAILY 30 days HPI Comments Details: Oh is a pleasant 58 year old female patient of Dr. Cameron. She has a past medical history of asthma, dysplasia of cervix (low grade), hypercholesteremia, hypertension, lumbar radicular pain, migraine, renal calculi, renal cysts, and type 2 diabetes. She is being followed up on today via video telehealth for her nephrolithiasis and renal cysts. Recent renal imaging results reviewed with the patient today. 07/13 bilateral kidneys are normal in size and echotexture. There are bilateral renal cortical thin wall possible Bosniak 1 cysts, largest on the left side measuring 2.9 cm. Minimal collecting system dilatation of bilateral kidneys. Normal color Doppler. Mild bilateral hydronephrosis. She denies having had any bothersome urinary issues or concerns since her last office visit. She denies urinary urgency, urinary frequency, incontinence, nocturia, hematuria, dysuria, foul smelling urine, changes to urinary stream, flank pain, fever, and or chills. She is happy with her current voiding parameters. She discusses her worry for her daughter who is currently hospitalized at [facility] for ongoing respiratory issue she continues to experience. She otherwise offers no issues or concerns at this time. BUN: 11/08 14, 04/10 12, 07/12 11, 11/09 15, 16, 07/13 14 Creatinine: 11/08 0.80, 04/10 0.83, 07/12 0.80, 11/09 0.84, 01/09 0.91, 07/13 0.88 [facility] Medical History (Updated 07/29/24 @ 21:26 by Sanjuana Damon [facility]) Lumbar radicular pain Renal cysts, acquired, bilateral Renal calculi Renal calculus, bilateral Hyperhidrosis Asthma Dysplasia of cervix, low grade (BILLY 1) Hypercholesterolemia Hypertension Type 2 diabetes mellitus with hyperglycemia Migraine Surgical History History of right oophorectomy Hx of cholecystectomy Hx of appendectomy History of hemorrhoidectomy Family History Father Substance abuse Brother Substance abuse Schizophrenia Other Mental and behavioral problem Social History Housing: Apartment Alcohol intake: never Comment: ok with current level of relief-pyridium given Patient Tobacco Use Status: Never used Tobacco Tobacco use type: Cigarette e-Cigarette/Vaping Use: Never Used Second Hand Smoke Exposure: No service: No Current occupational status: unemployed Cognitive needs: No Hearing needs: No Vision needs: No Review of Systems Const All systems reviewed & are unremarkable except as noted in HPI and below Reports as per HPI Eyes Reports no additional complaints ENT Reports no additional complaints Card Reports as per [facility] Resp Reports as per HPI GI Reports no additional complaints Reports as per [facility] Musc Reports as per HPI Neuro Reports no additional complaints Psych Reports no additional complaints Endo Reports as per HPI Hollis/Lymph Reports no additional complaints Aller/Immun Reports no additional complaints Physical Exam Const General: cooperative, healthy appearing, comfortable, no acute distress, well developed, alert and awake Orientation/consciousness: patient oriented x3 Resp Effort & Inspection: normal respiratory effort and able to speak in complete sentences Neuro General: patient oriented x3 Psych Appearance: grossly normal and well kempt Mental Status: mental status grossly normal Speech and movement: Clear speech present Affect: normal affect Attitude: cooperative Thought process: Normal thought process present Thought content: Normal thought content present Insight: Fair insight present (Psych) Judgement: Fair judgement present (Psych) Telehealth Telehealth Telehealth Platform: [employer] Location of provider rendering services: practice address Location of patient: address on file Patient Identification confirmed using: Name, : Yes Telehealth method: video Patient verbally consented to treatment: Yes Patient verbally consented to billing insurance company: Yes Patient informed of any privacy concerns related to visit: Yes Minutes spent on Phone/Video with Pt.: 15 Results Reviewed Results Reviewed: Date of Service: 07/19/24 US Renal Comparison: None Findings: Right kidney normal size and echotexture, 9.7 cm length. Left kidney normal size and echotexture, 12.0 cm length. There are bilateral renal cortical thin-walled possible Bosniak 1 cysts, largest is on the left measuring 2.9 x 1.3 x 4 cm. Minimal collecting system dilatation of bilateral kidney. Normal color Doppler. IMPRESSION: 1. Minimal bilateral hydronephrosis Assessment & Plan Assessment & Plan (1) Renal cyst: Code(s): N28.1 - Cyst of kidney, acquired Category: Medical (2) Renal calculi: Code(s): N20.0 - Calculus of kidney Category: Medical Plan Recent renal imaging results with the patient today; as noted above. BUN and creatinine results reviewed with the patient today. She currently denies any bothersome urinary issues or concerns. She reports be happy with current voiding parameters. Will continue with surveillance monitoring. We discussed at length importance of adequate hydration relation to nephrolithiasis as well as overall health and well-being. Will obtain renal ultrasound in 6 months. Will obtain BUN and creatinine in 6 months. Follow-up in 6 months with imaging and labs; or sooner with any issues, concerns, and or questions. Orders: Orders Blood Urea Nitrogen 6 Months R39.15 - Urgency of urination Creatinine 6 Months R39.15 - Urgency of urination US renal BI 6 Months N20.0 - Calculus of kidney Patient Instructions: The patient had an opportunity to ask questions regarding the treatment plan. All questions were answered. Physical exam, labs, and imaging were discussed and reviewed in detail. As well as risks, benefits, and discussion of treatment choices. No major barriers to understanding were identified. The patient expressed understanding and agreement with the above treatment plan. The patient was made aware they should contact our office by phone for worsening of their current condition, the appearance of new symptoms, or with any questions or concerns. Compliance is encouraged with any medications and follow up testing that is ordered. It is a privilege to be allowed the opportunity to participate in? your urological care.? Again, if you have any questions or concerns If you have any questions or concerns please do not hesitate to contact me. The office is [phone]. This note is constructed using voice recognition software. While every effort has been made to ensure accuracy biomedical engineering internship errors may have been included. Yours sincerely, JACQUES Fong Coding Level of Care Code Tele Est Pt Level 3 (22622) Diagnoses Renal cyst N28.1 Renal calculi N20.0
== END 2024-07-29 16:33 | disposition home or self-care (01) ==
LOC: HO.HUSH 16:01
PROVIDERS: PCP Physician Assistant; Visit Provider Nurse Practitioner Family
DX: N28.1 Cyst of kidney, acquired (principal); N20.0 Calculus of kidney
CPT/HCPCS: 99213

== ENCOUNTER 2024-08-24 19:49 | Emergency (ER) | payer OTHER, SELFPAY ==
--- NOTE | ~2024-08-24 | XR_ITS ---
CLINICAL HISTORY: SOB 1 view chest x-ray. Comparison: CR - XR CHEST 1V - 02/02/21 14:10 EDT Findings: No consolidation, pneumothorax, or effusion. Heart size normal. Surgical clips are present over the right upper abdominal quadrant, possibly consistent with prior cholecystectomy. Impression: 1. No acute cardiopulmonary process. No focal pulmonary consolidation. This document has been electronically signed by: Arslan Churchill MD on 08/24/2024 21:06:06
--- NOTE | 2024-08-24 19:52 | ECG_ITS ---
Test Reason : CHEST PAIN Blood Pressure : */* mmHG Vent. Rate : 120 BPM Atrial Rate : 120 BPM P-R Int : 136 ms QRS Dur : 80 ms QT Int : 310 ms P-R-T Axes : 63 57 71 degrees QTcB Int : 438 ms Sinus tachycardia Otherwise normal ECG When compared with ECG of 27-Apr-2021 12:53, No significant change was found Referred By: Generic ED Physician Electronically Signed By: EVE NUGENT MD
[2024-08-24 20:00] VITALS: BP 130/77; PULSE 128; RESP 24; TEMP 38.1; O2SAT 98; BMI 22.8
[2024-08-24 20:08] LABS: MANUAL DIFF FLAG NO
[2024-08-24] MEDS: Ibuprofen 600 MG TABLET PO (20:08)
[2024-08-24 20:17] LABS: Basophils Percent Auto 0.4 % (0-2); Eosinophils Percent Auto 0.1 % (0-4); Hematocrit 33.9 % (37.0-47.0); Hemoglobin 11.7 g/dl (12.0-16.0); Imm Gran Abs Auto 0.01 X10*3/uL (0.00-0.03); Imm Gran Pct Auto 0.1 % (0.0-0.4); Lymphocytes Absolute Auto 2.1 X10*3/uL (1.2-4.9); Mean Corpuscular HGB Conc 34.5 g/dl (31.0-35.0); Mean Corpuscular Hemoglobin 30.7 pg (27.0-33.0); Neutrophils Absolute Auto 4.3 x10*3/uL (2.0-8.3); Neutrophils Percent Auto 58.4 % (45-73); Platelet Count 230 X10*3/uL (160-400); Red Blood Count 3.81 X10*6/uL (4.20-5.50); Red Cell Distribution Width 12.2 % (11.0-16.0); White Blood Count 7.3 X10*3/uL (4.8-10.8)
[2024-08-24 20:25] LABS: Alanine Aminotransferase 26 U/L (0-31); Albumin Level 4.3 g/dL (3.5-5.0); Alkaline Phosphatase 77 U/L (39-117); Anion Gap 13 (12-20); Aspartate Amino Transferase 27 U/L (5-31); Bilirubin Total 0.5 mg/dL (0.0-1.0); Blood Urea Nitrogen 10 mg/dL (9-16); Calcium 9.5 mg/dL (8.4-10.2); Carbon Dioxide 23 mmol/L (22-29); Chloride 101 mmol/L (96-108); Creatinine Clr Calc Pharmacy 55.3; Estimated Glomerular Filt Rate 59; Glucose Random 232 mg/dL (60-115); Potassium 3.8 mmol/L (3.3-5.1); Sodium 133 mmol/L (135-145); Total Protein 8.2 g/dL (6.5-8.0)
--- NOTE | 2024-08-24 20:28 | ED_ITS ---
HPI - General Adult General Chief complaint: Upper Respiratory Symptoms Stated complaint: chest pain Time Seen by Provider: 08/25/24 00:10 Source: patient Limitations: no limitations History of Present Illness ED Provider: Génesis Holguin PA-C HPI narrative: 59-year-old female with a history of anemia, depression, chronic pain, kidney stones, anxiety, diabetes, hypertension, hyperlipidemia and asthma, presents with viral syndrome. Associated generalized myalgia, fever, chills, headache, dry cough over the past 7 days. No sick contacts with similar symptoms. Denies chest pain or shortness of breath. The patient was not been wheezing. Related Data Home Medications ?Medication ?Instructions ?Recorded ?Confirmed azelastine 137 mcg (0.1 %) nasal 1 spray intranasal BID 12/21/21 07/09/24 spray fluocinonide 0.05 % topical ml topical 12/21/21 07/09/24 solution Previous Rx's ?Medication ?Instructions ?Recorded fluticasone propionate 50 1 spray intranasal DAILY #9.9 mL 03/30/22 mcg/actuation nasal spray,suspension (Flonase Allergy Relief) lancets 28 gauge (FreeStyle #100 ea 10/19/22 Lancets) cromolyn 4 % eye drops 1 drp ophthalmic (eye) QID 30 days 11/01/22 #10 mL cetirizine 10 mg tablet 10 mg PO DAILY allergy symptoms 90 07/16/23 days #90 tabs pyridoxine (vitamin B6) 50 mg 50 mg PO DAILY 90 days #90 tabs 10/23/23 tablet amlodipine 10 mg tablet 10 mg PO DAILY #90 tabs 11/26/23 cholecalciferol (vitamin D3) 25 25 mcg PO DAILY 90 days #90 caps 12/22/23 mcg (1,000 unit) capsule betamethasone valerate 0.1 % 1 appl topical BID PRN skin 12/28/23 topical ointment irritation 30 days #45 grams triamcinolone acetonide 0.1 % 1 appl topical DAILY 30 days #80 01/03/24 topical cream grams lisinopril 20 mg tablet 20 mg PO DAILY #90 tabs 02/29/24 dulaglutide 0.75 mg/0.5 mL 0.75 mg (0.5 mL) subcut QWEEK 4 03/15/24 subcutaneous pen injector weeks #2 mL (Trulicity) ropinirole 0.5 mg tablet 0.5 mg PO BEDTIME #90 tabs 04/20/24 ferrous sulfate 325 mg (65 mg 325 mg PO DAILY #90 tabs 06/30/24 iron) tablet atorvastatin 10 mg tablet 10 mg PO DAILY 90 days #90 tabs 07/09/24 cyclobenzaprine 10 mg tablet 10 mg PO BEDTIME 30 days #30 tabs 07/09/24 insulin glargine 100 unit/mL (3 8 unit (0.08 mL) subcut QPM 30 07/09/24 mL) subcutaneous pen (Lantus days #15 mL Solostar U-100 Insulin) pen needle, diabetic 32 gauge x #100 ea 07/09/24 (BD Yuliet 2nd Gen Pen Needle) albuterol sulfate 90 mcg/actuation 2 puff inhalation Q4-6H PRN 08/08/24 aerosol inhaler (Ventolin HFA) shortness of breath or wheezing #8.5 grams blood sugar diagnostic (FreeStyle #100 strips 08/08/24 Lite Strips) Allergies Allergy/AdvReac Type Severity Reaction Status Date / Time sulfadimethoxine AdvReac Intermediate Rash Verified 08/24/24 20:06 tizanidine AdvReac Intermediate Headache Verified 08/24/24 20:06 Review of Systems 2 Review of Systems: Yes all other systems are reviewed and are negative Constitutional: Constitutional: Reports chills, Reports fatigue, Reports headache(s) and Reports malaise ENT: Reports headache(s) Cardiovascular: Cardiovascular: Denies chest pain and Denies dyspnea Respiratory: Respiratory: Denies chest congestion, Reports cough, Denies dyspnea and Denies wheezing Gastrointestinal: Gastrointestinal: Denies abdominal pain, Denies nausea and Denies vomiting Musculoskeletal: Musculoskeletal: Reports myalgias Neurologic: Reports headache(s) Endocrine: Endocrine: Reports fatigue Allergic/Immunologic: Allergic/Immunologic: Denies wheezing PMFSH Past Medical History Attestation statement: The following information was validated with the patient. Medical History (Updated 08/26/24 @ 00:02 by Chrissy Gomez) Lumbar radicular pain Renal cysts, acquired, bilateral Renal calculi Renal calculus, bilateral Hyperhidrosis Asthma Dysplasia of cervix, low grade (BILLY 1) Hypercholesterolemia Hypertension Type 2 diabetes mellitus with hyperglycemia Migraine Surgical History History of right oophorectomy Hx of cholecystectomy Hx of appendectomy History of hemorrhoidectomy Family History Family History Father Substance abuse Brother Substance abuse Schizophrenia Other Mental and behavioral problem Social History Social History Housing: Apartment Alcohol intake: never Comment: ok with current level of relief-pyridium given Patient Tobacco Use Status: Never used Tobacco Tobacco use type: Cigarette e-Cigarette/Vaping Use: Never Used Second Hand Smoke Exposure: No Advance Directives: No Advance Directives Information Provided: Yes Do you have a plan to hurt others: No Plan service: No Current occupational status: unemployed Cognitive needs: No Hearing needs: No Vision needs: No Physical Exam ED Vital Signs: Vital Signs - 24 hr 08/24/24 20:00 08/25/24 00:09 Temperature 100.6 F H 97.8 F Pulse Rate 128 H 78 Respiratory Rate 24 H 16 Blood Pressure 130/77 101/67 Pulse Oximetry 98 98 Oxygen Delivery Method Room Air Room Air BMI result Body Mass Index 22.8 Const Other: Alert Orientation/consciousness: patient oriented x3 Resp Effort & Inspection: normal respiratory effort Cardio Other: Normal peripheral perfusion Skin Other: Warm dry no rash Neuro General: patient oriented x3, gait normal, no focal motor deficits and CN's II- XI intact bilaterally Psych Other: Cooperative Course Course Course Narrative: This is a Rapid Medical Examination (RME) performed by Michelle Hughes PA-C in triage. Full HPI, ROS, assessment and treatment plan per primary provider in the Main ED. 59 yo female here for eval of myalgias, fever, chills, headache, dry cough x3 days. reports chest pain assoc w/ cough. Taking Tylenol at home, last dose at 1700 today. +tachy and febrile Plan: labs, viral swabs, cxr, ekg Medications Administered Discontinued Medications Generic Name Dose Route Start Last Admin Trade Name Freq PRN Reason Stop Dose Admin Ibuprofen 600 mg 08/24/24 20:02 08/24/24 20:08 Ibuprofen 600 Mg Tablet PO 08/24/24 20:03 600 mg ONCE ONE Administration Medical Decision Making Medical Decision Making MDM Narrative: 59-year-old female with a history of anemia, depression, chronic pain, kidney stones, anxiety, diabetes, hypertension, hyperlipidemia and asthma, presents with viral syndrome. Associated generalized myalgia, fever, chills, headache, dry cough over the past 7 days. No sick contacts with similar symptoms. Denies chest pain or shortness of breath. The patient was not been wheezing. Problem: Diabetes, asthma History: Per patient I have considered the following differential diagnoses: Viral syndrome, pneumonia, bronchitis, asthma exacerbation Plan: Patient tested positive for COVID, she has had Symptoms for 7 days out of the window for Paxlovid, she is not hypoxic chest x-ray clear I have independently reviewed the following tests: Labs: No leukocytosis, not anemic, no electrolyte abnormality, positive for SARs Chest x-ray,Impression: 1. No acute cardiopulmonary process. No focal pulmonary consolidation. Lab Data 08/24/24 19:59 08/24/24 19:59 Labs: Lab Results 08/24/24 Range/Units 19:59 WBC 7.3 (4.8-10.8) X10*3/uL RBC 3.81 L (4.20-5.50) X10*6/uL Hgb 11.7 L (12.0-16.0) g/dl Hct 33.9 L (37.0-47.0) % MCV 89.0 (80.0-98.0) fL MCH 30.7 (27.0-33.0) pg MCHC 34.5 (31.0-35.0) g/dl RDW 12.2 (11.0-16.0) % Plt Count 230 (160-400) X10*3/uL MPV 10.0 (9.4-12.3) fL Immature Gran % (Auto) 0.1 (0.0-0.4) % Neut % (Auto) 58.4 (45-73) % Lymph % (Auto) 28.0 (20-40) % Roosevelt % (Auto) 13.0 H (2-11) % Eos % (Auto) 0.1 (0-4) % Baso % (Auto) 0.4 (0-2) % Lymph # (Auto) 2.1 (1.2-4.9) X10*3/uL Roosevelt # (Auto) 1.0 (0.1-1.2) X10*3/uL Eos # (Auto) 0.0 (0.0-0.4) X10*3/uL Baso # (Auto) 0.0 (0.0-0.2) X10*3/uL Abs Immat Gran (auto) 0.01 (0.00-0.03) X10*3/uL Absolute Neuts (auto) 4.3 (2.0-8.3) x10*3/uL Absolute Nucleated RBC 0.000 (0.0-0.012) X10*3/uL Nucleated RBC % (auto) 0.0 (0.0-0.2) /100WBC Sodium 133 L (135-145) mmol/L Potassium 3.8 (3.3-5.1) mmol/L Chloride 101 (96-108) mmol/L Carbon Dioxide 23 (22-29) mmol/L Anion Gap 13 (12-20) BUN 10 (9-16) mg/dL Creatinine 0.97 (0.5-1.4) mg/dL Estim Creat Clear Calc 55.3 Estimated GFR 59 Random Glucose 232 H (60-115) mg/dL Calcium 9.5 (8.4-10.2) mg/dL Total Bilirubin 0.5 (0.0-1.0) mg/dL AST 27 (5-31) U/L ALT 26 (0-31) U/L Alkaline Phosphatase 77 (39-117) U/L Troponin I High Sens < 2.7 (<3.5-17.0) ng/L Total Protein 8.2 H (6.5-8.0) g/dL Albumin 4.3 (3.5-5.0) g/dL Influenza Type A (PCR) NEGATIVE (Negative) Influenza Type B (PCR) NEGATIVE (Negative) RSV RNA Qual (PCR) NEGATIVE (Negative) SARS-CoV-2 RNA (RT-PCR) POSITIVE A (Negative) Discharge Plan Discharge Clinical Impression: SARS-CoV-2 positive Patient Disposition: Home, Self-Care Instructions: COVID-19 (Coronavirus Disease 2019) (ED) Additional Instructions: You tested positive for COVID, see home care instructions. The chest x-ray is clear, the remainder of your labs were normal. Follow up with primary care as needed. Prescriptions: No Action (DME) lancets [FreeStyle Lancets] 28 gauge misc See Rx Instructions .Route Qty: 100 3RF Rx Instructions: As directed check the sugar once a day cromolyn 4 % drops 1 drp ophthalmic (eye) QID 30 Days Qty: 10 3RF cetirizine 10 mg tablet 10 mg PO DAILY 90 Days Qty: 90 1RF pyridoxine (vitamin B6) 50 mg tablet 50 mg PO DAILY 90 Days Qty: 90 3RF amlodipine 10 mg tablet 10 mg PO DAILY Qty: 90 2RF cholecalciferol (vitamin D3) 25 mcg (1,000 unit) capsule 25 mcg PO DAILY 90 Days Qty: 90 3RF lisinopril 20 mg tablet 20 mg PO DAILY Qty: 90 2RF Trulicity 0.75 mg/0.5 mL pen injector 0.75 mg subcut QWEEK 28 Days Qty: 2 3RF ropinirole 0.5 mg tablet 0.5 mg PO BEDTIME Qty: 90 0RF ferrous sulfate 325 mg (65 mg iron) tablet 325 mg PO DAILY Qty: 90 1RF albuterol sulfate [Ventolin HFA] 90 mcg/actuation HFA aerosol inhaler 2 puff inhalation Q4-6H PRN (Reason: shortness of breath or wheezing) Qty: 8.5 1RF (DME) FreeStyle Lite Strips Strip See Rx Instructions .ROUTE .COMPLEX Qty: 100 2RF Dose Instruction: DIRECTED CHECK THE BLOOD SUGAR ONCE A DAY Rx Instructions: CHECK THE BLOOD SUGAR ONCE A DAY fluticasone propionate [Flonase Allergy Relief] 50 mcg/actuation spray,suspension 1 spray intranasal DAILY Qty: 9.9 1RF Rx Instructions: administer into each nostril triamcinolone acetonide 0.1 % cream 1 appl topical DAILY 30 Days Qty: 80 0RF betamethasone valerate 0.1 % ointment 1 appl topical BID PRN (Reason: skin irritation) 30 Days Qty: 45 0RF azelastine 137 mcg (0.1 %) aerosol,spray 1 spray intranasal BID fluocinonide 0.05 % solution topical insulin glargine [Lantus Solostar U-100 Insulin] 100 unit/mL (3 mL) insulin pen 8 unit subcut QPM 30 Days Qty: 15 1RF (DME) pen needle, diabetic [BD Yuliet 2nd Gen Pen Needle] 32 gauge x 5/32 needle See Rx Instructions .Route Qty: 100 3RF Rx Instructions: As directed cyclobenzaprine 10 mg tablet 10 mg PO BEDTIME 30 Days Qty: 30 2RF atorvastatin 10 mg tablet 10 mg PO DAILY 90 Days Qty: 90 1RF Interventions: ED Discharge Assessment Last Done: 08/25/24 03:20 Discharge Date/Time: 08/25/24 03:24 Print Language: Nepali
[2024-08-24 20:33] LABS: Troponin-I High Sensitivity < 2.7 ng/L (<3.5-17.0)
[2024-08-24 20:48] LABS: Influenza A PCR NEGATIVE (Negative); Influenza B PCR NEGATIVE (Negative); Resp Syncy Virus RNA Qual PCR NEGATIVE (Negative); SARS COV2 PCR INHOUSE POSITIVE (Negative)
[2024-08-25 00:09] VITALS: BP 101/67; PULSE 78; RESP 16; TEMP 36.6; O2SAT 98
--- NOTE | 2024-08-25 00:10 | MHC.EDTECH ---
Assumed care for pt at this time, pt changed into hospital attire, vitals taken, call ghosh in reach
[2024-08-25 03:16] VITALS: BP 111/72; PULSE 71; RESP 16; TEMP 36.4; O2SAT 99
[2024-08-25 03:20] VITALS: BP 111/72; PULSE 71; RESP 16; TEMP 36.4; O2SAT 99
== END 2024-08-25 03:24 | disposition home or self-care (01) ==
PROVIDERS: Emergency Provider Emergency Medicine Emergency Medical Services; PCP Physician Assistant
DX: U07.1 COVID-19 (principal); R07.89 Other chest pain; M79.10 Myalgia, unspecified site; R50.9 Fever, unspecified; R51.9 Headache, unspecified; R05.9 Cough, unspecified; Z79.899 Other long term (current) drug therapy
CPT/HCPCS: 0241U; 36415; 71045; 80053; 84484; 85025; 93005; 99283; 99284

== ENCOUNTER → 2024-08-24 19:52 | Outpatient (BNV) | payer OTHER, SELFPAY | PROVIDERS: Emergency Provider Emergency Medicine Emergency Medical Services; PCP Physician Assistant; Visit Provider Internal Medicine Cardiovascular Disease | DX: R00.0 Tachycardia, unspecified (principal) | CPT/HCPCS: 93010 ==

== ENCOUNTER → 2024-08-24 19:54 | Outpatient (BNV) | payer OTHER, SELFPAY | PROVIDERS: PCP Physician Assistant; Visit Provider Radiology Diagnostic Radiology | DX: R06.02 Shortness of breath (principal) | CPT/HCPCS: 71045 ==

== ENCOUNTER 2024-09-02 13:38 | Outpatient (AMB) | payer OTHER, SELFPAY ==
--- NOTE | 2024-09-02 13:47 | AM.OFFWIN_ITS ---
Intake Vital Signs 09/02/24 13:50 Weight 139 lb BP 146/90 H Blood Pressure Location Rt brachial Position Sitting Pulse 100 Pulse Source Pulse Oximeter Temp 99 F Temp Source Oral Pulse Oximetry (%) 98 Oxygen Delivery Method Room Air Intake Visit Reasons: EP sore throat Intake Note: Patient here for sore throat that started today, she states she recently had covid. Patient Tobacco Use Status: Never used Tobacco Allergies sulfadimethoxine Adverse Reaction (Intermediate, Verified 09/02/24 13:51) Rash tizanidine Adverse Reaction (Intermediate, Verified 09/02/24 13:51) Headache Do you need a note to return to daycare/school/sports/work: No HPI HPI Comments History of Present Illness Details 59 Y/O female patient who presents to [facility] walk in clinic with c/o Sore- throat since this morning. Pt was seen here 08/24 and diagnosed with COVID 19 Infection. [facility] Medical History (Updated 09/02/24 @ 14:05 by Luh Garcia NP) Acute pharyngitis Acute respiratory disease Lumbar radicular pain Renal cysts, acquired, bilateral Renal calculi Renal calculus, bilateral Hyperhidrosis Asthma Dysplasia of cervix, low grade (BILLY 1) Hypercholesterolemia Hypertension Type 2 diabetes mellitus with hyperglycemia Migraine Surgical History History of right oophorectomy Hx of cholecystectomy Hx of appendectomy History of hemorrhoidectomy Family History Father Substance abuse Brother Substance abuse Schizophrenia Other Mental and behavioral problem Social History Housing: Apartment Alcohol intake: never Comment: ok with current level of relief-pyridium given Patient Tobacco Use Status: Never used Tobacco Tobacco use type: Cigarette e-Cigarette/Vaping Use: Never Used Second Hand Smoke Exposure: No service: No Current occupational status: unemployed Cognitive needs: No Hearing needs: No Vision needs: No Review of Systems Const All systems reviewed & are unremarkable except as noted in HPI and below Physical Exam Vital Signs: Last Vital Signs Temp 99 F 09/02/24 13:50 Pulse 100 09/02/24 13:50 BP 146/90 H 09/02/24 13:50 Pulse Ox 98 09/02/24 13:50 Oxygen Delivery Method Room Air 09/02/24 13:50 Const General: cooperative and no acute distress Nutritional Appearance: well nourished Orientation/consciousness: patient oriented x3 HEENT Head: Yes normocephalic Ears: external ears normal and TM abnormal with fluid behind the TM bilateral General nose exam: Normal external nose present Face and sinus: Yes sinuses nontender Mouth: moist mucous membranes and Abnormal oral and palatal mucosa present eryth ematous; not edematous, no hematomas, no white patches and lesions Throat: Yes uvula midline Resp Effort & Inspection: normal respiratory effort and able to speak in complete sentences Auscultation: clear to auscultation bilaterally, no crackles, no rales, no rhonchi and no wheezes Cardio Heart sounds: S1 normal heart sound present and S2 normal heart sound present Neuro General: patient oriented x3 Assessment & Plan Assessment & Plan (1) Acute pharyngitis: Comment: PATIENT TESTED POSITIVE FOR COVID 3 Code(s): J02.9 - Acute pharyngitis, unspecified Qualifiers: Pharyngitis/tonsillitis etiology: other specified organisms Qualified Code(s): J02.8 - Acute pharyngitis due to other specified organisms Plan: OTC cold/Flu/Sore-throat remedies. Warm fluids with Honey/Ashley Rest Vocal cords. Possible Pharyngitis from COVID 19 infection. Coding Level of Care Code Est Pt Level 4 (56894) Diagnoses Acute pharyngitis due to other specified organisms J02.8 Pharyngitis/tonsillitis etiology: other specified organisms Time Spent (min) 20
[2024-09-02 13:50] VITALS: BP 146/90; PULSE 100; TEMP 37.2; O2SAT 98
--- OUTSIDE RECORDS SUMMARY | 2024-09-02 15:56 | XMS_ITS | Clinical Summary ---
Author Organization [employer] Address [address] [place] [address] [address] [place] [address] Care Team Providers Care Insole Filler Name Role Phone Unavailable Primary Care Provider [...] slide preparation; their use is not recommended. Silk Printer: SEE COMMENT [facility] Comment: ED, CT(ASCP) CT screening location: ?? [facility] ?? [address] [place] [address] ?? [place], [place] [address] Interpretation/Res ult: SEE COMMENT [facility] Comment: Unable to provide interpretation due to unsatisfactory specimen adequacy. LMP: SEE COMMENT [facility] Comment:NONE GIVEN Prev. BX: NONE GIVEN [facility] Prev. PAP: SEE COMMENT [facility] Comment:NONE GIVEN Review Silk Printer: SEE COMMENT [facility] Comment: [place], CT(ASCP) CT screening location: [address] ??[address] SOURCE: SEE COMMENT [facility] Comment:None given Statement Of Adequacy: SEE COMMENT [facility] Comment: Specimen processed and examined, but unsatisfactory for evaluation due to an insufficient number of squamous cells. 05/11/2020 Baljeet Islas MD LAB PATHOLOGY ORDERABLES Final R esult [facility] [address] [place] [address], * 3D DIGITAL CHANDNI SCR MAMMO 1 [...]
--- OUTSIDE RECORDS SUMMARY | 2024-09-02 15:56 | XMS_ITS | Encounter Summary ---
Author Organization [employer] Address [address] [facility] [address] [place] [address] Care Team Providers Care Engineering Recruiter Name Role Phone Unavailable Primary Care Provider Unavailabl e Encounter Details Date Type Department Care Team (Latest Contact Info) Description 10/17/2018 Abstract [facility] CONVERSIONS Dental, Provider, DDS Social History Tobacco [...]
== END 2024-09-02 14:14 | disposition home or self-care (01) ==
PROVIDERS: PCP Physician Assistant; Visit Provider Nurse Practitioner Family
DX: Z13.9 Encounter for screening, unspecified (principal); J02.8 Acute pharyngitis due to other specified organisms

== ENCOUNTER → 2024-09-02 13:38 | Outpatient (BNVA) | payer OTHER, SELFPAY | PROVIDERS: PCP Physician Assistant; Visit Provider Nurse Practitioner Family | DX: J02.8 Acute pharyngitis due to other specified organisms (principal) | CPT/HCPCS: 87880; 99212 ==

== ENCOUNTER 2024-11-06 13:41 | Outpatient (AMB) | payer OTHER, SELFPAY ==
--- NOTE | 2024-11-06 14:17 | MHC.PC.OV ---
Vital Signs 11/06/24 14:18 Height 5 ft 4 in Weight 132 lb BMI 22.7 BP 122/72 Blood Pressure Location Lt brachial Position Sitting Pulse 96 Pulse Source Pulse Oximeter Pulse Oximetry (%) 99 Oxygen Delivery Method Room Air Intake Visit Reasons: PE Early Childhood Coordinator Required: No Accompanied by: Self / Same As Patient Allergies sulfadimethoxine Adverse Reaction (Intermediate, Verified 11/06/24 14:50) Rash tizanidine Adverse Reaction (Intermediate, Verified 11/06/24 14:50) Headache Medication List - Last Reconciled 11/06/24 by Justin Cameron PA-C albuterol sulfate 90 mcg/actuation (Ventolin HFA) 2 puffs inhalation Q4-6H PRN alcohol swabs (Alcohol Prep Pads) 1 pad topical DAILY 90 days amlodipine 10 mg PO DAILY atorvastatin 10 mg PO DAILY 90 days azelastine 1 spray intranasal BID betamethasone valerate 0.1% 1 appl topical BID PRN 30 days blood sugar diagnostic (FreeStyle Lite Strips) CHECK THE BLOOD SUGAR ONCE A DAY cetirizine 10 mg PO DAILY 90 days cholecalciferol (vitamin D3) 25 mcg PO DAILY 90 days cromolyn 4% 1 drp ophthalmic (eye) QID 30 days cyclobenzaprine 10 mg PO BEDTIME 30 days dulaglutide (Trulicity) 0.75 mg (0.5 mL) subcut QWEEK 4 weeks ferrous sulfate 325 mg PO DAILY fluocinonide 0.05% mL topical fluticasone propionate 50 mcg/actuation (Flonase Allergy Relief) 1 spray intranasal DAILY PRN insulin glargine (Lantus Solostar U-100 Insulin) 8 units (0.08 mL) subcut QPM 30 days lancets (FreeStyle Lancets) As directed check the sugar once a day lisinopril 20 mg PO DAILY pen needle, diabetic (BD Yuliet 2nd Gen Pen Needle) As directed pyridoxine (vitamin B6) 50 mg PO DAILY 90 days ropinirole 0.5 mg PO BEDTIME triamcinolone acetonide 0.1% 1 appl topical DAILY 30 days Tobacco use date assessed: 07/09/24 Dental Screening Dental Screen Date: 07/09/24 HPI PE HPI Details Patient is a 59-year-old female here today for an annual physical? Patient has a past medical history significant for type 2 diabetes, hypertension, generalized anxiety disorder.. . .. Type 2 diabetes:? Today's A1c up at 9.1 from 8.4. . She continues on Trulicity and metformin . She has noted weight loss in urinary frequency as of late. We have changed her metformin to an extended release formulation. No reports of hypoglycemic events. PLAN: Will increase her Lantus dose to 14 units and up titrate per response. Goal random sugars to be 120s to 150s. .. Hyperlipidemia: Most recent fasting lipid panel showing borderline high cholesterol and LDL above goal 100. She has not been taking atorvastatin as she feels she can modify her diet. Will restart atorvastatin 10 mg . Anemia: Has improved with the addition of iron supplementation. Us also been eating beets every morning Mammogram: Done in 06/2024 , BI-RADS 1 WARD SUPERVISOR: See a WARD SUPERVISOR in [place] Colon cancer screening: Up-to-date with colonoscopy Laboratory Tests 08/24/24 19:59 RBC 3.81 L Hgb 11.7 L Creatinine 0.97 PFSH Medical History Acute pharyngitis Acute respiratory disease Lumbar radicular pain Renal cysts, acquired, bilateral Renal calculi Renal calculus, bilateral Hyperhidrosis Asthma Dysplasia of cervix, low grade (BILLY 1) Hypercholesterolemia Hypertension Type 2 diabetes mellitus with hyperglycemia Migraine Surgical History History of right oophorectomy Hx of cholecystectomy Hx of appendectomy History of hemorrhoidectomy Family History Father Substance abuse Brother Substance abuse Schizophrenia Other Mental and behavioral problem Social History (Updated 11/06/24 @ 14:55 by Justin Cameron PA-C) Housing: Apartment Alcohol intake: never Comment: ok with current level of relief-pyridium given Patient Tobacco Use Status: Never used Tobacco Tobacco use type: Cigarette e-Cigarette/Vaping Use: Never Used Second Hand Smoke Exposure: No service: No Current occupational status: disabled Cognitive needs: No Hearing needs: No Vision needs: No Questionnaire PHQ-9 Over the last 2 weeks, how often have you been bothered by any of the following problems? 1. Little interest or pleasure in doing things: several days 2. Feeling down, depressed, or hopeless: several days 3. Trouble falling or staying asleep, or sleeping too much: nearly every day 4. Feeling tired or having little energy: several days 5. Poor appetite or overeating: several days 6. Feeling bad about yourself - or that you are a failure or have let yourself or your family down: several days 7. Trouble concentrating on things, such as reading the newspaper or watching television: several days 8. Moving or speaking so slowly that other people could have noticed. Or the opposite - being so fidgety or restless that you have been moving around a lot more than usual: not at all 9. Thoughts that you would be better off or of hurting yourself in some way: not at all Total score: 9 Depression Screening Interpretation: Positive Depression Screening Follow-up: Existing condition Depression Screening Done: Yes 09364 - PHQ-9 Billing: Yes Source: Developed by Drs. Duane Foreman, Lilli Ospina, Jeff Bravo and colleagues, with an educational rashawn from [employer]. Thrive Questionnaire Date Thrive assessed: 07/09/24 I am a: Patient What is your living situation today?: I have a steady place to live Within the past 12 months, did the food you bought not last and you didn't have the money to get more?: Never true Within the past 12 months, did you worry whether your food would run out before you got money to buy more?: Sometimes True Do you have trouble paying for medicines?: No Do you have trouble getting transportation to medical appointments?: No Do you have trouble paying your heating and electricity bill?: No Do you have trouble taking care of your child, family member or friend?: No Do you have trouble with day-to-day activities such as bathing, preparing meals, shopping, managing finances, etc.?: I choose not to answer this question Are you currently unemployed and looking for a job?: No Are you interested in more education?: Yes Please select the resources that you would like help with: None Currently or been in a relationship where the following occur: I choose not to answer THRIVE Score: 1 AUDIT C Alcohol Use Questionnaire (AUDIT-C) 1. How often do you have a drink containing alcohol?: Never Total Score: 0 JASON-7 AMB Questionnaire JASON-7 Date JASON - 7 assessed: 07/09/24 Feeling nervous, anxious, or on edge: 2 = More than half the days Not being able to stop or control worryin = Several days Worrying too much about different things: 3 = Nearly every day Trouble relaxin = Nearly every day Being so restless that it is hard to sit still: 3 = Nearly every day Becoming easily annoyed or irritable: 3 = Nearly every day Feeling afraid as if something awful might happen: 3 = Nearly every day Total JASON-7 score (0-4 normal; 5-9 mild; 10-14 moderate; 15-21 severe): 18 Source: Developed by Drs. Duane Foreman, Lilli Ospina, Jeff Bravo and colleagues, with an educational rashawn from [employer]. JASON-7 Assessment Billing JASON-7 Assessment Tool: JASON-7 Assessment 26798 Review of Systems Const Denies body aches, Denies chills, Denies excessive sweating, Denies fatigue, Denies fever(s) and Denies headache(s) Eyes Denies blurry vision ENT Denies dysphagia, Denies vertigo, Denies dizziness, Denies headache(s), Denies hearing loss and Denies tinnitus Card Denies chest pain, Denies chest pain with activity, Denies syncope, Denies irregular heart rhythm and Denies dyspnea Resp Denies chest congestion, Denies cough, Denies hemoptysis, Denies dyspnea and Denies wheezing GI Denies abdominal pain, Denies melena, Denies hematochezia, Denies coffee ground emesis, Denies dysphagia, Denies diarrhea, Denies nausea and Denies vomiting Denies urinary frequency, Denies dysuria, Denies urinary hesitancy and Denies urinary urgency Musc Denies arthralgias, Denies limited range of motion, Denies muscle cramps and Denies muscle weakness Skin/Breast Denies rash and Denies skin ulcer Neuro Denies Abnormal speech present, Denies confusion, Denies vertigo, Denies dizziness, Denies syncope, Denies headache(s), Denies memory loss and Denies seizure-like activity Psych Denies anxiety, Denies confusion, Denies depression, Denies memory loss, Denies panic attacks and Denies paranoia Endo Denies excessive sweating, Denies fatigue, Denies flushing, Denies polydipsia and Denies polyuria Aller/Immun Denies wheezing Physical exam (Primary Care) Vital Signs: Last Vital Signs Pulse 96 11/06/24 14:18 BP 122/72 11/06/24 14:18 Pulse Ox 99 11/06/24 14:18 Oxygen Delivery Method Room Air 11/06/24 14:18 BMI result Body Mass Index 22.7 Tobacco/Smoking Status: Tobacco use Status Tobacco use date assessed 07/09/24 11/06/24 14:20 Patient Tobacco Use Status Never used Tobacco 11/06/24 14:55 Tobacco use type Cigarette 11/06/24 14:55 e-Cigarette/Vaping Use Never Used 11/06/24 14:55 PHQ-9: PHQ-9 Score PHQ-9: Total score 9 11/06/24 14:53 Depression Screening Interpretation: Positive Depression Screening Follow-up: Existing condition Thrive Assessment: Date of Thrive Assessment Date Thrive assessed 07/09/24 11/06/24 14:20 Currently or been in a relationship where the following occur: I choose not to answer Const General: cooperative, comfortable, no acute distress, alert and awake; No confusion Orientation/consciousness: oriented to person, oriented to place, patient oriented x3 and No confusion HENMT Head: Yes normocephalic Ears: external ears normal and TM's normal bilaterally Face and sinus: No sinus tenderness Mouth: Normal oral and palatal mucosa present and tongue normal Teeth and gingiva: dentition normal and gingiva normal Throat: Yes posterior oropharynx normal, Yes tonsils normal and Yes uvula midline Eyes Conjunctivae: conjunctivae normal Sclerae: sclerae normal Pupils: Equal, round and reactive pupils present EOM: EOMs intact bilaterally Direct Ophthalmoscopy: No no photophobia Neck Neck: Yes no lymphadenopathy, No tender and Yes no JVD Thyroid: Thyroid normal Carotids: no bruits Chest Chest palpation & inspection: no tenderness Resp Effort & Inspection: normal respiratory effort, no audible wheezes, not labored and no stridor Auscultation: no crackles, no rales, no rhonchi and no wheezes Cardio Jugular venous distension: no JVD Rate: regular rate, not bradycardic and not tachycardic Rhythm: regular rhythm Bruits: no carotid bruits Peripheral pulses: Peripheral pulses 2+ throughout GI Inspection: Yes normal to inspection, No abdominal wall ecchymosis and No visible herniation Palpation (GI): Soft to palpation, nontender, no guarding, not rigid and No hepatosplenomegaly present Auscultation: normoactive bowel sounds General: Yes no CVA tenderness Back/Spine/Pelvis Back: no CVA tenderness and No back tenderness Cervical Spine: cervical ROM normal Thoracic/Lumbar Spine: thoracic and lumbar spine normal to inspection, straight leg raise negative bilaterally, No thoraco-lumbar ROM limited and No lumbar spinal tenderness Skin Lesions: no lesions Rashes: no rashes Wounds: no wounds Neuro General: oriented to person, oriented to place, patient oriented x3, CN's II-XI intact bilaterally and No confusion Cranial nerves: Yes Equal, round and reactive pupils present and Yes Normal accommodation reflex present Cognition (Neuro): normal cognition Speech: No Abnormal speech present Gait exam (Neuro): Normal gait present Motor exam (neuro): 5/5 motor strength present throughout Extrem Right upper extremity: full ROM; no cyanosis Left upper extremity: full ROM; no cyanosis Right lower extremity: no edema Left lower extremity: no edema Psych Appearance: grossly normal Mental Status: mental status grossly normal Affect: normal affect Attitude: cooperative Thought process: Normal thought process present Results AMB Urinalysis, Automated UA Leukoctes 0 Amara/uL Last Edit by CLEOPATRA Carbajal on 11/06/24 14:44 UA Nitrite Negative Last Edit by CLEOPATRA Carbajal on 11/06/24 14:44 UA Urobilinogen 0 mg/dL Last Edit by CLEOPATRA Carbajal on 11/06/24 14:44 UA Protein 0 mg/dL Last Edit by CLEOPATRA aCrbajal on 11/06/24 14:44 UA pH 6.0 Last Edit by CLEOPATRA Carbajal on 11/06/24 14:44 UA Blood 0 Esvin/uL Last Edit by CLEOPATRA Carbajal on 11/06/24 14:44 UA Specific [place] 1.010 Last Edit by CLEOPATRA Carbajal on 11/06/24 14:44 UA Ketone Negative Last Edit by CLEOPATRA Carbajal on 11/06/24 14:44 UA Bilirubin 0 mg/dL Last Edit by CLEOPATRA Carbajal on 11/06/24 14:44 UA Glucose 1000 mg/dL Last Edit by CLEOPATRA Carbajal on 11/06/24 14:44 Pt feel UTI symptoms AMB Hemoglobin A1c AMB Hemoglobin A1c 9.1 % Last Edit by CLEOPATRA Carbajal on 11/06/24 14:51 Results Reviewed Results Reviewed: Laboratory Last Values Hgb A1c (Clinic) 9.1 % (4.0-6.0) H 11/06/24 14:51 Urine pH (Auto) 6.0 11/06/24 14:37 Specific [place] (Auto) 1.010 11/06/24 14:37 Urine Protein (Auto) 0 mg/dL 11/06/24 14:37 Glucose (UA)(Auto) 1000 mg/dL 11/06/24 14:37 Urine Ketones (Auto) Negative 11/06/24 14:37 Urine Blood (Auto) 0 Esvin/uL 11/06/24 14:37 Urine Nitrite (Auto) Negative 11/06/24 14:37 Urine Bilirubin (Auto) 0 mg/dL 11/06/24 14:37 Urine Urobilinogen (Auto) 0 mg/dL 11/06/24 14:37 Leukocyte Esterase (Auto) 0 Amara/uL 11/06/24 14:37 Coding Level of Care Code Est Pt Prev Care 40-64y(85334) Diagnoses Annual physical exam Z00.00 Pain of left clavicle M89.8X1 Type 2 diabetes mellitus with hyperglycemia, without long-term current use of insulin E11.65 Diabetes mellitus senior care insulin use: without long term acute care registered nurse use Essential hypertension I10 Hypertension type: essential hypertension Anemia in other chronic diseases classified elsewhere D63.8 Anemia type: other cause Other causes of anemia: chronic disease, other MDD (major depressive disorder), recurrent episode, moderate F33.1 Hypercholesterolemia E78.00 Additional Codes PHQ-9 - 42031 - PHQ-9 Billing: Yes ([id number]) JASON-7 Assessment Billing - JASON-7 Assessment Tool: JASON-7 Assessment [id number] ([id number]) Assessment & Plan Assessment & Plan (1) Annual physical exam: Code(s): Z00.00 - Encounter for general adult medical examination without abnormal findings Category: Medical Plan: As per HPI (2) Pain of left clavicle: Code(s): M89.8X1 - Other specified disorders of bone, shoulder Category: Medical Plan: Patient reports pain radiating from her clavicle to the left side of her neck. She denies any trauma or lifting injuries. She is interested in getting an x-ray of the left clavicle as part of evaluation. We did discuss perhaps doing physical therapy for muscular tension issue. (3) Type 2 diabetes mellitus with hyperglycemia: Code(s): E11.65 - Type 2 diabetes mellitus with hyperglycemia Category: Medical Qualifiers: Diabetes mellitus senior care insulin use: without senior care use Qualified Code(s): E11.65 - Type 2 diabetes mellitus with hyperglycemia Plan: Patient's type 2 diabetes suboptimally controlled with A1c today at 9.1 from 8.4.. Continues on Trulicity weekly and metformin a 1000 b.i.d. Will increase her Lantus dose to 14 units for better glycemic control. Goal A1c is to be below 7.0 (4) Hypertension: Code(s): I10 - Essential (primary) hypertension Category: Medical Qualifiers: Hypertension type: essential hypertension Qualified Code(s): I10 - Essential (primary) hypertension Plan: Patient's blood pressure acceptable today in office. She will continue her current dose of antihypertensive medication with goal blood to 40/90 (5) Anemia: Code(s): D64.9 - Anemia, unspecified Category: Medical Qualifiers: Anemia type: other cause Other causes of anemia: chronic disease, other Qualified Code(s): D63.8 - Anemia in other chronic diseases classified elsewhere Plan: Anemia has improved significantly since starting iron supplementation. Will continue iron supplementation daily. (6) MDD (major depressive disorder), recurrent episode, moderate: Code(s): F33.1 - Major depressive disorder, recurrent, moderate Category: Medical Plan: Patient's PHQ-9 score positive for mild depression which has been existing condition for her. She is not interested in mental health medication at this time. (7) Hypercholesterolemia: Code(s): E78.00 - Pure hypercholesterolemia, unspecified Category: Medical Plan: Patient's most recent lipid panel showing slightly elevated total cholesterol and LDL above goal of 100. She will work on dietary modification She continues on atorvastatin 20 mg. Will continue to follow lipid panel to ensure LDL appropriate below 100. Orders: Orders AMB Hemoglobin A1c 11/06/24 E11.65 - Type 2 diabetes mellitus with hyperglycemia Comprehensive [place]. Panel Fast Today E11.65 - Type 2 diabetes mellitus with hyperglycemia XR clavicle LT 11/06/24 M89.8X1 - Other specified disorders of bone, shoulder AMB Urinalysis Automated 11/06/24 R30.0 - Dysuria Complete Blood Count no Diff Today E11.65 - Type 2 diabetes mellitus with hyperglycemia Lipid Panel Today E78.00 - Pure hypercholesterolemia, unspecified Medications: New meloxicam 15 mg PO DAILY 15 tabs 0RF 15 days M89.8X1 - Other specified disorders of bone, shoulder Changed From insulin glargine (Lantus Solostar U-100 Insulin) 8 units (0.08 mL) subcut QPM 30 days 15 mL 1RF E11.65 - Type 2 diabetes mellitus with hyperglycemia To insulin glargine (Lantus Solostar U-100 Insulin) 14 units (0.14 mL) subcut QPM 4.2 mL 1RF 30 days E11.65 - Type 2 diabetes mellitus with hyperglycemia
--- OUTSIDE RECORDS SUMMARY | 2024-11-06 14:17 | XMS_ITS | Clinical Summary ---
Author Organization [employer] Address [address] [place] [address] [address] [place] [address] Care Team Providers Care Building Services Coordinator Name Role Phone Unavailable Primary Care Provider [...] older (1 - 1-dose 75+ series) 2042 Hepatitis B Vaccines Completed 02/21/2017, 01/21/2016, 11/28/2013 [...] patient's age to complete this topic Meningococcal B Vaccine Aged Out No l onger eligible based on patient's age to complete [...] slide preparation; their use is not recommended. Hospital Monitor: SEE COMMENT [facility] Comment: ED, CT(ASCP) CT screening location: ?? [facility] ?? [address] [place] [address] ?? [place], [place] [address] Interpretation/Res ult: SEE COMMENT [facility] Comment: Unable to provide interpretation due to unsatisfactory specimen adequacy. LMP: SEE COMMENT [facility] Comment:NONE GIVEN Prev. BX: NONE GIVEN [facility] Prev. PAP: SEE COMMENT [facility] Comment:NONE GIVEN Review Hospital Monitor: SEE COMMENT [facility] Comment: [place], CT(ASCP) CT screening location: [address] ??[id number] SOURCE: SEE COMMENT [facility] Comment:None given Statement Of Adequacy: SEE COMMENT [facility] Comment: Specimen processed and examined, but unsatisfactory for evaluation due to an insufficient number of squamous cells. 05/11/2020 Baljeet Islas MD LAB PATHOLOGY ORDERABLES Final R esult [facility] [address] [place] [address], * 3D DIGITAL CHANDNI SCR MAMMO 1 [...]
--- OUTSIDE RECORDS SUMMARY | 2024-11-06 14:17 | XMS_ITS | Encounter Summary ---
Author Organization [employer] Address [address] [facility] [address] [place] [address] Care Team Providers Care Veterinary Technician Assistant Name Role Phone Unavailable Primary Care Provider Unavailabl e Encounter Details Date Type Department Care Team (Latest Contact Info) Description 10/17/2018 Abstract [facility] CONVERSIONS Dental, Provider, DDS Social History [...]
[2024-11-06 14:18] VITALS: BP 122/72; PULSE 96; O2SAT 99; BMI 22.7
== END 2024-11-06 15:16 | disposition home or self-care (01) ==
LOC: HO.HMCH 13:45
PROVIDERS: PCP Physician Assistant; Visit Provider Physician Assistant
DX: R30.0 Dysuria (principal); E11.65 Type 2 diabetes mellitus with hyperglycemia

== ENCOUNTER 2024-11-06 13:41 | Outpatient (REF) | payer OTHER, SELFPAY ==
--- NOTE | ~2024-11-06 | XR_ITS ---
EXAMINATION: XR CLAVICLE, LEFT CLINICAL INFORMATION: M89.8X1 - Other specified disorders of bone, shoulder COMPARISON: Left shoulder x-ray dated October 13, 2021. TECHNIQUE: AP views of the left clavicle. FINDINGS: The clavicle is intact. No cortical disruption. No lytic or blastic lesion. Normal position of the acromioclavicular joint. No metallic or radiopaque foreign body. No subcutaneous emphysema. XR/XR clavicle LT IMPRESSION: Normal left clavicle. Electronically signed by: Viet Garcia MD 11/06/2024 03:56 PM EDT
== END 2024-11-06 13:42 | disposition home or self-care (01) ==
LOC: HO.XRAY 13:41
PROVIDERS: PCP Physician Assistant; Visit Provider Physician Assistant
DX: Z00.00 Encounter for general adult medical examination without abnormal findings (principal); E11.65 Type 2 diabetes mellitus with hyperglycemia; I10 Essential (primary) hypertension; F41.1 Generalized anxiety disorder; M89.8X1 Other specified disorders of bone, shoulder; D63.8 Anemia in other chronic diseases classified elsewhere; F33.1 Major depressive disorder, recurrent, moderate; E78.00 Pure hypercholesterolemia, unspecified; Z79.4 Long term (current) use of insulin; Z79.84 Long term (current) use of oral hypoglycemic drugs
CPT/HCPCS: 73000; 81003; 83036; 96127; 99396

== ENCOUNTER → 2024-11-06 15:32 | Outpatient (BNV) | payer OTHER, SELFPAY | PROVIDERS: PCP Physician Assistant; Visit Provider Radiology Diagnostic Radiology | DX: M89.8X1 Other specified disorders of bone, shoulder (principal) | CPT/HCPCS: 73000 ==

== ENCOUNTER 2024-11-07 08:01 | Outpatient (REF) | payer OTHER, SELFPAY ==
--- OUTSIDE RECORDS SUMMARY | 2024-11-07 08:04 | XMS_ITS | Clinical Summary ---
Author Organization [employer] Address [address] [place] [address] [address] [place] [address] Care Team Providers Care Ammunition Specialist Name Role Phone Unavailable Primary Care Provider [...] 1967 FIT 1967 FOBT 1967 Sigmoidoscopy 1967 Disability Screening 1967 Alcohol/Substance Use Screening 1979 Tobacco Screening [...] slide preparation; their use is not recommended. Handcrew Foreman: [facility] Comment: ED, CT(ASCP) CT screening location: ?? [facility] ?? [address] [place] [address] ?? [place], [place] [address] Interpretation/Res ult: [facility] Comment: Unable to provide interpretation due to unsatisfactory specimen adequacy. LMP: [facility] Comment:NONE GIVEN Prev. BX: NONE GIVEN [facility] Prev. PAP: [facility] Comment:NONE GIVEN Review Handcrew Foreman: [facility] Comment: [place], CT(ASCP) CT screening location: [address] ??[id number] SOURCE: [facility] Comment:None given Statement Of Adequacy: [facility] Comment: Specimen processed and examined, but unsatisfactory for evaluation due to an insufficient number of squamous cells. 05/11/2020 Baljeet sIlas MD LAB PATHOLOGY ORDERABLES Final R esult [facility] [address] [place] [address], * 3D DIGITAL CHANDNI SCR MAMMO 1 [...]
--- OUTSIDE RECORDS SUMMARY | 2024-11-07 08:04 | XMS_ITS | Encounter Summary ---
Author Organization [employer] Address [address] [facility] [address] [place] [address] Care Team Providers Care Wagon Winder Name Role Phone Unavailable Primary Care Provider Unavailabl e Encounter Details Date Type Department Care Team (Latest Contact Info) Description 10/17/2018 Abstract [facility] CONVERSIONS Dental, Provider, DDS Social History [...]
[2024-11-07 08:44] LABS: Hemoglobin 11.9 g/dl (12.0-16.0); Mean Corpuscular Volume 91.1 fL (80.0-98.0); Platelet Count 259 X10*3/uL (160-400); Red Blood Count 3.84 X10*6/uL (4.20-5.50); Red Cell Distribution Width 13.1 % (11.0-16.0); White Blood Count 7.6 X10*3/uL (4.8-10.8)
[2024-11-07 09:06] LABS: Estimated Average Glucose 214 mg/dL; Hemoglobin A1c % 9.1 % (<6.0)
[2024-11-07 09:30] LABS: Alanine Aminotransferase 22 U/L (0-31); Albumin Level 4.4 g/dL (3.5-5.0); Alkaline Phosphatase 74 U/L (39-117); Anion Gap 14 (12-20); Aspartate Amino Transferase 22 U/L (5-31); Bilirubin Total 0.3 mg/dL (0.0-1.0); Blood Urea Nitrogen 19 mg/dL (9-16); Calcium 9.6 mg/dL (8.4-10.2); Carbon Dioxide 26 mmol/L (22-29); Chloride 107 mmol/L (96-108); Cholesterol 170 mg/dL (<200); Estimated Glomerular Filt Rate > 60; Glucose Fasting 224 mg/dL (60-99); Potassium 3.8 mmol/L (3.3-5.1); Sodium 143 mmol/L (135-145); Total Protein 7.6 g/dL (6.5-8.0); Triglycerides 56 mg/dL (<150)
[2024-11-07 11:23] LABS: HDL Cholesterol 58 mg/dL (>40); LDL Cholesterol Calculated 101 mg/dL (<100)
== END 2024-11-07 08:02 | disposition home or self-care (01) ==
LOC: HO.LAB 08:01
PROVIDERS: PCP Physician Assistant; Visit Provider Physician Assistant
DX: E11.65 Type 2 diabetes mellitus with hyperglycemia (principal); E78.00 Pure hypercholesterolemia, unspecified
CPT/HCPCS: 36415; 80053; 80061; 83036; 85027

== ENCOUNTER 2024-11-19 11:56 | Outpatient (AMB) | payer OTHER, SELFPAY ==
--- NOTE | 2024-11-19 12:08 | AM.OFFWIN_ITS ---
Intake Vital Signs 11/19/24 12:09 Weight 140 lb BP 130/80 Blood Pressure Location Rt brachial Position Sitting Pulse 87 Pulse Source Pulse Oximeter Temp 98.5 F Temp Source Oral Pulse Oximetry (%) 97 Oxygen Delivery Method Room Air Intake Visit Reasons: EP abdominal pain Intake Note: Patient here for abdominal pain that started monday that comes and goes. 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 History of Present Illness - The patient is a 59-year-old female pr esenting with abdominal pain x2 days. - Pain onset was noted following the ing estion of chicken tenders and fries on Monday morning. - Pain is primarily located in the supra pubic and left lower quadrant regions, severe enough to impact sleep. - Denies nausea, vomiting, diarrhea, fev ers, or urinary symptoms. - She has maintained regular bowel movem ent consistency, last BM yesterday - Past surgical history includes cholecy stectomy and appendectomy and right oopherectomy. - A colonoscopy conducted seven years pr ior did not show diverticulosis. - Kidney stones are part of her medical history, with the most recent being small and on the right side over a year ago - No diverticulosis was noted on prior i maging conducted two years ago. - Patient tried omeprazole and Pepto-Bis mol with no improvement in her pain. Physical Exam General: Cooperative, healthy appearing, comfortable, no acute distress and well developed Orientation: Patient oriented x3 Limitations: No limitations Head: Normal to inspection Ears: Hearing grossly normal bilaterally Nose: Normal External nose present Face and sinus: Normal facial exam Eyes: Appearance normal, both eyes and all related structures Neck: Normal visual inspection and Yes full ROM Respiratory: Normal respiratory effort and able to speak in complete sentences. GI: soft, TTP LLQ and suprapubic Skin: No rashes or lesions noted Neuro: Patient oriented x3 Extremities: Normal to inspection [facility] Medical History Acute pharyngitis Acute respiratory disease Lumbar radicular pain Renal cysts, acquired, bilateral Renal calculi Renal calculus, bilateral Hyperhidrosis Asthma Dysplasia of cervix, low grade (BILLY 1) Hypercholesterolemia Hypertension Type 2 diabetes mellitus with hyperglycemia Migraine Surgical History History of right oophorectomy Hx of cholecystectomy Hx of appendectomy History of hemorrhoidectomy Family History Father Substance abuse Brother Substance abuse Schizophrenia Other Mental and behavioral problem Social History (Updated 11/06/24 @ 14:55 by Justin Cameron PA-C) Housing: Apartment Alcohol intake: never Comment: ok with current level of relief-pyridium given Patient Tobacco Use Status: Never used Tobacco Tobacco use type: Cigarette e-Cigarette/Vaping Use: Never Used Second Hand Smoke Exposure: No service: No Current occupational status: disabled Cognitive needs: No Hearing needs: No Vision needs: No Review of Systems Const All systems reviewed & are unremarkable except as noted in HPI and below Physical Exam Vital Signs: Last Vital Signs Temp 98.5 F 11/19/24 12:09 Pulse 87 11/19/24 12:09 BP 130/80 11/19/24 12:09 Pulse Ox 97 11/19/24 12:09 Oxygen Delivery Method Room Air 11/19/24 12:09 Assessment & Plan Assessment & Plan (1) Suprapubic pain, acute: Code(s): R10.2 - Pelvic and perineal pain Plan: UA vs Diverticulosis vs constipation vs left ovary issue vs other. VSS, pt well appearing. A urinalysis is performed to discount urinary infections, negative for infection or blood. Will get KUB to rule out constipation. If symptoms get worse, pt was instructed to go to the ED for further workup. Patient was informed and verbally consented to the use of an ambient scribe for clinic note documentation during this visit. (2) Left lower quadrant pain: Code(s): R10.32 - Left lower quadrant pain Plan: as above Orders: Orders XR KUB Today R10.2 - Pelvic and perineal pain, R10.32 - Left lower quadrant pain Coding Level of Care Code Est Pt Level 4 (52384) Diagnoses Suprapubic pain, acute R10.2 Left lower quadrant pain R10.32
[2024-11-19 12:09] VITALS: BP 130/80; PULSE 87; TEMP 36.9; O2SAT 97
== END 2024-11-19 12:32 | disposition home or self-care (01) ==
PROVIDERS: PCP Physician Assistant; Visit Provider Physician Assistant
DX: R10.2 Pelvic and perineal pain (principal); R10.32 Left lower quadrant pain; Z13.9 Encounter for screening, unspecified

== ENCOUNTER 2024-11-19 11:56 | Outpatient (REF) | payer OTHER, SELFPAY ==
--- NOTE | ~2024-11-19 | XR_ITS ---
EXAMINATION: XR ABDOMEN KUB CLINICAL INDICATION: R10.32 - Left lower quadrant pain COMPARISON: January 19, 2022 TECHNIQUE: AP view of the abdomen. FINDINGS: Surgical clips in the right upper quadrant are consistent with prior cholecystectomy. Moderate stool is present in the right colon increased from the prior. There is decreased stool in the left colon compared to the prior. Bowel gas pattern is within normal limits. Numerous calcifications in the pelvis are most consistent with phleboliths. Bony structures are unremarkable. XR/XR KUB IMPRESSION: Moderate stool right colon is increased from the prior. Cholecystectomy clips. Electronically signed by: Chad Cabrera MD 11/19/2024 01:00 PM EDT
== END 2024-11-19 11:57 | disposition home or self-care (01) ==
LOC: HO.HMGCX 11:56
PROVIDERS: PCP Physician Assistant; Visit Provider Physician Assistant
DX: R10.32 Left lower quadrant pain (principal); R10.2 Pelvic and perineal pain; Z98.890 Other specified postprocedural states; Z90.721 Acquired absence of ovaries, unilateral
CPT/HCPCS: 74018; 81003; 99212

== ENCOUNTER → 2024-11-19 12:34 | Outpatient (BNV) | payer OTHER, SELFPAY | PROVIDERS: PCP Physician Assistant; Visit Provider Radiology Diagnostic Radiology | DX: K56.41 Fecal impaction (principal) | CPT/HCPCS: 74018 ==

== ENCOUNTER 2024-11-20 14:18 | Outpatient (REF) | payer OTHER, SELFPAY ==
--- OUTSIDE RECORDS SUMMARY | 2024-11-20 14:22 | XMS_ITS | Encounter Summary ---
Author Organization [employer] Address [address] [facility] [address] [place] [address] Care Team Providers Care Manager Study Name Role Phone Unavailable Primary Care Provider Unavailabl e Encounter Details Date Type Department Care Team (Latest Contact Info) Description 10/17/2018 Abstract [facility] CONVERSIONS Dental, Provider, DDS Social History Tobacco [...]
[2024-11-20 15:49] LABS: Hematocrit 35.5 % (37.0-47.0); Hemoglobin 11.9 g/dl (12.0-16.0); Mean Corpuscular HGB Conc 33.5 g/dl (31.0-35.0); Mean Corpuscular Hemoglobin 30.9 pg (27.0-33.0); Mean Corpuscular Volume 92.2 fL (80.0-98.0); Mean Platelet Volume 10.5 fL (9.4-12.3); Platelet Count 267 X10*3/uL (160-400); Red Blood Count 3.85 X10*6/uL (4.20-5.50)
[2024-11-20 16:27] LABS: Alanine Aminotransferase 42 U/L (0-31); Albumin Level 4.5 g/dL (3.5-5.0); Alkaline Phosphatase 77 U/L (39-117); Anion Gap 15 (12-20); Aspartate Amino Transferase 43 U/L (5-31); Bilirubin Total 0.5 mg/dL (0.0-1.0); Blood Urea Nitrogen 16 mg/dL (9-16); Calcium 10.1 mg/dL (8.4-10.2); Carbon Dioxide 28 mmol/L (22-29); Chloride 103 mmol/L (96-108); Cholesterol 164 mg/dL (<200); Estimated Glomerular Filt Rate > 60; Glucose Fasting 208 mg/dL (60-99); HDL Cholesterol 55 mg/dL (>40); LDL Cholesterol Calculated 85 mg/dL (<100); Lipase 47 U/L (8-78); Potassium 3.8 mmol/L (3.3-5.1); Sodium 142 mmol/L (135-145); Total Protein 7.6 g/dL (6.5-8.0); Triglycerides 124 mg/dL (<150)
== END 2024-11-20 14:19 | disposition home or self-care (01) ==
LOC: HO.LAB 14:18
PROVIDERS: PCP Physician Assistant; Visit Provider Physician Assistant
DX: E11.65 Type 2 diabetes mellitus with hyperglycemia (principal); R10.32 Left lower quadrant pain; E78.00 Pure hypercholesterolemia, unspecified
CPT/HCPCS: 36415; 80048; 80053; 80061; 83690; 85027

== ENCOUNTER 2024-12-09 11:21 | Outpatient (AMB) | payer OTHER, SELFPAY ==
[2024-12-09 11:50] VITALS: BP 106/58; PULSE 85; TEMP 37.2; O2SAT 97; BMI 23.4
--- NOTE | 2024-12-09 11:50 | MHC.OFFWIV ---
Intake Vital Signs 12/09/24 11:50 Height 5 ft 4 in Weight 136 lb 8 oz BMI 23.4 BP 106/58 L Blood Pressure Location Lt brachial Position Sitting Pulse 85 Pulse Source Pulse Oximeter Temp 99 F Temp Source Oral Pulse Oximetry (%) 97 Oxygen Delivery Method Room Air Intake Visit Reasons: EP pain on LT side of neck going towards the back Patient Tobacco Use Status: Never used Tobacco Allergies sulfadimethoxine Adverse Reaction (Intermediate, Verified 12/09/24 11:52) Rash tizanidine Adverse Reaction (Intermediate, Verified 12/09/24 11:52) Headache Do you need a note to return to daycare/school/sports/work: No HPI HPI Comments History of Present Illness Details History - The patient is a 59-year-old female presenting with neck pain and left shoulder discomfort. - The neck pain began on Monday without any specific inciting event and is aggravated by movement. - The patient has been using meloxicam and cyclobenzaprine with minimal relief and has tried cold therapy without significant improvement. - No history of trauma or injury is reported. - She states that the pain is worse with movement. - Pain radiates to the collerbone and to the left upper back. - She is right hand dominant. - She denies arm pain, numbness, tingling, CP, SOB, abd pain, n/v/d, TROY, dizziness, or weakness. Physical Exam General: cooperative, healthy appearing and comfortable, patient oriented x3 Head: Normal to inspection, normocephalic/atraumatic Effort & Inspection: Normal respiratory effort and able to speak in complete sentences. Cardiac: RRR, no M/R/G noted. Normal S1 and S2. Respiratory: Clear to auscultation bilaterally. No w/r/r noted. Back/spine: Cervical, thoracic and lumbar spine normal to inspection. Cervical ROM limited with pain, no midline spinous tenderness noted. Thoracic ROM normal, lumbar ROM normal. No midline vertebral spinous tenderness noted. No step offs noted. No TTP of the thoracic or lumbar paraspinous or paravertebral muscles. DTR are 2+ on the lower extremities noted. Ambulates with a steady gait. Extremities: TTP of the left anterior and posterior shoulder. TTP of the left SCM. TTP of the left trapezius. Motor strength normal 5/5 bilaterally. Left arm movement limited due to pain. FROM of the left elbow and wrist. Hand chicken and fish butcher is intact. Neuro: Sensation intact Patient was informed and verbally consented to the use of an ambient scribe for clinic note documentation during this visit. [facility] Medical History (Updated 12/09/24 @ 12:29 by Maria L De León PA-C) Shoulder (girdle) dystocia during labor and deliver, delivered Acute pharyngitis Acute respiratory disease Lumbar radicular pain Renal cysts, acquired, bilateral Renal calculi Renal calculus, bilateral Hyperhidrosis Asthma Dysplasia of cervix, low grade (BILLY 1) Hypercholesterolemia Hypertension Type 2 diabetes mellitus with hyperglycemia Migraine Surgical History History of right oophorectomy Hx of cholecystectomy Hx of appendectomy History of hemorrhoidectomy Family History Father Substance abuse Brother Substance abuse Schizophrenia Other Mental and behavioral problem Social History (Updated 11/06/24 @ 14:55 by Justin Cameron PA-C) Housing: Apartment Alcohol intake: never Comment: ok with current level of relief-pyridium given Patient Tobacco Use Status: Never used Tobacco Tobacco use type: Cigarette e-Cigarette/Vaping Use: Never Used Second Hand Smoke Exposure: No service: No Current occupational status: disabled Cognitive needs: No Hearing needs: No Vision needs: No Review of Systems Const All systems reviewed & are unremarkable except as noted in HPI and below Physical Exam Vital Signs: Last Vital Signs Temp 99 F 12/09/24 11:50 Pulse 85 12/09/24 11:50 BP 106/58 L 12/09/24 11:50 Pulse Ox 97 12/09/24 11:50 Oxygen Delivery Method Room Air 12/09/24 11:50 BMI result Body Mass Index 23.4 Assessment & Plan Assessment & Plan (1) Neck and shoulder pain: Code(s): M54.2 - Cervicalgia; M25.519 - Pain in unspecified shoulder Plan Most likely muscle strain vs torticollis Plan - Initiate prednisone therapy to reduce inflammation and pain. - Continue current medications: meloxicam and cyclobenzaprine. - Recommend use of heating pad or ice pack for symptomatic relief. - Advise follow-up with primary care physician for potential physical therapy if symptoms persist. Medications: New methylprednisolone PO PER PKG DIR for 6 days 21 ea 0RF Coding Level of Care Code Est Pt Level 3 (49547) Diagnoses Neck and shoulder pain M54.2; M25.519
--- OUTSIDE RECORDS SUMMARY | 2024-12-09 12:59 | XMS_ITS | Encounter Summary ---
Author Organization [employer] Address [address] [facility] [address] [place] [address] Care Team Providers Care Berry Picker Machine Operator Name Role Phone Unavailable Primary Care Provider Unavailabl e Encounter Details Date Type Department Care Team (Latest Contact Info) Description 10/17/2018 Abstract [facility] CONVERSIONS Dental, Provider, DDS Social History [...]
== END 2024-12-09 12:28 | disposition home or self-care (01) ==
PROVIDERS: PCP Physician Assistant; Visit Provider Physician Assistant Medical
DX: M54.2 Cervicalgia (principal); M25.512 Pain in left shoulder

== ENCOUNTER → 2024-12-09 11:21 | Outpatient (BNVA) | payer OTHER, SELFPAY | PROVIDERS: PCP Physician Assistant; Visit Provider Physician Assistant Medical | DX: M54.2 Cervicalgia (principal); M25.512 Pain in left shoulder | CPT/HCPCS: 99212 ==

== ENCOUNTER 2024-12-18 14:50 | Outpatient (AMB) | payer OTHER, SELFPAY ==
[2024-12-18 14:58] VITALS: BP 116/68; PULSE 94; TEMP 36.3; O2SAT 98; BMI 22.7
--- NOTE | 2024-12-18 14:58 | A.OFFPC_ITS ---
Vital Signs 12/18/24 14:58 Height 5 ft 4 in Weight 132 lb BMI 22.7 BP 116/68 Blood Pressure Location Lt brachial Position Sitting Pulse 94 Pulse Source Pulse Oximeter Temp 97.3 F Temp Source Temporal Artery Scan Pulse Oximetry (%) 98 Oxygen Delivery Method Room Air Intake Visit Reasons: [facility] [place] 11/29 Blocker And Sewer Required: Yes Blocker And Sewer Language: Boom Boss Name: ID # Accompanied by: Self / Same As Patient Allergies sulfadimethoxine Adverse Reaction (Intermediate, Verified 12/18/24 15:19) Rash tizanidine Adverse Reaction (Intermediate, Verified 12/18/24 15:19) Headache Medication List - Last Reconciled 12/18/24 by Justin Cameron PA-C albuterol sulfate 90 mcg/actuation (Ventolin HFA) 2 puffs inhalation Q4-6H PRN alcohol swabs (Alcohol Prep Pads) 1 pad topical DAILY 90 days amlodipine 10 mg PO DAILY atorvastatin 10 mg PO DAILY 90 days azelastine 1 spray intranasal BID betamethasone valerate 0.1% 1 appl topical BID PRN 30 days blood sugar diagnostic (FreeStyle Lite Strips) CHECK THE BLOOD SUGAR ONCE A DAY cholecalciferol (vitamin D3) 25 mcg PO DAILY 90 days clonazepam 1 mg PO BID PRN cromolyn 4% 1 drp ophthalmic (eye) QID 30 days cyclobenzaprine 10 mg PO BEDTIME 30 days dulaglutide (Trulicity) 0.75 mg (0.5 mL) subcut QWEEK 4 weeks ferrous sulfate 325 mg PO DAILY fluocinonide 0.05% mL topical fluticasone propionate 50 mcg/actuation (Flonase Allergy Relief) 1 spray intranasal DAILY PRN insulin glargine (Lantus Solostar U-100 Insulin) 18 units subcut QPM lancets (FreeStyle Lancets) As directed check the sugar once a day levocetirizine 5 mg PO DAILY PRN lisinopril 20 mg PO DAILY meloxicam 15 mg PO DAILY 15 days methylprednisolone PO PER PKG DIR for 6 days pen needle, diabetic (BD Yuliet 2nd Gen Pen Needle) As directed polyethylene glycol 3350 (Miralax) 17 grams PO DAILY PRN 30 days pyridoxine (vitamin B6) 50 mg PO DAILY 90 days ropinirole 0.5 mg PO BEDTIME triamcinolone acetonide 0.1% 1 appl topical DAILY 30 days Tobacco use date assessed: 07/09/24 Dental Screening Dental Screen Date: 07/09/24 HPI [facility] [place] 11/29 HPI Details Patient is a 59-year-old female here today for an [facility] ER follow-up visit. Patient had right upper quadrant abdominal pain. CT of abdomen showing would collection in the right lower abdomen. Though her pain is not located in the right lower quadrant. She has had a cholecystectomy in the past. She did have an appendectomy at age 14. Concerns were over a ? stump appendicitis. She has been taking [id number] Pepto-Bismol, Prilosec Tylenol without much relief. She has had tramadol prescribed to her though felt it was not relieving her abdominal pain thus resulted in ER evaluation for intolerable abdominal pain.. She continues to have intermittent episodes of right upper quadrant abdominal pain that radiates into her upper mid abdomen causing her to feel short of breath. Otherwise denies any diarrhea, vomiting, constipation, fever chills. At this time there is no clear explanation for her abdominal pain that is located in the right upper abdominal quadrant and radiates into her mid abdomen. [facility] Medical History Shoulder (girdle) dystocia during labor and deliver, delivered Acute pharyngitis Acute respiratory disease Lumbar radicular pain Renal cysts, acquired, bilateral Renal calculi Renal calculus, bilateral Hyperhidrosis Asthma Dysplasia of cervix, low grade (BILLY 1) Hypercholesterolemia Hypertension Type 2 diabetes mellitus with hyperglycemia Migraine Surgical History History of right oophorectomy Hx of cholecystectomy Hx of appendectomy History of hemorrhoidectomy Family History Father Substance abuse Brother Substance abuse Schizophrenia Other Mental and behavioral problem Social History Housing: Apartment Alcohol intake: never Comment: ok with current level of relief-pyridium given Patient Tobacco Use Status: Never used Tobacco Tobacco use type: Cigarette e-Cigarette/Vaping Use: Never Used Second Hand Smoke Exposure: No service: No Current occupational status: disabled Cognitive needs: No Hearing needs: No Vision needs: No Questionnaire Thrive Questionnaire Date Thrive assessed: 11/06/24 I am a: Patient What is your living situation today?: I have a steady place to live Within the past 12 months, did the food you bought not last and you didn't have the money to get more?: Never true Within the past 12 months, did you worry whether your food would run out before you got money to buy more?: Sometimes True Do you have trouble paying for medicines?: No Do you have trouble getting transportation to medical appointments?: No Do you have trouble paying your heating and electricity bill?: No Do you have trouble taking care of your child, family member or friend?: No Do you have trouble with day-to-day activities such as bathing, preparing meals, shopping, managing finances, etc.?: I choose not to answer this question Are you currently unemployed and looking for a job?: No Are you interested in more education?: Yes Please select the resources that you would like help with: None Currently or been in a relationship where the following occur: I choose not to answer THRIVE Score: 1 AUDIT C Alcohol Use Questionnaire (AUDIT-C) 3. How often do you have six or more drinks on one occasion?: Never Total Score: 0 JASON-7 AMB Questionnaire JASON-7 Date JASON - 7 assessed: 07/09/24 Source: Developed by Drs. Duane Foreman, Lilli Ospina, Jeff Bravo and colleagues, with an educational rashawn from [employer]. Review of Systems Const Denies headache(s) Eyes Denies loss of vision ENT Denies vertigo, Denies dizziness, Denies headache(s) and Denies sore throat Card Denies chest pain, Denies leg edema and Denies lightheadedness Resp Denies cough, Denies hemoptysis and Denies wheezing GI Denies abdominal pain, Denies melena, Denies constipation, Denies diarrhea and Denies vomiting Denies urinary frequency, Denies dysuria and Denies urinary urgency Musc Denies arthralgias, Denies joint swelling, Denies numbness and Denies tingling Neuro Denies Abnormal speech present, Denies behavioral changes, Denies vertigo, Denies dizziness, Denies headache(s), Denies loss of vision, Denies memory loss, Denies numbness and Denies tingling Psych Denies anxiety, Denies behavioral changes, Denies depression, Denies memory loss and Denies panic attacks Hollis/Lymph Denies easy bleeding and Denies easy bruising Aller/Immun Denies wheezing Physical exam (Primary Care) Vital Signs: Last Vital Signs Temp 97.3 F 12/18/24 14:58 Pulse 94 12/18/24 14:58 BP 116/68 12/18/24 14:58 Pulse Ox 98 12/18/24 14:58 Oxygen Delivery Method Room Air 12/18/24 14:58 BMI result Body Mass Index 22.7 Tobacco/Smoking Status: Tobacco use Status Tobacco use date assessed 07/09/24 12/18/24 15:04 Patient Tobacco Use Status Never used Tobacco 12/18/24 15:04 Tobacco use type Cigarette 12/18/24 15:04 e-Cigarette/Vaping Use Never Used 12/18/24 15:04 Thrive Assessment: Date of Thrive Assessment Date Thrive assessed 11/06/24 12/18/24 15:04 Currently or been in a relationship where the following occur: I choose not to answer Const General: healthy appearing, no acute distress, alert and awake Nutritional Appearance: well nourished Orientation/consciousness: oriented to person, oriented to place and oriented to time HENMT Ears: TM's normal bilaterally General nose exam: Normal nasal mucous membranes and turbinates present Eyes Conjunctivae: conjunctivae normal Sclerae: sclerae normal Pupils: Equal, round and reactive pupils present Neck Neck: Yes no lymphadenopathy and Yes no JVD Thyroid: Thyroid normal Carotids: no bruits Resp Effort & Inspection: normal respiratory effort and not tachypneic Auscultation: no crackles, no rales, no rhonchi and no wheezes Cardio Rate: regular rate Rhythm: regular rhythm Heart sounds: no murmurs and normal S1 and S2 GI Other: TENDERNESS TO PALPATION IN THE RIGHT UPPER ABDOMINAL QUADRANT Palpation (GI): Soft to palpation, Tenderness to palpation present (GI) in the RUQ, no hepatomegaly and no splenomegaly Auscultation: normal bowel sounds Skin General skin exam: no rashes or lesions noted and dry skin Neuro General: oriented to person, oriented to place and oriented to time Cranial nerves: Yes Equal, round and reactive pupils present Speech: No Abnormal speech present Gait exam (Neuro): Normal gait present Motor exam (neuro): no tremor noted Extrem Right upper extremity: full ROM Left upper extremity: full ROM Right lower extremity: full ROM; no edema Left lower extremity: full ROM; no edema Psych Mental Status: mental status grossly normal Speech and movement: Normal speech and movement present Affect: normal affect Attitude: cooperative Thought process: Normal thought process present Coding Level of Care Code Est Pt Level 4 (15597) Diagnoses RUQ abdominal pain R10.11 Assessment & Plan Assessment & Plan (1) RUQ abdominal pain: Code(s): R10.11 - Right upper quadrant pain Category: Medical Plan: Unclear etiology to patient's right upper quadrant abdominal pain. CT of abdomen fluid collection in the right pelvis though no clear etiology in the right upper quadrant were pain in his located. She has had a cholecystectomy years ago. At this time she reports the pain is intolerable in his not wanting to return back to the ER. She has tried tramadol though has not been effective. Will supply patient with oxycodone which has been effective at the recent ER visit. Will urgently referred to Gastroenterology for possible endoscopy or ERCP to help establish a diagnosis for pain. Orders: Referrals Gastroenterology Referral R10.11 - Right upper quadrant pain Medications: New oxycodone Partial Fill upon patient request. 5 mg PO BID PRN 14 tabs 0RF pain 7 days R10.11 - Right upper quadrant pain
--- OUTSIDE RECORDS SUMMARY | 2024-12-18 15:14 | XMS_ITS | Encounter Summary ---
Author Organization [employer] Address [address] [facility] [address] [place] [address] Care Team Providers Care Community Marketing Coordinator Name Role Phone Unavailable Primary Care Provider Unavailabl e Encounter Details Date Type Department Care Team (Latest Contact Info) Description 10/17/2018 Abstract [facility] CONVERSIONS Dental, Provider, DDS Social History Tobacco [...]
--- OUTSIDE RECORDS SUMMARY | 2024-12-18 15:14 | XMS_ITS | Patient Health Record ---
Author Organization [facility] Address [address] [place] [address] Care Team Providers Care Internet Marketing Consultant Name Role Phone Isaac BRAND, Nela Primary Care Provider Duane Noe Unavailable [phone] Allergies Allergen (clinical drug ingredient) Drug/Non Drug Allergy documented on EMR Reaction Allergy Type Onset Date Status seasonal (uncoded) Unknown Allergy A ctive Reason For Referral No Information Medications Medication SIG (Take, Route, Frequency, Duration) Notes Start Date End Date Status glipiZIDE 10 MG 1 tablet Orally Once a day Active HYDROcodone-Acetaminophen 5-325 MG TOME ADOLFO TABLETA POR VIA ORAL CADA SEIS HORAS CUANDO SEA NECESARIO Oral for 3 Active SEROquel 25 MG 1 tablet Orally Twic e a day Active Zoloft 100 MG 1 tablet Orally Once a day Active metFORMIN HCl 500 MG 1 tablet with meals Orally Twice a day Active clonazePAM 1 MG TOME ADOLFO TABLETA POR VIA ORAL RADHA VECES AL IKE CUANDO SEA NECESARIO Oral for 30 Active traZODone HCl 50 MG TOME ADOLFO O DOS TABLE TAS POR VIA ORAL AL ACOSTARSE CUANDO SEA NECESARIO Oral for 30 Active ZyrTEC Allergy 10 MG 1 tablet as needed Orally Once a day Active Zestoretic 20-25 MG 1 tablet Orally Once a day Active Plan Of Treatment No Information Insurance Providers Payer Name Payer Address Payer Phone Subscriber Number Group Number Insured Name Patient Relationship to Insured Coverage Start Date [facility] End [facility] [address] [place] [address] [id number] LAZARO KASPER Self - patient is the insured [id number] [address] [place] [address] [id number] LAZARO KASPER Self - patient is the insured Medical (General) History Medical History History ICD Code Hepatitis C--genotype 3-she was treated with 6 months of pegylated interferon and ribavirin 2003--she had a liver biopsy in 1998 with the finding of changes of chronic hepatitis but no fibrosis and no sign of chronic active hepatitis--- her most recent hepatitis C viral load was nondetectable in November of 2013 and she had a liver ultrasound in 2012 describing only an echogenic liver, but without any mass--labs in 2013 showed a normal CBC and liver profile, as well as a normal alpha-fetoprotein level Denies CT,CVA,Lung disease,renal disease NIDDM Depression HTN Surgical History Surgery Date(Month/Year) cholecystectomy appendectomy scheduled for hemorrhoid surgery on December 09, [address] Villa
== END 2024-12-18 16:50 | disposition home or self-care (01) ==
LOC: HO.HMCH 14:51
PROVIDERS: PCP Physician Assistant; Visit Provider Physician Assistant
DX: R10.11 Right upper quadrant pain (principal)

== ENCOUNTER → 2024-12-18 14:50 | Outpatient (BNVA) | payer OTHER, SELFPAY | PROVIDERS: PCP Physician Assistant; Visit Provider Physician Assistant | DX: R10.11 Right upper quadrant pain (principal) | CPT/HCPCS: 99212 ==

== ENCOUNTER 2025-02-13 13:43 | Outpatient (AMB) | payer OTHER, SELFPAY ==
--- NOTE | 2025-02-13 13:48 | MHC.PC.OV ---
Vital Signs 02/13/25 13:49 Height 5 ft 4 in Weight 142 lb 6 oz BMI 24.4 BP 130/72 Blood Pressure Location Lt brachial Position Sitting Pulse 98 Pulse Oximetry (%) 98 Oxygen Delivery Method Room Air Intake Visit Reasons: f/u DMII Planning Specialist Required: Yes Planning Specialist Language: Student Counsellor Name: Lisbeth [id number] Accompanied by: Self / Same As Patient Allergies sulfadimethoxine Adverse Reaction (Intermediate, Verified 02/13/25 13:51) Rash tizanidine Adverse Reaction (Intermediate, Verified 02/13/25 13:51) Headache Tobacco use date assessed: 02/13/25 Dental Screening Dental Screen Date: 02/13/25 Did you have a dental visit in the last 12 months?: No Did you have a dental problem in the last 6 months where you did not have access to dental care?: No Was dental information given to patient?: Patient has dentist HPI f/u DMII HPI Details Patient is a 59-year-old female here today for an annual physical? Patient has a past medical history significant for type 2 diabetes, hypertension, generalized anxiety disorder.. . .. Type 2 diabetes:? Today's A1c today at 8.7 . . She continues on Trulicity and metformin . She has noted weight loss in urinary frequency as of late. We have changed her metformin to an extended release formulation. No reports of hypoglycemic events. PLAN: Will increase her Lantus dose to 24 units and up titrate per response. Goal random sugars to be 120s to 150s. .. Hyperlipidemia: Most recent fasting lipid panel showing borderline high cholesterol and LDL above goal 100. She has not been taking atorvastatin as she feels she can modify her diet. Will restart atorvastatin 10 mg . Anemia: Has improved with the addition of iron supplementation. Us also been eating beets every morning [facility] Medical History Shoulder (girdle) dystocia during labor and deliver, delivered Acute pharyngitis Acute respiratory disease Lumbar radicular pain Renal cysts, acquired, bilateral Renal calculi Renal calculus, bilateral Hyperhidrosis Asthma Dysplasia of cervix, low grade (BILLY 1) Hypercholesterolemia Hypertension Type 2 diabetes mellitus with hyperglycemia Migraine Surgical History History of right oophorectomy Hx of cholecystectomy Hx of appendectomy History of hemorrhoidectomy Family History Father Substance abuse Brother Substance abuse Schizophrenia Other Mental and behavioral problem Social History Housing: Apartment Alcohol intake: never Comment: ok with current level of relief-pyridium given Patient Tobacco Use Status: Never used Tobacco Tobacco use type: Cigarette e-Cigarette/Vaping Use: Never Used Second Hand Smoke Exposure: No service: No Current occupational status: disabled Cognitive needs: No Hearing needs: No Vision needs: No Questionnaire PHQ-9 Over the last 2 weeks, how often have you been bothered by any of the following problems? 1. Little interest or pleasure in doing things: several days 2. Feeling down, depressed, or hopeless: several days 3. Trouble falling or staying asleep, or sleeping too much: nearly every day 4. Feeling tired or having little energy: several days 5. Poor appetite or overeating: several days 6. Feeling bad about yourself - or that you are a failure or have let yourself or your family down: several days 7. Trouble concentrating on things, such as reading the newspaper or watching television: several days 8. Moving or speaking so slowly that other people could have noticed. Or the opposite - being so fidgety or restless that you have been moving around a lot more than usual: not at all 9. Thoughts that you would be better off or of hurting yourself in some way: not at all Total score: 9 Depression Screening Interpretation: Positive Depression Screening Follow-up: Existing condition Depression Screening Done: Yes Source: Developed by Drs. Duane Foreman, Lilli Ospina, Jeff Bravo and colleagues, with an educational rashawn from [employer]. Thrive Questionnaire Date Thrive assessed: 11/06/24 I am a: Patient What is your living situation today?: I have a steady place to live Within the past 12 months, did the food you bought not last and you didn't have the money to get more?: Never true Within the past 12 months, did you worry whether your food would run out before you got money to buy more?: Sometimes True Do you have trouble paying for medicines?: No Do you have trouble getting transportation to medical appointments?: No Do you have trouble paying your heating and electricity bill?: No Do you have trouble taking care of your child, family member or friend?: No Do you have trouble with day-to-day activities such as bathing, preparing meals, shopping, managing finances, etc.?: I choose not to answer this question Are you currently unemployed and looking for a job?: No Are you interested in more education?: Yes Please select the resources that you would like help with: None Currently or been in a relationship where the following occur: I choose not to answer THRIVE Score: 1 AUDIT C Alcohol Use Questionnaire (AUDIT-C) 3. How often do you have six or more drinks on one occasion?: Never Total Score: 0 JASON-7 AMB Questionnaire JASON-7 Date JASON - 7 assessed: 07/09/24 Feeling nervous, anxious, or on edge: 1 = Several days Not being able to stop or control worryin = More than half the days Worrying too much about different things: 2 = More than half the days Trouble relaxin = More than half the days Being so restless that it is hard to sit still: 2 = More than half the days Becoming easily annoyed or irritable: 1 = Several days Feeling afraid as if something awful might happen: 2 = More than half the days Total JAOSN-7 score (0-4 normal; 5-9 mild; 10-14 moderate; 15-21 severe): 12 Source: Developed by Drs. Duane Foreman, Lilli Ospina, Jeff Bravo and colleagues, with an educational rashawn from [employer]. JASON-7 Assessment Billing JASON-7 Assessment Tool: JASON-7 Assessment 00005 Physical exam (Primary Care) Vital Signs: Last Vital Signs Pulse 98 02/13/25 13:49 BP 130/72 02/13/25 13:49 Pulse Ox 98 02/13/25 13:49 Oxygen Delivery Method Room Air 02/13/25 13:49 BMI result Body Mass Index 24.4 Tobacco/Smoking Status: Tobacco use Status Tobacco use date assessed 02/13/25 02/13/25 13:58 Patient Tobacco Use Status Never used Tobacco 02/13/25 13:58 Tobacco use type Cigarette 02/13/25 13:58 e-Cigarette/Vaping Use Never Used 02/13/25 13:58 PHQ-9: PHQ-9 Score PHQ-9: Total score 9 02/13/25 13:58 Depression Screening Interpretation: Positive Depression Screening Follow-up: Existing condition Thrive Assessment: Date of Thrive Assessment Date Thrive assessed 11/06/24 02/13/25 13:58 Currently or been in a relationship where the following occur: I choose not to answer Results AMB Hemoglobin A1c AMB Hemoglobin A1c 8.7 % Last Edit by Megan Millan CMA on 02/13/25 14:09 Coding Diagnoses RUQ abdominal pain R10.11 Type 2 diabetes mellitus with hyperglycemia, without long-term current use of insulin E11.65 Diabetes mellitus half-way insulin use: without half-way use Essential hypertension I10 Hypertension type: essential hypertension Anemia in other chronic diseases classified elsewhere D63.8 Anemia type: other cause Other causes of anemia: chronic disease, other MDD (major depressive disorder), recurrent episode, moderate F33.1 Hypercholesterolemia E78.00 Fibromyalgia M79.7 Rash R21 Additional Codes JASON-7 Assessment Billing - JASON-7 Assessment Tool: JASON-7 Assessment 66329 ([id number]) Assessment & Plan Assessment & Plan (1) RUQ abdominal pain: Code(s): R10.11 - Right upper quadrant pain Category: Medical Plan: Unclear etiology to patient's right upper quadrant abdominal pain. CT of abdomen fluid collection in the right pelvis though no clear etiology in the right upper quadrant were pain in his located. She has had a cholecystectomy years ago. At this time she reports the pain is intolerable in his not wanting to return back to the ER. She has tried tramadol though has not been effective. Will supply patient with oxycodone which has been effective at the recent ER visit. Will urgently referred to Gastroenterology for possible endoscopy or ERCP to help establish a diagnosis for pain. (2) Type 2 diabetes mellitus with hyperglycemia: Code(s): E11.65 - Type 2 diabetes mellitus with hyperglycemia Category: Medical Qualifiers: Diabetes mellitus foam caster insulin use: without foam caster use Qualified Code(s): E11.65 - Type 2 diabetes mellitus with hyperglycemia Plan: Patient's type 2 diabetes suboptimally controlled with A1c today at 9.1 from 8.4.. Continues on Trulicity weekly and metformin a 1000 b.i.d. Will increase her Lantus dose to 14 units for better glycemic control. Goal A1c is to be below 7.0 (3) Hypertension: Code(s): I10 - Essential (primary) hypertension Category: Medical Qualifiers: Hypertension type: essential hypertension Qualified Code(s): I10 - Essential (primary) hypertension Plan: Patient's blood pressure acceptable today in office. She will continue her current dose of antihypertensive medication with goal blood to 40/90 (4) Anemia: Code(s): D64.9 - Anemia, unspecified Category: Medical Qualifiers: Anemia type: other cause Other causes of anemia: chronic disease, other Qualified Code(s): D63.8 - Anemia in other chronic diseases classified elsewhere Plan: Anemia has improved significantly since starting iron supplementation. Will continue iron supplementation daily. (5) MDD (major depressive disorder), recurrent episode, moderate: Code(s): F33.1 - Major depressive disorder, recurrent, moderate Category: Medical Plan: Patient's PHQ-9 score positive for mild depression which has been existing condition for her. She is not interested in mental health medication at this time. (6) Hypercholesterolemia: Code(s): E78.00 - Pure hypercholesterolemia, unspecified Category: Medical Plan: Patient's most recent lipid panel showing slightly elevated total cholesterol and LDL above goal of 100. She will work on dietary modification She continues on atorvastatin 20 mg. Will continue to follow lipid panel to ensure LDL appropriate below 100. (7) Fibromyalgia: Code(s): M79.7 - Fibromyalgia Category: Medical (8) Rash: Code(s): R21 - Rash and other nonspecific skin eruption Category: Medical Orders: Orders Complete Blood Count no Diff Today I10 - Essential (primary) hypertension AMB Hemoglobin A1c Today Z13.9 - Encounter for screening, unspecified Lipid Panel Today E78.00 - Pure hypercholesterolemia, unspecified Comprehensive [place]. Panel Fast Today I10 - Essential (primary) hypertension Medications: New pregabalin 75 mg PO BID 60 caps 1RF 30 days M79.7 - Fibromyalgia On Hold dulaglutide (Trulicity) Hold Comment: Doctor's Order 0.75 mg (0.5 mL) subcut QWEEK 4 weeks 2 mL 3RF E11.65 - Type 2 diabetes mellitus with hyperglycemia
[2025-02-13 13:49] VITALS: BP 130/72; PULSE 98; O2SAT 98; BMI 24.4
--- OUTSIDE RECORDS SUMMARY | 2025-02-13 14:27 | XMS_ITS | Clinical Summary ---
Author Organization [employer] Address [address] [place] [address] [address] [place] [address] Care Team Providers Care Small Boat Engineer Name Role Phone Unavailable Primary Care Provider [...] 2024 05/07/2021, 11/06/2020, 10/07/2020 Influenza Vaccine (#1) 2025 9, 06/21/2018, 02/24/2017, Additional history exists RSV [...] [facility] Comment: EXPLANATORY NOTE: The Pap is a screening test for cervical cancer. It is not a diagnostic test and is subject to false negative and false positive results. It is most reliable when a satisfactory sample, regularly obtained, is submitted with relevant clinical findings and history, and when the Pap result is evaluated along with historic and current clinical information. COMMENT: SEE COMMENT [facility] Comment: Microscopic features suggestive of lubricant. Lubricant jellies may interfere with slide preparation; their use is not recommended. Cemetery Manager: SEE COMMENT [facility] Comment: ED, CT(ASCP) CT screening location: [place] [address] Interpretation/Res ult: SEE COMMENT [facility] Comment: Unable to provide interpretation due to unsatisfactory specimen adequacy. LMP: SEE COMMENT [facility] Comment:NONE GIVEN Prev. BX: NONE GIVEN [facility] Prev. PAP: SEE COMMENT [facility] Comment:NONE GIVEN Review Cemetery Manager: SEE COMMENT [facility] Comment: [place], CT(ASCP) CT screening location: [place] [address] SOURCE: SEE COMMENT [facility] Comment:None given Statement Of Adequacy: SEE COMMENT [facility] Comment: Specimen processed and examined, but unsatisfactory for evaluation due to an insufficient number of squamous cells. 05/11/2020 Baljeet Islas MD LAB PATHOLOGY ORDERABLES Final R esult [facility] [address] [place] [address], * 3D DIGITAL CHANDNI SCR MAMMO 1 [...] DIGITAL CHANDNI SCR MAMMO 1 Nela Gray MANAGER COSMETIC IMG BI PROCEDURES Final Result from Last 3 Months or Most Recently Relevant to Health Maintenance
--- OUTSIDE RECORDS SUMMARY | 2025-02-13 14:27 | XMS_ITS | Encounter Summary ---
Author Organization [employer] Address [address] [facility] [address] [place] [address] Care Team Providers Care Jet Man Name Role Phone Unavailable Primary Care Provider Unavailabl e Encounter Details Date Type Department Care Team (Latest Contact Info) Description 10/17/2018 Abstract [facility] CONVERSIONS Dental, Provider, DDS Social History Tobacco [...]
--- OUTSIDE RECORDS SUMMARY | 2025-02-13 14:27 | XMS_ITS | Patient Health Record ---
Author Organization [facility] Address [address] [place] [address] Care Team Providers Care Websphere Developer Name Role Phone Justin Cameron Primary Care Provider UnavailDuane Feliciano Unavailable [phone] Allergies Allergen (clinical drug ingredient) Drug/Non Drug [...] Once a day Active Plan Of Treatment Next Appt Details Provider Name:Duane Chin , 04/15/2025 02:40:00 PM, [address], [address], [place], [address], Insurance Providers Payer Name Payer Address Payer Phone Subscriber Number Group Number Insured Name Patient Relationship to Insured Coverage Start Date Coverage End Date [facility] [address] [address] [place], [place] [id number] LAZARO KASPER Self - patient is the [...] well as a normal alpha-fetoprotein level Denies [place],CVA,Lung disease,renal disease NIDDM Depression HTN Surgical History Surgery Date(Month/Year) cholecystectomy appendectomy scheduled for hemorrhoid surgery on December 09, [address] Villa
== END 2025-02-13 14:24 | disposition home or self-care (01) ==
LOC: HO.HMCH 13:44
PROVIDERS: PCP Physician Assistant; Visit Provider Physician Assistant
DX: Z13.9 Encounter for screening, unspecified (principal)

== ENCOUNTER → 2025-02-13 13:43 | Outpatient (BNVA) | payer OTHER, SELFPAY | PROVIDERS: PCP Physician Assistant; Visit Provider Physician Assistant | DX: Z00.00 Encounter for general adult medical examination without abnormal findings (principal); E11.65 Type 2 diabetes mellitus with hyperglycemia; I10 Essential (primary) hypertension; F41.1 Generalized anxiety disorder; R10.11 Right upper quadrant pain; E78.5 Hyperlipidemia, unspecified; D63.8 Anemia in other chronic diseases classified elsewhere; E78.00 Pure hypercholesterolemia, unspecified; M79.7 Fibromyalgia | CPT/HCPCS: 83036; 96127; 99212 ==

== ENCOUNTER 2025-02-20 15:54 | Outpatient (REF) | payer OTHER, SELFPAY ==
--- NOTE | ~2025-02-20 | US_ITS ---
EXAMINATION: US RETROPERITONEAL LIMITED (RENAL ONLY) CLINICAL INFORMATION: Calculus of kidney. COMPARISON: Ultrasound kidneys on 18/07/2024 TECHNIQUE: Retroperitoneal ultrasound of kidneys is performed. FINDINGS: RIGHT KIDNEY: 10.5 x 5.6 x 4.3 cm (SAG x AP x TRV). The kidney is normal in size, contour, and echogenicity. Renal cortical thickness is normal. No echogenic calculi seen. There is anechoic simple cyst mid pole right kidney measuring 0.9 x 0.6 x 0.9 cm. Previously it measured 0.7 x 0.7 x 0.8 cm.. No hydronephrosis. LEFT KIDNEY: 11.0 x 5.3 x 4.6 cm (SAG x AP x TRV). The kidney is normal in size, contour, and echogenicity. Renal cortical thickness is normal. No echogenic calculi seen. Then anechoic cysts. They measure 1.7 x 1.7 x 1.8 cm in lower pole, 1.4 x 1.4 x 1.0 cm, septated in lower pole and 0.4 x 0.3 x 0.3 cm in midpole. Mild pelvic fullness. US/US renal BI IMPRESSION: Bilateral simple renal cysts except for a Bosniak type II cyst in the lower pole left kidney, stable. Mild left renal pelvic fullness similar to previous exam. No radiopaque calculi hydronephrosis suspected. Electronically signed by: Yrn Rose MD 02/21/2025 07:12 AM EDT
--- OUTSIDE RECORDS SUMMARY | 2025-02-20 16:34 | XMS_ITS | Encounter Summary ---
Author Organization [employer] Address [address] [facility] 7[address] [place] [address] Care Team Providers Care Automobile Club Information Clerk Name Role Phone Unavailable Primary Care Provider Unavailabl e Encounter Details Date Type Department Care Team (Latest Contact Info) Description 10/17/2018 Abstract [facility] CONVERSIONS Dental, Provider, DDS Social History [...]
--- OUTSIDE RECORDS SUMMARY | 2025-02-20 16:34 | XMS_ITS | Clinical Summary ---
Author Organization [employer] Address [address] [place] [address] [address] [place] [address] Care Team Providers Care Stitchdowns Toe Former Name Role Phone Unavailable Primary Care Provider [...] slide preparation; their use is not recommended. Web Content Executive: SEE COMMENT [facility] Comment: ED, CT(ASCP) CT screening location: [place] [address] Interpretation/Res ult: SEE COMMENT [facility] Comment: Unable to provide interpretation due to unsatisfactory specimen adequacy. LMP: SEE COMMENT [facility] Comment:NONE GIVEN Prev. BX: NONE GIVEN [facility] Prev. PAP: SEE COMMENT [facility] Comment:NONE GIVEN Review Web Content Executive: SEE COMMENT [facility] Comment: [place], CT(ASCP) CT screening location: [place] [address] SOURCE: SEE COMMENT [facility] Comment:None given Statement Of Adequacy: SEE COMMENT [facility] Comment: Specimen processed and examined, but unsatisfactory for evaluation due to an insufficient number of squamous cells. 05/11/2020 Baljeet Islas MD LAB PATHOLOGY ORDERABLES Final R esult [facility] [address] [place] [address], * 3D DIGITAL CHANDNI SCR MAMMO 1 [...] DIGITAL CHANDNI SCR MAMMO 1 Nela Gray ORAL SURGEON IMG BI PROCEDURES Final Result from Last 3 Months or Most Recently Relevant to Health Maintenance
--- OUTSIDE RECORDS SUMMARY | 2025-02-20 16:34 | XMS_ITS | Patient Health Record ---
Author Organization [facility] Address [address] [place] [address] Care Team Providers Care Chemical Equipment Controller Name Role Phone Justin Cameron Primary Care Provider UnavailDuane Feliciano Unavailable [phone] Allergies Allergen (clinical drug ingredient) Drug/Non Drug [...] 02:40:00 PM, [address], [address], [place], [address], Insurance Providers Payer Name Payer Address Payer Phone Subscriber Number Group Number Insured Name Patient Relationship to Insured Coverage Start Date Coverage End Date [facility] [address] [address] [place], [place] [id number] LAZARO KASPER Self - patient is the [...] well as a normal alpha-fetoprotein level Denies [place],CVA,Lung disease,renal disease NIDDM Depression HTN Surgical History Surgery Date(Month/Year) cholecystectomy appendectomy scheduled for hemorrhoid surgery on December 09, [address] Villa
== END 2025-02-20 15:55 | disposition home or self-care (01) ==
LOC: HO.US 15:54
PROVIDERS: PCP Physician Assistant; Visit Provider Nurse Practitioner Family
DX: N20.0 Calculus of kidney (principal)
CPT/HCPCS: 76775

== ENCOUNTER → 2025-02-20 15:58 | Outpatient (BNV) | payer OTHER, SELFPAY | PROVIDERS: PCP Physician Assistant; Visit Provider Radiology Diagnostic Radiology | DX: N28.1 Cyst of kidney, acquired (principal) | CPT/HCPCS: 76775 ==

== ENCOUNTER 2025-03-16 11:01 | Emergency (ER) | payer OTHER, SELFPAY ==
[2025-03-16 11:08] VITALS: BP 168/92; PULSE 110; RESP 18; TEMP 36.6; O2SAT 98; BMI 24.7
--- NOTE | 2025-03-16 12:05 | ED_ITS ---
HPI - Neck Pain/Injury General Chief Complaint: Neck Pain/Injury Stated Complaint: Since mon, swollen neck Time Seen by Provider: 03/16/25 11:14 Source: patient Mode of arrival: ambulatory Limitations: no limitations History of Present Illness HPI Narrative: 59 yo female with history DM, HTN here with complaints of atraumatic neck pain since Monday. History of this before which was improved with prednisone. Pain with movement of neck. No headache, vision changes, vomiting, chest pain, shortness of breath, abdominal pain, fevers, chills, numbness/tingling/weakness in the extremities. Has been taking tylenol, flexeril Q 4 hours (10mg) with no relief in symptoms. Related Data Home Medications ?Medication ?Instructions ?Recorded ?Confirmed azelastine 137 mcg (0.1 %) nasal 1 spray intranasal BI D 12/21/21 12/18/24 spray fluocinonide 0.05 % topical ml topical 12/21/21 solution insulin glargine 100 unit/mL (3 18 unit subcut QPM 12/18/24 mL) subcutaneous pen (Lantus Solostar U-100 Insulin) clonazepam 1 mg tablet 1 mg PO BID PRN panic attack 12/18/24 12/18/24 levocetirizine 5 mg tablet 5 mg PO DAILY PRN 12/18/24 12/18/24 Previous Rx's ?Medication ?Instructions ?Recorded lancets 28 gauge (FreeStyle #100 ea 10/19/22 Lancets) betamethasone valerate 0.1 % 1 appl topical BID PRN sk in 12/28/23 topical ointment irritation 30 days #45 grams ropinirole 0.5 mg tablet 0.5 mg PO BEDTIME #90 tabs 1 06/20/23 ferrous sulfate 325 mg (65 mg 325 mg PO DAILY #90 tabs 06/30/24 iron) tablet atorvastatin 10 mg tablet 10 mg PO DAILY 90 days #90 t abs 07/09/24 pen needle, diabetic 32 gauge x #100 ea 07/09/24 (BD Yuliet 2nd Gen Pen Needle) albuterol sulfate 90 mcg/actuation 2 puff inhalation Q 4-6H PRN 08/08/24 aerosol inhaler (Ventolin HFA) shortness of breath or wheezing #8.5 grams blood sugar diagnostic (FreeStyle #100 strips 08/08/24 Lite Strips) amlodipine 10 mg tablet 10 mg PO DAILY #90 tabs 08/17 01/10 alcohol swabs (Alcohol Prep Pads) 1 pad topical DAILY 90 days #100 ea 10/07/24 cromolyn 4 % eye drops 1 drp ophthalmic (eye) QID 3 0 days 10/07/24 #10 mL lisinopril 20 mg tablet 20 mg PO DAILY #90 tabs 09/18 07/13 pyridoxine (vitamin B6) 50 mg 50 mg PO DAILY 90 days # 90 tabs 11/04/24 tablet cyclobenzaprine 10 mg tablet 10 mg PO BEDTIME 30 days #30 tabs 11/05/24 cholecalciferol (vitamin D3) 25 25 mcg PO DAILY 90 day s #90 caps 12/26/24 mcg (1,000 unit) capsule dulaglutide 0.75 mg/0.5 mL 0.75 mg (0.5 mL) subcut QWE EK 4 12/30/24 subcutaneous pen injector weeks #2 mL (Trulicity) Held on 02/13/25. Instructions: Doctor's Order fluticasone propionate 50 1 spray intranasal DAILY PRN nasal 01/02/25 mcg/actuation nasal congestion #9.9 mL spray,suspension (Flonase Allergy Relief) pregabalin 75 mg capsule 75 mg PO BID 30 days #60 cap s 02/13/25 oxycodone 5 mg tablet 5 mg PO BID PRN pain 7 days #14 03/10/25 tabs naproxen 500 mg tablet 500 mg PO BID PRN pain #30 t abs 03/16/25 prednisone 20 mg tablet 40 mg (2 x 20 mg) PO DAILY # 10 tabs 03/16/25 Allergies Allergy/AdvReac Type Severity Reaction Status Date / Time sulfadimethoxine AdvReac Intermediate Rash Verified 03/16/25 11:09 tizanidine AdvReac Intermediate Headache Verified 03/16/25 11:09 Review of Systems Review of Systems: Yes all other systems are reviewed and are negative Constitutional: Constitutional: Reports no additional constitutional complaints, Denies body ache(s), Denies chills, Denies fever(s), Denies headache(s) and Denies weakness Eyes: Eyes: Reports no additional eye complaints and Denies change in vision ENT: Reports system reviewed and no additional complaints, except as documented, Denies dizziness, Denies headache(s), Denies nasal congestion, Denies nasal discharge and Reports neck pain Cardiovascular: Cardiovascular: Reports no additional cardiovascular complaints, Denies chest pain, Denies leg edema and Denies dyspnea Respiratory: Respiratory: Reports no additional respiratory complaints, Denies cough and Denies dyspnea Gastrointestinal: Gastrointestinal: Reports no additional gastrointestinal complaints, Denies abdominal pain, Denies diarrhea, Denies nausea and Denies vomiting Genitourinary: Genitourinary: Reports no additional female genitourinary complaints and Denies urinary incontinence Musculoskeletal: Musculoskeletal: Reports no additional musculoskeletal complaints, Denies back pain, Denies arthralgias, Denies joint swelling, Reports neck pain, Denies numbness and Denies tingling Integumentary/Breasts: Skin/Breast: Reports system reviewed and no additional complaints, except as docu and Denies rash Neurologic: Reports system reviewed and no additional complaints, except as documented, Denies Abnormal speech present, Denies dizziness, Denies headache(s), Denies numbness, Denies tingling and Denies weakness [facility] Past Medical History Attestation statement: The following information was validated with the patient. Source: old records reviewed and nursing notes reviewed Medical History Shoulder (girdle) dystocia during labor and deliver, delivered Acute pharyngitis Acute respiratory disease Lumbar radicular pain Renal cysts, acquired, bilateral Renal calculi Renal calculus, bilateral Hyperhidrosis Asthma Dysplasia of cervix, low grade (BILLY 1) Hypercholesterolemia Hypertension Type 2 diabetes mellitus with hyperglycemia Migraine Surgical History History of right oophorectomy Hx of cholecystectomy Hx of appendectomy History of hemorrhoidectomy Family History Family History Father Substance abuse Brother Substance abuse Schizophrenia Other Mental and behavioral problem Social History Social History Housing: Apartment Alcohol intake: never Comment: ok with current level of relief-pyridium given Patient Tobacco Use Status: Never used Tobacco Tobacco use type: Cigarette e-Cigarette/Vaping Use: Never Used Second Hand Smoke Exposure: No Advance Directives: No Advance Directives Information Provided: Yes Do you have a plan to hurt others: No Plan service: No Current occupational status: disabled Cognitive needs: No Hearing needs: No Vision needs: No Physical Exam Vital Signs: Vital Signs: Last Vital Signs Temp 98 F 03/16/25 11:08 Pulse 110 H 03/16/25 11:08 Resp 18 03/16/25 11:08 BP 168/92 H 03/16/25 11:08 Pulse Ox 98 03/16/25 11:08 O2 Del Method Room Air 03/16/25 11:08 BMI result Body Mass Index 24.7 Const: General: cooperative, healthy appearing, comfortable and no acute distress Orientation/consciousness: patient oriented x3 Limitations: no limitations HEENT: Head: Yes normal to inspection Ears: hearing grossly normal bilaterally General nose exam: Normal external nose present Face and sinus: Yes normal facial exam Mouth: Normal oral and palatal mucosa present Throat: Yes posterior oropharynx normal Eyes: General: appearance normal, both eyes and all related structures Pupils: Equal, round and reactive pupils present Neck: Other: There is tenderness to the muscles surrounding the neck with palpable muscle spasm. Pain is worsened with rotation of the head. Patient is able to flex and hyperextend the neck with no difficulty. Neck: Yes normal visual inspection, Yes no lymphadenopathy and Yes no meningeal signs Chest: Chest palpation & inspection: normal inspection of the chest Resp: Effort & Inspection: normal respiratory effort Auscultation: clear to auscultation bilaterally Cardio: Rate: regular rate Rhythm: regular rhythm Peripheral pulses: Peripheral pulses 2+ throughout GI: Inspection: Yes normal to inspection Palpation (GI): Soft to palpation and nontender Auscultation: normal bowel sounds Back/Spine/Pelvis: Thoracic/Lumbar Spine: thoracic and lumbar spine normal to inspection Skin: General skin exam: no rashes or lesions noted Neuro: General: patient oriented x3, moves all extremities, no meningeal signs, no focal motor deficits and normal sensation to monofilament Cranial nerves: Yes CN's II-XII intact bilaterally, Yes Equal, round and reactive pupils present, Yes Bilaterally intact EOM present, Yes Nystagmus not present, Yes Normal facial strength present and Yes Midline tongue present Cognition (Neuro): normal cognition Speech: No Abnormal speech present Gait exam (Neuro): Normal gait present Motor exam (neuro): 5/5 motor strength present throughout Sensory Exam: Normal double simultaneous stimulation for sensation Extrem: General: Yes normal to inspection Medical Decision Making Medical Decision Making MDM Narrative: 59 yo female with history DM, HTN here with complaints of atraumatic neck pain since Monday. History of this before which was improved with prednisone. Pain with movement of neck. No headache, vision changes, vomiting, chest pain, shortness of breath, abdominal pain, fevers, chills, numbness/tingling/weakness in the extremities. Has been taking tylenol, flexeril Q 4 hours (10mg) with no relief in symptoms. There is tenderness to the muscles surrounding the neck with palpable muscle spasm. Pain is worsened with rotation of the head. Patient is able to flex and hyperextend the neck with no difficulty. Normal neuro exam. No neuro deficits or red flag symptoms. C/w with torticollis Will add prednisone, NSAID, recommend heat and f/u with PCP as needed Differential Diagnosis Differential Diagnoses: The differential diagnosis associated with the presentation includes . Low suspicion for cord compression, epidural abscess, fracture, malignancy, carotid dissection. torticollis Admission/Observation Consideration of admission/observation: Escalation of care including admission/observation considered Tests considered The following testing was considered but not selected: No need for MRI with normal neuro exam, no red flag symtpoms Prescription Management I considered prescription management with: Pain Medication Chronic Conditions Patient?s care impacted by: Hypertension Discharge Plan Discharge Clinical Impression: Muscular torticollis Patient Disposition: Home, Self-Care Instructions: Spasmodic Torticollis (ED) Additional Instructions: Heat to the area Gentle stretching Continue flexeril, tylenol at home Take the new medications as prescribed Take them with food Follow-up with your PCP in 5-7 days for any continued symptoms Prescriptions: New naproxen 500 mg tablet 500 mg PO BID PRN (Reason: pain) Qty: 30 0RF prednisone 20 mg tablet 40 mg PO DAILY Qty: 10 0RF No Action (DME) lancets [FreeStyle Lancets] 28 gauge misc See Rx Instructions .Route Qty: 100 3RF Rx Instructions: As directed check the sugar once a day ropinirole 0.5 mg tablet 0.5 mg PO BEDTIME Qty: 90 0RF ferrous sulfate 325 mg (65 mg iron) tablet 325 mg PO DAILY Qty: 90 1RF albuterol sulfate [Ventolin HFA] 90 mcg/actuation HFA aerosol inhaler 2 puff inhalation Q4-6H PRN (Reason: shortness of breath or wheezing) Qty: 8.5 1RF (DME) FreeStyle Lite Strips Strip See Rx Instructions .ROUTE .COMPLEX Qty: 100 2RF Dose Instruction: DIRECTED CHECK THE BLOOD SUGAR ONCE A DAY Rx Instructions: CHECK THE BLOOD SUGAR ONCE A DAY amlodipine 10 mg tablet 10 mg PO DAILY Qty: 90 2RF lisinopril 20 mg tablet 20 mg PO DAILY Qty: 90 2RF cromolyn 4 % drops 1 drp ophthalmic (eye) QID 30 Days Qty: 10 3RF alcohol swabs [Alcohol Prep Pads] Pads, Medicated 1 pad topical DAILY 90 Days Qty: 100 2RF pyridoxine (vitamin B6) 50 mg tablet 50 mg PO DAILY 90 Days Qty: 90 3RF cyclobenzaprine 10 mg tablet 10 mg PO BEDTIME 30 Days Qty: 30 3RF cholecalciferol (vitamin D3) 25 mcg (1,000 unit) capsule 25 mcg PO DAILY 90 Days Qty: 90 0RF Trulicity 0.75 mg/0.5 mL pen injector 0.75 mg subcut QWEEK 28 Days Qty: 2 3RF fluticasone propionate [Flonase Allergy Relief] 50 mcg/actuation spray,suspension 1 spray intranasal DAILY PRN (Reason: nasal congestion) Qty: 9.9 2RF Rx Instructions: administer into each nostril oxycodone 5 mg tablet 5 mg PO BID PRN (Reason: pain) 7 Days Qty: 14 0RF Rx Instructions: Partial Fill upon patient request. betamethasone valerate 0.1 % ointment 1 appl topical BID PRN (Reason: skin irritation) 30 Days Qty: 45 0RF azelastine 137 mcg (0.1 %) aerosol,spray 1 spray intranasal BID fluocinonide 0.05 % solution topical clonazepam 1 mg tablet 1 mg PO BID PRN (Reason: panic attack) levocetirizine 5 mg tablet 5 mg PO DAILY PRN (DME) pen needle, diabetic [BD Yuliet 2nd Gen Pen Needle] 32 gauge x 5/32 needle See Rx Instructions .Route Qty: 100 3RF Rx Instructions: As directed atorvastatin 10 mg tablet 10 mg PO DAILY 90 Days Qty: 90 1RF pregabalin 75 mg capsule 75 mg PO BID 30 Days Qty: 60 1RF insulin glargine [Lantus Solostar U-100 Insulin] 100 unit/mL (3 mL) insulin pen 18 unit subcut QPM Referrals: Justin Cameron PA-C [Primary Care Provider, Internal Medicine] Print Language: Libyan
--- OUTSIDE RECORDS SUMMARY | 2025-03-16 12:18 | XMS_ITS | Encounter Summary ---
Author Organization [employer] Address [address] [facility] [address] [place] [address] Care Team Providers Care Target Worker Name Role Phone Unavailable Primary Care Provider Unavailabl e Encounter Details Date Type Department Care Team (Latest Contact Info) Description 10/17/2018 Abstract [facility] CONVERSIONS Dental, Provider, DDS Social History [...]
--- OUTSIDE RECORDS SUMMARY | 2025-03-16 12:18 | XMS_ITS | Patient Health Record ---
Author Organization [facility] Address [address] [place] [address] Care Team Providers Care Repeat Photocomposing Machine Operator Name Role Phone Justin Cameron Primary Care Provider UnavailDuane Feliciano Unavailable [phone] Allergies Allergen (clinical drug ingredient) Drug/Non Drug [...] 02:40:00 PM, [address], [address], [place], [address], Insurance Providers Payer Name Payer Address Payer Phone Subscriber Number Group Number Insured Name Patient Relationship to Insured Coverage Start Date Coverage End Date [facility] [address] [address] [place], [place] [id number] LAZARO KASPER Self - patient is the [...] well as a normal alpha-fetoprotein level Denies [place],CVA,Lung disease,renal disease NIDDM Depression HTN Surgical History Surgery Date(Month/Year) cholecystectomy appendectomy scheduled for hemorrhoid surgery on December 09, [address] Villa
--- OUTSIDE RECORDS SUMMARY | 2025-03-16 12:18 | XMS_ITS | Clinical Summary ---
Author Organization [employer] Address [address] [place] [address] [address] [place] [address] Care Team Providers Care Batch Or Continuous Still Operator Name Role Phone Unavailable Primary Care [...] 11/28/2013, 07/26/2006 COVID-19 Vaccine (4 - season) 2025 05/07/2021, 11/06/2020, 10/07/2020 Influenza Vaccine (#1) 2025 [...] slide preparation; their use is not recommended. Associate Account Manager: [facility] Comment: ED, CT(ASCP) CT screening location: [place] [address] Interpretation/Res ult: [facility] Comment: Unable to provide interpretation due to unsatisfactory specimen adequacy. LMP: [facility] Comment:NONE GIVEN Prev. BX: NONE [facility]IV[facility] Prev. PAP: [facility] Comment:NONE GIVEN Review Associate Account Manager: [facility] Comment: H[place], CT(ASCP) CT screening location: [place] [address] SOURCE: [facility] Comment:None given Statement Of Adequacy: [facility] Comment: Specimen processed and examined, but unsatisfactory for evaluation due to an insufficient number of squamous cells. 05/11/2020 Baljeet Islas MD LAB PATHOLOGY ORDERABLES Final R esult [facility] [address] [place] [address], * 3D DIGITAL CHANDNI SCR MAMMO 1 [...] DIGITAL CHANDNI SCR MAMMO 1 Nela Gray STRIPPING AND BOOKING MACHINE OPERATOR IMG BI PROCEDURES Final Result from Last 3 Months or Most Recently Relevant to Health Maintenance
[2025-03-16 12:24] VITALS: BP 168/92; PULSE 110; RESP 18; TEMP 36.6; O2SAT 98
== END 2025-03-16 12:27 | disposition home or self-care (01) ==
PROVIDERS: Emergency Provider Emergency Medicine; PCP Physician Assistant
DX: M43.6 Torticollis (principal); M54.2 Cervicalgia; Z79.899 Other long term (current) drug therapy
CPT/HCPCS: 99282; 99283

== ENCOUNTER 2025-03-25 12:29 | Outpatient (AMB) | payer OTHER, SELFPAY ==
--- NOTE | 2025-03-25 12:46 | MHC.OFFVIS ---
Intake Visit Reasons: follow up/US Intake Note: Patient is present for US F/U Urology Medication:VITAMIN B6 Antibiotic Allergy:SULFA Blood Thinner:NONE Nurse Ldr Required: No Allergies sulfadimethoxine Adverse Reaction (Intermediate, Verified 03/25/25 13:13) Rash tizanidine Adverse Reaction (Intermediate, Verified 03/25/25 13:13) Headache Medication List - Last Reconciled 03/25/25 by SP FongP-BC albuterol sulfate 90 mcg/actuation (Ventolin HFA) 2 puffs inhalation Q4-6H PRN alcohol swabs (Alcohol Prep Pads) 1 pad topical DAILY 90 days amlodipine 10 mg PO DAILY atorvastatin 10 mg PO DAILY 90 days azelastine 1 spray intranasal BID betamethasone valerate 0.1% 1 appl topical BID PRN 30 days blood sugar diagnostic (FreeStyle Lite Strips) CHECK THE BLOOD SUGAR ONCE A DAY cholecalciferol (vitamin D3) 25 mcg PO DAILY 90 days clonazepam 1 mg PO BID PRN cromolyn 4% 1 drp ophthalmic (eye) QID 30 days cyclobenzaprine 10 mg PO BEDTIME 30 days dulaglutide (Trulicity) 0.75 mg (0.5 mL) subcut QWEEK 4 weeks Held on 02/13/25. Instructions: Doctor's Order ferrous sulfate 325 mg PO DAILY fluocinonide 0.05% mL topical fluticasone propionate 50 mcg/actuation (Flonase Allergy Relief) 1 spray intranasal DAILY PRN insulin glargine (Lantus Solostar U-100 Insulin) 18 units subcut QPM lancets (FreeStyle Lancets) As directed check the sugar once a day levocetirizine 5 mg PO DAILY PRN lisinopril 20 mg PO DAILY naproxen 500 mg PO BID PRN oxycodone 5 mg PO BID PRN 7 days pen needle, diabetic (BD Yuliet 2nd Gen Pen Needle) As directed prednisone 40 mg (2 x 20 mg) PO DAILY pregabalin 75 mg PO BID 30 days pyridoxine (vitamin B6) 50 mg PO DAILY 90 days ropinirole 0.5 mg PO BEDTIME HPI Comments Details: Oh is a pleasant 89 year old female patient of Dr. Cameron. She has a past medical history of asthma, dysplasia of cervix (low grade), hypercholesteremia, hypertension, lumbar radicular pain, migraine, renal calculi, renal cysts, and type 2 diabetes. She presents to the office today for follow-up of her nephrolithiasis and renal cysts. In discussion with the patient today she reports having recently followed up with her PCP for ongoing right abdominal discomfort she has been experiencing. She does report intermittent episodes of left-sided back pain however is unsure if this was related to her back or kidney stones. Recent renal imaging results reviewed with the patient today 03/13 bilateral kidneys are normal in size, contour, and echogenicity. Bilateral simple renal cysts except for Bosniak type 2 cyst in the lower pole of the left kidney, stable. Per radiology report. Mild left renal pelvic fullness similar to previous exam. No radiopaque calculi or hydronephrosis suspected per radiology report. She denies urinary urgency, urinary frequency, incontinence, nocturia, hematuria, dysuria, foul smelling urine, changes to urinary stream, flank pain, fever, and or chills. She is happy with her current voiding parameters. She otherwise offers no issues or concerns at this time. BUN: 11/08 14, 04/10 12, 07/12 11, 11/09 15, 16, 07/13 14, 12/11 16 Creatinine: 11/08 0.80, 04/10 0.83, 07/12 0.80, 11/09 0.84, 01/09 0.91, 07/13 0.88, 12/11 0.95 PFSH Medical History Shoulder (girdle) dystocia during labor and deliver, delivered Acute pharyngitis Acute respiratory disease Lumbar radicular pain Renal cysts, acquired, bilateral Renal calculi Renal calculus, bilateral Hyperhidrosis Asthma Dysplasia of cervix, low grade (BILLY 1) Hypercholesterolemia Hypertension Type 2 diabetes mellitus with hyperglycemia Migraine Surgical History History of right oophorectomy Hx of cholecystectomy Hx of appendectomy History of hemorrhoidectomy Family History Father Substance abuse Brother Substance abuse Schizophrenia Other Mental and behavioral problem Social History (Reviewed 03/16/25 @ 12:17 by RUFINA Lauren Housing: Apartment Alcohol intake: never Comment: ok with current level of relief-pyridium given Patient Tobacco Use Status: Never used Tobacco Tobacco use type: Cigarette e-Cigarette/Vaping Use: Never Used Second Hand Smoke Exposure: No service: No Current occupational status: disabled Cognitive needs: No Hearing needs: No Vision needs: No Review of Systems Const All systems reviewed & are unremarkable except as noted in HPI and below Reports as per HPI Eyes Reports no additional complaints ENT Reports no additional complaints Card Reports as per HPI Resp Reports as per HPI GI Reports no additional complaints Reports as per HPI Musc Reports as per HPI Neuro Reports no additional complaints Psych Reports no additional complaints Endo Reports as per HPI Hollis/Lymph Reports no additional complaints Aller/Immun Reports no additional complaints Physical Exam Const General: cooperative, healthy appearing, comfortable, no acute distress, well developed, alert and awake Orientation/consciousness: patient oriented x3 Limitations: no limitations HEENT Head: Yes normal to inspection, Yes normocephalic and Yes atraumatic Ears: hearing grossly normal bilaterally Eyes General: appearance normal, both eyes and all related structures Neck Neck: Yes normal visual inspection and Yes trachea midline Chest Chest palpation & inspection: normal inspection of the chest Resp Effort & Inspection: normal respiratory effort and able to speak in complete sentences Cardio Rate: regular rate GI Inspection: Yes normal to inspection General: Yes no CVA tenderness Back/Spine/Pelvis Back: no CVA tenderness Skin General skin exam: no rashes or lesions noted Neuro General: patient oriented x3 Extrem General: Yes normal to inspection Psych Appearance: grossly normal and well kempt Mental Status: mental status grossly normal Speech and movement: Normal speech and movement present and Clear speech present Affect: normal affect Attitude: cooperative Thought process: Normal thought process present Thought content: Normal thought content present Insight: Fair insight present (Psych) Judgement: Fair judgement present (Psych) Results Reviewed Results Reviewed: Date of Service: 02/20/25 Procedure(s): US renal BI FINDINGS: RIGHT KIDNEY: 10.5 x 5.6 x 4.3 cm (SAG x AP x TRV). The kidney is normal in size, contour, and echogenicity. Renal cortical thickness is normal. No echogenic calculi seen. There is anechoic simple cyst mid pole right kidney measuring 0.9 x 0.6 x 0.9 cm. Previously it measured 0.7 x 0.7 x 0.8 cm.. No hydronephrosis. LEFT KIDNEY: 11.0 x 5.3 x 4.6 cm (SAG x AP x TRV). The kidney is normal in size, contour, and echogenicity. Renal cortical thickness is normal. No echogenic calculi seen. Then anechoic cysts. They measure 1.7 x 1.7 x 1.8 cm in lower pole, 1.4 x 1.4 x 1.0 cm, septated in lower pole and 0.4 x 0.3 x 0.3 cm in midpole. Mild pelvic fullness. IMPRESSION: Bilateral simple renal cysts except for a Bosniak type II cyst in the lower pole left kidney, stable. Mild left renal pelvic fullness similar to previous exam. No radiopaque calculi hydronephrosis suspected. Assessment & Plan Assessment & Plan (1) Renal cysts, acquired, bilateral: Code(s): N28.1 - Cyst of kidney, acquired Category: Medical (2) Renal calculi: Code(s): N20.0 - Calculus of kidney Category: Medical Plan In office urinalysis results with the patient today; as noted above. Recent renal imaging results reviewed with the patient today; as noted above. Continue vitamin B6 as discussed and prescribed. She currently denies any bothersome urinary issues. She reports be happy with current voiding parameters. We did discussed importance of adequate hydration relation to nephrolithiasis as well as overall health and well-being. Continue adding 1 oz of lemon juice to water daily. Will continue with surveillance monitoring of nephrolithiasis as well as renal cysts. All questions were answered. Will obtain renal ultrasound in 6 months. Follow-up in 6 months with imaging; or sooner with any issues, concerns, and or questions. Orders: Orders US renal BI 6 Months N20.0 - Calculus of kidney AMB Urinalysis Automated Today Z13.9 - Encounter for screening, unspecified Patient Instructions: The patient had an opportunity to ask questions regarding the treatment plan. All questions were answered. Physical exam, labs, and imaging were discussed and reviewed in detail. As well as risks, benefits, and discussion of treatment choices. No major barriers to understanding were identified. The patient expressed understanding and agreement with the above treatment plan. The patient was made aware they should contact our office by phone for worsening of their current condition, the appearance of new symptoms, or with any questions or concerns. Compliance is encouraged with any medications and follow up testing that is ordered. It is a privilege to be allowed the opportunity to participate in? your urological care.? Again, if you have any questions or concerns If you have any questions or concerns please do not hesitate to contact me. The office is [phone]. This note is constructed using voice recognition software. While every effort has been made to ensure accuracy irrigation district manager errors may have been included. Yours sincerely, JACQUES Fong Coding Level of Care Code Est Pt Level 3 (90088) Diagnoses Renal cysts, acquired, bilateral N28.1 Renal calculi N20.0
--- OUTSIDE RECORDS SUMMARY | 2025-03-25 15:23 | XMS_ITS | Patient Health Record ---
Author Organization [facility] Address [address] [place] [address] Care Team Providers Care Patient Registration Manager Name Role Phone Justin Cameron Primary Care Provider UnavailDuane Feliciano Unavailable [phone] Allergies Allergen (clinical drug ingredient) Drug/Non Drug [...] 02:40:00 PM, [address], [address], [place], [address], Insurance Providers Payer Name Payer Address Payer Phone Subscriber Number Group Number Insured Name Patient Relationship to Insured Coverage Start Date Coverage End Date [facility] [address] [address] [place], [place] [id number] [id number] LAZARO KASPER Self - patient is the [...]
--- OUTSIDE RECORDS SUMMARY | 2025-03-25 15:23 | XMS_ITS | Encounter Summary ---
Author Organization [employer] Address [address] [facility] [address] [place] [address] Care Team Providers Care Social Media Designer Name Role Phone Unavailable Primary Care Provider Unavailabl e Encounter Details Date Type Department Care Team (Latest Contact Info) Description 10/17/2018 Abstract [facility] CONVERSION[facility] Dental, Provider, DDS Social History [...]
--- OUTSIDE RECORDS SUMMARY | 2025-03-25 15:23 | XMS_ITS | Clinical Summary ---
Author Organization [email or web address] Address [address] [place] [address] [address] [place] [address] Care Team Providers Care Pressure Dispatcher Name Role Phone Unavailable Primary Care Provider [...] slide preparation; their use is not recommended. Commercial Baking Teacher: SEE COMMENT [facility] Comment: ED, CT(ASCP) CT screening location: [place] [address] Interpretation/Res ult: [facility] Comment: Unable to provide interpretation due to unsatisfactory specimen adequacy. LMP: [facility] Comment:NONE GIVEN Prev. BX: NONE GIVEN [facility] Prev. PAP: [facility]MENT [facility] Comment:NONE GIVEN Review Commercial Baking Teacher: [facility] Comment: HERRERA, CT(ASCP) CT screening location: [place] [address] SOURCE: [facility] Comment:None given Statement Of Adequacy: [facility] Comment: Specimen processed and examined, but unsatisfactory for evaluation due to an insufficient number of squamous cells. 05/11/2020 Baljeet Islas MD LAB PATHOLOGY ORDERABLES Final R esult [facility] [address] [place] [address], * 3D DIGITAL CHANDNI SCR MAMMO 1 [...] DIGITAL CHANDNI SCR MAMMO 1 Nela Gray PLEATER HAND IMG BI PROCEDURES Final Result from Last 3 Months or Most Recently Relevant to Health Maintenance
== END 2025-03-25 13:34 | disposition home or self-care (01) ==
LOC: HO.HUSH 12:31
PROVIDERS: PCP Physician Assistant; Visit Provider Nurse Practitioner Family
DX: N28.1 Cyst of kidney, acquired (principal); N20.0 Calculus of kidney; Z13.9 Encounter for screening, unspecified
CPT/HCPCS: 99213

== ENCOUNTER → 2025-03-25 12:29 | Outpatient (BNVA) | payer OTHER, SELFPAY | PROVIDERS: PCP Physician Assistant; Visit Provider Nurse Practitioner Family | DX: N20.0 Calculus of kidney (principal); N28.1 Cyst of kidney, acquired | CPT/HCPCS: 81003; 99212 ==

== ENCOUNTER 2025-04-15 15:48 | Outpatient (REF) | payer OTHER, SELFPAY ==
[2025-04-15 16:03] LABS: MANUAL DIFF FLAG NO
[2025-04-15 19:02] LABS: Alanine Aminotransferase 25 U/L (0-31); Albumin Level 4.6 g/dL (3.5-5.0); Alkaline Phosphatase 66 U/L (39-117); Aspartate Amino Transferase 36 U/L (5-31); Lipase 38 U/L (8-78); Total Protein 7.5 g/dL (6.5-8.0)
[2025-04-15 19:03] LABS: Hematocrit 35.2 % (37.0-47.0); Hemoglobin 11.3 g/dl (12.0-16.0); Imm Gran Abs Auto 0.01 X10*3/uL (0.00-0.03); Imm Gran Pct Auto 0.2 % (0.0-0.4); Lymphocytes Absolute Auto 2.0 X10*3/uL (1.2-4.9); Mean Corpuscular HGB Conc 32.1 g/dl (31.0-35.0); Mean Corpuscular Hemoglobin 29.7 pg (27.0-33.0); Mean Corpuscular Volume 92.4 fL (80.0-98.0); NRBC Abs Auto 0.000 X10*3/uL (0.0-0.012); NRBC Pct Auto 0.0 /100WBC (0.0-0.2); Platelet Count 274 X10*3/uL (160-400); Red Blood Count 3.81 X10*6/uL (4.20-5.50); White Blood Count 6.2 X10*3/uL (4.8-10.8)
[2025-04-15 19:11] LABS: Amylase 58 U/L (28-100)
--- OUTSIDE RECORDS SUMMARY | 2025-04-15 20:03 | XMS_ITS | Encounter Summary ---
Author Organization [employer] Address [address] [place] [address] Care Team Providers Care Director Of Student Financial Services Name Role Phone Unavailable Primary Care Provider Unavailabl e Encounter Details Date Type Department Care Team (Latest Contact Info) Description 10/17/2018 Abstract [facility] CONVERSIONS Dental, Provider, DDS Social [...]
--- OUTSIDE RECORDS SUMMARY | 2025-04-15 20:03 | XMS_ITS | Patient Health Record ---
Author Organization [facility] Address [address] [place] [address] Care Team Providers Care Licensed Marine Engineer Name Role Phone Justin Cameron Primary Care Provider Unavailab Duane Rseendiz Unavailable [phone] Allergies Allergen (clinical drug ingredient) Drug/Non Drug Allergy documented on EMR Reaction Allergy Type Onset Date Status seasonal (uncoded) Unknown Allergy A ctive Reason For Referral No Information Medications Medication SIG (Take, Route, Frequency, Duration) Notes Start Date End Date Status Atorvastatin Calcium 20 MG 1 tablet Orally Once a day 04/15/2025 Active amLODIPine-Atorvastatin 10-10 MG 1 tablet Orally Once a day A ctive Lantus 100 UNIT/ML as directed Subcutan eous daily 04/15/2025 Active Lisinopril 10 MG 1 tablet Orally Once a day Active Dicyclomine HCl 10 MG 1 or 2 capsules Or ally Every 6 hours if needed for abdominal pain/discomfort; Duration: 30 days 04/15/2025 Active Immunizations Vaccine Route Administration Date Status Comme nts Influenza Unknown 04/15/2025 Administered Problems Problem Type SNOMED Code ICD Code Onset Dates Problem Status W/U Status Risk Notes Problem Right upper quadrant pain (242634746) RUQ abdominal pain (R10.11) Active confirmed Problem Elevated liver enzymes level (063915521) Elevated liver function tests (R94.5) Active confirmed Vital Signs Temperature 98.4 degrees Fahrenheit 04/15/2025 Blood pressure diastolic 01 mm Hg 04/15/2025 Height 64 in 04/15/2025 Blood pressure systolic 001 mm Hg 04/15/2025 Weight 146.4 lbs 04/15/2025 BMI 25.13 kg/m2 04/15/2025 Encounters Encounter Location Date Provider Diagnosis [facility] [address] [place] [address] 04/15/2025 Duane Chin RUQ abdominal pain R10.11 [...] I shall attempt to obtain records from [facility] in regard to her studies back [...] I shall attempt to obtain records from [facility] in regard to her studies back [...] Other Need CT, labs, etc from her [facility] ER visit in 11/2024 Overall, Angela [...] I shall attempt to obtain records from [facility] in regard to her studies back [...] questions I can be of assistance with. Agnela was comfortable with this plan. Thank you again for allowing me to participate in Angela's care. I shall continue to keep you advised of her progress. Plan Of Treatment Pending Test Test Name Order Date LIVER PROFILE 04/15/2025 CBC w DIFF 04/15/2025 Amylase 04/15/2025 Lipase 04/15/2025 US abdomen complete 04/15/2025 Insurance Providers Payer Name Payer Address Payer Phone Subscriber Number Group Number Insured Name Patient Relationship to Insured Coverage Start Date Coverage End Date [facility] [address] [address] [place], [place] [id number] ANGELA KASPER Self - patient is the insured Medical (General) History Medical History History ICD Code Hepatitis C- genotype 3-she was treated with 6 [...] profile, as well as a normal alpha-fetoprotein level. Negative hepatitis C viral load in 2014 Denies [place],CVA,Lung disease,renal disease IDDM Depression HTN Negative screening colonoscopy [place] [address] Villa Surgical History Surgery Date(Month/Year) scheduled for hemorrhoid surgery on December 09, [address] Villa appendectomy cholecystectomy Hospitalization History Reason Date(Month/Year) abdominal pain at [facility] 11/2024
--- OUTSIDE RECORDS SUMMARY | 2025-04-15 20:03 | XMS_ITS | Clinical Summary ---
Author Organization [employer] Address [address] [place] [address] [address] [place] [address] Care Team Providers Care Straw Hat Brusher Name Role Phone Unavailable Primary Care Provider [...] slide preparation; their use is not recommended. Histology Manager: SEE COMMENT [facility] Comment: ED, CT(ASCP) CT screening location: [place] [address] Interpretation/Res ult: [facility] Comment: Unable to provide interpretation due to unsatisfactory specimen adequacy. LMP: [facility] Comment:NONE GIVEN Prev. BX: NONE GIVEN [facility] Prev. PAP: [facility] Comment:NONE GIVEN Review Histology Manager: [facility] Comment: HERRERA, CT(ASCP) CT screening location: [place] [address] SOURCE: [facility] Comment:None given Statement Of Adequacy: [facility] Comment: Specimen processed and examined, but unsatisfactory for evaluation due to an insufficient number of squamous cells. 05/11/2020 Baljeet Islas MD LAB PATHOLOGY ORDERABLES Final R esult [facility] [address] [place] [address], * 3D DIGITAL CHANDNI SCR MAMMO 1 [...] DIGITAL CHANDNI SCR MAMMO 1 Nela Gray COMPUTER GAME DESIGNER IMG BI PROCEDURES Final Result from Last 3 Months or Most Recently Relevant to Health Maintenance
== END 2025-04-15 15:49 | disposition home or self-care (01) ==
LOC: HO.LAB 15:48
PROVIDERS: PCP Physician Assistant; Visit Provider Internal Medicine
DX: R10.11 Right upper quadrant pain (principal); R94.5 Abnormal results of liver function studies
CPT/HCPCS: 36415; 80076; 82150; 83690; 85025

== ENCOUNTER 2025-04-18 11:29 | Outpatient (AMB) | payer OTHER, SELFPAY ==
--- OUTSIDE RECORDS SUMMARY | 2025-04-15 10:20 | XMS_ITS ---
Author Organization [facility] Address [address] [place] [address] Care Team Providers Care Curing Press Operator Name Role Phone Justin Cameron Primary Care Provider UnavailDuane Feliciano Unavailable [phone] Allergies Allergen (clinical drug ingredient) Drug/Non Drug Allergy documented on EMR Reaction Allergy Type Onset Date Status seasonal (uncoded) Unknown Allergy A ctive REASON FOR VISIT Patient presents today for abdominal pain Medications Medication SIG (Take, Route, Frequency, Duration) Notes Start Date End Date Status amLODIPine-Atorvastatin 10-10 MG 1 tablet Orally Once a day A ctive Lantus 100 UNIT/ML as directed Subcutan eous daily 04/15/2025 Active Lisinopril 10 MG 1 tablet Orally Once a day Active Atorvastatin Calcium 20 MG 1 tablet Orally Once a day 04/15/2025 Active Dicyclomine HCl 10 MG 1 or 2 capsules Or ally Every 6 hours if needed for abdominal pain/discomfort; Duration: 30 days 04/15/2025 Active Problems Problem Type SNOMED Code ICD Code Onset Dates Problem Status W/U Status Risk Notes Problem Right upper quadrant pain (738589105) RUQ abdominal pain (R10.11) Active confirmed Problem Elevated liver enzymes level (987275973) Elevated liver function tests (R94.5) Active confirmed Vital Signs Temperature 98.4 degrees Fahrenheit 04/15/20 25 Blood pressure systolic 001 mm Hg 04/15/20 25 Blood pressure diastolic 01 mm Hg 025 Height 64 in 04/15/2025 Weight 146.4 lbs 04/15/2025 BMI 25.13 kg/m2 04/15/2025 Encounters Encounter Location Date Provider Diagnosis [facility] [address] [place] [address] 04/15/2025 Duane Chin RUQ abdominal pain R10.11 and Elevated liver function tests R94.5 Assessments Encounter Date Diagnosis (ICD Code) Assessment Notes Treatment Notes Treatment Clinical Notes Section Notes 04/15/2025 RUQ abdominal pain (ICD-10 - R10.11) Overall, Angela appears well from a clinical standpoint. Her symptoms while frequent and bothersome do not seem particularly worrisome given no other associated symptoms such as fever, vomiting, jaundice, anorexia, or weight loss. They do not sound typical for a biliary process such as a common duct stone or peptic ulcer disease given the fleeting nature of the episodes the majority of the time. This may represent some irritable bowel syndrome and/or musculoskeletal pain. I do not think any type of endoscopic procedure is needed for further diagnostic measures. I shall attempt to obtain records from [facility] in regard to her studies back in November with a CT scan and laboratories. In the meantime I shall schedule her for a right upper quadrant ultrasound for further evaluation of her biliary tract to indirectly assess for any possible evidence of a common duct stone. I shall also check the below laboratories including a liver profile and lipase. Certainly if there is strong evidence or strong suspicion of a common duct stone she would then need an ERCP or MRCP, respectively, for further evaluation and treatment. In the meantime, I have given her a prescription to try dicyclomine as needed to treat any component of intestinal spasm that might be contributing to her pain. We did review that if she develops any significant pain with any other associated symptoms such as fevers or jaundice, she should go to the ER for evaluation We also reviewed that she will be due for a follow-up screening colonoscopy in 2027. I will plan to see her in several months for a follow-up visit but did advise her to contact me sooner if she has any problems or questions I can be of assistance with. Angela was comfortable with this plan. Thank you again for allowing me to participate in Angela's care. I shall continue to keep you advised of her progress. 04/15/2025 Elevated liver function tests (ICD-10 - R94.5) Overall, Angela appears well from a clinical standpoint. Her symptoms while frequent and bothersome do not seem particularly worrisome given no other associated symptoms such as fever, vomiting, jaundice, anorexia, or weight loss. They do not sound typical for a biliary process such as a common duct stone or peptic ulcer disease given the fleeting nature of the episodes the majority of the time. This may represent some irritable bowel syndrome and/or musculoskeletal pain. I do not think any type of endoscopic procedure is needed for further diagnostic measures. I shall attempt to obtain records from [facility] in regard to her studies back in November with a CT scan and laboratories. In the meantime I shall schedule her for a right upper quadrant ultrasound for further evaluation of her biliary tract to indirectly assess for any possible evidence of a common duct stone. I shall also check the below laboratories including a liver profile and lipase. Certainly if there is strong evidence or strong suspicion of a common duct stone she would then need an ERCP or MRCP, respectively, for further evaluation and treatment. In the meantime, I have given her a prescription to try dicyclomine as needed to treat any component of intestinal spasm that might be contributing to her pain. We did review that if she develops any significant pain with any other associated symptoms such as fevers or jaundice, she should go to the ER for evaluation We also reviewed that she will be due for a follow-up screening colonoscopy in 2027. I will plan to see her in several months for a follow-up visit but did advise her to contact me sooner if she has any problems or questions I can be of assistance with. Angela was comfortable with this plan. Thank you again for allowing me to participate in Angela's care. I shall continue to keep you advised of her progress. 04/15/[address], labs, etc from her [facility] ER visit in 11/2024 Overall, Angela appears well from a clinical standpoint. Her symptoms while frequent and bothersome do not seem particularly worrisome given no other associated symptoms such as fever, vomiting, jaundice, anorexia, or weight loss. They do not sound typical for a biliary process such as a common duct stone or peptic ulcer disease given the fleeting nature of the episodes the majority of the time. This may represent some irritable bowel syndrome and/or musculoskeletal pain. I do not think any type of endoscopic procedure is needed for further diagnostic measures. I shall attempt to obtain records from [facility] in regard to her studies back in November with a CT scan and laboratories. In the meantime I shall schedule her for a right upper quadrant ultrasound for further evaluation of her biliary tract to indirectly assess for any possible evidence of a common duct stone. I shall also check the below laboratories including a liver profile and lipase. Certainly if there is strong evidence or strong suspicion of a common duct stone she would then need an ERCP or MRCP, respectively, for further evaluation and treatment. In the meantime, I have given her a prescription to try dicyclomine as needed to treat any component of intestinal spasm that might be contributing to her pain. We did review that if she develops any significant pain with any other associated symptoms such as fevers or jaundice, she should go to the ER for evaluation We also reviewed that she will be due for a follow-up screening colonoscopy in 2027. I will plan to see her in several months for a follow-up visit but did advise her to contact me sooner if she has any problems or questions I can be of assistance with. Angela was comfortable with this plan. Thank you again for allowing me to participate in Angela's care. I shall continue to keep you advised of her progress. Plan Of Treatment Medication Medication Name Sig Start Date Stop Date Notes Dicyclomine HCl 10 MG 1 or 2 capsules Or ally Every 6 hours if needed for abdominal pain/discomfort; Duration: 30 days 04/15/2025 Treatment Notes Assessment Notes Other Need CT, labs, etc f rom her [facility] ER visit in 11/2024 Pending Test Test Name Order Date LIVER PROFILE 04/15/2025 CBC w DIFF 04/15/2025 Amylase 04/15/2025 Lipase 04/15/2025 US abdomen complete 04/15/2025 Progress Notes * NORMAN BYRDSDOB: [birth year] (59 yo F)Acc No.[id number]:04/15/2025 Progress Notes Patient: ANGELA MARINO Provider: Leigha Chin MD :[id number] A ge:59 Y S ex:Female Date:04/15/2025 Address:[address] [place] [address] Pcp:Justin Cameron Subjective: * Chief Complaints: * 1 . Patient presents today for abdominal pain. * HPI: i ncontinence: I saw Angela in consultation today in regard to further evaluation of her right upper quadrant discomfort, as well as her previous history of hepatitis C and discussion of colorectal cancer screening. I last saw Angela in 2014 for an office visit to discuss her previous history of hepatitis C and possible high risk exposure . Testing at that time revealed a nondetectable hepatitis C viral load, negative HIV test, and negative hepatitis B infection. She had a negative screening colonoscopy in February [address] Villa. She has not had a colonoscopy since that time. She reports that she generally feels well but has been troubled by ongoing issues with right upper quadrant pain. She did have a previous cholecystectomy many years ago. She describes that the pain is localized to the right upper quadrant but can be quite fleeting in nature and tends not to last more than just a few minutes at a time. However, she does describe that at times it will last for about an hour. She reports that it occurs just about every day, but again intermittently and sporadically throughout the day. It will occasionally awaken her from sleep. It occurs intermittently throughout the day but is not associate with any particular food or activity. She has not noticed any associated symptoms such as jaundice, fevers, vomiting, or nausea. Her bowel movements have remained regular during these episodes without any diarrhea, hematochezia, nor melena. She denies any urinary symptoms. Aside from the right upper quadrant discomfort she has no other areas of abdominal pain. She denies any anorexia, significant heartburn, dysphagia, or any unintentional weight loss. She does not use any chronic NSAIDs. She does describe having been at [facility] for about 2 or 3 days in November when her symptoms first started and was told of negative studies there including a CT scan and laboratories. She describes being discharged without any definitive diagnosis. She had been on Trulicity and this was stopped to see if that would help with her symptoms. However she reports that it did not make a difference 1 way or the other. Laboratories earlier this year revealed normal chemistries and renal function, normal LFTs except for minimally elevated AST and ALT of 43 and 42, respectively, lipase 47, and a normal CBC other than a low normal hemoglobin of 11.9. * Medical History: H epatitis C- genotype 3-she was treated with 6 months of pegylated interferon and ribavirin 2003- she had a liver biopsy in 1998 with the finding of changes of chronic hepatitis but no fibrosis and no sign of chronic active hepatitis- - her most recent hepatitis C viral load was nondetectable in November of 2013 and she had a liver ultrasound in 2012 describing only an echogenic liver, but without any mass- labs in 2013 showed a normal CBC and liver profile, as well as a normal alpha- fetoprotein level. Negative hepatitis C viral load in 2014, Denies [place],CVA,Lung disease,renal disease, IDDM, Depression, HTN, Negative screening colonoscopy in February [address] Villa. * Surgical History: c holecystectomy , appendectomy , scheduled for hemorrhoid surgery on December 09, [address] Villa . * Hospitalization/Major Diagno stic Procedure: a bdominal pain at [facility] 11/2024. * Family History: F ather: . M other: , diagnosed with HTN (hypertension). no family hx of colon or liver ca. * Social History: T obacco Use: T obacco Use/Smoking A re you a: nonsmoker. D rugs/Alcohol: A lcohol Screen P oints: 0, Interpretation: Negative. M iscellaneous: M arital status: single. Occupation: unemployed. S he does not smoke nor use any significant amounts of alcohol. * Medications: T aking Atorvastatin Calcium 20 MG Tablet 1 tablet Orally Once a day , Taking Lantus 100 UNIT/ML Solution as directed Subcutaneous daily , Taking amLODIPine- Atorvastatin 10-10 MG Tablet 1 tablet Orally Once a day , Taking Lisinopril 10 MG Tablet 1 tablet Orally Once a day , Discontinued clonazePAM 1 MG Tablet TOME ADOLFO TABLETA POR VIA ORAL RADHA VECES AL IKE CUANDO SEA NECESARIO Oral , Discontinued traZODone HCl 50 MG Tablet TOME ADOLFO O DOS TABLETAS POR VIA ORAL AL ACOSTARSE CUANDO SEA NECESARIO Oral , Discontinued HYDROcodone-Acetaminophen 5-325 MG Tablet TOME ADOLFO TABLETA POR VIA ORAL CADA SEIS HORAS CUANDO SEA NECESARIO Oral , Discontinued SEROquel 25 MG Tablet 1 tablet Orally Twice a day , Discontinued Zoloft 100 MG Tablet 1 tablet Orally Once a day , Discontinued metFORMIN HCl 500 MG Tablet 1 tablet with meals Orally Twice a day , Discontinued glipiZIDE 10 MG Tablet 1 tablet Orally Once a day , Discontinued ZyrTEC Allergy 10 MG Tablet 1 tablet as needed Orally Once a day , Discontinued Zestoretic 20-25 MG Tablet 1 tablet Orally Once a day , Medication List reviewed and reconciled with the patient * Allergies: S easonal. Objective: * Vitals: W t: 146.4 lbs, Ht: 64 in, BMI:25.13Index, BP: 001/01 mm Hg, Temp: 98.4, Wt-k.41. Assessment: * Assessment: 1. R UQ abdominal pain - R10.11 (Primary) 2 . E levated liver function tests - R94.5 Overall, Angela appears well from a clinical standpoint. Her symptoms while frequent and bothersome do not seem particularly worrisome given no other associated symptoms such as fever, vomiting, jaundice, anorexia, or weight loss. They do not sound typical for a biliary process such as a common duct stone or peptic ulcer disease given the fleeting nature of the episodes the majority of the time. This may represent some irritable bowel syndrome and/or musculoskeletal pain. I do not think any type of endoscopic procedure is needed for further diagnostic measures. I shall attempt to obtain records from [facility] in regard to her studies back in November with a CT scan and laboratories. In the meantime I shall schedule her for a right upper quadrant ultrasound for further evaluation of her biliary tract to indirectly assess for any possible evidence of a common duct stone. I shall also check the below laboratories including a liver profile and lipase. Certainly if there is strong evidence or strong suspicion of a common duct stone she would then need an ERCP or MRCP, respectively, for further evaluation and treatment. In the meantime, I have given her a prescription to try dicyclomine as needed to treat any component of intestinal spasm that might be contributing to her pain. We did review that if she develops any significant pain with any other associated symptoms such as fevers or jaundice, she should go to the ER for evaluation We also reviewed that she will be due for a follow-up screening colonoscopy in 2027. I will plan to see her in several months for a follow-up visit but did advise her to contact me sooner if she has any problems or questions I can be of assistance with. Angela was comfortable with this plan. Thank you again for allowing me to participate in Angela's care. I shall continue to keep you advised of her progress. Plan: * Treatment: * 2.?Elevated liver function tests?LAB: LIVER PROFILE ?LAB: CBC w DIFF ?LAB: Amylase ?LAB: Lipase ?Imaging: US abdomen complete* sched for 06/13/25 at 9:[address] [facility] Ultrasound dept 2nd floorfasting 8 hrs prior * 3.?Others? Notes: Need CT, labs, etc from her [facility] ER visit in 11/2024?? * Preventive Medicine: Counseling: C are goal follow-up plan: A sharmila Normal BMI Follow-up D ietary management education, guidance, and counseling, B PA management provided Y es. * * The named appointment provid er may or may not be the originator of this progress note, and it is not deemed complete until electronically signed by the appointment provider. Sign off status: Pending * Provider: Leigha Chin MD Date: Generated for Anish bhandari/Ivon/Torri on: 01:09 PM EDT History and Physical Notes * HPI (History of Present Illness) Category Sub-Category Detail Notes Category Not es incontinence I saw Angela in consultation today in regard to further evaluation of her right upper quadrant discomfort, as well as her previous history of hepatitis C and discussion of colorectal cancer screening. I last saw Angela in 2014 for an office visit to discuss her previous history of hepatitis C and possible high risk exposure . Testing at that time revealed a nondetectable hepatitis C viral load, negative HIV test, and negative hepatitis B infection. She had a negative screening colonoscopy in February [address] Villa. She has not had a colonoscopy since that time. She reports that she generally feels well but has been troubled by ongoing issues with right upper quadrant pain. She did have a previous cholecystectomy many years ago. She describes that the pain is localized to the right upper quadrant but can be quite fleeting in nature and tends not to last more than just a few minutes at a time. However, she does describe that at times it will last for about an hour. She reports that it occurs just about every day, but again intermittently and sporadically throughout the day. It will occasionally awaken her from sleep. It occurs intermittently throughout the day but is not associate with any particular food or activity. She has not noticed any associated symptoms such as jaundice, fevers, vomiting, or nausea. Her bowel movements have remained regular during these episodes without any diarrhea, hematochezia, nor melena. She denies any urinary symptoms. Aside from the right upper quadrant discomfort she has no other areas of abdominal pain. She denies any anorexia, significant heartburn, dysphagia, or any unintentional weight loss. She does not use any chronic NSAIDs. She does describe having been at [facility] for about 2 or 3 days in November when her symptoms first started and was told of negative studies there including a CT scan and laboratories. She describes being discharged without any definitive diagnosis. She had been on Trulicity and this was stopped to see if that would help with her symptoms. However she reports that it did not make a difference 1 way or the other. Laboratories earlier this year revealed normal chemistries and renal function, normal LFTs except for minimally elevated AST and ALT of 43 and 42, respectively, lipase 47, and a normal CBC other than a low normal hemoglobin of 11.9
[2025-04-18 11:47] VITALS: BP 132/60; PULSE 95; TEMP 37.1; O2SAT 97; BMI 25.2
--- NOTE | 2025-04-18 11:47 | AM.OFFWIN_ITS ---
Intake Vital Signs 04/18/25 11:47 Height 5 ft 4 in Weight 147 lb BMI 25.2 BP 132/60 Blood Pressure Location Rt brachial Position Sitting Pulse 95 Pulse Source Pulse Oximeter Temp 98.8 F Temp Source Oral Pulse Oximetry (%) 97 Oxygen Delivery Method Room Air Intake Visit Reasons: EP Left arm pain Intake Note: pt presents with recurring left clavicle pain radiating into left shoulder for about 4 months- denies injury Patient Tobacco Use Status: Never used Tobacco Allergies sulfadimethoxine Adverse Reaction (Intermediate, Verified 04/18/25 11:51) Rash tizanidine Adverse Reaction (Intermediate, Verified 04/18/25 11:51) Headache Do you need a note to return to daycare/school/sports/work: No HPI HPI Comments History of Present Illness Details History - The patient is a 59-year-old female pr esenting with musculoskeletal pain and muscle spasm. - The patient reports pain in the left c lavicle and neck, which started without any known injury. - The pain is exacerbated by palpation a nd movement, and the neck is stiff. - The patient has not taken any medicati ons or used hot or cold therapy for relief. - The patient has experienced similar sy mptoms in the past, with previous episodes occurring in November and February. - Previous treatment with prednisone was not well tolerated due to its strength, and the patient prefers the SoluMedrol Dosepak. - The patient has used Flexeril 10 mg in the past, which provided some relief. + Review of Systems - Musculoskeletal: Reports pain in the l eft clavicle and neck, stiffness in the neck. All systems reviewed and are unremarkable except as noted in HPI Physical Exam General: cooperative, healthy appearing and comfortable, patient oriented x3 Head: Yes normal to inspection and Yes normocephalic General nose exam: Normal external nose present Face and sinus: Yes normal facial exam Effort & Inspection: normal respiratory effort and able to speak in complete sentences Back/spine: cervical, thoracic and lumbar spine normal to inspection cervical ROM normal with pain, thoracic ROM normal, lumbar ROM normal no Cervical, thoracic or lumbar spine tenderness TTP left side sternum/ clavicle area, left trapezius Extremities: moving extremities normally, full ROM left shoulder Neuro: A&O x3, gait normal [facility] Medical History Shoulder (girdle) dystocia during labor and deliver, delivered Acute pharyngitis Acute respiratory disease Lumbar radicular pain Renal cysts, acquired, bilateral Renal calculi Renal calculus, bilateral Hyperhidrosis Asthma Dysplasia of cervix, low grade (BILLY 1) Hypercholesterolemia Hypertension Type 2 diabetes mellitus with hyperglycemia Migraine Surgical History History of right oophorectomy Hx of cholecystectomy Hx of appendectomy History of hemorrhoidectomy Family History Father Substance abuse Brother Substance abuse Schizophrenia Other Mental and behavioral problem Social History Housing: Apartment Alcohol intake: never Comment: ok with current level of relief-pyridium given Patient Tobacco Use Status: Never used Tobacco Tobacco use type: Cigarette e-Cigarette/Vaping Use: Never Used Second Hand Smoke Exposure: No service: No Current occupational status: disabled Cognitive needs: No Hearing needs: No Vision needs: No Physical Exam Vital Signs: Last Vital Signs Temp 98.8 F 04/18/25 11:47 Pulse 95 04/18/25 11:47 BP 132/60 04/18/25 11:47 Pulse Ox 97 04/18/25 11:47 Oxygen Delivery Method Room Air 04/18/25 11:47 BMI result Body Mass Index 25.2 Assessment & Plan Assessment & Plan (1) Pain of left clavicle: Code(s): M89.8X1 - Other specified disorders of bone, shoulder Plan: Plan - An x-ray of the left clavicle will be performed to rule out any structural abnormalities. - she can take the muscle relaxer she has at home to address the muscle spasm, with instructions to take it at night. - The patient will be prescribed a SoluMedrol Dosepak to manage inflammation, with instructions to take all doses in the morning to avoid sleep disturbances. - If no improvement in symptoms, please follow up with PCP Patient was informed and verbally consented to the use of an ambient scribe for clinic note documentation during this visit. (2) Neck pain: Code(s): M54.2 - Cervicalgia Plan: as above Orders: Orders XR clavicle LT Today M89.8X1 - Other specified disorders of bone, shoulder, S16.1XXA - Strain of muscle, fascia and tendon at neck level, initial encounter Medications: New methylprednisolone PO PER PKG DIR for 6 days 21 ea 0RF Coding Level of Care Code Est Pt Level 3 (16165) Diagnoses Pain of left clavicle M89.8X1 Neck pain M54.2
--- OUTSIDE RECORDS SUMMARY | 2025-04-18 13:10 | XMS_ITS | Clinical Summary ---
Author Organization [employer] Address [address] [place] [address] [address] [place] [address] Care Team Providers Care Beet Flumer Name Role Phone Unavailable Primary Care Provider [...] slide preparation; their use is not recommended. Wine Sales Representative: SEE COMMENT [facility] Comment: ED, CT(ASCP) CT screening location: [place] [address] Interpretation/Res ult: [facility] Comment: Unable to provide interpretation due to unsatisfactory specimen adequacy. LMP: [facility] Comment:NONE GIVEN Prev. BX: NONE GIVEN [facility] Prev. PAP: [facility] Comment:NONE GIVEN Review Wine Sales Representative: [facility] Comment: HERRERA, CT(ASCP) CT screening location: [place] [address] SOURCE: [facility] Comment:None given Statement Of Adequacy: [facility] Comment: Specimen processed and examined, but unsatisfactory for evaluation due to an insufficient number of squamous cells. 05/11/2020 Baljeet Islas MD LAB PATHOLOGY ORDERABLES Final R esult [facility] [address] [place] [address], * 3D DIGITAL CHANDNI SCR MAMMO 1 [...] DIGITAL CHANDNI SCR MAMMO 1 Nela Gray BATTERY VENT PLUG INSERTER IMG BI PROCEDURES Final Result from Last 3 Months or Most Recently Relevant to Health Maintenance
--- OUTSIDE RECORDS SUMMARY | 2025-04-18 13:10 | XMS_ITS | Patient Health Record ---
Author Organization [facility] Address [address] [place] [address] Care Team Providers Care Reservations Sales Agent Name Role Phone Justin Cameron Primary Care Provider UnavailDuane Feliciano Unavailable [phone] Allergies Allergen (clinical drug ingredient) Drug/Non Drug Allergy documented on EMR Reaction Allergy Type Onset Date Status seasonal (uncoded) Unknown Allergy A ctive Results Component Value Reference Range Notes Complete Blood Count Auto Di ff (Not yet reviewed by provider) Interpretation: Performing Lab:[facility], [address] [place] [id number] Notes/Report: White Blood Count 6.2 4.8-10.8 X10*3/uL Red Blood Count 3.81 4.20-5.50 X10*6/uL Hemoglobin 11.3 12.0-16.0 g/dl Hematocrit 35.2 37.0-47.0 % Mean Corpuscular Volume 92.4 80.0-98.0 fL Mean Corpuscular Hemoglobin 29.7 27.0-33.0 pg Mean Corpuscular HGB Conc 32.1 31.0-35.0 g/dl Red Cell Distribution Width 13.1 11.0-16.0 % Platelet Count 274 160-400 X10*3/uL Mean Platelet Volume 10.6 9.4-12.3 fL Neutrophils Percent Auto 55.7 45-73 % Imm Gran Pct Auto 0.2 0.0-0.4 % Lymphocytes Percent Auto 32.7 20-40 % Monocytes Percent Auto 9.8 2-11 % Eosinophils Percent Auto 1.0 0-4 % Basophils Percent Auto 0.6 0-2 % NRBC Pct Auto 0.0 0.0-0.2 /100WBC Neutrophils Absolute Auto 3.5 2.0-8.3 x10*3/u L Imm Gran Abs Auto 0.01 0.00-0.03 X10*3/uL Lymphocytes Absolute Auto 2.0 1.2-4.9 X10*3/u L Monocytes Absolute Auto 0.6 0.1-1.2 X10*3/uL Eosinophils Absolute Auto 0.1 0.0-0.4 X10*3/u L Basophils Absolute Auto 0.0 0.0-0.2 X10*3/uL NRBC Abs Auto 0.000 0.0-0.012 X10*3/uL Liver Panel (Not yet review ed by provider) Interpretation: Performing Lab:[address] [address] Notes/Report: Bilirubin Total 0.3 0.0-1.0 mg/dL Bilirubin Direct 0.1 0.0-0.5 mg/dL Aspartate Amino Transferase 36 5-31 U/L Alanine Aminotransferase 25 0-31 U/L Total Protein 7.5 6.5-8.0 g/dL Albumin Level 4.6 3.5-5.0 g/dL Alkaline Phosphatase 66 39-117 U/L Amylase (Not yet reviewed by provider) Interpretation: Performing Lab:[address] [address] Notes/Report: Amylase 58 28-100 U/L Lipase Reviewed date:04/17/2025 06:33:55 PM Interpretation: Performing Lab:[address] [id number] Notes/Report: Lipase 38 8-78 U/L Reason For Referral No Information Medications Medication [...] Risk Notes Problem Right upper quadrant pain ([id number]) RUQ abdominal pain (R10.11) Active confirmed Problem Elevated liver enzymes level ([id number]) Elevated liver function tests (R94.5) Active confirmed Vital Signs Temperature 98.4 degrees Fahrenheit 04/15/2025 Blood pressure diastolic 01 mm Hg 04/15/2025 Height 64 in 04/15/2025 Blood pressure systolic 001 mm Hg 04/15/2025 Weight 146.4 lbs 04/15/2025 BMI 25.13 kg/m2 04/15/2025 Encounters Encounter Location Date Provider Diagnosis [facility] [address] [place] [address] 04/15/2025 Duane Chin RUQ abdominal pain R10.11 [...] I shall attempt to obtain records from [facility] in regard to her studies back in [...] I shall attempt to obtain records from [facility] in regard to her studies back in [...] Other Need CT, labs, etc from her [facility] ER visit in 11/2024 Overall, Angela appears [...] I shall attempt to obtain records from [facility] in regard to her studies back in [...] LIVER PROFILE 04/15/2025 CBC w DIFF 04/15/2025 Complete Blood Count Auto Diff Liver Panel 04/15/2025 Amylase 04/15/2025 Amylase 04/15/2025 Lipase 04/15/2025 US abdomen complete 04/15/2025 Insurance Providers Payer Name Payer Address Payer Phone Subscriber Number Group Number Insured Name Patient Relationship to Insured Coverage Start Date Coverage End Date [facility] [address] [address] [place], [place] [id number] [phone] [id number] WALKER Jasmine ANGELA Self - patient is the insured Medical [...] hepatitis C viral load in 2014 Denies AL,CVA,Lung disease,renal disease IDDM Depression HTN Negative screening colonoscopy [place] [address] Villa Surgical History Surgery Date(Month/Year) scheduled for hemorrhoid surgery on December 09, [address] Villa appendectomy cholecystectomy Hospitalization History Reason Date(Month/Year) abdominal pain at [facility] 11/2024
--- OUTSIDE RECORDS SUMMARY | 2025-04-18 13:10 | XMS_ITS | Encounter Summary ---
Author Organization [employer] Address [address] [place] [address] Care Team Providers Care Carburizer Name Role Phone Unavailable Primary Care Provider Unavailabl e Encounter Details Date Type Department Care Team (Latest Contact Info) Description 10/17/2018 Abstract [facility] CONVERSIONS Dental, Provider, DDS Social History [...]
== END 2025-04-18 12:14 | disposition home or self-care (01) ==
PROVIDERS: PCP Physician Assistant; Visit Provider Physician Assistant
DX: M89.8X1 Other specified disorders of bone, shoulder (principal); M54.2 Cervicalgia

== ENCOUNTER 2025-04-18 11:29 | Outpatient (REF) | payer OTHER, SELFPAY ==
--- NOTE | ~2025-04-18 | XR_ITS ---
EXAMINATION: XR CLAVICLE, LEFT CLINICAL INFORMATION: M89.8X1 - Other specified disorders of bone, shoulder COMPARISON: November 06, 2024 TECHNIQUE: AP and axial views of the left clavicle. FINDINGS: The clavicle is intact. The bones and soft tissues are normal. No fracture. Acromioclavicular joint alignment is anatomic. XR/XR clavicle LT IMPRESSION: Unremarkable left clavicle and AC joint. Electronically signed by: Chad Cabrera MD 04/18/2025 12:33 PM EDT
== END 2025-04-18 11:30 | disposition home or self-care (01) ==
LOC: HO.HMGCX 11:29
PROVIDERS: PCP Physician Assistant; Visit Provider Physician Assistant
DX: S16.1XXA Strain of muscle, fascia and tendon at neck level, initial encounter (principal); M89.8X1 Other specified disorders of bone, shoulder; X58.XXXA Exposure to other specified factors, initial encounter
CPT/HCPCS: 73000; 99212

== ENCOUNTER → 2025-04-18 12:14 | Outpatient (BNV) | payer OTHER, SELFPAY | PROVIDERS: PCP Physician Assistant; Visit Provider Radiology Diagnostic Radiology | DX: M25.512 Pain in left shoulder (principal) | CPT/HCPCS: 73000 ==

== ENCOUNTER 2025-04-30 13:45 | Outpatient (AMB) | payer OTHER, SELFPAY ==
--- NOTE | 2025-04-30 13:49 | MHC.PC.OV ---
Vital Signs 04/30/25 13:50 Height 5 ft 4 in Weight 145 lb 6 oz BMI 25.0 BP 138/78 Blood Pressure Location Lt brachial Position Sitting Pulse 100 Pulse Source Pulse Oximeter Temp 97.1 F Temp Source Temporal Artery Scan Pulse Oximetry (%) 97 Oxygen Delivery Method Room Air Intake Visit Reasons: f/u DMII/ HTN Bench Molder Apprentice Required: Yes Bench Molder Apprentice Language: Comoran Allergies sulfadimethoxine Adverse Reaction (Intermediate, Verified 04/30/25 14:00) Rash tizanidine Adverse Reaction (Intermediate, Verified 04/30/25 14:00) Headache Medication List - Last Reconciled 04/30/25 by Justin Cameron PA-C albuterol sulfate 90 mcg/actuation (Ventolin HFA) 2 puffs inhalation Q4-6H PRN alcohol swabs (Alcohol Prep Pads) 1 pad topical DAILY 90 days amlodipine 10 mg PO DAILY atorvastatin 10 mg PO DAILY 90 days azelastine 1 spray intranasal BID betamethasone valerate 0.1% 1 appl topical BID PRN 30 days blood sugar diagnostic (FreeStyle Lite Strips) CHECK THE BLOOD SUGAR ONCE A DAY cholecalciferol (vitamin D3) 25 mcg PO DAILY 90 days clonazepam 1 mg PO BID PRN cromolyn 4% 1 drp ophthalmic (eye) QID 30 days cyclobenzaprine 10 mg PO BEDTIME 30 days dulaglutide (Trulicity) 0.75 mg (0.5 mL) subcut QWEEK 4 weeks Held on 02/13/25. Instructions: Doctor's Order ferrous sulfate 325 mg PO DAILY fluocinonide 0.05% mL topical fluticasone propionate 50 mcg/actuation (Flonase Allergy Relief) 1 spray intranasal DAILY PRN insulin glargine (Lantus Solostar U-100 Insulin) 18 units subcut QPM lancets (FreeStyle Lancets) As directed check the sugar once a day levocetirizine 5 mg PO DAILY PRN lisinopril 20 mg PO DAILY pen needle, diabetic (BD Yuliet 2nd Gen Pen Needle) As directed pyridoxine (vitamin B6) 50 mg PO DAILY 90 days Tobacco use date assessed: 04/30/25 Dental Screening Dental Screen Date: 04/30/25 Did you have a dental visit in the last 12 months?: No Did you have a dental problem in the last 6 months where you did not have access to dental care?: No Was dental information given to patient?: No HPI f/u DMII/ HTN HPI Details Patient is a 59-year-old female here today for follow-up visit? Patient has a past medical history significant for type 2 diabetes, hypertension, generalized anxiety disorder.. Concern---> The patient reports recurrent episodes of left shoulder pain that occurred in November, February, and March. She describes swelling, severe pain, and markedly decreased range of motion, stating she is unable to move her arm or brush her hair during these episodes. She was seen at a walk-in clinic for this issue and was prescribed prednisone, which elevated her blood glucose levels. An X-ray of the shoulder was negative for arthritis, and she notes that physical therapy worsened her symptoms. The patient uses cyclobenzaprine (Flexeril) as a muscle relaxant. . Right upper quadrant abdominal pain: She reports ongoing abdominal pain, primarily on the right side, has been able to get in contact with the res habilitation assistant and has been sent for labs. Of note patient does admit to having hepatitis-C many years ago and was treated. Recent labs showing improved liver enzymes. She is interested in getting tested for viral load for hepatitis-C again. Otherwise denies any constipation , vomiting, nausea or diarrhea. We have discontinued the oxycodone at due to fears of dependency. The pain may be related to her medication, Trulicity, and a trial of discontinuation was considered to assess symptom resolution. .. Type 2 diabetes:? Patient's type 2 diabetes suboptimally controlled asthma most recent A1c at 8.7. She does report being on a prednisone taper recently for acute left-sided neck and shoulder inflammation and pain.. She continues on metformin and Lantus. She had stopped Trulicity due to fears of side effects and weight loss.. . We have changed her metformin to an extended release formulation. No reports of hypoglycemic events. PLAN: Will add on preprandial insulin via sliding scale for better glycemic control. .. Hyperlipidemia: Most recent fasting lipid panel showing borderline high cholesterol and LDL above goal 100. She has not been taking atorvastatin as she feels she can modify her diet. Will restart atorvastatin 10 mg . Anemia: Has improved with the addition of iron supplementation. Us also been eating beets every morning Laboratory Tests 11/07/24 11/20/24 04/15/25 08:12 14:26 16:01 RBC 3.81 L Hgb 11.3 L Hemoglobin A1c % 9.1 H AST 43 H 36 H ALT 25 PFSH Medical History Strain of cervical portion of left trapezius muscle Shoulder (girdle) dystocia during labor and deliver, delivered Acute pharyngitis Acute respiratory disease Lumbar radicular pain Renal cysts, acquired, bilateral Renal calculi Renal calculus, bilateral Hyperhidrosis Asthma Dysplasia of cervix, low grade (BILLY 1) Hypercholesterolemia Hypertension Type 2 diabetes mellitus with hyperglycemia Migraine Surgical History History of right oophorectomy Hx of cholecystectomy Hx of appendectomy History of hemorrhoidectomy Family History Father Substance abuse Brother Substance abuse Schizophrenia Other Mental and behavioral problem Social History Housing: Apartment Alcohol intake: never Comment: ok with current level of relief-pyridium given Patient Tobacco Use Status: Never used Tobacco Tobacco use type: Cigarette e-Cigarette/Vaping Use: Never Used Second Hand Smoke Exposure: No service: No Current occupational status: disabled Cognitive needs: No Hearing needs: No Vision needs: No Questionnaire PHQ-9 Over the last 2 weeks, how often have you been bothered by any of the following problems? 1. Little interest or pleasure in doing things: several days 2. Feeling down, depressed, or hopeless: several days 3. Trouble falling or staying asleep, or sleeping too much: nearly every day 4. Feeling tired or having little energy: several days 5. Poor appetite or overeating: several days 6. Feeling bad about yourself - or that you are a failure or have let yourself or your family down: several days 7. Trouble concentrating on things, such as reading the newspaper or watching television: several days 8. Moving or speaking so slowly that other people could have noticed. Or the opposite - being so fidgety or restless that you have been moving around a lot more than usual: not at all 9. Thoughts that you would be better off or of hurting yourself in some way: not at all Total score: 9 Depression Screening Interpretation: Positive Depression Screening Follow-up: Existing condition Depression Screening Done: Yes Source: Developed by Drs. Duane Foreman, Lilli Ospina, Jeff Bravo and colleagues, with an educational rashawn from [employer]. Thrive Questionnaire Date Thrive assessed: 11/06/24 I am a: Patient What is your living situation today?: I have a steady place to live Within the past 12 months, did the food you bought not last and you didn't have the money to get more?: Never true Within the past 12 months, did you worry whether your food would run out before you got money to buy more?: Sometimes True Do you have trouble paying for medicines?: No Do you have trouble getting transportation to medical appointments?: No Do you have trouble paying your heating and electricity bill?: No Do you have trouble taking care of your child, family member or friend?: No Do you have trouble with day-to-day activities such as bathing, preparing meals, shopping, managing finances, etc.?: I choose not to answer this question Are you currently unemployed and looking for a job?: No Are you interested in more education?: Yes Please select the resources that you would like help with: None Currently or been in a relationship where the following occur: I choose not to answer THRIVE Score: 1 AUDIT C Alcohol Use Questionnaire (AUDIT-C) 1. How often do you have a drink containing alcohol?: Never 3. How often do you have six or more drinks on one occasion?: Never Total Score: 0 JASON-7 AMB Questionnaire JASON-7 Date JASON - 7 assessed: 07/09/24 Feeling nervous, anxious, or on edge: 1 = Several days Not being able to stop or control worryin = More than half the days Worrying too much about different things: 2 = More than half the days Trouble relaxin = More than half the days Being so restless that it is hard to sit still: 2 = More than half the days Becoming easily annoyed or irritable: 1 = Several days Feeling afraid as if something awful might happen: 2 = More than half the days Total JASON-7 score (0-4 normal; 5-9 mild; 10-14 moderate; 15-21 severe): 12 Source: Developed by Drs. Duane Foreman, Lilli Ospina, Jeff Bravo and colleagues, with an educational rashawn from [employer]. Review of Systems Const Denies headache(s) Eyes Denies loss of vision ENT Denies vertigo, Denies dizziness, Denies headache(s) and Denies sore throat Card Denies chest pain, Denies leg edema and Denies lightheadedness Resp Denies cough, Denies hemoptysis and Denies wheezing GI Denies abdominal pain, Denies melena, Denies constipation, Denies diarrhea and Denies vomiting Denies urinary frequency, Denies dysuria and Denies urinary urgency Musc Denies arthralgias, Denies joint swelling, Denies numbness and Denies tingling Neuro Denies Abnormal speech present, Denies behavioral changes, Denies vertigo, Denies dizziness, Denies headache(s), Denies loss of vision, Denies memory loss, Denies numbness and Denies tingling Psych Denies anxiety, Denies behavioral changes, Denies depression, Denies memory loss and Denies panic attacks Hollis/Lymph Denies easy bleeding and Denies easy bruising Aller/Immun Denies wheezing Physical exam (Primary Care) Vital Signs: Last Vital Signs Temp 97.1 F 04/30/25 13:50 Pulse 100 04/30/25 13:50 BP 138/78 04/30/25 13:50 Pulse Ox 97 04/30/25 13:50 Oxygen Delivery Method Room Air 04/30/25 13:50 BMI result Body Mass Index 25.0 Tobacco/Smoking Status: Tobacco use Status Tobacco use date assessed 04/30/25 04/30/25 13:55 Patient Tobacco Use Status Never used Tobacco 04/30/25 13:55 Tobacco use type Cigarette 04/30/25 13:55 e-Cigarette/Vaping Use Never Used 04/30/25 13:55 PHQ-9: PHQ-9 Score PHQ-9: Total score 9 04/30/25 14:02 Depression Screening Interpretation: Positive Depression Screening Follow-up: Existing condition Thrive Assessment: Date of Thrive Assessment Date Thrive assessed 11/06/24 04/30/25 13:55 Currently or been in a relationship where the following occur: I choose not to answer Const General: healthy appearing, no acute distress, alert and awake Nutritional Appearance: well nourished Orientation/consciousness: oriented to person, oriented to place and oriented to time HENMT Ears: TM's normal bilaterally General nose exam: Normal nasal mucous membranes and turbinates present Eyes Conjunctivae: conjunctivae normal Sclerae: sclerae normal Pupils: Equal, round and reactive pupils present Neck Neck: Yes no lymphadenopathy and Yes no JVD Thyroid: Thyroid normal Carotids: no bruits Resp Effort & Inspection: normal respiratory effort and not tachypneic Auscultation: no crackles, no rales, no rhonchi and no wheezes Cardio Rate: regular rate Rhythm: regular rhythm Heart sounds: no murmurs and normal S1 and S2 GI Palpation (GI): Soft to palpation, nontender, no hepatomegaly and no splenomegaly Auscultation: normal bowel sounds Skin General skin exam: no rashes or lesions noted and dry skin Neuro General: oriented to person, oriented to place and oriented to time Cranial nerves: Yes Equal, round and reactive pupils present Speech: No Abnormal speech present Gait exam (Neuro): Normal gait present Motor exam (neuro): no tremor noted Extrem Other: LEFT SHOULDER: NO NOTABLE ATROPHY OR INFLAMMATION AT THIS TIME. NEGATIVE EMPTY CAN TEST, NEGATIVE BRITO TEST. Right upper extremity: full ROM Left upper extremity: full ROM Right lower extremity: full ROM; no edema Left lower extremity: full ROM; no edema Psych Mental Status: mental status grossly normal Speech and movement: Normal speech and movement present Affect: normal affect Attitude: cooperative Thought process: Normal thought process present Results AMB Hemoglobin A1c AMB Hemoglobin A1c 8.7 % Last Edit by Megan Millan CMA on 04/30/25 13:59 Results Reviewed Results Reviewed: Laboratory Last Values Hgb A1c (Clinic) 8.7 % (4.0-6.0) H 04/30/25 13:56 Coding Level of Care Code Est Pt Level 4 (99813) Diagnoses RUQ abdominal pain R10.11 Type 2 diabetes mellitus with hyperglycemia, without long-term current use of insulin E11.65 Diabetes mellitus director long term care insulin use: without intermediate use Essential hypertension I10 Hypertension type: essential hypertension Anemia in other chronic diseases classified elsewhere D63.8 Anemia type: other cause Other causes of anemia: chronic disease, other Hypercholesterolemia E78.00 Fibromyalgia M79.7 Hepatitis C antibody test positive R76.8 Tendinitis of left shoulder M77.8 Assessment & Plan Assessment & Plan (1) RUQ abdominal pain: Code(s): R10.11 - Right upper quadrant pain Category: Medical Plan: Unclear etiology to patient's right upper quadrant abdominal pain. CT of abdomen fluid collection in the right pelvis though no clear etiology in the right upper quadrant were pain in his located. She has had a cholecystectomy years ago. We have discontinued her oxycodone 5 mg to which he was using for abdominal pain due to fears of dependency. She has been doing okay without particular pain management for her abdominal pain. She has followed up with the Gastroenterology and has been sent for lab testing which essentially stable. We have stopped her Trulicity to see if this was a causative agent of her abdominal pain though unfortunately abdominal pain continues. (2) Type 2 diabetes mellitus with hyperglycemia: Code(s): E11.65 - Type 2 diabetes mellitus with hyperglycemia Category: Medical Qualifiers: Diabetes mellitus director long term care insulin use: without intermediate use Qualified Code(s): E11.65 - Type 2 diabetes mellitus with hyperglycemia Plan: Patient's type 2 diabetes suboptimally controlled with A1c today at 8.7. She continues on metformin a 1000 b.i.d and her Lantus. Unfortunately diabetes remains suboptimally controlled. Will add on preprandial insulin to take before each meal to help manage her sugars better. We will hold her Trulicity dose is this may be causing her abdominal pain. Goal A1c is to be below 7.0 (3) Hypertension: Code(s): I10 - Essential (primary) hypertension Category: Medical Qualifiers: Hypertension type: essential hypertension Qualified Code(s): I10 - Essential (primary) hypertension Plan: Patient's blood pressure acceptable today in office. She will continue her current dose of antihypertensive medication with goal blood to 40/90 (4) Anemia: Code(s): D64.9 - Anemia, unspecified Category: Medical Qualifiers: Anemia type: other cause Other causes of anemia: chronic disease, other Qualified Code(s): D63.8 - Anemia in other chronic diseases classified elsewhere Plan: Anemia has improved significantly since starting iron supplementation. Will continue iron supplementation daily. (5) Hypercholesterolemia: Code(s): E78.00 - Pure hypercholesterolemia, unspecified Category: Medical Plan: Patient's most recent lipid panel showing slightly elevated total cholesterol and LDL above goal of 100. She will work on dietary modification She continues on atorvastatin 20 mg. Will continue to follow lipid panel to ensure LDL appropriate below 100. (6) Fibromyalgia: Code(s): M79.7 - Fibromyalgia Category: Medical Plan: Patient has a chronic history of pain complains over multiple regions of her body. She does have a clinical picture fibromyalgia. She is willing to start Lyrica to see if this will help reduce her pain. (7) Hepatitis C antibody test positive: Code(s): R76.8 - Other specified abnormal immunological findings in serum Category: Medical Plan: Patient has a history of hepatitis-C that was treated years ago. Due to her right upper quadrant abdominal pain she is interested in retesting hepatitis-C viral load to see if there is recurrence. (8) Tendinitis of left shoulder: Code(s): M77.8 - Other enthesopathies, not elsewhere classified Category: Medical Plan: Regarding the recurrent left shoulder pain, a referral will be placed to Orthopedics for further evaluation and possible cortisone injection. An MRI of the shoulder will be ordered to assess the soft tissues for adhesive capsulitis or rotator cuff tendinopathy, pending insurance approval. Orders: Orders AMB Hemoglobin A1c 04/30/25 Z13.9 - Encounter for screening, unspecified Hepatitis C Viral Load 04/30/25 R76.8 - Other specified abnormal immunological findings in serum Hepatitis C Genotype 04/30/25 R76.8 - Other specified abnormal immunological findings in serum MR shoulder LT wo con 04/30/25 M77.8 - Other enthesopathies, not elsewhere classified Referrals Orthopedics Referral M77.8 - Other enthesopathies, not elsewhere classified Medications: New insulin lispro (Admelog SoloStar U-100 Insulin lispro) 8 units (0.08 mL) subcut TID 15 mL 1RF 4 weeks E11.65 - Type 2 diabetes mellitus with hyperglycemia Changed From blood sugar diagnostic (FreeStyle Lite Strips) CHECK THE BLOOD SUGAR ONCE A DAY 100 strips 2RF E11.65 - Type 2 diabetes mellitus with hyperglycemia To blood sugar diagnostic (FreeStyle Lite Strips) CHECK THE BLOOD SUGAR 3x DAY 100 strips 2RF E11.65 - Type 2 diabetes mellitus with hyperglycemia
[2025-04-30 13:50] VITALS: BP 138/78; PULSE 100; TEMP 36.2; O2SAT 97; BMI 25.0
--- OUTSIDE RECORDS SUMMARY | 2025-04-30 16:49 | XMS_ITS | Patient Health Record ---
Author Organization [facility] Address [address] [place] [address] Care Team Providers Care Rn Advanced Name Role Phone Justin Cameron Primary Care Provider Unavailab Duane Resendiz Unavailable [phone] Allergies Allergen (clinical drug ingredient) Drug/Non Drug Allergy documented on EMR Reaction Allergy Type Onset Date Status seasonal (uncoded) Unknown Allergy A ctive Results Component Value Reference Range Notes Complete Blood Count Auto Di ff Reviewed date:04/20/2025 02:02:19 PM Interpretation: Performing Lab:[facility], [address] [place] [phone] Notes/Report: White Blood Count 6.2 4.8-10.8 X10*3/uL [...] Abs Auto 0.000 0.0-0.012 X10*3/uL Liver Panel Reviewed date:04/20/2025 03:35:33 PM Interpretation: Performing Lab:[facility], [address] [place] [id number] Notes/Report: Bilirubin Total 0.3 0.0-1.0 mg/dL Bilirubin Direct 0.1 0.0-0.5 mg/dL Aspartate Amino Transferase 36 5-31 U/L Alanine Aminotransferase 25 0-31 U/L Total Protein 7.5 6.5-8.0 g/dL Albumin Level 4.6 3.5-5.0 g/dL Alkaline Phosphatase 66 39-117 U/L Amylase Reviewed date:04/20/2025 02:00:17 PM Interpretation: Performing Lab:[facility], [address] [place] [phone] Notes/Report: Amylase 58 28-100 U/L Lipase Reviewed date:04/17/2025 06:33:55 PM Interpretation: Performing Lab:[facility], [address] [place] [phone] Notes/Report: Lipase 38 8-78 U/L Reason For [...] Risk Notes Problem Right upper quadrant pain ([id number]) RUQ abdominal pain (R10.11) Active confirmed Problem Elevated liver enzymes level ([id number]) Elevated liver function tests (R94.5) Active confirmed Vital Signs Temperature 98.4 degrees Fahrenheit 04/15/2025 Blood pressure diastolic 01 mm Hg 04/15/2025 Height 64 in 04/15/2025 Blood pressure systolic 001 mm Hg 04/15/2025 Weight 146.4 lbs 04/15/2025 BMI 25.13 kg/m2 04/15/2025 Encounters Encounter Location Date Provider Diagnosis [facility] [address] [place] [address] 04/15/2025 Duane Chin RUQ abdominal pain R10.11 and Elevated liver function tests R94.5 Assessments Encounter Date Diagnosis (ICD Code) Assessment Notes Treatment Notes Treatment Clinical Notes Section Notes 04/15/2025 RUQ abdominal pain (ICD-10 - R10.11) Overall, Angela appears well from a clinical standpoint. Her symptoms, while frequent and bothersome, do not seem particularly worrisome given no [...] I shall attempt to obtain records from [facility] in regard to her studies back [...] appears well from a clinical standpoint. Her symptoms, while frequent and bothersome, do not seem particularly worrisome given no [...] I shall attempt to obtain records from [facility] in regard to her studies back [...] Other Need CT, labs, etc from her [facility] ER visit in 11/2024 Overall, Angela appears well from a clinical standpoint. Her symptoms, while frequent and bothersome, do not seem particularly worrisome given no [...] I shall attempt to obtain records from [facility] in regard to her studies back [...] Insured Coverage Start Date Coverage End Date [facility] [address] [address] [place], [place] [phone] [id number] WALKER Jasmine ANGELA Self - patient is [...] hepatitis C viral load in 2014 Denies NH,CVA,Lung disease,renal disease IDDM Depression HTN Negative screening colonoscopy [place] [address] Villa Surgical History Surgery Date(Month/Year) scheduled for hemorrhoid surgery on December 09, [address] Villa appendectomy cholecystectomy
--- OUTSIDE RECORDS SUMMARY | 2025-04-30 16:49 | XMS_ITS | Encounter Summary ---
Author Organization [employer] Address [address] [facility] [address] [place] [address] Care Team Providers Care Windows Application Packager Name Role Phone Unavailable Primary Care Provider Unavailabl e Encounter Details Date Type Department Care Team (Latest Contact Info) Description 10/17/2018 Abstract [facility]VERSION[facility] Dental, Provider, DDS Social History [...]
--- OUTSIDE RECORDS SUMMARY | 2025-04-30 16:49 | XMS_ITS | Clinical Summary ---
Author Organization [employer] Address [address] [place] [address] [address] [place] [address] Care Team Providers Care Windows Phone Developer Name Role Phone Unavailable Primary Care Provider [...] slide preparation; their use is not recommended. Maintenance Data Analyst: SEE COMMENT [facility] Comment: ED, CT(ASCP) CT screening location: [place] [address] Interpretation/Res ult: [facility] Comment: Unable to provide interpretation due to unsatisfactory specimen adequacy. LMP: [facility] Comment:NONE GIVEN Prev. BX: NONE GIVEN [facility] Prev. PAP: SEE COMMENT [facility] Comment:NONE GIVEN Review Maintenance Data Analyst: [facility] Comment: HERRERA, CT(ASCP) CT screening location: [place] [address] SOURCE: [facility]MENT [facility] Comment:None given Statement Of Adequacy: [facility] Comment: Specimen processed and examined, but unsatisfactory for evaluation due to an insufficient number of squamous cells. 05/11/2020 Baljeet Islas MD LAB PATHOLOGY ORDERABLES Final R esult [facility] [address] [place] [address], * 3D DIGITAL CHANDNI SCR MAMMO 1 [...] DIGITAL CHANDNI SCR MAMMO 1 Nela Gray HADOOP SOFTWARE ENGINEER IMG BI PROCEDURES Final Result from Last 3 Months or Most Recently Relevant to Health Maintenance
== END 2025-04-30 14:25 | disposition home or self-care (01) ==
LOC: HO.HMCH 13:46
PROVIDERS: PCP Physician Assistant; Visit Provider Physician Assistant
DX: R10.11 Right upper quadrant pain (principal); E11.65 Type 2 diabetes mellitus with hyperglycemia; I10 Essential (primary) hypertension; D63.8 Anemia in other chronic diseases classified elsewhere; E78.00 Pure hypercholesterolemia, unspecified; M79.7 Fibromyalgia; R76.89 Other specified abnormal immunological findings in serum; M77.8 Other enthesopathies, not elsewhere classified

== ENCOUNTER 2025-04-30 13:45 | Outpatient (REF) | payer OTHER, SELFPAY ==
[2025-04-30 14:57] LABS: Hematocrit 35.8 % (37.0-47.0); Hemoglobin 11.8 g/dl (12.0-16.0); Mean Corpuscular HGB Conc 33.0 g/dl (31.0-35.0); Mean Corpuscular Hemoglobin 29.9 pg (27.0-33.0); Mean Corpuscular Volume 90.9 fL (80.0-98.0); NRBC Abs Auto 0.000 X10*3/uL (0.0-0.012); NRBC Pct Auto 0.0 /100WBC (0.0-0.2); Platelet Count 269 X10*3/uL (160-400); Red Blood Count 3.94 X10*6/uL (4.20-5.50); White Blood Count 9.1 X10*3/uL (4.8-10.8)
[2025-04-30 15:28] LABS: Alanine Aminotransferase 22 U/L (0-31); Albumin Level 4.7 g/dL (3.5-5.0); Alkaline Phosphatase 70 U/L (39-117); Anion Gap 9 (12-20); Aspartate Amino Transferase 28 U/L (5-31); Blood Urea Nitrogen 15 mg/dL (9-16); Calcium 10.3 mg/dL (8.4-10.2); Carbon Dioxide 31 mmol/L (22-29); Chloride 105 mmol/L (96-108); Cholesterol 177 mg/dL (<200); Estimated Glomerular Filt Rate > 60; HDL Cholesterol 57 mg/dL (>40); Potassium 3.8 mmol/L (3.3-5.1); Sodium 141 mmol/L (135-145); Total Protein 7.8 g/dL (6.5-8.0); Triglycerides 149 mg/dL (<150)
[2025-05-01 23:53] LABS: HCV Log PCR <1.18 NOT DETECTED Log IU/mL (NOT DETECTED); HepC Viral Load <15 NOT DETECTED IU/mL (NOT DETECTED)
== END 2025-04-30 13:46 | disposition home or self-care (01) ==
LOC: HO.LAB 13:45
PROVIDERS: PCP Physician Assistant; Visit Provider Physician Assistant
DX: I10 Essential (primary) hypertension (principal); E78.00 Pure hypercholesterolemia, unspecified; R76.89 Other specified abnormal immunological findings in serum; R10.11 Right upper quadrant pain; E11.65 Type 2 diabetes mellitus with hyperglycemia; D63.8 Anemia in other chronic diseases classified elsewhere; M79.7 Fibromyalgia; M77.8 Other enthesopathies, not elsewhere classified; Z79.85 Long-term (current) use of injectable non-insulin antidiabetic drugs; Z79.4 Long term (current) use of insulin; Z79.899 Other long term (current) drug therapy
CPT/HCPCS: 36415; 80053; 80061; 83036; 85027; 87522; 87902; 99212

== ENCOUNTER 2025-06-04 12:48 | Outpatient (AMB) | payer OTHER, SELFPAY ==
--- NOTE | 2025-06-04 12:52 | MHC.OFFVIS ---
Intake Visit Reasons: Left shoulder pain and weakness Intake Note: Angela is a 59 year old right hand dominant female who presents with complaints of progressively worsening left shoulder pain and weakness. The patient states that her symptoms have gotten worse over the last 3 months in spite of continued non operative treatments. She reports difficulty lifting her left hand above shoulder height. She has failed the last 6 weeks of conservative treatment which has included Tylenol, Naprosyn, Flexeril, a home exercise program and physical therapy exercises. She denies any numbness or tingling in either upper extremity. Most of the pain is along the superior and lateral aspects of her shoulder. At this point her left shoulder pain and weakness or interfering with her activities of daily living and her ability to sleep well through the night. Jewelry Internship Required: Yes Jewelry Internship Language: Marine Plumber Services: Jewelry Internship Present (ipad) Jewelry Internship Name: Karlene [id number] Allergies sulfadimethoxine Adverse Reaction (Intermediate, Verified 06/04/25 13:02) Rash tizanidine Adverse Reaction (Intermediate, Verified 06/04/25 13:02) Headache Medication List - Last Reconciled 06/04/25 by Marino Wade MD albuterol sulfate 90 mcg/actuation (Ventolin HFA) 2 puffs inhalation Q4-6H PRN alcohol swabs (Alcohol Prep Pads) 1 pad topical DAILY 90 days amlodipine 10 mg PO DAILY atorvastatin 10 mg PO DAILY 90 days azelastine 1 spray intranasal BID betamethasone valerate 0.1% 1 appl topical BID PRN 30 days blood sugar diagnostic (FreeStyle Lite Strips) CHECK THE BLOOD SUGAR 3x DAY cholecalciferol (vitamin D3) 25 mcg PO DAILY 90 days clonazepam 1 mg PO BID PRN cromolyn 4% 1 drp ophthalmic (eye) QID 30 days cyclobenzaprine 10 mg PO BEDTIME 30 days dulaglutide (Trulicity) 0.75 mg (0.5 mL) subcut QWEEK 4 weeks Held on 02/13/25. Instructions: Doctor's Order ferrous sulfate 325 mg PO DAILY fluocinonide 0.05% mL topical fluticasone propionate 50 mcg/actuation (Flonase Allergy Relief) 1 spray intranasal DAILY PRN insulin glargine (Lantus Solostar U-100 Insulin) 18 units (0.18 mL) subcut QPM insulin lispro (Admelog SoloStar U-100 Insulin lispro) 8 units (0.08 mL) subcut TID 4 weeks lancets (FreeStyle Lancets) As directed check the sugar once a day levocetirizine 5 mg PO DAILY PRN lisinopril 20 mg PO DAILY pen needle, diabetic (BD Yuliet 2nd Gen Pen Needle) As directed pyridoxine (vitamin B6) 50 mg PO DAILY 90 days [facility] Medical History Strain of cervical portion of left trapezius muscle Shoulder (girdle) dystocia during labor and deliver, delivered Acute pharyngitis Acute respiratory disease Lumbar radicular pain Renal cysts, acquired, bilateral Renal calculi Renal calculus, bilateral Hyperhidrosis Asthma Dysplasia of cervix, low grade (BILLY 1) Hypercholesterolemia Hypertension Type 2 diabetes mellitus with hyperglycemia Migraine Surgical History History of right oophorectomy Hx of cholecystectomy Hx of appendectomy History of hemorrhoidectomy Family History Father Substance abuse Brother Substance abuse Schizophrenia Other Mental and behavioral problem Social History Housing: Apartment Alcohol intake: never Comment: ok with current level of relief-pyridium given Patient Tobacco Use Status: Never used Tobacco Tobacco use type: Cigarette e-Cigarette/Vaping Use: Never Used Second Hand Smoke Exposure: No service: No Current occupational status: disabled Cognitive needs: No Hearing needs: No Vision needs: No Physical Exam Const Other: Well-nourished well-developed very friendly female awake alert and oriented x3 in no acute distress Extrem Other: Left shoulder examination shows decreased range of motion when compared to her right shoulder, 4+ out of 5 strength with supraspinatus testing, positive impingement signs, no instability Results Reviewed Results Reviewed: X-rays of the patient's left shoulder taken previously show severe acromioclavicular joint narrowing, a type 2 acromion, no acute bony abnormalities Assessment & Plan Assessment & Plan (1) Rotator cuff insufficiency of left shoulder: Code(s): M25.312 - Other instability, left shoulder Category: Medical Plan Ms. Willis Castañeda presents with left shoulder pain and weakness due to impingement syndrome and possible rotator cuff tearing. Thus, I will send the patient for an MRI of her left shoulder for further evaluation. I will see her back once the MRI is completed to discuss the findings and treatment options. Feel free to call me at any time should questions regarding her orthopedic management arise. Thank you very much for asking me to see this very friendly patient. I spent 22 minutes in reviewing the patient's records and imaging studies, seeing the patient and documenting in the medical record. Orders: Orders MR shoulder LT wo con 06/05/25 M25.312 - Other instability, left shoulder Coding Level of Care Code New Pt Level 3 (15039) Add On Problem Visit Only Diagnoses Rotator cuff insufficiency of left shoulder M25.312
--- OUTSIDE RECORDS SUMMARY | 2025-06-04 16:57 | XMS_ITS | Encounter Summary ---
Author Organization [email or web address] Address [address] [facility] [address] [place] [address] Care Team Providers Care Wallboard Worker Name Role Phone Unavailable Primary Care Provider Unavailabl e Encounter Details Date Type Department Care Team (Latest Contact Info) Description 10/17/2018 Abstract [facility] CONVERSIONS Dental, Provider, DDS Social History [...]
--- OUTSIDE RECORDS SUMMARY | 2025-06-04 16:57 | XMS_ITS | Clinical Summary ---
Author Organization [employer] Address [address] [place] [address] [address] [place] [address] Care Team Providers Care Director Of Community Education Name Role Phone Unavailable Primary Care Provider [...] along with historic and current clinical information. Comment: [facility] Comment: Microscopic features suggestive of lubricant. Lubricant jellies may interfere with slide preparation; their use is not recommended. Jig Boring Machine Set Up Operator: SEE COMMENT [facility] Comment: ED, CT(ASCP) CT screening location: [place] [address] Interpretation/Res ult: [facility] Comment: Unable to provide interpretation due to unsatisfactory specimen adequacy. LMP: [facility] Comment:NONE GIVEN Prev. BX: NONE GIVEN [facility] Prev. PAP: [facility] Comment:NONE GIVEN Review Jig Boring Machine Set Up Operator: [facility] Comment: HERRER[place], CT(ASCP) CT screening location: [place] [address] SOURCE: [facility] Comment:None given Statement Of Adequacy: [facility] Comment: Specimen processed and examined, but unsatisfactory for evaluation due to an insufficient number of squamous cells. 05/11/2020 Baljeet Islas MD LAB PATHOLOGY ORDERABLES Final R esult [facility] [address] [place] [address], * 3D DIGITAL CHANDNI SCR MAMMO 1 [...] DIGITAL CHANDNI SCR MAMMO 1 Nela Gray SPACE SCHEDULER IMG BI PROCEDURES Final Result from Last 3 Months or Most Recently Relevant to Health Maintenance
--- OUTSIDE RECORDS SUMMARY | 2025-06-04 16:57 | XMS_ITS | Patient Health Record ---
Author Organization [facility] Address [address] [place] [address] Care Team Providers Care Machine Clothing Replacer Name Role Phone Justin Cameron Primary Care Provider UnavailDuane Feliciano Unavailable [phone] Allergies Allergen (clinical drug ingredient) Drug/Non Drug Allergy documented on EMR Reaction Allergy Type Onset Date Status seasonal (uncoded) Unknown Allergy A ctive Results Component Value Reference Range Flag Notes Lipase Reviewed date:04/17/2025 06:33:55 PM Interpretation: Performing Lab:[facility], [address] [place] [phone] Notes/Report: Lipase 38 8-78 U/L N Amylase Reviewed date:04/20/2025 02:00:17 PM Interpretation: Performing Lab:[facility], [address] [place] [phone] Notes/Report: Amylase 58 28-100 U/L N Liver Panel Reviewed date:04/20/2025 03:35:33 PM Interpretation: Performing Lab:[facility], [address] [place] [phone] Notes/Report: Bilirubin Total 0.3 0.0-1.0 mg/dL N Bilirubin Direct 0.1 0.0-0.5 mg/dL N Aspartate Amino Transferase 36 5-31 U/L H Alanine Aminotransferase 25 0-31 U/L N Total Protein 7.5 6.5-8.0 g/dL N Albumin Level 4.6 3.5-5.0 g/dL N Alkaline Phosphatase 66 39-117 U/L N Complete Blood Count Auto Di ff Reviewed date:04/20/2025 02:02:19 PM Interpretation: Performing Lab:[facility], [address] [place] [address] Notes/Report: White Blood Count 6.2 4.8-10.8 X10*3/uL N Red Blood Count 3.81 4.20-5.50 X10*6/uL L Hemoglobin 11.3 12.0-16.0 g/dl L Hematocrit 35.2 37.0-47.0 % L Mean Corpuscular Volume 92.4 80.0-98.0 fL N Mean Corpuscular Hemoglobin 29.7 27.0-33.0 pg N Mean Corpuscular HGB Conc 32.1 31.0-35.0 g/dl N Red Cell Distribution Width 13.1 11.0-16.0 % N Platelet Count 274 160-400 X10*3/uL N Mean Platelet Volume 10.6 9.4-12.3 fL N Neutrophils Percent Auto 55.7 45-73 % N Imm Gran Pct Auto 0.2 0.0-0.4 % N Lymphocytes Percent Auto 32.7 20-40 % N Monocytes Percent Auto 9.8 2-11 % N Eosinophils Percent Auto 1.0 0-4 % N Basophils Percent Auto 0.6 0-2 % N NRBC Pct Auto 0.0 0.0-0.2 /100WBC N Neutrophils Absolute Auto 3.5 2.0-8.3 x10*3/uL N Imm Gran Abs Auto 0.01 0.00-0.03 X10*3/uL N Lymphocytes Absolute Auto 2.0 1.2-4.9 X10*3/uL N Monocytes Absolute Auto 0.6 0.1-1.2 X10*3/uL N Eosinophils Absolute Auto 0.1 0.0-0.4 X10*3/uL N Basophils Absolute Auto 0.0 0.0-0.2 X10*3/uL N NRBC Abs Auto 0.000 0.0-0.012 X10*3/uL N Reason For Referral No Information Medications Medication SIG (Take, Route, Frequency, Duration) Notes Start Date End Date Status Atorvastatin Calcium 20 MG Tablet 1 tablet Orally Once a day 04/15/2025 A ctive amLODIPine-Atorvastatin 10-10 MG Tablet 1 tablet Orally Once a day Active Lantus 100 UNIT/ML Solution as directed Subcutaneous daily 04/15/2025 Active Lisinopril 10 MG Tablet 1 tablet Orally Once a day Active Dicyclomine HCl 10 MG Capsule 1 or 2 capsules Orally Every 6 hours if needed for abdominal pain/discomfort; Duration: 30 days 04/15/2025 Active Immunizations Vaccine Route Administration Date Status Comme nts Influenza Unknown 04/15/2025 Administered Social History Social History Additional Details Category Social Info Options Details Miscellaneous: Marital status: single Occupation: unemployed Section Notes: She does not smoke nor use a ny significant amounts of alcohol She does not smoke nor use a ny significant amounts of alcohol Problems Problem Type SNOMED Code ICD Code Onset Dates Problem Status W/U Status Risk Notes Problem Right upper quadrant pain (646495969) RUQ abdominal pain (R10.11) Active confirmed Problem Elevated liver enzymes level (537242919) Elevated liver function tests (R94.5) Active confirmed Vital Signs Temperature 98.4 degrees Fahrenheit 04/15/2025 Blood pressure diastolic 01 mm Hg 04/15/2025 Height 64 in 04/15/2025 Blood pressure systolic 001 mm Hg 04/15/2025 Weight 146.4 lbs 04/15/2025 BMI 25.13 kg/m2 04/15/2025 Encounters Encounter Location Date Provider Diagnosis [facility] [address] [place] [phone] 04/15/2025 Duane Chin RUQ abdominal pain R10.11 [...] I shall attempt to obtain records from [facility] in regard to her studies back in [...] I shall attempt to obtain records from [facility] in regard to her studies back in [...] Other Need CT, labs, etc from her [facility] ER visit in 11/2024 Overall, Angela appears [...] I shall attempt to obtain records from [facility] in regard to her studies back in [...] Insured Coverage Start Date Coverage End Date [facility] [address] [address] [place], [place] [id number] WALKER ANGELA Jasmine Self - patient is the insured Medical [...] hepatitis C viral load in 2014 Denies [place],CVA,Lung disease,renal disease IDDM Depression HTN Negative screening colonoscopy in [address] Villa Surgical History Surgery Date(Month/Year) cholecystectomy appendectomy scheduled for hemorrhoid surgery on December 09, [address] Villa
== END 2025-06-04 13:14 | disposition home or self-care (01) ==
LOC: HO.HOS 12:49
PROVIDERS: PCP Physician Assistant; Visit Provider Orthopaedic Surgery
DX: M25.312 Other instability, left shoulder (principal)
CPT/HCPCS: 99203

== ENCOUNTER → 2025-06-04 12:48 | Outpatient (BNVA) | payer OTHER, SELFPAY | PROVIDERS: PCP Physician Assistant; Visit Provider Orthopaedic Surgery | DX: M25.512 Pain in left shoulder (principal); M25.312 Other instability, left shoulder | CPT/HCPCS: 99202 ==